=== PATIENT | female | born 1955 | race Caucasian/White ===

== ENCOUNTER → 2016-06-28 | Outpatient (CLI) | payer MEDICARE, MEDICAID ==
[~2016-06-28] MED LIST: /ATOR40TA; /CIPR75TA OR; /PANT40TA; /QUET10TA; ACET30TA PO; ACET65TA; ACIPHEX; ADV250INH INH; ALBU83IN IN; ALBUTEROL INH; ALTA10CA; AMBI10TA; AMBI10TA OR; AMBI10TA PO; AMBIEN10 PO; AMBIEN5 PO; AMBIENCR12 PO; AMERGE PO; AMIT25TA2 OR; AMIT50TA2 OR; AMO500 PO; ASP81; ASPI325T OR; ASPI81TA83 OR; ASTELIN INH; ATOR1TAB18 PO; ATROVENT0.02% INH; AUGXR10 PO; BABY81CH; BACL10TA2 PO; BISA10SU2 RE; CALA120T2 OR; CALA180T; CALC500T49 OR; CALCCHW12 OR; CELEXA20 PO; CENTTAB47 PO; CIPRO500 PO; CLAR5CHW; COMBINATION CREAM TOP; COMBVENT INH; CORE12.5; DARVON-N1 PO; DERMATRAN TOP; DOXY100T OR; DULO1CAP PO; FENT50DI21 TD; FENT75PA TD; FIOR1CAP PO; FLAGYL500 PO; FLECTOR1.3 TOP; FLEXERIL10 PO; FLUO40CA PO; GABA-283 PO; GLUC500T; IBUP800T; IBUP800T OR; IBUP80TA PO; IMIT100T; IMIT100T OR; IMITREX100 PO; INSULANT; KLON1TAB OR; KLONOPIN05 PO; LEVA750T; LEXAPRO10 PO; LEXAPRO20 PO; LIDO5DIS; LIDO5DIS EX; LYRI75CA; LYRICA50 PO; MAXALT10 PO; METF500T PO; METF500T4; MILKSUS OR; MIRALEX OR; MORP15TA4 PO; MOTRIN800 PO; MS C30TA2; MUCINEX; MUCU400T2 OR; MULTIVIT; MULTIVIT OR; MULTIVIT PO; NEUR100C; NEUR300C PO; OXYC10TA97 OR; OXYC40TA19 OR; OYST500T; PAME50CA; PERC10TA17 PO; PERC5TAB8; PERC5TAB8 OR; PERC7.5T12 PO; PERCOCET PO; PRED10TA2 OR; PRED20TA OR; PREG100CA OR; PREG25CA PO; PROZ20CA OR; PROZ40CA; PROZ40CA OR; PROZAC20 PO; PROZAC40 PO; RELPAX PO; ROBA500T PO; ROBA750T4 PO; SENN8.6T5 OR; SIMV40TA2 OR; SOMA350T; SOMA350T PO; SONATA PO; SUMA100T2 PO; TERAZOL3 VAGINALLY; THERGRAN; TIZA4CAP3 PO; TOPAMAX25 PO; TOPI100T; TOPI100T OR; TOPI50TA; TOPI50TA OR; TYLE650T25 PO; ULTRAM50 PO; VICO5TAB; VICODIN PO; VICT18IN SC; VIT D 2000 PO; VITAMIN D2 PO; VITAMIN D50000 UNT; VOLT1GEL; VOLT1GEL EX; VOLT1GEL TD; VYTO10TA5; VYTO10TA5 OR; VYTORIN; VYTORIN PO; VYTORIN40 PO; WELL100T; ZANA4CAP; ZANA4CAP OR; ZANAFLEX4 PO; ZETI10TA OR; ZITH250T; ZITH500T OR; ZOCO40TA; ZOCOR10 PO; [UNRECOGNIZED DRUG - CODE]; [UNRECOGNIZED DRUG - CODE] PO; [UNRECOGNIZED DRUG - CODE] SC; [UNRECOGNIZED DRUG - OTHER] PO; [UNRECOGNIZED DRUG - OTHER] PO; oxycontin PO; zipsor
--- NOTE | 2016-07-16 01:33 | ECWPNPC ---
PATIENT NAME: ISAIAH RDZ : 1955 GENDER: FEMALE VISIT DATE: 06/28/2016 DISCHARGE DATE: 06/28/16 1114 VISIT LOCKED DATE TIME: PHYSICIAN: JORGE GILLESPIE RESOURCE: JORGE GILLESPIE REASON FOR APPOINTMENT 1. POST SIJ HISTORY OF PRESENT ILLNESS HISTORY OF PRESENT ILLNESS: HERE FOR POST PROCEDURE F/U.HAD LEFT SIJ ON 05-31-16.REPORTS ONLY 2 DAYS OF MINIMAL IMPROVEMENT .DESCRIBES GENERALIZED BACK PAIN 5/10 VAS.PAIN IS DESCRIBED CONSTAT=NT ACHING AND SHARP PAIN.PAIN IS AGGREVATED BY PROLONGED SITTING OR WALKING.FINDS FENTANYL 25MCG MARGINALLY EFFECTIVE AT REDUCING PAIN.DENIES SIDE EFFECTS.PATIENT IS ASKING FOR STRONGER PAIN MEDICATION. FALL RISK SCREENING: SCREENING :NO FALLS IN THE PAST YEAR CURRENT MEDICATIONS TAKING PEN NEEDLES 31G X 6 MM MISCELLANEOUS 1 SUBCUTANEOUSLY ONCE A DAY DX:E11.9 TAKING ASPIRIN 81 MG TABLET CHEWABLE 1 TABLET ORALLY ONCE A DAY TAKING DUONEB 0.5-2.5 (3) MG/3ML SOLUTION 3 ML INHALATION EVERY 4 HOURS NEEDED TAKING BLOOD GLUCOSE TEST STRIP ONE TOUCH VERIO GOLD TEST STRIP 1 STRIP DX: 790.21 TWICE A DAY TAKING LANCETS ONE TOUCH ULTRA SOFT LACETS 1 LANCET DX: 790.21 ONCE A DAY TAKING TENS UNIT ELECTRO PADS 1 PAD SET 1 PAD INTRADERMALLY USE NEEDED TAKING MULTIVITAMIN TABLETS 1 TAB(S) ORALLY ONCE A DAY TAKING METFORMIN HCL 500 MG TABLET 1 TABLET ORALLY TWICE A DAY TAKING POTASSIUM CHLORIDE TABLET 2 TABS TWICE DAILY TAKING GABAPENTIN 400 MG CAPSULE 1 CAPSULE ORALLY THREE TIMES A DAY TAKING LIPITOR 80 MG TABLET 1 TABLET ORALLY ONCE A DAY TAKING PROVENTIL HFA 108 (90 BASE) MCG/ACT AEROSOL SOLUTION 2 PUFFS NEEDED INHALATION EVERY 4 HRS TAKING IBUPROFEN 800 MG TABLET 1 TABLET ORALLY THREE TIMES A DAY NEEDED TAKING VICTOZA 18 MG/3ML SOLUTION PEN-INJECTOR INJECT 0.6 MG ONCE DAILY TAKING LYRICA 75 MG CAPSULE 1 CAPSULE ORALLY TWICE A DAY MDD2 TAKING ZOLOFT 50 MG TABLET 1 TABLET ORALLY ONCE A DAY TAKING AMITRIPTYLINE HCL 25 MG TABLET 1 TABLET ORALLY ONCE A DAY AT BEDTIME TAKING FENTANYL 25 MCG/HR PATCH 72 HOUR 1 PATCH TO SKIN TRANSDERMAL 1 PATCH Q 72H = MDD TAKING AMBIEN 10 MG TABLET 1 TABLET AT BEDTIME NEEDED ORALLY ONCE A DAY NOT-TAKING OMEPRAZOLE 40 MG CAPSULE DELAYED RELEASE 1 CAPSULE ORALLY ONCE A DAY MEDICATION LIST REVIEWED AND RECONCILED WITH THE PATIENT PAST MEDICAL HISTORY CERVICAL DJD, 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 2010 CERVICAL MRI WITH MULTILEVEL DJD, C4-C5 BULGE WITH MILD RIGHT NEURAL FORAMINAL NARROWING-11/2010 PERMANENT TOTAL DISABILITY MIGRAINE HEADACHES, COMMON TYPE WITH HISTORY OF HEMIPLEGIA-09/2012 MRI BRAIN C MINIMAL ASTHMA, MILD INTERMITTENT-06/2011 FEV1 1.7L (69%)/RATIO 108% INSOMNIA IMPAIRED FASTING GLUCOSE HYPERTENSION-AUGUST 2008 NORMAL MONICA EXCEPT FOR MODERATE AORTIC VALVE SCLEROSIS, TRACE AR, NORMAL LVEF-ANTECOL/07/2011 [id number] HYPERLIPIDEMIA 2B DEPRESSION CONSTIPATION, CHRONIC OBESITY VITAMIN D DEFICIENCY LUMBAR DJD, 05/2012 MRI C L2-4 BULGES, MINIMAL L4/5 CENTRAL CANAL STENOSIS, NO CHANGE C/W 05/2010 L ADRENAL ADENOMA, 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 FATTY LIVER ALLERGIES FLAGYL: RASH: ALLERGY SOCIAL HISTORY GENERAL: TOBACCO USE ARE YOU A:NONSMOKER LEARNING BARRIERS / SPECIAL NEEDS ORIENTED TO PLAN OF CARE: PATIENT, PAIN MANAGEMENT PATIENT, ORIENTED TO PLAN OF CARE: PATIENT, PAIN MANAGEMENT PATIENT. NEW PATIENT PAIN DIARY TODAY'S VISITNOTES FROM 0-10, WHAT LEVEL IS YOUR PAIN TODAY?0 PAIN CLINIC PFS, CLERGY, PUBLIC HEALTH REFERRALS PFS REFERRAL NEEDED?NO CLERGY REFERRAL NEEDED?NO PUBLIC HEALTH REFERRAL NEEDED?NO WAS THE PROVIDER NOTIFIED OF ANY PERTINENT INFO?NO PFS REFERRAL NEEDED?NO CLERGY REFERRAL NEEDED?NO PUBLIC HEALTH REFERRAL NEEDED?NO WAS THE PROVIDER NOTIFIED OF ANY PERTINENT INFO?NO REVIEW OF SYSTEMS CONSTITUTIONAL: ANY CHANGE IN YOUR MEDICAL CONDITION? NO . CHILLS NO . FEVER NO . INFECTION: DO YOU HAVE NEW INFECTIONS? NO . DO YOU HAVE HISTORY OF MRSA? NO . MUSCULOSKELETAL: ANY NEW PATTERNS OF PAIN OR NUMBNESS? YES . GASTROENTEROLOGY: ANY NEW CHANGE IN BOWEL CONTROL? NO . GENITOURINARY: ANY NEW CHANGE IN BLADDER CONTROL? NO . IS THERE A CHANCE YOU COULD BE ? NO . HEMATOLOGY/LYMPH: DO YOU TAKE ANY BLOOD THINNERS? (FOR EXAMPLE- COUMADIN, PLAVIX, AGGRENOX, PLATEL, PRADAXA, OR XARELTO) NO . WHEN WAS YOUR LAST DOSE? DATE: TIME: . NEUROLOGY: HAVE YOU FALLEN IN THE PAST 6 MONTHS? NO . ANY NEW EXTREMITY NUMBNESS OR WEAKNESS? NO . CARDIOLOGY: DO YOU HAVE A PACEMAKER OR DEFIBRILLATOR? NO . RESPIRATORY: HAVE YOU BEEN SICK IN THE PAST WEEK? NO . FEVER NO . FLU LIKE SYMPTOMS? NO . COUGH NO . INTEGUMENTARY: DO YOU HAVE ANY RASHES OR OPEN SORES? NO . ALLERGIC/IMMUNO: ARE YOU ALLERGIC TO SHELLFISH OR IV DYE? NO . ANY NEW ALLERGIES? NO . PSYCHIATRIC: DO YOU HAVE THOUGHTS OF HURTING YOURSELF OR SOMEONE ELSE? NO . ARE YOU ABUSED, NEGLECTED, OR IN AN UNSAFE ENVIRONMENT? NO . ENDOCRINOLOGY: ARE YOU DIABETIC? NO . OTHER: DO YOU NEED ANY PRESCRIPTIONS? NO . IF YES, PLEASE LIST: ____ . ANY NEW PROBLEMS WITH YOUR MEDICATIONS? NO . WHEN DID YOU LAST EAT? ____ . WHEN DID YOU LAST DRINK? ____ . WHAT DID YOU LAST DRINK? ____ . NAME OF PERSON DRIVING YOU HOME? ____ . DO YOU HAVE ANY OTHER QUESTIONS OR CONCERNS NO . REVIEWED BY: PROVIDER: JORGE VALDES . VITAL SIGNS WT 213.4 LBS, HT 63 IN, BMI 37.80 INDEX, BP 147/82 MM HG, HR 100 /MIN, RR 18 /MIN, TEMP 98.1 F, OXYGEN SAT % 96%, NA INITIALS SC10:28. EXAMINATION GENERAL EXAMINATION: LUNGS:LUNG SOUNDS ARE CLEAR. HEART:HEART RATE REGULAR. MUSCULOSKELETAL:*, MUSCLE STRENGTH TESTING 4/5 RIGHT,3/5 LEFT LOWER EXTREMITIES. PALPATION: POSITIVE FOR PAIN OVER L/S SPINE. POSITIVE FOR PAIN OVER L/S PARSPINALS.SPECIFIC POINT TENDERNESS OVER LEFT LUMBAR FACETS ND LEFT SIJ.. MRI L/S [id number] REVIEWED. 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 WITHOUT [id number] PROCEDURE CODES FA211 ESTABILISHED PATIENT [facility] FACILITY CHARGE G8730 PAIN ASSESS POS TOOL F/U PLAN DOC G8427 DOC MEDS VERIFIED W/PT OR RE FOLLOW UP 4 WEEKS ELECTRONICALLY SIGNED BY LUCIO AVINA ON 07/15/2016 AT 03:15 PM EST DISCLAIMER : THIS IS A VISIT SUMMARY EXTRACTED FROM THE [employer] CHART. IT IS NOT A COPY OF THE [employer] PROGRESS NOTE. MTDD
== END ==
LOC: M PAIN 10:20
PROVIDERS: ATTEND Nurse Practitioner Family
DX: Z09 Encounter for follow-up examination after completed treatment for conditions other than malignant neoplasm (principal); M96.1 Postlaminectomy syndrome, not elsewhere classified; M79.7 Fibromyalgia; M53.3 Sacrococcygeal disorders, not elsewhere classified; M50.221 Other cervical disc displacement at C4-C5 level; G43.909 Migraine, unspecified, not intractable, without status migrainosus; J45.909 Unspecified asthma, uncomplicated; G47.00 Insomnia, unspecified; R73.01 Impaired fasting glucose; I10 Essential (primary) hypertension; E78.5 Hyperlipidemia, unspecified; I35.0 Nonrheumatic aortic (valve) stenosis; F32.9 Major depressive disorder, single episode, unspecified; K59.09 Other constipation; E66.9 Obesity, unspecified; Z68.37 Body mass index [BMI] 37.0-37.9, adult; E55.9 Vitamin D deficiency, unspecified; M51.26 Other intervertebral disc displacement, lumbar region; K76.0 Fatty (change of) liver, not elsewhere classified; Z88.1 Allergy status to other antibiotic agents; Z79.891 Long term (current) use of opiate analgesic; Z79.82 Long term (current) use of aspirin; Z79.84 Long term (current) use of oral hypoglycemic drugs; Z79.1 Long term (current) use of non-steroidal anti-inflammatories (NSAID); Z79.899 Other long term (current) drug therapy

== ENCOUNTER → 2016-07-03 | Outpatient (CLI) | payer MEDICARE, MEDICAID ==
--- NOTE | 2016-07-03 14:39 | REP ---
LEFT HIP: Two views. HISTORY: Post laminectomy syndrome. FINDINGS: AP and frog-leg views of the left hip demonstrate smooth rounded femoral head and intact hip joint space. Periarticular soft tissues are unremarkable. There is some greater trochanteric tendon insertion site spurring. No other abnormality. IMPRESSION: Greater trochanteric spurring. Otherwise negative left hip. Signed by Rene Stern MD 07/03/2016 08:13 P
== END | disposition home or self-care (01) ==
LOC: M RAD 11:31 → M LAB 11:31
PROVIDERS: ATTEND Nurse Practitioner Family
DX: M96.1 Postlaminectomy syndrome, not elsewhere classified (principal); M25.552 Pain in left hip

== ENCOUNTER → 2016-07-26 | Outpatient (CLI) | payer MEDICARE, MEDICAID ==
--- NOTE | 2016-07-27 00:22 | ECWPNPC ---
PATIENT NAME: ISAIAH RDZ : 1955 GENDER: FEMALE VISIT DATE: 07/26/2016 DISCHARGE DATE: 07/26/16 1002 VISIT LOCKED DATE TIME: PHYSICIAN: JORGE GILLESPIE RESOURCE: JORGE GILLESPIE REASON FOR APPOINTMENT 1. BACK HISTORY OF PRESENT ILLNESS HISTORY OF PRESENT ILLNESS: HERE FOR F/U.HAD LEFT SIJ ON 05-31-16.REPORTED ONLY 2 DAYS OF MINIMAL IMPROVEMENT .DESCRIBES GENERALIZED BACK PAIN 5/10 VAS.PAIN IS DESCRIBED CONSTAT=NT ACHING AND SHARP PAIN.PAIN IS AGGREVATED BY PROLONGED SITTING OR WALKING.INCREASED FENTANYL TO 50MCG LAST MOS. AND PATIENT COMPLAINED OF SEVERE NAUSEA . PAIN THE PATIENT DESCRIBES THE PAIN... THE PATIENT DESCRIBES THE PAIN... FALL RISK SCREENING: SCREENING :NO FALLS IN THE PAST YEAR CURRENT MEDICATIONS TAKING PEN NEEDLES 31G X 6 MM MISCELLANEOUS 1 SUBCUTANEOUSLY ONCE A DAY DX:E11.9 TAKING ASPIRIN 81 MG TABLET CHEWABLE 1 TABLET ORALLY ONCE A DAY TAKING DUONEB 0.5-2.5 (3) MG/3ML SOLUTION 3 ML INHALATION EVERY 4 HOURS NEEDED TAKING BLOOD GLUCOSE TEST STRIP ONE TOUCH VERIO GOLD TEST STRIP 1 STRIP DX: 790.21 TWICE A DAY TAKING LANCETS ONE TOUCH ULTRA SOFT LACETS 1 LANCET DX: 790.21 ONCE A DAY TAKING TENS UNIT ELECTRO PADS 1 PAD SET 1 PAD INTRADERMALLY USE NEEDED TAKING MULTIVITAMIN TABLETS 1 TAB(S) ORALLY ONCE A DAY TAKING METFORMIN HCL 500 MG TABLET 1 TABLET ORALLY TWICE A DAY TAKING POTASSIUM CHLORIDE TABLET 2 TABS TWICE DAILY TAKING GABAPENTIN 400 MG CAPSULE 1 CAPSULE ORALLY DAILY TAKING LIPITOR 80 MG TABLET 1 TABLET ORALLY ONCE A DAY TAKING IBUPROFEN 800 MG TABLET 1 TABLET ORALLY THREE TIMES A DAY NEEDED TAKING ZOLOFT 50 MG TABLET 1 TABLET ORALLY ONCE A DAY TAKING LYRICA 75 MG CAPSULE 1 CAPSULE ORALLY TWICE A DAY MDD2 TAKING AMITRIPTYLINE HCL 25 MG TABLET 1 TABLET ORALLY ONCE A DAY AT BEDTIME TAKING FENTANYL 50 MCG/HR PATCH 72 HOUR 1 PATCH TO SKIN TRANSDERMAL 1 PATCH Q 72H = MDD TAKING VICTOZA 18 MG/3ML SOLUTION PEN-INJECTOR INJECT 0.6 MG ONCE DAILY SUBCUTANEOUS ONCE A DAY TAKING PROVENTIL HFA 108 (90 BASE) MCG/ACT AEROSOL SOLUTION 2 PUFFS NEEDED INHALATION EVERY 4 HRS TAKING AMBIEN 10 MG TABLET 1 TABLET AT BEDTIME NEEDED ORALLY ONCE A DAY NOT-TAKING OMEPRAZOLE 40 MG CAPSULE DELAYED RELEASE 1 CAPSULE ORALLY ONCE A DAY MEDICATION LIST REVIEWED AND RECONCILED WITH THE PATIENT PAST MEDICAL HISTORY CERVICAL DJD, 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 2010 CERVICAL MRI WITH MULTILEVEL DJD, C4-C5 BULGE WITH MILD RIGHT NEURAL FORAMINAL NARROWING-11/2010 PERMANENT TOTAL DISABILITY MIGRAINE HEADACHES, COMMON TYPE WITH HISTORY OF HEMIPLEGIA-09/2012 MRI BRAIN C MINIMAL ASTHMA, MILD INTERMITTENT-06/2011 FEV1 1.7L (69%)/RATIO 108% INSOMNIA IMPAIRED FASTING GLUCOSE HYPERTENSION-AUGUST 2008 NORMAL MONICA EXCEPT FOR MODERATE AORTIC VALVE SCLEROSIS, TRACE AR, NORMAL LVEF-ANTECOL/07/2011 [id number] HYPERLIPIDEMIA 2B DEPRESSION CONSTIPATION, CHRONIC OBESITY VITAMIN D DEFICIENCY LUMBAR DJD, 05/2012 MRI C L2-4 BULGES, MINIMAL L4/5 CENTRAL CANAL STENOSIS, NO CHANGE C/W 05/2010 L ADRENAL ADENOMA, 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 FATTY LIVER ALLERGIES FLAGYL: RASH: ALLERGY SOCIAL HISTORY GENERAL: TOBACCO USE ARE YOU A:NONSMOKER LEARNING BARRIERS / SPECIAL NEEDS ORIENTED TO PLAN OF CARE: PATIENT, PAIN MANAGEMENT PATIENT, ORIENTED TO PLAN OF CARE: PATIENT, PAIN MANAGEMENT PATIENT. NEW PATIENT PAIN DIARY TODAY'S VISITNOTES FROM 0-10, WHAT LEVEL IS YOUR PAIN TODAY?0 PAIN CLINIC PFS, CLERGY, PUBLIC HEALTH REFERRALS PFS REFERRAL NEEDED?NO CLERGY REFERRAL NEEDED?NO PUBLIC HEALTH REFERRAL NEEDED?NO WAS THE PROVIDER NOTIFIED OF ANY PERTINENT INFO?NO PFS REFERRAL NEEDED?NO CLERGY REFERRAL NEEDED?NO PUBLIC HEALTH REFERRAL NEEDED?NO WAS THE PROVIDER NOTIFIED OF ANY PERTINENT INFO?NO REVIEW OF SYSTEMS CONSTITUTIONAL: ANY CHANGE IN YOUR MEDICAL CONDITION? NO . CHILLS NO . FEVER NO . INFECTION: DO YOU HAVE NEW INFECTIONS? NO . DO YOU HAVE HISTORY OF MRSA? NO . MUSCULOSKELETAL: ANY NEW PATTERNS OF PAIN OR NUMBNESS? YES PT REPORTS EPISODE OF SEVERE PAIN 2/6, LASTING ALL DAY, IN LEFT BUTTOCKS, LOW BACK AND DOWN LEFT LEG. PAIN WAS SO SEVERE, PT STATES SHE HAD NAUSEA AND VOMITING FROM IT. . GASTROENTEROLOGY: ANY NEW CHANGE IN BOWEL CONTROL? NO . GENITOURINARY: ANY NEW CHANGE IN BLADDER CONTROL? NO . IS THERE A CHANCE YOU COULD BE ? NO . HEMATOLOGY/LYMPH: DO YOU TAKE ANY BLOOD THINNERS? (FOR EXAMPLE- COUMADIN, PLAVIX, AGGRENOX, PLATEL, PRADAXA, OR XARELTO) NO . WHEN WAS YOUR LAST DOSE? DATE: TIME: . NEUROLOGY: HAVE YOU FALLEN IN THE PAST 6 MONTHS? NO . ANY NEW EXTREMITY NUMBNESS OR WEAKNESS? NO . CARDIOLOGY: DO YOU HAVE A PACEMAKER OR DEFIBRILLATOR? NO . RESPIRATORY: HAVE YOU BEEN SICK IN THE PAST WEEK? NO . FEVER NO . FLU LIKE SYMPTOMS? NO . COUGH NO . INTEGUMENTARY: DO YOU HAVE ANY RASHES OR OPEN SORES? NO . ALLERGIC/IMMUNO: ARE YOU ALLERGIC TO SHELLFISH OR IV DYE? NO . ANY NEW ALLERGIES? NO . PSYCHIATRIC: DO YOU HAVE THOUGHTS OF HURTING YOURSELF OR SOMEONE ELSE? NO . ARE YOU ABUSED, NEGLECTED, OR IN AN UNSAFE ENVIRONMENT? NO . ENDOCRINOLOGY: ARE YOU DIABETIC? YES . OTHER: DO YOU NEED ANY PRESCRIPTIONS? YES . IF YES, PLEASE LIST: ____AMITRIPTYLINE . ANY NEW PROBLEMS WITH YOUR MEDICATIONS? NO . WHEN DID YOU LAST EAT? ____ . WHEN DID YOU LAST DRINK? ____ . WHAT DID YOU LAST DRINK? ____ . NAME OF PERSON DRIVING YOU HOME? ____ . DO YOU HAVE ANY OTHER QUESTIONS OR CONCERNS NO . REVIEWED BY: PROVIDER: JORGE VALDES . VITAL SIGNS WT 210.6 LBS, HT 63 IN, BMI 37.30 INDEX, BP 149/84 MM HG, HR 103 /MIN, RR 18 /MIN, TEMP 97.5 F, OXYGEN SAT % 95%, SAFE IN ENV? (Y/N) YES, NA INITIALS [place] 09:12, REVIEWED BY: LEONORA. EXAMINATION GENERAL EXAMINATION: LUNGS:LUNG SOUNDS ARE CLEAR. HEART:HEART RATE REGULAR. MUSCULOSKELETAL:*, MUSCLE STRENGTH TESTING 4/5 RIGHT,3/5 LEFT LOWER EXTREMITIES. PALPATION: POSITIVE FOR PAIN OVER L/S SPINE. POSITIVE FOR PAIN OVER L/S PARSPINALS.SPECIFIC POINT TENDERNESS OVER LEFT LUMBAR FACETS ND LEFT SIJ.. MRI L/S [id number] REVIEWED. 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 - M53.3 CHRONIC PRESCRIPTION OPIATE USE - Z79.891 TREATMENT POST LAMINECTOMY SYNDROME REFILL LYRICA CAPSULE, 100 MG, 1 CAPSULE, ORALLY, TWICE A DAY MDD2, 30 DAY(S), 60, REFILLS 3 REFILL AMITRIPTYLINE HCL TABLET, 25 MG, 1 TABLET, ORALLY, ONCE A DAY AT BEDTIME, 30 DAY(S), 30, REFILLS 3 REFILL FENTANYL PATCH 72 HOUR, 25 MCG/HR, 1 PATCH TO SKIN, TRANSDERMAL, 1 PATCH Q 72H = MDD, 30 DAY(S), 10, REFILLS 0 [facility]:LEFT HIP PAIN PROCEDURE CODES FA211 ESTABILISHED PATIENT [facility] CHARGE G8730 PAIN ASSESS POS TOOL F/U PLAN DOC G8427 DOC MEDS VERIFIED W/PT OR RE FOLLOW UP 4 WEEKS ELECTRONICALLY SIGNED BY LUCIO AVINA ON 07/26/2016 AT 12:01 PM EST DISCLAIMER : THIS IS A VISIT SUMMARY EXTRACTED FROM THE [employer] CHART. IT IS NOT A COPY OF THE [employer] PROGRESS NOTE. MICHELLE
== END ==
LOC: M PAIN 09:00
PROVIDERS: ATTEND Nurse Practitioner Family
DX: Z09 Encounter for follow-up examination after completed treatment for conditions other than malignant neoplasm (principal); G89.29 Other chronic pain; M96.1 Postlaminectomy syndrome, not elsewhere classified; M79.7 Fibromyalgia; M53.3 Sacrococcygeal disorders, not elsewhere classified; M50.221 Other cervical disc displacement at C4-C5 level; G43.909 Migraine, unspecified, not intractable, without status migrainosus; J45.909 Unspecified asthma, uncomplicated; R73.01 Impaired fasting glucose; I10 Essential (primary) hypertension; E78.5 Hyperlipidemia, unspecified; F32.9 Major depressive disorder, single episode, unspecified; K59.09 Other constipation; E55.9 Vitamin D deficiency, unspecified; M51.26 Other intervertebral disc displacement, lumbar region; E66.9 Obesity, unspecified; Z68.37 Body mass index [BMI] 37.0-37.9, adult; Z88.1 Allergy status to other antibiotic agents; Z79.82 Long term (current) use of aspirin; Z79.84 Long term (current) use of oral hypoglycemic drugs; Z79.1 Long term (current) use of non-steroidal anti-inflammatories (NSAID); Z79.891 Long term (current) use of opiate analgesic; Z79.899 Other long term (current) drug therapy

== ENCOUNTER → 2016-08-02 | Outpatient (CLI) | payer MEDICARE, MEDICAID ==
--- NOTE | 2016-08-02 10:08 | REP ---
CHEST, TWO VIEWS: HISTORY: Acute bronchitis. COMPARISON: 02/07/2016. Linear density is present in the right lower lobe consistent with scar. Linear density is present in the left lower lobe consistent with atelectasis or scar. A 5 mm parenchymal density is present in the left mid lung. The heart is normal in size. The pulmonary vasculature is normal in appearance. Degenerative change is present in the thoracic spine. IMPRESSION: 1. Right lower lobe scar. 2. Left lower lobe atelectasis or scar. 3. There is a 5 mm parenchymal density in the left midlung. CT of the chest may be helpful for further evaluation. Signed by Antoine Sung MD 08/02/2016 10:09 A
== END ==
LOC: M ADAMS 09:10
PROVIDERS: ATTEND Physician Assistant Medical
DX: J20.9 Acute bronchitis, unspecified (principal); J98.4 Other disorders of lung
CPT/HCPCS: 71020; 87804; G0463

== ENCOUNTER → 2016-08-16 | Outpatient (REF) | payer MEDICARE, MEDICAID ==
[2016-08-16 13:21] LABS: BLOOD UREA NITROGEN 26 MG/DL (7-18); CREATININE FOR GFR 0.68 MG/DL (0.55-1.02); GLOMERULAR FILTRATION RATE > 60.0 (>45)
== END ==
LOC: M SFHCADAM 08:06
PROVIDERS: ATTEND Physician Assistant Medical
DX: N18.3 Chronic kidney disease, stage 3 (moderate) (principal); E11.9 Type 2 diabetes mellitus without complications

== ENCOUNTER → 2016-08-21 | Outpatient (CLI) | payer MEDICAID, MEDICARE ==
[~2016-08-21] MED LIST changes: +ISOVUE-370 76% 100ML VIAL (Q9967) As Ordered ONE
--- NOTE | 2016-08-21 17:13 | REP ---
CT study of the chest with IV contrast: History: COPD. Comparison chest CT study is from 08/25/2008. CT contrast dose: 75 mL of Isovue-[address] findings: There is a zone of linear fibrosis visible in the left lower lobe. This is improved when compared with the pleuroparenchymal changes seen in this region of the left base on the [address] study. There is similar linear fibrosis in the right middle lobe also improved from prior study. No pleural or pericardial effusion is seen. There is no evidence of hilar or mediastinal mass or adenopathy. There is moderate calcification in the left coronary artery distribution. No mediastinal mass is seen. No other vascular abnormality is observed. There is mild diffuse fatty infiltration of the liver. No adrenal lesion is seen. In the left adrenal, there is a small homogeneously fat density nodule measuring 2.1 cm in greatest diameter consistent with a left adrenal lipoma or myelolipoma. This benign lesion is visible in retrospect on the 2008 prior study and is unchanged. The visualized upper abdominal structures are otherwise unremarkable. Lung window settings show no other abnormality. No pulmonary nodule or mass lesion is seen. Impression: Bibasilar linear fibrotic changes. These are less pronounced than on the [address] study. Otherwise no acute disease. Mild fatty infiltration of the liver and left adrenal lipoma are noted incidentally. Signed by Rene Stern MD 08/21/2016 05:45 P
== END ==
LOC: M RAD 13:43
PROVIDERS: ATTEND Physician Assistant Medical
DX: J44.9 Chronic obstructive pulmonary disease, unspecified (principal); K76.0 Fatty (change of) liver, not elsewhere classified; D17.9 Benign lipomatous neoplasm, unspecified
CPT/HCPCS: 71260; Q9967

== ENCOUNTER → 2016-08-23 | Outpatient (CLI) | payer MEDICARE, MEDICAID ==
[~2016-08-23] MED LIST changes: -ISOVUE-370 76% 100ML VIAL (Q9967) As Ordered ONE
--- NOTE | 2016-08-24 00:45 | ECWPNPC ---
PATIENT NAME: ISAIAH RDZ : 1955 GENDER: FEMALE VISIT DATE: 08/23/2016 DISCHARGE DATE: 08/23/16 1007 VISIT LOCKED DATE TIME: PHYSICIAN: JORGE GILLESPIE RESOURCE: JORGE GILLESPIE REASON FOR APPOINTMENT 1. BACK HISTORY OF PRESENT ILLNESS HISTORY OF PRESENT ILLNESS: HERE FOR F/U.HAD LEFT SIJ ON 05-31-16.REPORTED ONLY 2 DAYS OF MINIMAL IMPROVEMENT .DESCRIBES GENERALIZED BACK PAIN 5/10 VAS.PAIN IS DESCRIBED CONSTAT=NT ACHING AND SHARP PAIN.PAIN IS AGGREVATED BY PROLONGED SITTING OR WALKING.INCREASED FENTANYL TO 50MCG LAST MOS. AND PATIENT COMPLAINED OF SEVERE NAUSEA .CHIEF AREA OF PAIN IS NECK AND LOW BACK.CURRENTLY BEING EVALUATED FOR CHEST PAIN BY DR. ROBERTS AND PRIMARY CARE.HAD STRESS TEST THIS PAST WEEK.SCHEDULED FOR CAT SCAN OF CHEST. PAIN THE PATIENT DESCRIBES THE PAIN... THE PATIENT DESCRIBES THE PAIN... THE PATIENT DESCRIBES THE PAIN... FALL RISK SCREENING: SCREENING :NO FALLS IN THE PAST YEAR CURRENT MEDICATIONS TAKING PEN NEEDLES 31G X 6 MM MISCELLANEOUS 1 SUBCUTANEOUSLY ONCE A DAY DX:E11.9 TAKING ASPIRIN 81 MG TABLET CHEWABLE 1 TABLET ORALLY ONCE A DAY TAKING DUONEB 0.5-2.5 (3) MG/3ML SOLUTION 3 ML INHALATION EVERY 4 HOURS NEEDED TAKING BLOOD GLUCOSE TEST STRIP ONE TOUCH VERIO GOLD TEST STRIP 1 STRIP DX: 790.21 TWICE A DAY TAKING LANCETS ONE TOUCH ULTRA SOFT LACETS 1 LANCET DX: 790.21 ONCE A DAY TAKING TENS UNIT ELECTRO PADS 1 PAD SET 1 PAD INTRADERMALLY USE NEEDED TAKING MULTIVITAMIN TABLETS 1 TAB(S) ORALLY ONCE A DAY TAKING POTASSIUM CHLORIDE TABLET 2 TABS TWICE DAILY TAKING GABAPENTIN 100 MG CAPSULE 1 CAPSULE ORALLY BID TAKING LIPITOR 80 MG TABLET 1 TABLET ORALLY ONCE A DAY TAKING IBUPROFEN 800 MG TABLET 1 TABLET ORALLY THREE TIMES A DAY NEEDED TAKING ZOLOFT 50 MG TABLET 1 TABLET ORALLY ONCE A DAY TAKING VICTOZA 18 MG/3ML SOLUTION PEN-INJECTOR INJECT 0.6 MG ONCE DAILY SUBCUTANEOUS ONCE A DAY TAKING LYRICA 100 MG CAPSULE 1 CAPSULE ORALLY TWICE A DAY MDD2 TAKING AMITRIPTYLINE HCL 25 MG TABLET 1 TABLET ORALLY ONCE A DAY AT BEDTIME TAKING FENTANYL 25 MCG/HR PATCH 72 HOUR 1 PATCH TO SKIN TRANSDERMAL 1 PATCH Q 72H = MDD TAKING E-Z SPACER - DEVICE DIRECTED _ DAILY TAKING PROVENTIL HFA 108 (90 BASE) MCG/ACT AEROSOL SOLUTION 2 PUFFS NEEDED INHALATION EVERY 4 HRS TAKING METFORMIN HCL 500 MG TABLET 1 TABLET ORALLY TWICE A DAY TAKING AMBIEN 10 MG TABLET 1 TABLET AT BEDTIME NEEDED ORALLY ONCE A DAY NOT-TAKING DOXYCYCLINE HYCLATE 100 MG CAPSULE 1 CAPSULE ORALLY EVERY 12 HRS NOT-TAKING OMEPRAZOLE 40 MG CAPSULE DELAYED RELEASE 1 CAPSULE ORALLY ONCE A DAY MEDICATION LIST REVIEWED AND RECONCILED WITH THE PATIENT PAST MEDICAL HISTORY CERVICAL DJD, 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 2010 CERVICAL MRI WITH MULTILEVEL DJD, C4-C5 BULGE WITH MILD RIGHT NEURAL FORAMINAL NARROWING-11/2010 PERMANENT TOTAL DISABILITY MIGRAINE HEADACHES, COMMON TYPE WITH HISTORY OF HEMIPLEGIA-09/2012 MRI BRAIN C MINIMAL ASTHMA, MILD INTERMITTENT-06/2011 FEV1 1.7L (69%)/RATIO 108% INSOMNIA IMPAIRED FASTING GLUCOSE HYPERTENSION-AUGUST 2008 NORMAL MONICA EXCEPT FOR MODERATE AORTIC VALVE SCLEROSIS, TRACE AR, NORMAL LVEF-ANTECOL/07/2011 [id number] HYPERLIPIDEMIA 2B DEPRESSION CONSTIPATION, CHRONIC OBESITY VITAMIN D DEFICIENCY LUMBAR DJD, 05/2012 MRI C L2-4 BULGES, MINIMAL L4/5 CENTRAL CANAL STENOSIS, NO CHANGE C/W 05/2010 L ADRENAL ADENOMA, 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 FATTY LIVER ALLERGIES FLAGYL: RASH: ALLERGY SOCIAL HISTORY GENERAL: TOBACCO USE ARE YOU A:NONSMOKER LEARNING BARRIERS / SPECIAL NEEDS ORIENTED TO PLAN OF CARE: PATIENT, PAIN MANAGEMENT PATIENT, ORIENTED TO PLAN OF CARE: PATIENT, PAIN MANAGEMENT PATIENT. NEW PATIENT PAIN DIARY TODAY'S VISITNOTES FROM 0-10, WHAT LEVEL IS YOUR PAIN TODAY?0 PAIN CLINIC PFS, CLERGY, PUBLIC HEALTH REFERRALS PFS REFERRAL NEEDED?NO CLERGY REFERRAL NEEDED?NO PUBLIC HEALTH REFERRAL NEEDED?NO WAS THE PROVIDER NOTIFIED OF ANY PERTINENT INFO?NO PFS REFERRAL NEEDED?NO CLERGY REFERRAL NEEDED?NO PUBLIC HEALTH REFERRAL NEEDED?NO WAS THE PROVIDER NOTIFIED OF ANY PERTINENT INFO?NO REVIEW OF SYSTEMS CONSTITUTIONAL: ANY CHANGE IN YOUR MEDICAL CONDITION? NO . CHILLS NO . FEVER NO . INFECTION: DO YOU HAVE NEW INFECTIONS? NO . DO YOU HAVE HISTORY OF MRSA? NO . MUSCULOSKELETAL: ANY NEW PATTERNS OF PAIN OR NUMBNESS? YES NECK IS SO SORE, HUNCHED OVER STATES IT IS RED AND SWOLLEN . GASTROENTEROLOGY: ANY NEW CHANGE IN BOWEL CONTROL? NO . GENITOURINARY: ANY NEW CHANGE IN BLADDER CONTROL? NO . IS THERE A CHANCE YOU COULD BE ? NO . HEMATOLOGY/LYMPH: DO YOU TAKE ANY BLOOD THINNERS? (FOR EXAMPLE- COUMADIN, PLAVIX, AGGRENOX, PLATEL, PRADAXA, OR XARELTO) NO . WHEN WAS YOUR LAST DOSE? DATE: TIME: . NEUROLOGY: HAVE YOU FALLEN IN THE PAST 6 MONTHS? NO . ANY NEW EXTREMITY NUMBNESS OR WEAKNESS? NO . CARDIOLOGY: DO YOU HAVE A PACEMAKER OR DEFIBRILLATOR? NO . RESPIRATORY: HAVE YOU BEEN SICK IN THE PAST WEEK? NO . FEVER NO . FLU LIKE SYMPTOMS? NO . COUGH NO . INTEGUMENTARY: DO YOU HAVE ANY RASHES OR OPEN SORES? NO . ALLERGIC/IMMUNO: ARE YOU ALLERGIC TO SHELLFISH OR IV DYE? NO . ANY NEW ALLERGIES? NO . PSYCHIATRIC: DO YOU HAVE THOUGHTS OF HURTING YOURSELF OR SOMEONE ELSE? NO . ARE YOU ABUSED, NEGLECTED, OR IN AN UNSAFE ENVIRONMENT? NO . ENDOCRINOLOGY: ARE YOU DIABETIC? YES . OTHER: DO YOU NEED ANY PRESCRIPTIONS? NO . IF YES, PLEASE LIST: ____ . ANY NEW PROBLEMS WITH YOUR MEDICATIONS? NO . WHEN DID YOU LAST EAT? ____ . WHEN DID YOU LAST DRINK? ____ . WHAT DID YOU LAST DRINK? ____ . NAME OF PERSON DRIVING YOU HOME? ____ . DO YOU HAVE ANY OTHER QUESTIONS OR CONCERNS YES PT IS INTERESTED IN DORSAL COLUMN STIMULATOR . REVIEWED BY: PROVIDER: JORGE VALDES . VITAL SIGNS WT 216 LBS, HT 63 IN, BMI 38.26 INDEX, BP 137/74 MM HG, HR 95 /MIN, RR 16 /MIN, TEMP 98.7 F, OXYGEN SAT % 93%, NA INITIALS SC 09:30, REVIEWED BY: KG. EXAMINATION GENERAL EXAMINATION: LUNGS:LUNG SOUNDS ARE CLEAR. HEART:HEART RATE REGULAR. MUSCULOSKELETAL:*, MUSCLE STRENGTH TESTING 4/5 RIGHT,3/5 LEFT LOWER EXTREMITIES. PALPATION: POSITIVE FOR PAIN OVER L/S SPINE. POSITIVE FOR PAIN OVER L/S PARSPINALS.SPECIFIC POINT TENDERNESS OVER LEFT LUMBAR FACETS ND LEFT SIJ.. MRI L/S [id number] REVIEWED. 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 - M53.3 CHRONIC PRESCRIPTION OPIATE USE - Z79.891 TREATMENT POST LAMINECTOMY SYNDROME CONTINUE GABAPENTIN CAPSULE, 100 MG, 1 CAPSULE, ORALLY, BID CONTINUE IBUPROFEN TABLET, 800 MG, 1 TABLET, ORALLY, THREE TIMES A DAY NEEDED REFILL FENTANYL PATCH 72 HOUR, 25 MCG/HR, 1 PATCH TO SKIN, TRANSDERMAL, 1 PATCH Q 72H = MDD, 30 DAY(S), 10, REFILLS 0 CONTINUE LYRICA CAPSULE, 100 MG, 1 CAPSULE, ORALLY, TWICE A DAY MDD2 CONTINUE AMITRIPTYLINE HCL TABLET, 25 MG, 1 TABLET, ORALLY, ONCE A DAY AT BEDTIME PROCEDURE CODES FA211 ESTABILISHED PATIENT [facility] CHARGE DISPOSITION & COMMUNICATION FOLLOW UP 4 WEEKS ELECTRONICALLY SIGNED BY LUCIO AVINA ON 08/23/2016 AT 10:08 AM EST DISCLAIMER : THIS IS A VISIT SUMMARY EXTRACTED FROM THE [facility] CHART. IT IS NOT A COPY OF THE [facility] PROGRESS NOTE. MTDD
== END | disposition home or self-care (01) ==
LOC: M PAIN 09:20
PROVIDERS: ATTEND Nurse Practitioner Family
DX: Z09 Encounter for follow-up examination after completed treatment for conditions other than malignant neoplasm (principal); G89.29 Other chronic pain; M96.1 Postlaminectomy syndrome, not elsewhere classified; M79.7 Fibromyalgia; M53.3 Sacrococcygeal disorders, not elsewhere classified; I10 Essential (primary) hypertension; E11.9 Type 2 diabetes mellitus without complications; J45.909 Unspecified asthma, uncomplicated; G47.30 Sleep apnea, unspecified; M50.320 Other cervical disc degeneration, mid-cervical region, unspecified level; M46.1 Sacroiliitis, not elsewhere classified; Z79.899 Other long term (current) drug therapy; Z79.82 Long term (current) use of aspirin; Z79.84 Long term (current) use of oral hypoglycemic drugs; Z88.1 Allergy status to other antibiotic agents

== ENCOUNTER → 2016-10-29 | Outpatient (CLI) | payer MEDICARE, MEDICAID ==
--- NOTE | 2016-11-19 01:55 | ECWPNPC ---
PATIENT NAME: ISAIAH RDZ : 1955 GENDER: FEMALE VISIT DATE: 10/29/2016 DISCHARGE DATE: 10/29/16 1119 VISIT LOCKED DATE TIME: PHYSICIAN: JORGE GILLESPIE RESOURCE: JORGE GILLESPIE REASON FOR APPOINTMENT 1. BACK HISTORY OF PRESENT ILLNESS HISTORY OF PRESENT ILLNESS: HERE FOR F/U.HAD LEFT SIJ ON 05-31-16.REPORTED ONLY 2 DAYS OF MINIMAL IMPROVEMENT .DESCRIBES GENERALIZED BACK PAIN 6/10 VAS.PAIN IS DESCRIBED CONSTAT=NT ACHING AND SHARP PAIN.PAIN IS AGGREVATED BY PROLONGED SITTING OR WALKING.INCREASED FENTANYL TO 50MCG A FEW MONTHS AGO AND PATIENT COMPLAINED OF SEVERE NAUSEA .CHIEF AREA OF PAIN IS NECK AND LOW BACK.RECENT CARDIAC WORK-UP WITH DR. ALEJANDRA VUONG. PAIN THE PATIENT DESCRIBES THE PAIN... THE PATIENT DESCRIBES THE PAIN... THE PATIENT DESCRIBES THE PAIN... THE PATIENT DESCRIBES THE PAIN... THE PATIENT DESCRIBES THE PAIN... FALL RISK SCREENING: SCREENING :NO FALLS IN THE PAST YEAR CURRENT MEDICATIONS TAKING ASPIRIN 81 MG TABLET CHEWABLE 1 TABLET ORALLY ONCE A DAY TAKING DUONEB 0.5-2.5 (3) MG/3ML SOLUTION 3 ML INHALATION EVERY 4 HOURS NEEDED TAKING BLOOD GLUCOSE TEST STRIP ONE TOUCH VERIO GOLD TEST STRIP 1 STRIP DX: 790.21 TWICE A DAY TAKING LANCETS ONE TOUCH ULTRA SOFT LACETS 1 LANCET DX: 790.21 ONCE A DAY TAKING TENS UNIT ELECTRO PADS 1 PAD SET 1 PAD INTRADERMALLY USE NEEDED TAKING MULTIVITAMIN TABLETS 1 TAB(S) ORALLY ONCE A DAY TAKING POTASSIUM CHLORIDE TABLET 2 TABS TWICE DAILY TAKING LIPITOR 80 MG TABLET 1 TABLET ORALLY ONCE A DAY TAKING ZOLOFT 50 MG TABLET 1 TABLET ORALLY ONCE A DAY TAKING VICTOZA 18 MG/3ML SOLUTION PEN-INJECTOR INJECT 0.6 MG ONCE DAILY SUBCUTANEOUS ONCE A DAY TAKING E-Z SPACER - DEVICE DIRECTED _ DAILY TAKING PROVENTIL HFA 108 (90 BASE) MCG/ACT AEROSOL SOLUTION 2 PUFFS NEEDED INHALATION EVERY 4 HRS TAKING METFORMIN HCL 500 MG TABLET 1 TABLET ORALLY TWICE A DAY TAKING IBUPROFEN 800 MG TABLET 1 TABLET ORALLY THREE TIMES A DAY NEEDED TAKING AMITRIPTYLINE HCL 25 MG TABLET 1 TABLET ORALLY ONCE A DAY AT BEDTIME TAKING PEN NEEDLES 31G X 6 MM MISCELLANEOUS 1 SUBCUTANEOUSLY ONCE A DAY DX:E11.9 TAKING LYRICA 100 MG CAPSULE 1 CAPSULE ORALLY TWICE A DAY MDD2 TAKING GABAPENTIN 100 MG CAPSULE 1 CAPSULE ORALLY BID TAKING AMBIEN 10 MG TABLET 1 TABLET AT BEDTIME NEEDED ORALLY ONCE A DAY TAKING FENTANYL 25 MCG/HR PATCH 72 HOUR 1 PATCH TO SKIN TRANSDERMAL 1 PATCH Q 72H = MDD NOT-TAKING DOXYCYCLINE HYCLATE 100 MG CAPSULE 1 CAPSULE ORALLY EVERY 12 HRS NOT-TAKING OMEPRAZOLE 40 MG CAPSULE DELAYED RELEASE 1 CAPSULE ORALLY ONCE A DAY MEDICATION LIST REVIEWED AND RECONCILED WITH THE PATIENT PAST MEDICAL HISTORY CERVICAL DJD, 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 2010 CERVICAL MRI WITH MULTILEVEL DJD, C4-C5 BULGE WITH MILD RIGHT NEURAL FORAMINAL NARROWING-11/2010 PERMANENT TOTAL DISABILITY MIGRAINE HEADACHES, COMMON TYPE WITH HISTORY OF HEMIPLEGIA-09/2012 MRI BRAIN C MINIMAL ASTHMA, MILD INTERMITTENT-06/2011 FEV1 1.7L (69%)/RATIO 108% INSOMNIA IMPAIRED FASTING GLUCOSE HYPERTENSION-AUGUST 2008 NORMAL MONICA EXCEPT FOR MODERATE AORTIC VALVE SCLEROSIS, TRACE AR, NORMAL LVEF-ANTECOL/07/2011 [id number] HYPERLIPIDEMIA 2B DEPRESSION CONSTIPATION, CHRONIC OBESITY VITAMIN D DEFICIENCY LUMBAR DJD, 05/2012 MRI C L2-4 BULGES, MINIMAL L4/5 CENTRAL CANAL STENOSIS, NO CHANGE C/W 05/2010 L ADRENAL ADENOMA, 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 FATTY LIVER ALLERGIES FLAGYL: RASH: ALLERGY REVIEW OF SYSTEMS CONSTITUTIONAL: ANY CHANGE IN YOUR MEDICAL CONDITION? NO . CHILLS NO . FEVER NO . INFECTION: DO YOU HAVE NEW INFECTIONS? NO . DO YOU HAVE HISTORY OF MRSA? NO . MUSCULOSKELETAL: ANY NEW PATTERNS OF PAIN OR NUMBNESS? YES, NECK IS HURTING MORE . GASTROENTEROLOGY: ANY NEW CHANGE IN BOWEL CONTROL? NO . GENITOURINARY: ANY NEW CHANGE IN BLADDER CONTROL? NO . IS THERE A CHANCE YOU COULD BE ? NO . HEMATOLOGY/LYMPH: DO YOU TAKE ANY BLOOD THINNERS? (FOR EXAMPLE- COUMADIN, PLAVIX, AGGRENOX, PLATEL, PRADAXA, OR XARELTO) NO . WHEN WAS YOUR LAST DOSE? DATE: TIME: . NEUROLOGY: HAVE YOU FALLEN IN THE PAST 6 MONTHS? NO . ANY NEW EXTREMITY NUMBNESS OR WEAKNESS? NO . CARDIOLOGY: DO YOU HAVE A PACEMAKER OR DEFIBRILLATOR? NO . RESPIRATORY: HAVE YOU BEEN SICK IN THE PAST WEEK? NO . FEVER NO . FLU LIKE SYMPTOMS? NO . COUGH NO . INTEGUMENTARY: DO YOU HAVE ANY RASHES OR OPEN SORES? NO . ALLERGIC/IMMUNO: ARE YOU ALLERGIC TO SHELLFISH OR IV DYE? NO . ANY NEW ALLERGIES? NO . PSYCHIATRIC: DO YOU HAVE THOUGHTS OF HURTING YOURSELF OR SOMEONE ELSE? NO . ARE YOU ABUSED, NEGLECTED, OR IN AN UNSAFE ENVIRONMENT? NO . ENDOCRINOLOGY: ARE YOU DIABETIC? NO . OTHER: DO YOU NEED ANY PRESCRIPTIONS? NO . IF YES, PLEASE LIST: ____ . ANY NEW PROBLEMS WITH YOUR MEDICATIONS? NO . WHEN DID YOU LAST EAT? ____ . WHEN DID YOU LAST DRINK? ____ . WHAT DID YOU LAST DRINK? ____ . NAME OF PERSON DRIVING YOU HOME? ____ . DO YOU HAVE ANY OTHER QUESTIONS OR CONCERNS NO . REVIEWED BY: PROVIDER: JORGE VALDES . VITAL SIGNS WT 215.8 LBS, HT 63 IN, BMI 38.22 INDEX, BP 141/69 MM HG, HR 85 /MIN, RR 16 /MIN, TEMP 97.3 F, OXYGEN SAT % 95%, NA INITIALS SC 09:58, REVIEWED BY: CS. EXAMINATION CERVICAL SPINE/NECK: C SPINE EXAM:MULTIPLE AREAS OF TENDER SPOTS INDICATIVE TO FIBROMYALGIA. RANGE OF MOTION OF NECK:NORMAL IN ALL DIRECTIONS/STIFF AND WITH DISCOMORT. SENSATIONS:NORMAL BILATERALLY. MOTOR STRENGTH:NORMAL. VERTEBRAL SPINE TENDERNESS:TENDERNESS IN PARASPINAL MUSCLES. TRAPEZIUS TENDERNESS:PRESENT BILATERALLY. 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 BRINGS IN MEDICATIONS WHICH IS APPROPRIATE FOR WHAT WAS DISPENSED. RECENT URINE TOXICOLOGY REVIEWED. NO UNAUTHORIZED MEDICATIONS. NO ILLICIT SUBSTANCES AND PRESCRIBED MEDICATIONS WERE PRESENT. , RISKS AND BENEFITS OF NARCOTIC/OPIOD MEDICATIONS WERE REVIEWED WITH PATIENT - THIS INCLUDES BUT IS NOT LIMITED TO RISK OF DEPENDANCE/DEVELOPMENT OF ADDICTION, MOOD DISTURBANCE AND DEPRESSION, OSTEOPOROSIS, HORMONAL AND LABIDAL CHANGES, RESPIRATORY DEPRESSION AND . PATIENT IS ADVISED NOT TO DRIVE WHILE ON THESE MEDICATIONS.URINE TOX TODAY. PREVENTIVE MEDICINE DISCUSSED PRE PROCEDURE CARE INSTRUCTIONS AND GAVE PT COPY OF INSTRUCTIONS. PROCEDURE CODES FA211 ESTABILISHED PATIENT [facility] FACILITY CHARGE G8730 PAIN ASSESS POS TOOL F/U PLAN DOC G8427 DOC MEDS VERIFIED W/PT OR RE DISPOSITION & COMMUNICATION FOLLOW UP 2WK POST (REASON: REQUEST BILATERAL OCCIPITAL NERVE BLOCKS) ELECTRONICALLY SIGNED BY LUCIO AVINA ON 11/18/2016 AT 01:50 PM EDT DISCLAIMER : THIS IS A VISIT SUMMARY EXTRACTED FROM THE [employer] CHART. IT IS NOT A COPY OF THE [employer] PROGRESS NOTE. MICHELLE
== END ==
LOC: M PAIN 09:20
PROVIDERS: ATTEND Nurse Practitioner Family
DX: G89.29 Other chronic pain (principal); M79.7 Fibromyalgia; M53.3 Sacrococcygeal disorders, not elsewhere classified; M54.81 Occipital neuralgia; G43.009 Migraine without aura, not intractable, without status migrainosus; M50.30 Other cervical disc degeneration, unspecified cervical region; J45.20 Mild intermittent asthma, uncomplicated; G47.00 Insomnia, unspecified; R73.01 Impaired fasting glucose; I10 Essential (primary) hypertension; F32.9 Major depressive disorder, single episode, unspecified; K59.00 Constipation, unspecified; E66.9 Obesity, unspecified; E55.9 Vitamin D deficiency, unspecified; M51.36 Other intervertebral disc degeneration, lumbar region; K76.0 Fatty (change of) liver, not elsewhere classified; D35.00 Benign neoplasm of unspecified adrenal gland; Z88.1 Allergy status to other antibiotic agents; Z79.82 Long term (current) use of aspirin; Z79.899 Other long term (current) drug therapy; Z79.84 Long term (current) use of oral hypoglycemic drugs; Z79.891 Long term (current) use of opiate analgesic; Z68.38 Body mass index [BMI] 38.0-38.9, adult

== ENCOUNTER → 2016-11-12 | Outpatient (CLI) | payer MEDICARE, MEDICAID ==
[~2016-11-12] MED LIST changes: +BUPIVACAINE HCL 0.25% 10 ML VIAL As Ordered ONE; +BUPIVACAINE HCL 0.25% 30 ML VIAL As Ordered ONE; +TRIAMCINOLONE ACETONIDE SUSP 40 MG/ML VIAL (J3301) As Ordered ONE; +diazePAM 5 MG TAB As Ordered ONE; +oxyCODONE 5MG TAB As Ordered ONE
--- NOTE | 2016-11-24 23:55 | ECWPNPC ---
PATIENT NAME: ISAIAH RDZ : 1955 GENDER: FEMALE VISIT DATE: 11/12/2016 DISCHARGE DATE: 11/12/16 1005 VISIT LOCKED DATE TIME: PHYSICIAN: TEETEE HAWKINS RESOURCE: TEETEE HAWKINS REASON FOR APPOINTMENT 1. BILATERAL OCCIPITAL NERVE BLOCK HISTORY OF PRESENT ILLNESS HISTORY OF PRESENT ILLNESS: PAIN THE PATIENT DESCRIBES THE PAIN... FALL RISK SCREENING: SCREENING :NO FALLS IN THE PAST YEAR CURRENT MEDICATIONS TAKING ASPIRIN 81 MG TABLET CHEWABLE 1 TABLET ORALLY ONCE A DAY, NOTES: 11-11-16899 TAKING DUONEB 0.5-2.5 (3) MG/3ML SOLUTION 3 ML INHALATION EVERY 4 HOURS NEEDED, NOTES: CHECKED THIS AM 118 TAKING BLOOD GLUCOSE TEST STRIP ONE TOUCH VERIO GOLD TEST STRIP 1 STRIP DX: 790.21 TWICE A DAY TAKING LANCETS ONE TOUCH ULTRA SOFT LACETS 1 LANCET DX: 790.21 ONCE A DAY TAKING TENS UNIT ELECTRO PADS 1 PAD SET 1 PAD INTRADERMALLY USE NEEDED TAKING MULTIVITAMIN TABLETS 1 TAB(S) ORALLY ONCE A DAY, NOTES: 11-12-16599 TAKING POTASSIUM CHLORIDE TABLET 2 TABS TWICE DAILY, NOTES: 11-12-16599 TAKING LIPITOR 80 MG TABLET 1 TABLET ORALLY ONCE A DAY, NOTES: 11-11-162099 TAKING ZOLOFT 50 MG TABLET 1 TABLET ORALLY ONCE A DAY, NOTES: 10-13-16599 TAKING VICTOZA 18 MG/3ML SOLUTION PEN-INJECTOR INJECT 0.6 MG ONCE DAILY SUBCUTANEOUS ONCE A DAY, NOTES: 11-11-16599 TAKING E-Z SPACER - DEVICE DIRECTED _ DAILY TAKING PROVENTIL HFA 108 (90 BASE) MCG/ACT AEROSOL SOLUTION 2 PUFFS NEEDED INHALATION EVERY 4 HRS, NOTES: 10-31-162099 TAKING METFORMIN HCL 500 MG TABLET 1 TABLET ORALLY TWICE A DAY, NOTES: 11-11-16799 TAKING IBUPROFEN 800 MG TABLET 1 TABLET ORALLY THREE TIMES A DAY NEEDED, NOTES: 899 TAKING PEN NEEDLES 31G X 6 MM MISCELLANEOUS 1 SUBCUTANEOUSLY ONCE A DAY DX:E11.9 TAKING GABAPENTIN 100 MG CAPSULE 1 CAPSULE ORALLY BID, NOTES: 11-12-16599 TAKING AMBIEN 10 MG TABLET 1 TABLET AT BEDTIME NEEDED ORALLY ONCE A DAY, NOTES: 11-11-162099 TAKING FENTANYL 25 MCG/HR PATCH 72 HOUR 1 PATCH TO SKIN TRANSDERMAL 1 PATCH Q 72H = MDD, NOTES: NOT ON NOW TOOK OFF LAST NIGHT TAKING AMITRIPTYLINE HCL 25 MG TABLET 1 TABLET ORALLY ONCE A DAY AT BEDTIME, NOTES: 11-11-162099 TAKING LYRICA 100 MG CAPSULE 1 CAPSULE ORALLY TWICE A DAY MDD2, NOTES: 11-12-16 0600 NOT-TAKING DOXYCYCLINE HYCLATE 100 MG CAPSULE 1 CAPSULE ORALLY EVERY 12 HRS NOT-TAKING OMEPRAZOLE 40 MG CAPSULE DELAYED RELEASE 1 CAPSULE ORALLY ONCE A DAY MEDICATION LIST REVIEWED AND RECONCILED WITH THE PATIENT PAST MEDICAL HISTORY CERVICAL DJD, 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 2010 CERVICAL MRI WITH MULTILEVEL DJD, C4-C5 BULGE WITH MILD RIGHT NEURAL FORAMINAL NARROWING-11/2010 PERMANENT TOTAL DISABILITY MIGRAINE HEADACHES, COMMON TYPE WITH HISTORY OF HEMIPLEGIA-09/2012 MRI BRAIN C MINIMAL ASTHMA, MILD INTERMITTENT-06/2011 FEV1 1.7L (69%)/RATIO 108% INSOMNIA IMPAIRED FASTING GLUCOSE HYPERTENSION-AUGUST 2008 NORMAL MONICA EXCEPT FOR MODERATE AORTIC VALVE SCLEROSIS, TRACE AR, NORMAL LVEF-ANTECOL/07/2011 [id number] HYPERLIPIDEMIA 2B DEPRESSION CONSTIPATION, CHRONIC OBESITY VITAMIN D DEFICIENCY LUMBAR DJD, 05/2012 MRI C L2-4 BULGES, MINIMAL L4/5 CENTRAL CANAL STENOSIS, NO CHANGE C/W 05/2010 L ADRENAL ADENOMA, 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 FATTY LIVER ALLERGIES FLAGYL: RASH: ALLERGY SURGICAL HISTORY [facility] BSO 09/2002 COLONOSCOPY, HYPERPLASTIC POLYP 06/30 30 TEETH EXTRACTION-DINES 09/2013 BACK SURGERY 11/29/2014 HOSPITALIZATION/MAJOR DIAGNOSTIC PROCEDURE SURGERY PNEUMONIA 2010 REVIEW OF SYSTEMS CONSTITUTIONAL: ANY CHANGE IN YOUR MEDICAL CONDITION? NO . CHILLS NO . FEVER NO . INFECTION: DO YOU HAVE NEW INFECTIONS? NO . DO YOU HAVE HISTORY OF MRSA? NO . MUSCULOSKELETAL: ANY NEW PATTERNS OF PAIN OR NUMBNESS? NO . GASTROENTEROLOGY: ANY NEW CHANGE IN BOWEL CONTROL? NO . GENITOURINARY: ANY NEW CHANGE IN BLADDER CONTROL? NO . IS THERE A CHANCE YOU COULD BE ? NO . HEMATOLOGY/LYMPH: DO YOU TAKE ANY BLOOD THINNERS? (FOR EXAMPLE- COUMADIN, PLAVIX, AGGRENOX, PLATEL, PRADAXA, OR XARELTO) NO . WHEN WAS YOUR LAST DOSE? DATE: TIME: . NEUROLOGY: HAVE YOU FALLEN IN THE PAST 6 MONTHS? NO . ANY NEW EXTREMITY NUMBNESS OR WEAKNESS? NO . CARDIOLOGY: DO YOU HAVE A PACEMAKER OR DEFIBRILLATOR? NO . RESPIRATORY: HAVE YOU BEEN SICK IN THE PAST WEEK? NO . FEVER NO . FLU LIKE SYMPTOMS? NO . COUGH NO . INTEGUMENTARY: DO YOU HAVE ANY RASHES OR OPEN SORES? NO . ALLERGIC/IMMUNO: ARE YOU ALLERGIC TO SHELLFISH OR IV DYE? NO . ANY NEW ALLERGIES? NO . PSYCHIATRIC: DO YOU HAVE THOUGHTS OF HURTING YOURSELF OR SOMEONE ELSE? NO . ARE YOU ABUSED, NEGLECTED, OR IN AN UNSAFE ENVIRONMENT? NO . ENDOCRINOLOGY: ARE YOU DIABETIC? YES FS THIS AM 118 . OTHER: DO YOU NEED ANY PRESCRIPTIONS? NO . IF YES, PLEASE LIST: ____ . ANY NEW PROBLEMS WITH YOUR MEDICATIONS? NO . WHEN DID YOU LAST EAT? YES DINNER LAST BIGHT AT 6P . WHEN DID YOU LAST DRINK? ____0600 WATER THIS AM . WHAT DID YOU LAST DRINK? WATER____ . NAME OF PERSON DRIVING YOU HOME? ____SISTER DAYANNA . DO YOU HAVE ANY OTHER QUESTIONS OR CONCERNS NO . REVIEWED BY: PROVIDER: . VITAL SIGNS WT 212 LBS, HT 63 IN, BMI 37.55 INDEX, BP 150/72 MM HG, HR 79 /MIN, RR 16 /MIN, TEMP 97.9 F, OXYGEN SAT % 97%, NA INITIALS SC09:11, REVIEWED BY: KG. ASSESSMENTS OCCIPITAL NEURALGIA - M54.81 (PRIMARY) PROCEDURES PN OCCIPITAL NERVE BLOCK GREATER PRE PROCEDURE DIAGNOSIS OCCIPITAL NEURALGIA POST PROCEDURE DIAGNOSIS OCCIPITAL NEURALGIA PROCEDURE BILATERAL GREATER OCCIPITAL NERVE BLOCK SURGEON DR. TEETEE HAWKINS SPUD DRILLER NONE ANESTHESIA LOCAL PRE PROCEDURE NOTE 60 YEAR-OLD PATIENT WITH HISTORY OF CHRONIC OCCIPITAL PAIN. THE PAIN IS LOCATED OVER THE OCCIPITAL AREA WITH RADIATION TOWARDS THE PARIETAL AREA OF THE CRANIUM. I EVALUATED THE PATIENT AND REVIEWED THE CHART. I WENT OVER THE RISKS, ALTERNATIVES, AND BENEFITS ASSOCIATED WITH THIS PROCEDURE. THE PATIENT WOULD LIKE TO PROCEED AND GAVE CONSENT TO PERFORM THE PROCEDURE. THE PATIENT DENIES UNEXPLAINABLE WEIGHT LOSS, FEVER, CHILLS, OR NEW CHANGES IN URINARY OR BOWEL CONTROL DESCRIPTION OF PROCEDURE THE PATIENT WAS BROUGHT TO THE PROCEDURE ROOM AND PLACED IN THE SITTING POSITION. THE BILATERAL OCCIPITAL AREA WAS CLEANED WITH ALCOHOL. THE PROCEDURE WAS DONE USING STERILE TECHNIQUES. I CHECKED LATERALITY AND THE LEVEL WHERE THE PROCEDURE WAS GOING TO BE PERFORMED WITH THE PATIENT AND THE SUPPORTING STAFF AT THE MOMENT OF THE TIME OUT IN THE PROCEDURE ROOM. USING A 25-GAUGE NEEDLE, THE BILATERAL OCCIPITAL NERVE WAS INJECTED AT THE NUCHAL LINE, 1-INCH LATERAL OF MIDLINE. I USED A TOTAL OF 15 ML OF BUPIVACAINE 0.25% WITH KENALOG 20 MG AT EACH NERVE. THERE WAS NO EVIDENCE OF BLOOD, PARESTHESIA OR CEREBROSPINAL FLUID DURING THE PROCEDURE. THE PATIENT WAS SENT TO THE RECOVERY ROOM. THE PATIENT WAS MOVING THE EXTREMITIES AND DOING WELL. THERE WAS NO COMPLICATION DURING THE PROCEDURE. POST PROCEDURE NOTE THE PATIENT WILL BE SEEN IN A FOLLOW UP IN THE NEXT FEW WEEKS. INSTRUCTIONS WERE GIVEN, QUESTIONS WERE ANSWERED, AND THE PATIENT EXPRESSED UNDERSTANDING AND AGREED WITH THE PLAN. I, ANASTACIO BETANCOURT, DOCUMENTED THE ABOVE INFORMATION ACTING A SCRIBE FOR DR. HAWKINS. I HAVE REVIEWED THE ABOVE DOCUMENT, WRITTEN BY ANASTACIO TURNER AND I VERIFY THAT IT IS ACCURATE PROCEDURE CODES 65039 N BLOCK INJ OCCIPITAL DISPOSITION & COMMUNICATION FOLLOW UP 3 WEEKS ELECTRONICALLY SIGNED BY TEETEE HAWKINS MD ON 11/24/2016 AT 06:46 PM EDT DISCLAIMER : THIS IS A VISIT SUMMARY EXTRACTED FROM THE [employer] CHART. IT IS NOT A COPY OF THE [employer] PROGRESS NOTE. MTDKyler
== END ==
LOC: M PAIN 08:40
PROVIDERS: ATTEND Anesthesiology
DX: G89.29 Other chronic pain (principal); M54.81 Occipital neuralgia; M50.30 Other cervical disc degeneration, unspecified cervical region; G43.009 Migraine without aura, not intractable, without status migrainosus; J45.20 Mild intermittent asthma, uncomplicated; G47.00 Insomnia, unspecified; R73.01 Impaired fasting glucose; I10 Essential (primary) hypertension; E78.5 Hyperlipidemia, unspecified; F32.9 Major depressive disorder, single episode, unspecified; K59.00 Constipation, unspecified; E66.9 Obesity, unspecified; E55.9 Vitamin D deficiency, unspecified; M51.36 Other intervertebral disc degeneration, lumbar region; D35.02 Benign neoplasm of left adrenal gland; K76.0 Fatty (change of) liver, not elsewhere classified; Z88.1 Allergy status to other antibiotic agents; Z79.82 Long term (current) use of aspirin; Z79.899 Other long term (current) drug therapy; Z79.84 Long term (current) use of oral hypoglycemic drugs; Z79.1 Long term (current) use of non-steroidal anti-inflammatories (NSAID)
CPT/HCPCS: 64405; J3301

== ENCOUNTER 2016-12-02 09:43 | Emergency (ER) | payer MEDICARE, MEDICAID ==
[~2016-12-02] VITALS: Ht 160 cm; Wt 94.0 kg
[~2016-12-02 09:43] MED LIST changes: -ALBU17IN INH; -ATOR1TAB18 PO; +ATOR80TA59 PO; -DUONSOL; -FENT25PA TOP; -GABA-279; -KLOR1CAP2; -LIDO5DIS36 TD; -LYRI100C10; +METF500T13 PO; -PERC10TA17 PO; +PERC10TA26 PO; -SERT-155; -ZOLP10TA2
[2016-12-02] MEDS ORDERED: DUONSOL (11:46)
[2016-12-02] MEDS ORDERED: PREG100CA (11:46)
[2016-12-02] MEDS ORDERED: ALBU17IN INH (11:46)
[2016-12-02] MEDS ORDERED: SERT-155 (11:46)
[2016-12-02] MEDS ORDERED: KLOR1CAP2 (11:46)
[2016-12-02] MEDS ORDERED: FENT25PA TOP (11:46)
[2016-12-02] MEDS ORDERED: ZOLP10TA2 (11:46)
[2016-12-02] MEDS ORDERED: GABA-279 (11:46)
[2016-12-02] MEDS ORDERED: NORCO, ANEXSIA 5/325MG TABLET (HYDROcodone/ACETAMINOPHEN) PO ONE (12:30)
[2016-12-02] MEDS ORDERED: LIDO5DIS41 TD (13:43)
--- NOTE | 2016-12-02 13:51 | REP ---
THORACIC SPINE, THREE VIEWS: AP and lateral views of the thoracic spine are performed. There is no compression fracture. There is normal thoracic kyphosis. There is mild diffuse spurring and mild diffuse disc space narrowing of subchondral sclerosis. The posterior elements are intact. IMPRESSION: Diffuse degenerative changes without fracture or dislocation. Signed by Edwar Sparks MD 12/02/2016 08:19 P
[2016-12-02 13:53] VITALS: BP 151/83
[2017-02-11] MEDS ORDERED: VICT18IN SC (13:28)
[2017-02-11] MEDS ORDERED: IBUP80TA PO (13:28)
[2017-02-11] MEDS ORDERED: POTA10CA PO (13:28)
[2017-02-11] MEDS ORDERED: VITA100067 PO (13:32)
[2017-02-11] MEDS ORDERED: PERC5TAB12 PO (13:32)
[2017-02-11] MEDS ORDERED: FLOM5CAP PO (13:39)
[2017-04-01] MEDS ORDERED: DUO-NEB INH (14:34)
== END 2016-12-02 13:57 | disposition home or self-care (01) ==
LOC: M ED 11:49
DX: M51.34 Other intervertebral disc degeneration, thoracic region (principal); E10.9 Type 1 diabetes mellitus without complications; R56.9 Unspecified convulsions; F41.9 Anxiety disorder, unspecified; F32.9 Major depressive disorder, single episode, unspecified; Z86.73 Personal history of transient ischemic attack (TIA), and cerebral infarction without residual deficits; M47.816 Spondylosis without myelopathy or radiculopathy, lumbar region; G89.29 Other chronic pain; I12.9 Hypertensive chronic kidney disease with stage 1 through stage 4 chronic kidney disease, or unspecified chronic kidney disease; N18.3 Chronic kidney disease, stage 3 (moderate); E78.2 Mixed hyperlipidemia; E55.9 Vitamin D deficiency, unspecified; G43.001 Migraine without aura, not intractable, with status migrainosus; J30.9 Allergic rhinitis, unspecified; G47.33 Obstructive sleep apnea (adult) (pediatric); J44.9 Chronic obstructive pulmonary disease, unspecified; Z88.3 Allergy status to other anti-infective agents; Z79.82 Long term (current) use of aspirin; Z79.84 Long term (current) use of oral hypoglycemic drugs; Z79.891 Long term (current) use of opiate analgesic; Z79.899 Other long term (current) drug therapy
CPT/HCPCS: 72072; 99282; G0463

== ENCOUNTER → 2016-12-02 | Outpatient (CLI) | payer MEDICARE, MEDICAID ==
[~2016-12-02] MED LIST changes: +ALBU17IN INH; -BUPIVACAINE HCL 0.25% 10 ML VIAL As Ordered ONE; -BUPIVACAINE HCL 0.25% 30 ML VIAL As Ordered ONE; +DUONSOL; +FENT25PA TOP; +GABA-279; +KLOR1CAP2; +LIDO5DIS36 TD; +LYRI100C10; +SERT-155; -TRIAMCINOLONE ACETONIDE SUSP 40 MG/ML VIAL (J3301) As Ordered ONE; +ZOLP10TA2; -diazePAM 5 MG TAB As Ordered ONE; -oxyCODONE 5MG TAB As Ordered ONE
--- NOTE | 2016-12-02 23:59 | ECWPNPC ---
PATIENT NAME: ISAIAH RDZ : 1955 GENDER: FEMALE VISIT DATE: 12/02/2016 DISCHARGE DATE: 12/02/16 0000 VISIT LOCKED DATE TIME: PHYSICIAN: JORGE GILLESPIE RESOURCE: JORGE GILLESPIE REASON FOR APPOINTMENT 1. POST PROCEDURE HISTORY OF PRESENT ILLNESS HISTORY OF PRESENT ILLNESS: HERE FOR POST PROCEDURE F/U.HAD BILATERAL OCCIPITAL NERVE BLOCK ON 11-12-16.REPORTING >75 % IMPROVEMENT IN PAIN SINCE PROCEDURE.REPORTS SEVERE INCREASE IN MID AND LOW BACK PAIN.RATING PAIN VAS 6/10.CURRENTLY USING FENTANYL PATCH 25MCG Q 72 HR AND LYRICA 100MG BID.ALSO TAKING AMITRIPTYLINE 25MG AT HS.C/O SEVERE PAIN AND INABILITY TO SLEEP DUE TO PAIN.STATES PAIN IS SO SEVERE IT IS CAUSING HER TO BREAK OUT IN SWEAT.SHE IS CRYING IN PAIN.ALSO TELLS ME SHE HAS HAD A 10 POUND WEIGHT LOSS OVER THE PAST MONTH.STATES SHE IS NOT EATING SHE DOESNT FEEL WELL. PAIN THE PATIENT DESCRIBES THE PAIN... FALL RISK SCREENING: SCREENING :NO FALLS IN THE PAST YEAR CURRENT MEDICATIONS TAKING ASPIRIN 81 MG TABLET CHEWABLE 1 TABLET ORALLY ONCE A DAY TAKING DUONEB 0.5-2.5 (3) MG/3ML SOLUTION 3 ML INHALATION EVERY 4 HOURS NEEDED TAKING BLOOD GLUCOSE TEST STRIP ONE TOUCH VERIO GOLD TEST STRIP 1 STRIP DX: 790.21 TWICE A DAY TAKING LANCETS ONE TOUCH ULTRA SOFT LACETS 1 LANCET DX: 790.21 ONCE A DAY TAKING TENS UNIT ELECTRO PADS 1 PAD SET 1 PAD INTRADERMALLY USE NEEDED TAKING MULTIVITAMIN TABLETS 1 TAB(S) ORALLY ONCE A DAY TAKING POTASSIUM CHLORIDE TABLET 2 TABS TWICE DAILY TAKING ZOLOFT 50 MG TABLET 1 TABLET ORALLY ONCE A DAY TAKING VICTOZA 18 MG/3ML SOLUTION PEN-INJECTOR INJECT 0.6 MG ONCE DAILY SUBCUTANEOUS ONCE A DAY TAKING E-Z SPACER - DEVICE DIRECTED _ DAILY TAKING PROVENTIL HFA 108 (90 BASE) MCG/ACT AEROSOL SOLUTION 2 PUFFS NEEDED INHALATION EVERY 4 HRS TAKING METFORMIN HCL 500 MG TABLET 1 TABLET ORALLY TWICE A DAY TAKING IBUPROFEN 800 MG TABLET 1 TABLET ORALLY THREE TIMES A DAY NEEDED TAKING PEN NEEDLES 31G X 6 MM MISCELLANEOUS 1 SUBCUTANEOUSLY ONCE A DAY DX:E11.9 TAKING GABAPENTIN 100 MG CAPSULE 1 CAPSULE ORALLY BID TAKING FENTANYL 25 MCG/HR PATCH 72 HOUR 1 PATCH TO SKIN TRANSDERMAL 1 PATCH Q 72H = MDD TAKING AMITRIPTYLINE HCL 25 MG TABLET 1 TABLET ORALLY ONCE A DAY AT BEDTIME TAKING LYRICA 100 MG CAPSULE 1 CAPSULE ORALLY TWICE A DAY MDD2 TAKING LIPITOR 80 MG TABLET 1 TABLET ORALLY ONCE A DAY TAKING AMBIEN 10 MG TABLET 1 TABLET AT BEDTIME NEEDED ORALLY ONCE A DAY NOT-TAKING DOXYCYCLINE HYCLATE 100 MG CAPSULE 1 CAPSULE ORALLY EVERY 12 HRS NOT-TAKING OMEPRAZOLE 40 MG CAPSULE DELAYED RELEASE 1 CAPSULE ORALLY ONCE A DAY MEDICATION LIST REVIEWED AND RECONCILED WITH THE PATIENT PAST MEDICAL HISTORY CERVICAL DJD, 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 2010 CERVICAL MRI WITH MULTILEVEL DJD, C4-C5 BULGE WITH MILD RIGHT NEURAL FORAMINAL NARROWING-11/2010 PERMANENT TOTAL DISABILITY MIGRAINE HEADACHES, COMMON TYPE WITH HISTORY OF HEMIPLEGIA-09/2012 MRI BRAIN C MINIMAL ASTHMA, MILD INTERMITTENT-06/2011 FEV1 1.7L (69%)/RATIO 108% INSOMNIA IMPAIRED FASTING GLUCOSE HYPERTENSION-AUGUST 2008 NORMAL MONICA EXCEPT FOR MODERATE AORTIC VALVE SCLEROSIS, TRACE AR, NORMAL LVEF-ANTECOL/07/2011 [id number] HYPERLIPIDEMIA 2B DEPRESSION CONSTIPATION, CHRONIC OBESITY VITAMIN D DEFICIENCY LUMBAR DJD, 05/2012 MRI C L2-4 BULGES, MINIMAL L4/5 CENTRAL CANAL STENOSIS, NO CHANGE C/W 05/2010 L ADRENAL ADENOMA, 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 FATTY LIVER ALLERGIES FLAGYL: RASH: ALLERGY SURGICAL HISTORY [facility] BSO 09/2002 COLONOSCOPY, HYPERPLASTIC POLYP 06/30 29 TEETH EXTRACTION-DINES 09/2013 BACK SURGERY 11/29/2014 HOSPITALIZATION/MAJOR DIAGNOSTIC PROCEDURE SURGERY PNEUMONIA 2010 REVIEW OF SYSTEMS CONSTITUTIONAL: ANY CHANGE IN YOUR MEDICAL CONDITION? NO . CHILLS NO . FEVER NO . INFECTION: DO YOU HAVE NEW INFECTIONS? NO . DO YOU HAVE HISTORY OF MRSA? NO . MUSCULOSKELETAL: ANY NEW PATTERNS OF PAIN OR NUMBNESS? YES. PT STATES BILAT OCCIPITAL NERVE BLOCK DONE 11/12/16. PT RATES PAIN PRE-PROCEDURE 7/10, POST PROCEDURE 2-3/10. PT STATES TODAY PAIN IN HEAD IS 2/10. PT STATES SHE IS SUFFERING LBP AND BETWEEN SHOULDERS PT RATES PAIN 6-7/10 TO THIS REGION. PT ASKING FOR PROCEDURE FOR LOWER AND MID BACK PAIN. . GASTROENTEROLOGY: ANY NEW CHANGE IN BOWEL CONTROL? NO . GENITOURINARY: ANY NEW CHANGE IN BLADDER CONTROL? NO . IS THERE A CHANCE YOU COULD BE ? NO . HEMATOLOGY/LYMPH: DO YOU TAKE ANY BLOOD THINNERS? (FOR EXAMPLE- COUMADIN, PLAVIX, AGGRENOX, PLATEL, PRADAXA, OR XARELTO) NO . WHEN WAS YOUR LAST DOSE? DATE: TIME: . NEUROLOGY: HAVE YOU FALLEN IN THE PAST 6 MONTHS? NO . ANY NEW EXTREMITY NUMBNESS OR WEAKNESS? NO . CARDIOLOGY: DO YOU HAVE A PACEMAKER OR DEFIBRILLATOR? NO . RESPIRATORY: HAVE YOU BEEN SICK IN THE PAST WEEK? NO . FEVER NO . FLU LIKE SYMPTOMS? NO . COUGH NO . INTEGUMENTARY: DO YOU HAVE ANY RASHES OR OPEN SORES? NO . ALLERGIC/IMMUNO: ARE YOU ALLERGIC TO SHELLFISH OR IV DYE? NO . ANY NEW ALLERGIES? NO . PSYCHIATRIC: DO YOU HAVE THOUGHTS OF HURTING YOURSELF OR SOMEONE ELSE? NO . ARE YOU ABUSED, NEGLECTED, OR IN AN UNSAFE ENVIRONMENT? NO . ENDOCRINOLOGY: ARE YOU DIABETIC? YES . OTHER: DO YOU NEED ANY PRESCRIPTIONS? NO . IF YES, PLEASE LIST: ____ . ANY NEW PROBLEMS WITH YOUR MEDICATIONS? NO . WHEN DID YOU LAST EAT? ____ . WHEN DID YOU LAST DRINK? ____ . WHAT DID YOU LAST DRINK? ____ . NAME OF PERSON DRIVING YOU HOME? ____ . DO YOU HAVE ANY OTHER QUESTIONS OR CONCERNS NO . REVIEWED BY: PROVIDER: JORGE VALDES . VITAL SIGNS WT 207.4 LBS, HT 63 IN, BMI 36.74 INDEX, BP 130/86 MANUAL, REPEAT BP 171/85 MACHINE, HR 69 /MIN, RR 18 /MIN, TEMP 97.9 F, OXYGEN SAT % 98%, SAFE IN ENV? (Y/N) Y, NA INITIALS TL 0858, REVIEWED BY: EM. EXAMINATION GENERAL EXAMINATION: GENERAL APPEARANCE:ALERT,UNCOMFORTABLE. PSYCHCRYING. NECK:NO LYMPHADENOPATHY. LUNGS:LUNG BARAJAS ARE CLEAR TO AUSCULTATION BILATERALLY. GOOD MOVEMENT OF AIR. HEART:S1, S2 IN A REGULAR RATE AND RHYTHM. NO SIGNIFICANT MURMURS, RUBS OR GALLOPS NOTED. BACK:EXTREME PAIN EVERYWHERE WITH LIGHT TOUCH.UNABLE TO TOLERATE MUSCLE STRENGTH TESTING LOWER EXTREMITIES. ASSESSMENTS ACUTE BILATERAL THORACIC BACK PAIN - M54.6 (PRIMARY) LUMBAR SPONDYLOSIS - M47.816 TREATMENT ACUTE BILATERAL THORACIC BACK PAIN NOTES: PT IS SENT TO ER/F/U SCHEDULED ONE WEEK. PROCEDURE CODES FA211 ESTABILISHED PATIENT [facility] FACILITY CHARGE G8730 PAIN ASSESS POS TOOL F/U PLAN DOC G8427 DOC MEDS VERIFIED W/PT OR RE DISPOSITION & COMMUNICATION FOLLOW UP 10 DAYS ELECTRONICALLY SIGNED BY LUCIO AVINA ON 12/02/2016 AT 01:14 PM EDT DISCLAIMER : THIS IS A VISIT SUMMARY EXTRACTED FROM THE [employer] CHART. IT IS NOT A COPY OF THE [employer] PROGRESS NOTE. MICHELLE
== END ==
LOC: M PAIN 09:00
PROVIDERS: ATTEND Nurse Practitioner Family
DX: G89.29 Other chronic pain (principal); M54.6 Pain in thoracic spine; M47.816 Spondylosis without myelopathy or radiculopathy, lumbar region; I12.9 Hypertensive chronic kidney disease with stage 1 through stage 4 chronic kidney disease, or unspecified chronic kidney disease; N18.3 Chronic kidney disease, stage 3 (moderate); E78.2 Mixed hyperlipidemia; F32.9 Major depressive disorder, single episode, unspecified; E55.9 Vitamin D deficiency, unspecified; G43.001 Migraine without aura, not intractable, with status migrainosus; J30.9 Allergic rhinitis, unspecified; G47.33 Obstructive sleep apnea (adult) (pediatric); E11.9 Type 2 diabetes mellitus without complications; J44.9 Chronic obstructive pulmonary disease, unspecified; Z88.8 Allergy status to other drugs, medicaments and biological substances; Z79.82 Long term (current) use of aspirin; Z79.84 Long term (current) use of oral hypoglycemic drugs; Z79.891 Long term (current) use of opiate analgesic; Z79.899 Other long term (current) drug therapy

== ENCOUNTER → 2016-12-10 | Outpatient (CLI) | payer MEDICARE, MEDICAID ==
[~2016-12-10] MED LIST changes: +ALBU17IN INH; +ATOR1TAB18 PO; -ATOR80TA59 PO; +DUONSOL; +FENT25PA TOP; +GABA-279; +KLOR1CAP2; +LIDO5DIS36 TD; +LYRI100C10; -METF500T13 PO; +PERC10TA17 PO; -PERC10TA26 PO; +SERT-155; +ZOLP10TA2
--- NOTE | 2016-12-10 23:49 | ECWPNPC ---
PATIENT NAME: ISAIAH RDZ : 1955 GENDER: FEMALE VISIT DATE: 12/10/2016 DISCHARGE DATE: 12/10/1652 VISIT LOCKED DATE TIME: PHYSICIAN: JORGE GILLESPIE RESOURCE: JORGE GILLESPIE REASON FOR APPOINTMENT 1. POST ER VISIT HISTORY OF PRESENT ILLNESS HISTORY OF PRESENT ILLNESS: HERE FOR F/U..REPORTS SEVERE INCREASE IN MID AND LOW BACK PAIN.RATING PAIN VAS 7/10.CHIEF AREA OF PAIN IS MID THORACIC.CURRENTLY USING FENTANYL PATCH 25MCG Q 72 HR AND LYRICA 100MG BID.ALSO TAKING AMITRIPTYLINE 25MG AT HS.C/O SEVERE PAIN AND INABILITY TO SLEEP DUE TO PAIN.STATES PAIN IS SO SEVERE IT IS CAUSING HER TO AWAKEN AT NIGHT IN SEVERE PAIN.WAS SEEN AT ER AT LAST VISIT ONE WEEK AGO PER OUR REFERRAL DUE TO COMPLAINTS OF SEVERE PAIN AND GENERALIZED MALAISE.XRAY OF THORACIC SPINE DONE AT ER WAS NEGATIVE.REVIEWED MRI OF THORACIC SPINE.HIGH GRADE FORAMINAL STENOSIS BILATERALLY AT T8/9. PAIN THE PATIENT DESCRIBES THE PAIN... THE PATIENT DESCRIBES THE PAIN... FALL RISK SCREENING: SCREENING :NO FALLS IN THE PAST YEAR CURRENT MEDICATIONS TAKING ASPIRIN 81 MG TABLET CHEWABLE 1 TABLET ORALLY ONCE A DAY TAKING DUONEB 0.5-2.5 (3) MG/3ML SOLUTION 3 ML INHALATION EVERY 4 HOURS NEEDED TAKING BLOOD GLUCOSE TEST STRIP ONE TOUCH VERIO GOLD TEST STRIP 1 STRIP DX: 790.21 TWICE A DAY TAKING LANCETS ONE TOUCH ULTRA SOFT LACETS 1 LANCET DX: 790.21 ONCE A DAY TAKING TENS UNIT ELECTRO PADS 1 PAD SET 1 PAD INTRADERMALLY USE NEEDED TAKING MULTIVITAMIN TABLETS 1 TAB(S) ORALLY ONCE A DAY TAKING POTASSIUM CHLORIDE TABLET 2 TABS TWICE DAILY TAKING ZOLOFT 50 MG TABLET 1 TABLET ORALLY ONCE A DAY TAKING VICTOZA 18 MG/3ML SOLUTION PEN-INJECTOR INJECT 0.6 MG ONCE DAILY SUBCUTANEOUS ONCE A DAY TAKING E-Z SPACER - DEVICE DIRECTED _ DAILY TAKING PROVENTIL HFA 108 (90 BASE) MCG/ACT AEROSOL SOLUTION 2 PUFFS NEEDED INHALATION EVERY 4 HRS TAKING METFORMIN HCL 500 MG TABLET 1 TABLET ORALLY TWICE A DAY TAKING IBUPROFEN 800 MG TABLET 1 TABLET ORALLY THREE TIMES A DAY NEEDED TAKING PEN NEEDLES 31G X 6 MM MISCELLANEOUS 1 SUBCUTANEOUSLY ONCE A DAY DX:E11.9 TAKING GABAPENTIN 100 MG CAPSULE 1 CAPSULE ORALLY BID TAKING FENTANYL 25 MCG/HR PATCH 72 HOUR 1 PATCH TO SKIN TRANSDERMAL 1 PATCH Q 72H = MDD TAKING AMITRIPTYLINE HCL 25 MG TABLET 1 TABLET ORALLY ONCE A DAY AT BEDTIME TAKING LYRICA 100 MG CAPSULE 1 CAPSULE ORALLY TWICE A DAY MDD2 TAKING LIPITOR 80 MG TABLET 1 TABLET ORALLY ONCE A DAY TAKING AMBIEN 10 MG TABLET 1 TABLET AT BEDTIME NEEDED ORALLY ONCE A DAY TAKING LIDOCAINE 4 % CREAM 1 APPLICATION TO AFFECTED AREA NEEDED EXTERNALLY TID PRN TAKING LIDOCAINE-PRILOCAINE 2.5-2.5 % CREAM DIRECTED EXTERNALLY TID PRN TAKING LIDOCAINE-PRILOCAINE 2.5-2.5 % CREAM DIRECTED EXTERNALLY TID PRN NOT-TAKING DOXYCYCLINE HYCLATE 100 MG CAPSULE 1 CAPSULE ORALLY EVERY 12 HRS NOT-TAKING OMEPRAZOLE 40 MG CAPSULE DELAYED RELEASE 1 CAPSULE ORALLY ONCE A DAY PAST MEDICAL HISTORY CERVICAL DJD, 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 2010 CERVICAL MRI WITH MULTILEVEL DJD, C4-C5 BULGE WITH MILD RIGHT NEURAL FORAMINAL NARROWING-11/2010 PERMANENT TOTAL DISABILITY MIGRAINE HEADACHES, COMMON TYPE WITH HISTORY OF HEMIPLEGIA-09/2012 MRI BRAIN C MINIMAL ASTHMA, MILD INTERMITTENT-06/2011 FEV1 1.7L (69%)/RATIO 108% INSOMNIA IMPAIRED FASTING GLUCOSE HYPERTENSION-AUGUST 2008 NORMAL MONICA EXCEPT FOR MODERATE AORTIC VALVE SCLEROSIS, TRACE AR, NORMAL LVEF-ANTECOL/07/2011 [id number] HYPERLIPIDEMIA 2B DEPRESSION CONSTIPATION, CHRONIC OBESITY VITAMIN D DEFICIENCY LUMBAR DJD, 05/2012 MRI C L2-4 BULGES, MINIMAL L4/5 CENTRAL CANAL STENOSIS, NO CHANGE C/W 05/2010 L ADRENAL ADENOMA, 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 FATTY LIVER ALLERGIES FLAGYL: RASH: ALLERGY REVIEW OF SYSTEMS REVIEWED BY: PROVIDER: JORGE VALDES . CONSTITUTIONAL: ANY CHANGE IN YOUR MEDICAL CONDITION? PAIN HAS INCREASED . CHILLS NO . FEVER NO . INFECTION: DO YOU HAVE NEW INFECTIONS? NO . DO YOU HAVE HISTORY OF MRSA? NO . MUSCULOSKELETAL: ANY NEW PATTERNS OF PAIN OR NUMBNESS? NO . GASTROENTEROLOGY: ANY NEW CHANGE IN BOWEL CONTROL? NO . GENITOURINARY: ANY NEW CHANGE IN BLADDER CONTROL? YES . IS THERE A CHANCE YOU COULD BE ? NO . HEMATOLOGY/LYMPH: DO YOU TAKE ANY BLOOD THINNERS? (FOR EXAMPLE- COUMADIN, PLAVIX, AGGRENOX, PLATEL, PRADAXA, OR XARELTO) NO . WHEN WAS YOUR LAST DOSE? DATE: TIME: . NEUROLOGY: HAVE YOU FALLEN IN THE PAST 6 MONTHS? NO . ANY NEW EXTREMITY NUMBNESS OR WEAKNESS? NO . CARDIOLOGY: DO YOU HAVE A PACEMAKER OR DEFIBRILLATOR? NO . RESPIRATORY: HAVE YOU BEEN SICK IN THE PAST WEEK? NO . FEVER NO . FLU LIKE SYMPTOMS? NO . COUGH NO . INTEGUMENTARY: DO YOU HAVE ANY RASHES OR OPEN SORES? NO . ALLERGIC/IMMUNO: ARE YOU ALLERGIC TO SHELLFISH OR IV DYE? NO . ANY NEW ALLERGIES? NO . PSYCHIATRIC: DO YOU HAVE THOUGHTS OF HURTING YOURSELF OR SOMEONE ELSE? NO . ARE YOU ABUSED, NEGLECTED, OR IN AN UNSAFE ENVIRONMENT? NO . ENDOCRINOLOGY: ARE YOU DIABETIC? YES . OTHER: DO YOU NEED ANY PRESCRIPTIONS? YES LYRICA FENTANYLAMITRIPTYLINE . IF YES, PLEASE LIST: ____ . ANY NEW PROBLEMS WITH YOUR MEDICATIONS? NO . WHEN DID YOU LAST EAT? ____ . WHEN DID YOU LAST DRINK? ____ . WHAT DID YOU LAST DRINK? ____ . NAME OF PERSON DRIVING YOU HOME? ____ . DO YOU HAVE ANY OTHER QUESTIONS OR CONCERNS NO . VITAL SIGNS WT 209.4 LBS, HT 63 IN, BMI 37.09 INDEX, BP 151/69 MM HG, HR 71 /MIN, RR 18 /MIN, TEMP 97.3 F, OXYGEN SAT % 96%, NA INITIALS SC 08:56. EXAMINATION GENERAL EXAMINATION: GENERAL APPEARANCE:ALERT,UNCOMFORTABLE. PSYCHAFFECT FLAT. NECK:NO LYMPHADENOPATHY. LUNGS:LUNG BARAJAS ARE CLEAR TO AUSCULTATION BILATERALLY. GOOD MOVEMENT OF AIR. HEART:S1, S2 IN A REGULAR RATE AND RHYTHM. NO SIGNIFICANT MURMURS, RUBS OR GALLOPS NOTED. BACK:EXTREME PAIN EVERYWHERE WITH LIGHT TOUCH.UNABLE TO TOLERATE MUSCLE STRENGTH TESTING LOWER EXTREMITIES. THORACIC SPINE/UPPER BACK: VERTEBRAL SPINE TENDERNESS:PRESENT ENTIRE THORACIC AND LUMBAR SPINE. PARASPINAL MUSCLE SPASM:NOTED AT PARASPINALT5 BILATERALLYTO T8/9. RANGE OF MOTION OF SPINES:RESTRICTED. ASSESSMENTS ACUTE BILATERAL THORACIC BACK PAIN - M54.6 (PRIMARY) LUMBAR SPONDYLOSIS - M47.816 CHRONIC PRESCRIPTION OPIATE USE - Z79.891 TREATMENT ACUTE BILATERAL THORACIC BACK PAIN CONTINUE FENTANYL PATCH 72 HOUR, 25 MCG/HR, 1 PATCH TO SKIN, TRANSDERMAL, 1 PATCH Q 72H = MDD, 30 DAY(S), 10, REFILLS 0 INCREASE AMITRIPTYLINE HCL TABLET, 25 MG, 2, ORALLY, ONCE A DAY AT BEDTIME, 30 DAY(S), 60, REFILLS 1 CONTINUE LYRICA CAPSULE, 100 MG, 1 CAPSULE, ORALLY, TWICE A DAY MDD2, 30 DAY(S), 60, REFILLS 2 START PERCOCET TABLET, 5-325 MG, 1 TABLET NEEDED, ORALLY, EVERY 6 HRS PRN MDD4, 30 DAY(S), 45, REFILLS 0 NOTES: THORACIC T5-10 THERAPEUTIC FACET BLOCK-BILAT. PROCEDURE CODES FA211 ESTABILISHED PATIENT [facility] CHARGE G8730 PAIN ASSESS POS TOOL F/U PLAN DOC G8427 DOC MEDS VERIFIED W/PT OR RE DISPOSITION & COMMUNICATION FOLLOW UP 2WK POST (REASON: THORACIC T5-10 THERAPEUTIC FACET BLOCK-BILAT) ELECTRONICALLY SIGNED BY LUCIO AVINA ON 12/10/2016 AT 11:53 AM EDT DISCLAIMER : THIS IS A VISIT SUMMARY EXTRACTED FROM THE [employer] CHART. IT IS NOT A COPY OF THE [employer] PROGRESS NOTE. MTDD
== END ==
LOC: M PAIN 09:20
PROVIDERS: ATTEND Nurse Practitioner Family
DX: G89.29 Other chronic pain (principal); M54.6 Pain in thoracic spine; M47.816 Spondylosis without myelopathy or radiculopathy, lumbar region; M50.321 Other cervical disc degeneration at C4-C5 level; G43.009 Migraine without aura, not intractable, without status migrainosus; J45.20 Mild intermittent asthma, uncomplicated; G47.00 Insomnia, unspecified; R73.01 Impaired fasting glucose; I10 Essential (primary) hypertension; E78.5 Hyperlipidemia, unspecified; F32.9 Major depressive disorder, single episode, unspecified; K59.00 Constipation, unspecified; E66.9 Obesity, unspecified; E55.9 Vitamin D deficiency, unspecified; K76.0 Fatty (change of) liver, not elsewhere classified; Z79.891 Long term (current) use of opiate analgesic; Z88.1 Allergy status to other antibiotic agents; Z79.82 Long term (current) use of aspirin; Z79.84 Long term (current) use of oral hypoglycemic drugs; Z79.1 Long term (current) use of non-steroidal anti-inflammatories (NSAID)

== ENCOUNTER → 2016-12-13 | Outpatient (CLI) | payer MEDICARE, MEDICAID ==
[~2016-12-13] MED LIST changes: +AMIT25TA PO; -ATOR1TAB18 PO; +ATOR80TA59 PO; +BISAC5TA PO; +BUPIVACAINE HCL 0.25% 30 ML VIAL As Ordered ONE; +DUO-NEB INH; +FENT1DIS14 TD; +FLOM5CAP PO; +GABA-279 PO; +IBUP1TAB7 PO; +IPRASOL4 INH; +ISOVUE-M 300 61% 15ML VIAL (Q9967) As Ordered ONE; -LIDO5DIS36 TD; +LIDO5DIS41 TD; +LIDOCAINE 1% SDV INJ 30 ML VIAL As Ordered ONE; +LIPI80TA PO; -LYRI100C10; +METF500T13 PO; +NITR4TASL SL; +OXYC1TAB23 PO; +PANT40TA2 PO; -PERC10TA17 PO; +PERC10TA26 PO; +PERC5TAB12 PO; +POTA10CA PO; +PREG100CA; +PREG100CA PO; +SENN1TAB2 PO; +TRIAMCINOLONE ACETONIDE SUSP 40 MG/ML VIAL (J3301) As Ordered ONE; +VENTAER INH; +VITA100067 PO; +VITA1CAP40 PO; +VITMTA PO; +ZOLO50TA PO; +diazePAM 5 MG TAB As Ordered ONE; +oxyCODONE 5MG TAB As Ordered ONE
--- NOTE | 2016-12-13 15:00 | REP ---
PARTIAL THORACIC SPINE SERIES: SINGLE VIEW HISTORY: Thoracic facet block for pain. 11 seconds of fluoroscopy time is reported. FINDINGS: A single fluoroscopically-obtained spot radiograph of the thoracic spine documents various needle positions and contrast injections. Signed by Rene Stern MD 12/13/2016 05:13 P
--- NOTE | 2016-12-22 23:41 | ECWPNPC ---
PATIENT NAME: ISAIAH RDZ : 1955 GENDER: FEMALE VISIT DATE: 12/13/2016 DISCHARGE DATE: 12/13/16 1059 VISIT LOCKED DATE TIME: PHYSICIAN: TEETEE HAWKINS RESOURCE: TEETEE HAWKINS REASON FOR APPOINTMENT 1. THERAPEUTIC FACET HISTORY OF PRESENT ILLNESS HISTORY OF PRESENT ILLNESS: PAIN THE PATIENT DESCRIBES THE PAIN... FALL RISK SCREENING: SCREENING :NO FALLS IN THE PAST YEAR CURRENT MEDICATIONS TAKING ASPIRIN 81 MG TABLET CHEWABLE 1 TABLET ORALLY ONCE A DAY, NOTES: 12-12-16 08 TAKING DUONEB 0.5-2.5 (3) MG/3ML SOLUTION 3 ML INHALATION EVERY 4 HOURS NEEDED, NOTES: 12-12-16799 TAKING BLOOD GLUCOSE TEST STRIP ONE TOUCH VERIO GOLD TEST STRIP 1 STRIP DX: 790.21 TWICE A DAY TAKING LANCETS ONE TOUCH ULTRA SOFT LACETS 1 LANCET DX: 790.21 ONCE A DAY TAKING TENS UNIT ELECTRO PADS 1 PAD SET 1 PAD INTRADERMALLY USE NEEDED, NOTES: 12-12-162099 TAKING MULTIVITAMIN TABLETS 1 TAB(S) ORALLY ONCE A DAY, NOTES: 12-12-162099 TAKING POTASSIUM CHLORIDE TABLET 2 TABS TWICE DAILY, NOTES: 799 TAKING ZOLOFT 50 MG TABLET 1 TABLET ORALLY ONCE A DAY, NOTES: 12-13-16699 TAKING VICTOZA 18 MG/3ML SOLUTION PEN-INJECTOR INJECT 0.6 MG ONCE DAILY SUBCUTANEOUS ONCE A DAY TAKING E-Z SPACER - DEVICE DIRECTED _ DAILY TAKING PROVENTIL HFA 108 (90 BASE) MCG/ACT AEROSOL SOLUTION 2 PUFFS NEEDED INHALATION EVERY 4 HRS, NOTES: 12-13-16599 TAKING METFORMIN HCL 500 MG TABLET 1 TABLET ORALLY TWICE A DAY, NOTES: 12-12-161699 TAKING IBUPROFEN 800 MG TABLET 1 TABLET ORALLY THREE TIMES A DAY NEEDED, NOTES: 12-12-161699 TAKING PEN NEEDLES 31G X 6 MM MISCELLANEOUS 1 SUBCUTANEOUSLY ONCE A DAY DX:E11.9 TAKING GABAPENTIN 100 MG CAPSULE 1 CAPSULE ORALLY BID TAKING LIPITOR 80 MG TABLET 1 TABLET ORALLY ONCE A DAY, NOTES: 12-12-162099 TAKING AMBIEN 10 MG TABLET 1 TABLET AT BEDTIME NEEDED ORALLY ONCE A DAY, NOTES: 12-12-162099 TAKING LIDOCAINE 4 % CREAM 1 APPLICATION TO AFFECTED AREA NEEDED EXTERNALLY TID PRN, NOTES: NONE TAKING LIDOCAINE-PRILOCAINE 2.5-2.5 % CREAM DIRECTED EXTERNALLY TID PRN, NOTES: NONE TAKING LIDOCAINE-PRILOCAINE 2.5-2.5 % CREAM DIRECTED EXTERNALLY TID PRN, NOTES: NONE TAKING FENTANYL 25 MCG/HR PATCH 72 HOUR 1 PATCH TO SKIN TRANSDERMAL 1 PATCH Q 72H = MDD, NOTES: LEFT ARM TAKING AMITRIPTYLINE HCL 25 MG TABLET 2 ORALLY ONCE A DAY AT BEDTIME, NOTES: 12-12-162099 TAKING LYRICA 100 MG CAPSULE 1 CAPSULE ORALLY TWICE A DAY MDD2, NOTES: 12-12-162099 TAKING PERCOCET 5-325 MG TABLET 1 TABLET NEEDED ORALLY EVERY 6 HRS PRN MDD4, NOTES: 2099 NOT-TAKING DOXYCYCLINE HYCLATE 100 MG CAPSULE 1 CAPSULE ORALLY EVERY 12 HRS NOT-TAKING OMEPRAZOLE 40 MG CAPSULE DELAYED RELEASE 1 CAPSULE ORALLY ONCE A DAY MEDICATION LIST REVIEWED AND RECONCILED WITH THE PATIENT PAST MEDICAL HISTORY CERVICAL DJD, 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 2010 CERVICAL MRI WITH MULTILEVEL DJD, C4-C5 BULGE WITH MILD RIGHT NEURAL FORAMINAL NARROWING-11/2010 PERMANENT TOTAL DISABILITY MIGRAINE HEADACHES, COMMON TYPE WITH HISTORY OF HEMIPLEGIA-09/2012 MRI BRAIN C MINIMAL ASTHMA, MILD INTERMITTENT-06/2011 FEV1 1.7L (69%)/RATIO 108% INSOMNIA IMPAIRED FASTING GLUCOSE HYPERTENSION-AUGUST 2008 NORMAL MONICA EXCEPT FOR MODERATE AORTIC VALVE SCLEROSIS, TRACE AR, NORMAL LVEF-ANTEC/07/2011 [id number] HYPERLIPIDEMIA 2B DEPRESSION CONSTIPATION, CHRONIC OBESITY VITAMIN D DEFICIENCY LUMBAR DJD, 05/2012 MRI C L2-4 BULGES, MINIMAL L4/5 CENTRAL CANAL STENOSIS, NO CHANGE C/W 05/2010 L ADRENAL ADENOMA, 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 FATTY LIVER ALLERGIES FLAGYL: RASH: ALLERGY REVIEW OF SYSTEMS REVIEWED BY: PROVIDER: . CONSTITUTIONAL: ANY CHANGE IN YOUR MEDICAL CONDITION? NO . CHILLS NO . FEVER NO . INFECTION: DO YOU HAVE NEW INFECTIONS? NO . DO YOU HAVE HISTORY OF MRSA? NO . MUSCULOSKELETAL: ANY NEW PATTERNS OF PAIN OR NUMBNESS? NO . GASTROENTEROLOGY: ANY NEW CHANGE IN BOWEL CONTROL? NO . GENITOURINARY: ANY NEW CHANGE IN BLADDER CONTROL? NO . IS THERE A CHANCE YOU COULD BE ? NO . HEMATOLOGY/LYMPH: DO YOU TAKE ANY BLOOD THINNERS? (FOR EXAMPLE- COUMADIN, PLAVIX, AGGRENOX, PLATEL, PRADAXA, OR XARELTO) NO . WHEN WAS YOUR LAST DOSE? DATE: TIME: . NEUROLOGY: HAVE YOU FALLEN IN THE PAST 6 MONTHS? NO . ANY NEW EXTREMITY NUMBNESS OR WEAKNESS? NO . CARDIOLOGY: DO YOU HAVE A PACEMAKER OR DEFIBRILLATOR? NO . RESPIRATORY: HAVE YOU BEEN SICK IN THE PAST WEEK? NO . FEVER NO . FLU LIKE SYMPTOMS? NO . COUGH NO . INTEGUMENTARY: DO YOU HAVE ANY RASHES OR OPEN SORES? NO . ALLERGIC/IMMUNO: ARE YOU ALLERGIC TO SHELLFISH OR IV DYE? NO . ANY NEW ALLERGIES? NO . PSYCHIATRIC: DO YOU HAVE THOUGHTS OF HURTING YOURSELF OR SOMEONE ELSE? NO . ARE YOU ABUSED, NEGLECTED, OR IN AN UNSAFE ENVIRONMENT? NO . ENDOCRINOLOGY: ARE YOU DIABETIC? YES . OTHER: DO YOU NEED ANY PRESCRIPTIONS? YES . IF YES, PLEASE LIST: ____ . ANY NEW PROBLEMS WITH YOUR MEDICATIONS? NO . WHEN DID YOU LAST EAT? ____LAST NIGHT 1800 . WHEN DID YOU LAST DRINK? ____THIS MORNING 0600 . WHAT DID YOU LAST DRINK? ____WATER . NAME OF PERSON DRIVING YOU HOME? ____RON MY BROTHER . DO YOU HAVE ANY OTHER QUESTIONS OR CONCERNS NO . VITAL SIGNS WT 209.0 LBS, HT 63 IN, BMI 37.02 INDEX, BP 140/60 MM HG, HR 72 /MIN, RR 16 /MIN, TEMP 97.8 F, OXYGEN SAT % 98%, NA INITIALS TL 0844, REVIEWED BY: KG. ASSESSMENTS SPONDYLOSIS WITHOUT MYELOPATHY OR RADICULOPATHY, THORACIC REGION - M47.814 (PRIMARY) PROCEDURES PN THORACIC FACET BLOCK THERAPEUTIC PRE PROCEDURE DIAGNOSIS THORACIC SPONDYLOSIS POST PROCEDURE DIAGNOSIS THORACIC SPONDYLOSIS PROCEDURE THORACIC SPONDYLOSIS SURGEON DR. TEETEE HAWKINS HEATING REPAIR TECHNICIAN NONE ANESTHESIA LOCAL PRE PROCEDURE NOTE THE PATIENT WITH HISTORY OF CHRONIC THORACIC PAIN. I EVALUATED THE PATIENT AND REVIEWED THE CHART. I WENT OVER THE RISKS, ALTERNATIVES, AND BENEFITS ASSOCIATED WITH THIS PROCEDURE. THE PATIENT WOULD LIKE TO PROCEED AND GAVE CONSENT TO PERFORM THE PROCEDURE. THE PATIENT DENIES UNEXPLAINABLE WEIGHT LOSS, FEVER, CHILLS, OR NEW CHANGES IN URINARY OR BOWEL CONTROL DESCRIPTION OF PROCEDURE THE PATIENT WAS BROUGHT TO THE PROCEDURE ROOM AND PLACED IN THE PRONE POSITION. THE THORACIC AREA WAS CLEANED WITH CHLORAPREP SOLUTION AND DRAPED ASEPTICALLY. THE PROCEDURE WAS DONE UNDER STERILE CONDITIONS. I CHECKED LATERALITY AND THE LEVEL WHERE THE PROCEDURE WAS GOING TO BE PERFORMED WITH THE PATIENT AND THE SUPPORTING STAFF AT THE MOMENT OF THE TIME OUT IN THE PROCEDURE ROOM. UNDER FLUOROSCOPIC GUIDANCE, THE TARGET POINT WAS SELECTED AT THE RIGHT AND LEFT T3-T4 AND RIGHT AND LEFT T4-T5 THORACIC FACET. TARGET POINT WAS SELECTED AFTER LATERAL ROTATION AND TILT OF THE MAGNIFIER OF THE C-ARM. LIDOCAINE 0.5% WAS USED TO NUMB THE SKIN AND THE SUBCUTANEOUS TISSUE BELOW IT. SPINAL NEEDLES, 22-GAUGE, WERE ADVANCED UNDER FLUOROSCOPIC GUIDANCE AND FOLLOWING PATIENT FEEDBACK UNTIL THE TARGETS WERE TOUCHED. THE POSITION OF THE NEEDLES WAS VERIFIED WITH MULTIPLE X-RAY VIEWS. AFTER PROPER POSITION OF THE NEEDLES WAS ACHIEVED, ISOVUE-M DYE 30% 0.1 ML WAS INJECTED SHOWING ADEQUATE SPREAD OF THE DYE. THEN A SOLUTION OF 0.9 ML OF BUPIVACAINE 0.125% OF KENALOG 10 MG WAS INJECTED AT EACH SITE. THERE WAS NO EVIDENCE OF BLOOD, PARESTHESIA OR CEREBROSPINAL FLUID DURING THE PROCEDURE. THE PATIENT WAS SENT TO THE RECOVERY ROOM. THE PATIENT WAS MOVING THE EXTREMITIES AND DOING WELL. THERE WAS NO COMPLICATION DURING THE PROCEDURE. FLUOROSCOPY TIME WAS 11 SECONDS POST PROCEDURE NOTE THE PATIENT WILL BE SEEN IN A FOLLOW UP IN THE NEXT FEW WEEKS. INSTRUCTIONS WERE GIVEN, QUESTIONS WERE ANSWERED, AND THE PATIENT EXPRESSED UNDERSTANDING AND AGREED WITH THE PLAN. I, ANASTACIO BETANCOURT, DOCUMENTED THE ABOVE INFORMATION ACTING A SCRIBE FOR DR. HAWKINS. I, DR. HAWKINS, HAVE REVIEWED THE ABOVE DOCUMENT, SCRIBED BY ANASTACIO BETANCOURT, AND I VERIFY THAT IT IS ACCURATE DIAGNOSTIC IMAGING [facility] FACET BLOCK (PAIN)[id number] PROCEDURE CODES 99559 INJ PARAVERT F JNT C/T 1 LEV 75285 INJ PARAVERT F JNT C/T 2 LEV 6045F RADXPS IN END [id number] PXD DISPOSITION & COMMUNICATION FOLLOW UP 3 WEEKS ELECTRONICALLY SIGNED BY TEETEE HAWKINS MD ON 12/22/2016 AT 07:30 PM EDT DISCLAIMER : THIS IS A VISIT SUMMARY EXTRACTED FROM THE [employer] CHART. IT IS NOT A COPY OF THE [employer] PROGRESS NOTE. MTDD
== END ==
LOC: M PAIN 08:40
PROVIDERS: ATTEND Anesthesiology
DX: G89.29 Other chronic pain (principal); M47.814 Spondylosis without myelopathy or radiculopathy, thoracic region; G43.009 Migraine without aura, not intractable, without status migrainosus; J45.20 Mild intermittent asthma, uncomplicated; G47.00 Insomnia, unspecified; R73.01 Impaired fasting glucose; I10 Essential (primary) hypertension; E78.5 Hyperlipidemia, unspecified; F32.9 Major depressive disorder, single episode, unspecified; K59.00 Constipation, unspecified; E66.9 Obesity, unspecified; E55.9 Vitamin D deficiency, unspecified; K76.0 Fatty (change of) liver, not elsewhere classified; Z79.84 Long term (current) use of oral hypoglycemic drugs; Z79.82 Long term (current) use of aspirin; Z79.891 Long term (current) use of opiate analgesic; Z79.1 Long term (current) use of non-steroidal anti-inflammatories (NSAID); Z79.899 Other long term (current) drug therapy
CPT/HCPCS: 64490; 64491; J3301; Q9967

== ENCOUNTER → 2016-12-27 | Outpatient (CLI) | payer MEDICARE, MEDICAID ==
[~2016-12-27] MED LIST changes: -BUPIVACAINE HCL 0.25% 30 ML VIAL As Ordered ONE; -ISOVUE-M 300 61% 15ML VIAL (Q9967) As Ordered ONE; -LIDOCAINE 1% SDV INJ 30 ML VIAL As Ordered ONE; -TRIAMCINOLONE ACETONIDE SUSP 40 MG/ML VIAL (J3301) As Ordered ONE; -diazePAM 5 MG TAB As Ordered ONE; -oxyCODONE 5MG TAB As Ordered ONE
--- NOTE | 2016-12-28 00:23 | ECWPNPC ---
PATIENT NAME: ISAIAH RDZ : 1955 GENDER: FEMALE VISIT DATE: 12/27/2016 DISCHARGE DATE: 12/27/16 0949 VISIT LOCKED DATE TIME: PHYSICIAN: JORGE GILLESPIE RESOURCE: JORGE GILLESPIE REASON FOR APPOINTMENT 1. POST PROCEDURE HISTORY OF PRESENT ILLNESS HISTORY OF PRESENT ILLNESS: HERE FOR POST PROCEDURE F/U.HAD T3/4-4/5 BILATERAL FACET BLOCK.REPORTS >75% IMPROVEMENT THAT CONTINUES TODAY.RATING PAIN VAS 3/10.CURRENTLY USING FENTANYL 25MCG Q 72H,LYRICA 100MG BID,OXYCODONE 5/325 Q6H PRN AND AMITRIPTYLINE 25MG AT HS.FINDS MEDICATION HELPFUL AT REDUCING PAIN AND KEEPING HER COMFORTABLE.DENIES SIDE EFFECTS. PAIN THE PATIENT DESCRIBES THE PAIN... FALL RISK SCREENING: SCREENING :NO FALLS IN THE PAST YEAR CURRENT MEDICATIONS TAKING ASPIRIN 81 MG TABLET CHEWABLE 1 TABLET ORALLY ONCE A DAY TAKING DUONEB 0.5-2.5 (3) MG/3ML SOLUTION 3 ML INHALATION EVERY 4 HOURS NEEDED TAKING BLOOD GLUCOSE TEST STRIP ONE TOUCH VERIO GOLD TEST STRIP 1 STRIP DX: 790.21 TWICE A DAY TAKING LANCETS ONE TOUCH ULTRA SOFT LACETS 1 LANCET DX: 790.21 ONCE A DAY TAKING TENS UNIT ELECTRO PADS 1 PAD SET 1 PAD INTRADERMALLY USE NEEDED TAKING MULTIVITAMIN TABLETS 1 TAB(S) ORALLY ONCE A DAY TAKING POTASSIUM CHLORIDE TABLET 2 TABS TWICE DAILY TAKING ZOLOFT 50 MG TABLET 1 TABLET ORALLY ONCE A DAY TAKING VICTOZA 18 MG/3ML SOLUTION PEN-INJECTOR INJECT 0.6 MG ONCE DAILY SUBCUTANEOUS ONCE A DAY TAKING E-Z SPACER - DEVICE DIRECTED _ DAILY TAKING PROVENTIL HFA 108 (90 BASE) MCG/ACT AEROSOL SOLUTION 2 PUFFS NEEDED INHALATION EVERY 4 HRS TAKING METFORMIN HCL 500 MG TABLET 1 TABLET ORALLY TWICE A DAY TAKING IBUPROFEN 800 MG TABLET 1 TABLET ORALLY THREE TIMES A DAY NEEDED TAKING PEN NEEDLES 31G X 6 MM MISCELLANEOUS 1 SUBCUTANEOUSLY ONCE A DAY DX:E11.9 TAKING GABAPENTIN 100 MG CAPSULE 1 CAPSULE ORALLY BID TAKING LIPITOR 80 MG TABLET 1 TABLET ORALLY ONCE A DAY TAKING LIDOCAINE 4 % CREAM 1 APPLICATION TO AFFECTED AREA NEEDED EXTERNALLY TID PRN, NOTES: NONE TAKING LIDOCAINE-PRILOCAINE 2.5-2.5 % CREAM DIRECTED EXTERNALLY TID PRN, NOTES: NONE TAKING LIDOCAINE-PRILOCAINE 2.5-2.5 % CREAM DIRECTED EXTERNALLY TID PRN, NOTES: NONE TAKING AMITRIPTYLINE HCL 25 MG TABLET 2 ORALLY ONCE A DAY AT BEDTIME TAKING PERCOCET 5-325 MG TABLET 1 TABLET NEEDED ORALLY EVERY 6 HRS PRN MDD4 TAKING LYRICA 100 MG CAPSULE 1 CAPSULE ORALLY TWICE A DAY MDD2 TAKING FENTANYL 25 MCG/HR PATCH 72 HOUR 1 PATCH TO SKIN TRANSDERMAL 1 PATCH Q 72H = MDD TAKING AMBIEN 10 MG TABLET 1 TABLET AT BEDTIME NEEDED ORALLY ONCE A DAY NOT-TAKING DOXYCYCLINE HYCLATE 100 MG CAPSULE 1 CAPSULE ORALLY EVERY 12 HRS NOT-TAKING OMEPRAZOLE 40 MG CAPSULE DELAYED RELEASE 1 CAPSULE ORALLY ONCE A DAY MEDICATION LIST REVIEWED AND RECONCILED WITH THE PATIENT PAST MEDICAL HISTORY CERVICAL DJD, 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 2010 CERVICAL MRI WITH MULTILEVEL DJD, C4-C5 BULGE WITH MILD RIGHT NEURAL FORAMINAL NARROWING-11/2010 PERMANENT TOTAL DISABILITY MIGRAINE HEADACHES, COMMON TYPE WITH HISTORY OF HEMIPLEGIA-09/2012 MRI BRAIN C MINIMAL ASTHMA, MILD INTERMITTENT-06/2011 FEV1 1.7L (69%)/RATIO 108% INSOMNIA IMPAIRED FASTING GLUCOSE HYPERTENSION-AUGUST 2008 NORMAL MONICA EXCEPT FOR MODERATE AORTIC VALVE SCLEROSIS, TRACE AR, NORMAL LVEF-ANTECOL/07/2011 [id number] HYPERLIPIDEMIA 2B DEPRESSION CONSTIPATION, CHRONIC OBESITY VITAMIN D DEFICIENCY LUMBAR DJD, 05/2012 MRI C L2-4 BULGES, MINIMAL L4/5 CENTRAL CANAL STENOSIS, NO CHANGE C/W 05/2010 L ADRENAL ADENOMA, 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 FATTY LIVER ALLERGIES FLAGYL: RASH: ALLERGY SURGICAL HISTORY [facility] BSO 09/2002 COLONOSCOPY, HYPERPLASTIC POLYP 06/30 30 TEETH EXTRACTION-DINES 09/2013 BACK SURGERY 11/29/2014 HOSPITALIZATION/MAJOR DIAGNOSTIC PROCEDURE SURGERY PNEUMONIA 2010 REVIEW OF SYSTEMS REVIEWED BY: PROVIDER: JORGE VALDES . CONSTITUTIONAL: ANY CHANGE IN YOUR MEDICAL CONDITION? NO . CHILLS NO . FEVER NO . INFECTION: DO YOU HAVE NEW INFECTIONS? NO . DO YOU HAVE HISTORY OF MRSA? NO . MUSCULOSKELETAL: ANY NEW PATTERNS OF PAIN OR NUMBNESS? NO . GASTROENTEROLOGY: ANY NEW CHANGE IN BOWEL CONTROL? NO . GENITOURINARY: ANY NEW CHANGE IN BLADDER CONTROL? NO . IS THERE A CHANCE YOU COULD BE ? NO . HEMATOLOGY/LYMPH: DO YOU TAKE ANY BLOOD THINNERS? (FOR EXAMPLE- COUMADIN, PLAVIX, AGGRENOX, PLATEL, PRADAXA, OR XARELTO) NO . WHEN WAS YOUR LAST DOSE? DATE: TIME: . NEUROLOGY: HAVE YOU FALLEN IN THE PAST 6 MONTHS? NO . ANY NEW EXTREMITY NUMBNESS OR WEAKNESS? NO . CARDIOLOGY: DO YOU HAVE A PACEMAKER OR DEFIBRILLATOR? NO . RESPIRATORY: HAVE YOU BEEN SICK IN THE PAST WEEK? NO . FEVER NO . FLU LIKE SYMPTOMS? NO . COUGH NO . INTEGUMENTARY: DO YOU HAVE ANY RASHES OR OPEN SORES? NO . ALLERGIC/IMMUNO: ARE YOU ALLERGIC TO SHELLFISH OR IV DYE? NO . ANY NEW ALLERGIES? NO . PSYCHIATRIC: DO YOU HAVE THOUGHTS OF HURTING YOURSELF OR SOMEONE ELSE? NO . ARE YOU ABUSED, NEGLECTED, OR IN AN UNSAFE ENVIRONMENT? NO . ENDOCRINOLOGY: ARE YOU DIABETIC? YES . OTHER: DO YOU NEED ANY PRESCRIPTIONS? YES, BY END OF MONTH, ALL NEED RENEWAL . IF YES, PLEASE LIST: ____ . ANY NEW PROBLEMS WITH YOUR MEDICATIONS? NO . WHEN DID YOU LAST EAT? ____ . WHEN DID YOU LAST DRINK? ____ . WHAT DID YOU LAST DRINK? ____ . NAME OF PERSON DRIVING YOU HOME? ____ . DO YOU HAVE ANY OTHER QUESTIONS OR CONCERNS NO . VITAL SIGNS WT 205 LBS, HT 63 IN, BMI 36.31 INDEX, BP 137/66 MM HG, HR 83 /MIN, RR 16 /MIN, TEMP 97.7 F, OXYGEN SAT % 96, SAFE IN ENV? (Y/N) Y, REVIEWED BY: EM. EXAMINATION GENERAL EXAMINATION: GENERAL APPEARANCE:AWAKE,ALERT,COMFORTABLE. PSYCHAFFECT NORMAL. LUNGS:LUNG SOUNDS ARE CLEAR. HEART:HEART RATE REGULAR. BACK:NO TENDERNESS. 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 CHRONIC PRESCRIPTION OPIATE USE - Z79.891 TREATMENT LUMBAR SPONDYLOSIS REFILL PERCOCET TABLET, 5-325 MG, 1 TABLET NEEDED, ORALLY, EVERY 6 HRS PRN MDD4, 30 DAY(S), 45, REFILLS 0 REFILL LYRICA CAPSULE, 100 MG, 1 CAPSULE, ORALLY, TWICE A DAY MDD2, 30 DAY(S), 60, REFILLS 2 REFILL FENTANYL PATCH 72 HOUR, 25 MCG/HR, 1 PATCH TO SKIN, TRANSDERMAL, 1 PATCH Q 72H = MDD, 30 DAY(S), 10, REFILLS 0 INCREASE AMITRIPTYLINE HCL TABLET, 25 MG, 2, ORALLY, ONCE A DAY AT BEDTIME, 30 DAY(S), 60, REFILLS 2 PROCEDURE CODES FA211 ESTABILISHED PATIENT [facility] CHARGE [id number] PAIN ASSESS POS TOOL F/U PLAN DOC G8427 DOC MEDS VERIFIED W/PT OR RE DISPOSITION & COMMUNICATION FOLLOW UP 2 MONTHS ELECTRONICALLY SIGNED BY LUCIO AVINA ON 12/27/2016 AT 02:23 PM EDT DISCLAIMER : THIS IS A VISIT SUMMARY EXTRACTED FROM THE [employer] CHART. IT IS NOT A COPY OF THE [employer] PROGRESS NOTE. MICHELLE
== END ==
LOC: M PAIN 09:00
PROVIDERS: ATTEND Nurse Practitioner Family
DX: G89.29 Other chronic pain (principal); M47.816 Spondylosis without myelopathy or radiculopathy, lumbar region; M47.814 Spondylosis without myelopathy or radiculopathy, thoracic region; G43.009 Migraine without aura, not intractable, without status migrainosus; J45.20 Mild intermittent asthma, uncomplicated; G47.00 Insomnia, unspecified; R73.01 Impaired fasting glucose; I10 Essential (primary) hypertension; E78.5 Hyperlipidemia, unspecified; F32.9 Major depressive disorder, single episode, unspecified; K59.00 Constipation, unspecified; E66.9 Obesity, unspecified; E55.9 Vitamin D deficiency, unspecified; K76.0 Fatty (change of) liver, not elsewhere classified; Z79.891 Long term (current) use of opiate analgesic; Z79.84 Long term (current) use of oral hypoglycemic drugs; Z79.899 Other long term (current) drug therapy; Z88.1 Allergy status to other antibiotic agents; Z68.36 Body mass index [BMI] 36.0-36.9, adult

== ENCOUNTER → 2017-01-03 | Outpatient (REF) | payer MEDICARE, MEDICAID ==
[2017-01-03 12:58] LABS: WHITE BLOOD COUNT 10.2 K/mm3 (4.0-10.0)
[2017-01-03 12:59] LABS: BASO % 0.3 % (0.0-1.0); EOS # 0.2 K/mm3 (0.0-0.50); EOS % 1.7 % (0.0-3.0); LARGE UNSTAINED CELL # 0.1 K/mm3 (0.0-0.4); LARGE UNSTAINED CELL % 0.8 % (0.0-4.0); LYMPH # 2.5 K/mm3 (1.5-4.5); LYMPH % 23.5 % (24.0-44.0); MEAN CORPUSCULAR HEMOGLOBIN 26.5 pg (27.0-33.0); MEAN CORPUSCULAR HGB CONC 31.3 g/dl (32.0-36.5); MEAN CORPUSCULAR VOLUME 84.8 fl (80.0-96.0); MONO # 0.4 K/mm3 (0.0-0.8); MONO % 3.4 % (0.0-5.0); NEUTROPHILS # 7.2 K/mm3 (1.8-7.7); NEUTROPHILS % 70.3 % (36.0-66.0); PLATELET COUNT, AUTOMATED 332 k/mm3 (150-450); RED CELL DISTRIBUTION WIDTH 15.1 % (11.5-14.5)
[2017-01-03 13:39] LABS: ALBUMIN 3.1 GM/DL (3.2-5.2); ALBUMIN/GLOBULIN RATIO 0.91 (1.00-1.93); ALKALINE PHOSPHATASE 132 U/L (45-117); ALT/SGPT 20 U/L (12-78); ANION GAP 7 MEQ/L (8-16); AST/SGOT 13 U/L (15-37); BILIRUBIN,TOTAL 0.3 MG/DL (0.2-1.0); BLOOD UREA NITROGEN 20 MG/DL (7-18); CALCIUM LEVEL 9.2 MG/DL (8.8-10.2); CARBON DIOXIDE LEVEL 30 MEQ/L (21-32); CHLORIDE LEVEL 107 MEQ/L (98-107); CHOLESTEROL LEVEL 147 MG/DL (<200); CREATININE FOR GFR 0.73 MG/DL (0.55-1.02); GLOMERULAR FILTRATION RATE > 60.0 (>45); GLUCOSE, FASTING 85 MG/DL (80-110); POTASSIUM SERUM 4.1 MEQ/L (3.5-5.1); SODIUM LEVEL 144 MEQ/L (136-145); TOTAL PROTEIN 6.5 GM/DL (6.4-8.2); TRIGLYCERIDES LEVEL 74 MG/DL (<150)
== END ==
LOC: M SFHCADAM 08:05
PROVIDERS: ATTEND Physician Assistant Medical
DX: E78.2 Mixed hyperlipidemia (principal); I10 Essential (primary) hypertension; E55.9 Vitamin D deficiency, unspecified; E11.9 Type 2 diabetes mellitus without complications

== ENCOUNTER → 2017-01-20 | Outpatient (REF) | payer MEDICARE, MEDICAID ==
[2017-01-20 13:30] LABS: CREATININE FOR GFR 1.01 MG/DL (0.55-1.02); GLOMERULAR FILTRATION RATE 58.9 (>45)
== END ==
LOC: M SFHCADAM 07:58
PROVIDERS: ATTEND Physician Assistant Medical
DX: R10.31 Right lower quadrant pain (principal)

== ENCOUNTER → 2017-01-23 | Outpatient (CLI) | payer MEDICARE, MEDICAID ==
[~2017-01-23] MED LIST changes: +GASTROGRAFIN SOLUTION 30ML (Q9963) As Ordered ONE; +ISOVUE-370 76% 100ML VIAL (Q9967) As Ordered ONE
--- NOTE | 2017-01-23 19:45 | REP ---
CT ABDOMEN PELVIS WITH IV CONTRAST: 01/23/2017. Clinical history: Right lower quadrant pain. Comparison: 12/21/2015. Technique: Oral Gastrografin mixture per our protocol with 10 mL in 290 mL of flavored water for two doses for bowel contrast. Bolus of 100 mL of Isovue 370 given. After scanning through the abdomen and pelvis, coronal and sagittal reconstructions provided. Findings: CT abdomen: Lung bases are clear. Heart mildly prominent with left atrial and ventricular enlargement. No pericardial thickening or effusion. No hiatal hernia. I see no hepatosplenomegaly, focal hepatic or splenic mass nor intrahepatic biliary dilatation. Gallbladder is without calcified stone or mass. Pancreas is unremarkable. Adrenal glands are normal. Stomach filled with oral contrast. Abdominal portion of the colon shows no colitis or diverticulitis. Appendix is absent. Small bowel loops are not abnormally dilated and show fluid and oral contrast. No inflammatory changes in the mesentery. No aortic aneurysm and no periaortic or mesenteric adenopathy. Lung window review for all CT slice levels shows no perforation or abscess. Left kidney shows normal enhancement and no hydronephrosis, stone, mass or cyst. No hydroureter or ureteral stone. The right kidney shows enhancement but mild hydronephrosis. Extrarenal pelvis and hydroureter. This extends to the level of inferior aspect of L4 vertebral body where there is a 7 mm ureteral stone. Below this the ureter is of normal caliber and no other stones seen in the distal right ureter. Bone windows show some minor degenerative change without destructive lesion. There is no compression deformity in the spine. The bony hips, pelvis, sacrum, SI joints and the lumbosacral junction were grossly intact. Bladder nearly empty and distal ureter is not dilated and show no stone. Uterus absent. Vaginal cuff intact. No pelvic free fluid or adenopathy. Distal left colon, sigmoid and rectum were unremarkable. Small bowel loops intact. No ventral or inguinal hernia. Impression: 1. A 7 mm stone in the mid right ureter at about the inferior aspect of the L4 vertebral body with hydroureter and hydronephrosis above and normal ureter diameter and no stone below. 2. No other right renal stone nor any left renal or ureteral stone. No other finding. Signed by Kana Mccullough MD 01/24/2017 11:03 A
== END ==
LOC: M RAD 14:38
PROVIDERS: ATTEND Physician Assistant Medical
DX: N13.2 Hydronephrosis with renal and ureteral calculous obstruction (principal)
CPT/HCPCS: 74177; Q9963; Q9967

== ENCOUNTER → 2017-02-05 | Outpatient (CLI) | payer MEDICARE, MEDICAID ==
[~2017-02-05] MED LIST changes: -GASTROGRAFIN SOLUTION 30ML (Q9963) As Ordered ONE; -ISOVUE-370 76% 100ML VIAL (Q9967) As Ordered ONE
[2017-02-05 18:14] LABS: INR 0.89; MEAN CORPUSCULAR HEMOGLOBIN 26.2 pg (27.0-33.0); MEAN CORPUSCULAR VOLUME 84.6 fl (80.0-96.0); RED CELL DISTRIBUTION WIDTH 15.2 % (11.5-14.5); WHITE BLOOD COUNT 12.4 K/mm3 (4.0-10.0)
[2017-02-05 18:25] LABS: ANION GAP 6 MEQ/L (8-16); BLOOD UREA NITROGEN 15 MG/DL (7-18); CALCIUM LEVEL 9.5 MG/DL (8.8-10.2); CARBON DIOXIDE LEVEL 31 MEQ/L (21-32); CHLORIDE LEVEL 108 MEQ/L (98-107); CREATININE FOR GFR 0.93 MG/DL (0.55-1.02); GLOMERULAR FILTRATION RATE > 60.0 (>45); GLUCOSE, FASTING 86 MG/DL (80-110); POTASSIUM SERUM 3.4 MEQ/L (3.5-5.1); SODIUM LEVEL 145 MEQ/L (136-145)
== END ==
LOC: M SMT 14:49
PROVIDERS: ATTEND Nurse Practitioner Women's Health
DX: Z01.818 Encounter for other preprocedural examination (principal); N13.2 Hydronephrosis with renal and ureteral calculous obstruction; E11.9 Type 2 diabetes mellitus without complications; Z79.4 Long term (current) use of insulin; Z79.899 Other long term (current) drug therapy
CPT/HCPCS: 36415; 80048; 81001; 85027; 85610; 85730; 87086; G0463

== ENCOUNTER → 2017-02-06 | Outpatient (CLI) | payer MEDICARE, MEDICAID ==
--- NOTE | 2017-02-06 10:09 | ECGEPIP ---
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
--- NOTE | 2017-02-06 11:07 | REP ---
Chest x-ray: Two views. History: COPD. Comparison chest x-ray February 07, 2016 and August 02, 2016. Findings: There is a zone of linear fibrosis in the left base unchanged. Mild linear fibrosis is seen in the right base as well involving the right middle lobe. Pleural angles are sharp. Lung cornejo are otherwise clear. There are degenerative changes in the thoracic spine. The heart is not enlarged. Pulmonary vasculature is not increased. Impression: Bibasilar linear fibrosis. Otherwise no acute disease. Signed by Rene Stern MD 02/06/2017 01:59 P
== END ==
LOC: M EKG 09:30
PROVIDERS: ATTEND Nurse Practitioner Women's Health
DX: Z01.818 Encounter for other preprocedural examination (principal); N13.2 Hydronephrosis with renal and ureteral calculous obstruction; R94.31 Abnormal electrocardiogram [ECG] [EKG]; J84.10 Pulmonary fibrosis, unspecified

== ENCOUNTER → 2017-02-21 | Day surgery (SDC) | payer MEDICARE, MEDICAID ==
[~2017-02-21] VITALS: Ht 160 cm; Wt 91.2 kg
[~2017-02-21] MED LIST changes: +CONRAY-60 60% 50ML VIAL (Q9961) As Ordered ONE; +HYDROmorphone HCL 1 MG/ML SYRINGE (J1170) IV PRN; +KETOROLAC 30 MG/ML VIAL (J1885) As Ordered ONE; +KETOROLAC 30 MG/ML VIAL (J1885) IV PRN; +LIDOCAINE 2% INJ 100 MG/5 ML SDV (FOR ANES.) As Ordered ONE; +LR 1,000 ML IV ONE; +LR 1,000 ML IV SCH; +MIDAZOLAM INJ 2 MG/2 ML VIAL (J2250) As Ordered ONE; +ONDANSETRON 4MG/2ML VIAL (J2405) As Ordered ONE; +ONDANSETRON 4MG/2ML VIAL (J2405) IV PRN; +PERCOCET 5MG/325MG TAB As Ordered ONE; +PERCOCET 5MG/325MG TAB PO PRN; +PROPOFOL 200 MG/20 ML VIAL As Ordered ONE; +ceFAZolin 2 GM/D5W 50 ML IV BAG (J0690) As Ordered ONE; +fentaNYL 100 MCG/2 ML INJECTION (J3010) As Ordered ONE; +oxyBUTYnin 5 MG TAB PO PRN
[2017-02-21] MEDS: fentaNYL 100 MCG/2 ML INJECTION (J3010) IV PRN ×3 (16:10→16:30)
[2017-02-21] MEDS: PERCOCET 5MG/325MG TAB PO PRN ×2 (16:15→16:51)
--- NOTE | 2017-02-21 17:00 | REP ---
Retrograde pyelogram: Three views. History: Right ureteral stone. 17 seconds of fluoroscopy time is reported. Findings: A sequence of three last image hold fluoroscopic spot radiographs of the right abdomen document right ureteral cannulation, contrast injection, and double pigtail ureteral stent placement. Signed by Rene Stern MD 02/24/2017 07:54 A
[2017-02-21 17:45] VITALS: BP 142/69
--- NOTE | 2017-02-21 18:49 | RO ---
DATE OF PROCEDURE: 02/21/2017 PREPROCEDURE DIAGNOSIS: Obstructing right ureteral stone. POSTPROCEDURE DIAGNOSIS: Obstructing right ureteral stone. PROCEDURE: Cystoscopy, right ureteroscopy with laser lithotripsy and basket extraction of stones, right retrograde pyelogram with intraoperative interpretation of images, right ureteral stent placement. SURGEON: Kale Washington MD COMMUNITY HEALTH ADVISOR: None. ANESTHESIA: General. OPERATIVE INDICATIONS: This is a 61-year-old female who was found to have a 7 mm obstructing mid right ureteral stone. She was brought to the operating room today for treatment. DESCRIPTION OF PROCEDURE: The patient was brought to the operating room and general anesthesia was induced. Prophylactic antibiotics were infused. She was then placed in the dorsal lithotomy position and prepped and draped in the usual sterile fashion. A rigid cystoscope was inserted through the urethral meatus and advanced into the bladder. Once within the bladder, a wire was advanced up the right collecting system. I then advanced a ureteral access sheath over the wire up into the right collecting system. The stylette was then removed and the wire was secured to the drape to serve as a safety wire. I then went up the access sheath with a flexible ureteroscope and within the midureter there was a 7 mm stone impacted within the ureter. At this point, I utilized at 200 micron laser fiber to fragment the stone into several smaller pieces. All of the fragments were then removed with a basket. I then examined the remainder of the ureter and kidney and no additional stones were seen. Of note, the area where the stone was impacted did look very scarred. I then shot a retrograde pyelogram that was notable for moderate to severe right hydroureteronephrosis. There was no extravasation. At this point, I then removed the ureteroscope along with the ureteral access sheath and no addition stones were seen in the ureter. The previously placed wire was then utilized to advance a #6 Portuguese x 22-32 cm JJ ureteral stent up into the right collecting system. The wire was then removed and there were adequate curls of the stent in the right renal pelvis and in the bladder. The bladder was then emptied of all fluid and this marked the conclusion of the procedure. The patient was taken out of dorsal lithotomy position, awakened from anesthesia and transported to the recovery room in stable condition. ESTIMATED BLOOD LOSS: 0 mL. COMPLICATIONS: None. SPECIMENS: Kidney stone fragments. PLAN: I will leave the patient's stent in approximately 3-4 weeks given the amount of scarring in the ureter. I will then bring her back to the office for stent removal. MICHELLE
== END | disposition home or self-care (01) ==
LOC: M SDC 12:52
PROVIDERS: ATTEND Urology
DX: N20.1 Calculus of ureter (principal); N13.30 Unspecified hydronephrosis; M50.30 Other cervical disc degeneration, unspecified cervical region; E78.5 Hyperlipidemia, unspecified; G47.00 Insomnia, unspecified; F32.9 Major depressive disorder, single episode, unspecified; K59.09 Other constipation; E55.9 Vitamin D deficiency, unspecified; E66.9 Obesity, unspecified; J45.20 Mild intermittent asthma, uncomplicated; E11.9 Type 2 diabetes mellitus without complications; M51.26 Other intervertebral disc displacement, lumbar region; K21.9 Gastro-esophageal reflux disease without esophagitis; M79.7 Fibromyalgia; M19.90 Unspecified osteoarthritis, unspecified site; Z86.73 Personal history of transient ischemic attack (TIA), and cerebral infarction without residual deficits; J44.9 Chronic obstructive pulmonary disease, unspecified; R07.9 Chest pain, unspecified; M48.06 Spinal stenosis, lumbar region; I25.10 Atherosclerotic heart disease of native coronary artery without angina pectoris; I10 Essential (primary) hypertension; G43.909 Migraine, unspecified, not intractable, without status migrainosus; Z79.899 Other long term (current) drug therapy; Z79.82 Long term (current) use of aspirin; Z79.84 Long term (current) use of oral hypoglycemic drugs; Z88.3 Allergy status to other anti-infective agents
CPT/HCPCS: 52356; 76000; 82360; 88300; C1769; C1894; C2617; J0690; J1885; J2250; J2405; J3010; Q9961

== ENCOUNTER → 2017-03-13 | Outpatient (CLI) | payer MEDICARE, MEDICAID ==
[~2017-03-13] MED LIST changes: -CONRAY-60 60% 50ML VIAL (Q9961) As Ordered ONE; -HYDROmorphone HCL 1 MG/ML SYRINGE (J1170) IV PRN; -KETOROLAC 30 MG/ML VIAL (J1885) As Ordered ONE; -KETOROLAC 30 MG/ML VIAL (J1885) IV PRN; -LIDOCAINE 2% INJ 100 MG/5 ML SDV (FOR ANES.) As Ordered ONE; -LR 1,000 ML IV ONE; -LR 1,000 ML IV SCH; -MIDAZOLAM INJ 2 MG/2 ML VIAL (J2250) As Ordered ONE; -ONDANSETRON 4MG/2ML VIAL (J2405) As Ordered ONE; -ONDANSETRON 4MG/2ML VIAL (J2405) IV PRN; -PERCOCET 5MG/325MG TAB As Ordered ONE; -PERCOCET 5MG/325MG TAB PO PRN; -PROPOFOL 200 MG/20 ML VIAL As Ordered ONE; -ceFAZolin 2 GM/D5W 50 ML IV BAG (J0690) As Ordered ONE; -fentaNYL 100 MCG/2 ML INJECTION (J3010) As Ordered ONE; -oxyBUTYnin 5 MG TAB PO PRN
--- NOTE | 2017-03-14 00:10 | ECWPNPC ---
PATIENT NAME: ISAIAH RDZ : 1955 GENDER: FEMALE VISIT DATE: 03/13/2017 DISCHARGE DATE: 03/13/17 1009 VISIT LOCKED DATE TIME: PHYSICIAN: JORGE GILLESPIE PHYSICIAN PAGER NO: [phone] RESOURCE: JORGE GILLESPIE REASON FOR APPOINTMENT 1. BACK HISTORY OF PRESENT ILLNESS HISTORY OF PRESENT ILLNESS: HERE FOR F/U OF CHRONIC GENERALIZED BACK PAIN.DESCRIBES PAIN INTERMITTENT ACHING AND BURNING.RATING PAIN VAS 4/10.CURRENTLY USING FENTANYL 25MCG Q72 ,AMITRIPTYLINE 25MG,TWO TABS AT HS ,LYRICA 100MG BID AND PERCOCET 5/325 Q8H PRN .FINDS MEDICATION EFFECTIVE AT REDUCING PAIN AND KEEPING HER COMFORTABLE.DENIES SIDE EFFECTS. PAIN THE PATIENT DESCRIBES THE PAIN... FALL RISK SCREENING: SCREENING :NO FALLS IN THE PAST YEAR CURRENT MEDICATIONS TAKING ASPIRIN 81 MG TABLET CHEWABLE 1 TABLET ORALLY ONCE A DAY TAKING DUONEB 0.5-2.5 (3) MG/3ML SOLUTION 3 ML INHALATION EVERY 4 HOURS NEEDED TAKING BLOOD GLUCOSE TEST STRIP ONE TOUCH VERIO GOLD TEST STRIP 1 STRIP DX: 790.21 TWICE A DAY TAKING LANCETS ONE TOUCH ULTRA SOFT LACETS 1 LANCET DX: 790.21 ONCE A DAY TAKING TENS UNIT ELECTRO PADS 1 PAD SET 1 PAD INTRADERMALLY USE NEEDED TAKING MULTIVITAMIN TABLETS 1 TAB(S) ORALLY ONCE A DAY TAKING POTASSIUM CHLORIDE TABLET 2 TABS TWICE DAILY TAKING E-Z SPACER - DEVICE DIRECTED _ DAILY TAKING PROVENTIL HFA 108 (90 BASE) MCG/ACT AEROSOL SOLUTION 2 PUFFS NEEDED INHALATION EVERY 4 HRS TAKING PEN NEEDLES 31G X 6 MM MISCELLANEOUS 1 SUBCUTANEOUSLY ONCE A DAY DX:E11.9 TAKING GABAPENTIN 100 MG CAPSULE 1 CAPSULE ORALLY BID TAKING LIPITOR 80 MG TABLET 1 TABLET ORALLY ONCE A DAY TAKING LIDOCAINE-PRILOCAINE 2.5-2.5 % CREAM DIRECTED EXTERNALLY TID PRN, NOTES: NONE TAKING LYRICA 100 MG CAPSULE 1 CAPSULE ORALLY TWICE A DAY MDD2 TAKING ZOLOFT 50 MG TABLET 1 TABLET ORALLY ONCE A DAY TAKING VITAMIN D 73505 UNIT CAPSULE 1 TABLET ORALLY WEEKLY TAKING VICTOZA 18 MG/3ML SOLUTION PEN-INJECTOR INJECT 0.6 MG ONCE DAILY SUBCUTANEOUS ONCE A DAY TAKING FLOMAX 0.4 MG CAPSULE 1 CAPSULE ORALLY ONCE A DAY TAKING FENTANYL 25 MCG/HR PATCH 72 HOUR 1 PATCH TO SKIN TRANSDERMAL 1 PATCH Q 72H = MDD TAKING AMITRIPTYLINE HCL 25 MG TABLET 2 ORALLY ONCE A DAY AT BEDTIME TAKING METFORMIN HCL 500 MG TABLET 1 TABLET ORALLY TWICE A DAY TAKING AMBIEN 10 MG TABLET 1 TABLET AT BEDTIME NEEDED ORALLY ONCE A DAY, NOTES: 12-12-162099 TAKING OXYBUTYNIN CHLORIDE 5 MG TABLET 1 TABLET ORALLY EVERY 8 HOURS NEEDED FOR BLADDER SPASMS OR URINARY FREQUENCY TAKING IBUPROFEN 800 MG TABLET 1 TABLET ORALLY THREE TIMES A DAY NEEDED TAKING PERCOCET 5-325 MG TABLET 1 TABLET ORALLY EVERY 6 HRS NEEDED FOR PAIN (MDD4) NOT-TAKING LIDOCAINE 4 % CREAM 1 APPLICATION TO AFFECTED AREA NEEDED EXTERNALLY TID PRN, NOTES: NONE NOT-TAKING LIDOCAINE-PRILOCAINE 2.5-2.5 % CREAM DIRECTED EXTERNALLY TID PRN, NOTES: NONE MEDICATION LIST REVIEWED AND RECONCILED WITH THE PATIENT PAST MEDICAL HISTORY CERVICAL DJD, 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 2010 CERVICAL MRI WITH MULTILEVEL DJD, C4-C5 BULGE WITH MILD RIGHT NEURAL FORAMINAL NARROWING-11/2010 PERMANENT TOTAL DISABILITY MIGRAINE HEADACHES, COMMON TYPE WITH HISTORY OF HEMIPLEGIA-09/2012 MRI BRAIN C MINIMAL ASTHMA, MILD INTERMITTENT-06/2011 FEV1 1.7L (69%)/RATIO 108% INSOMNIA IMPAIRED FASTING GLUCOSE HYPERTENSION-AUGUST 2008 NORMAL MONICA EXCEPT FOR MODERATE AORTIC VALVE SCLEROSIS, TRACE AR, NORMAL LVEF-ANTECOL/07/2011 VILS-ORWSJS-ONELPUY HYPERLIPIDEMIA 2B DEPRESSION CONSTIPATION, CHRONIC OBESITY VITAMIN D DEFICIENCY LUMBAR DJD, 05/2012 MRI C L2-4 BULGES, MINIMAL L4/5 CENTRAL CANAL STENOSIS, NO CHANGE C/W 05/2010 L ADRENAL ADENOMA, 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 FATTY LIVER KIDNEY STONES ALLERGIES FLAGYL: RASH: ALLERGY SOCIAL HISTORY GENERAL: TOBACCO USE ARE YOU A:NONSMOKER NEVER SMOKER ALCOHOL SCREENING DID YOU HAVE A DRINK CONTAINING ALCOHOL IN THE PAST YEAR?NO POINTS0 INTERPRETATIONNEGATIVE RECREATIONAL DRUG USE DRUG USE?NO CAFFEINE CAFFEINE USE?YES SEXUAL HX HAD SEX IN THE LAST 12 MONTHS (VAGINAL, ORAL, OR ANAL)?NO OCCUPATION: RETIRED. MARITAL STATUS: . LEARNING BARRIERS / SPECIAL NEEDS CHANGE FROM LAST VISIT?YES BARRIERS TO LEARNING?NO HEARING IMPAIRED?NO VISION IMPAIRED?YES :CORRECTIVE LENSES COGNITIVELY IMPAIRED?NO READINESS TO LEARN?YES LEARNING PREFERENCES?NO LEARNING CAPABILITIES PRESENT?YES EMOTIONAL BARRIERS?NO SPECIAL DEVICES?NO NEW PATIENT PAIN DIARY TODAY'S VISIT NOTES, FROM 0-10, WHAT LEVEL IS YOUR PAIN TODAY? 0. PAIN CLINIC PFS, CLERGY, PUBLIC HEALTH REFERRALS HAS THE PATIENT BEEN EDUCATED REGARDING HIS/HER PLAN OF CARE?YES HAS THE PATIENT BEEN EDUCATED REGARDING PAIN, THE RISK FOR PAIN, THE IMPORTANCE OF EFFECTIVE PAIN MANAGEMENT, AND THE PAIN ASSESSMENT PROCESS?YES REVIEW OF SYSTEMS REVIEWED BY: PROVIDER: JORGE VALDES . CONSTITUTIONAL: ANY CHANGE IN YOUR MEDICAL CONDITION? YES . CHILLS NO . FEVER NO . INFECTION: DO YOU HAVE NEW INFECTIONS? NO . DO YOU HAVE HISTORY OF MRSA? NO . MUSCULOSKELETAL: ANY NEW PATTERNS OF PAIN OR NUMBNESS? NO . GASTROENTEROLOGY: ANY NEW CHANGE IN BOWEL CONTROL? YES . GENITOURINARY: ANY NEW CHANGE IN BLADDER CONTROL? NO . IS THERE A CHANCE YOU COULD BE ? NO . HEMATOLOGY/LYMPH: DO YOU TAKE ANY BLOOD THINNERS? (FOR EXAMPLE- COUMADIN, PLAVIX, AGGRENOX, PLATEL, PRADAXA, OR XARELTO) NO . WHEN WAS YOUR LAST DOSE? DATE: TIME: . NEUROLOGY: HAVE YOU FALLEN IN THE PAST 6 MONTHS? NO . ANY NEW EXTREMITY NUMBNESS OR WEAKNESS? NO . CARDIOLOGY: DO YOU HAVE A PACEMAKER OR DEFIBRILLATOR? NO . RESPIRATORY: HAVE YOU BEEN SICK IN THE PAST WEEK? NO . FEVER NO . FLU LIKE SYMPTOMS? NO . COUGH NO . INTEGUMENTARY: DO YOU HAVE ANY RASHES OR OPEN SORES? NO . ALLERGIC/IMMUNO: ARE YOU ALLERGIC TO SHELLFISH OR IV DYE? NO . ANY NEW ALLERGIES? NO . PSYCHIATRIC: DO YOU HAVE THOUGHTS OF HURTING YOURSELF OR SOMEONE ELSE? NO . ARE YOU ABUSED, NEGLECTED, OR IN AN UNSAFE ENVIRONMENT? NO . ENDOCRINOLOGY: ARE YOU DIABETIC? NO . OTHER: DO YOU NEED ANY PRESCRIPTIONS? YES . IF YES, PLEASE LIST: ____ . ANY NEW PROBLEMS WITH YOUR MEDICATIONS? NO . WHEN DID YOU LAST EAT? ____ . WHEN DID YOU LAST DRINK? ____ . WHAT DID YOU LAST DRINK? ____ . NAME OF PERSON DRIVING YOU HOME? ____ . DO YOU HAVE ANY OTHER QUESTIONS OR CONCERNS NO . VITAL SIGNS WT 202.4 LBS, HT 63 IN, BMI 35.85 INDEX, BP 142/72 MM HG, HR 76 /MIN, RR 18 /MIN, TEMP 96.8 F, OXYGEN SAT % 95, SAFE IN ENV? (Y/N) YES, NA INITIALS MP [id number], REVIEWED BY: NEELA. EXAMINATION GENERAL EXAMINATION: GENERAL APPEARANCE:COMFORTABLE. PSYCHAFFECT NORMAL, GOOD EYE CONTACT. LUNGS:LUNG BARAJAS ARE CLEAR TO AUSCULTATION BILATERALLY. GOOD MOVEMENT OF AIR. HEART:S1, S2 IN A REGULAR RATE AND RHYTHM. NO SIGNIFICANT MURMURS, RUBS OR GALLOPS NOTED. BACK:PERILUMBAR TENDERNESS. ASSESSMENTS LUMBAR SPONDYLOSIS - M47.816 (PRIMARY) CHRONIC PRESCRIPTION OPIATE USE - Z79.891 TREATMENT LUMBAR SPONDYLOSIS REFILL LYRICA CAPSULE, 100 MG, 1 CAPSULE, ORALLY, TWICE A DAY MDD2, 30 DAY(S), 60, REFILLS 2 REFILL FENTANYL PATCH 72 HOUR, 25 MCG/HR, 1 PATCH TO SKIN, TRANSDERMAL, 1 PATCH Q 72H = MDD, 30 DAY(S), 10, REFILLS 0 REFILL AMITRIPTYLINE HCL TABLET, 25 MG, 2, ORALLY, ONCE A DAY AT BEDTIME, 30 DAY(S), 60, REFILLS 2 REFILL PERCOCET TABLET, 5-325 MG, 1 TABLET, ORALLY, EVERY 6 HRS NEEDED FOR PAIN (MDD4), 30, REFILLS 0 NOTES: ISTOP REGISTRY REVIEWED [id number] AND DEMNOSTRATES COMPLLIANCE. BRINGS IN MEDICATIONS WHICH IS APPROPRIATE FOR WHAT WAS DISPENSED. RECENT URINE TOXICOLOGY REVIEWED. NO UNAUTHORIZED MEDICATIONS. NO ILLICIT SUBSTANCES AND PRESCRIBED MEDICATIONS WERE PRESENT. PROCEDURE CODES FA211 ESTABILISHED PATIENT [facility] FACILITY CHARGE G8730 PAIN ASSESS POS TOOL F/U PLAN DOC G8427 DOC MEDS VERIFIED W/PT OR RE DISPOSITION & COMMUNICATION FOLLOW UP 3 MONTHS ELECTRONICALLY SIGNED BY LUCIO AVINA ON 03/13/2017 AT 10:09 AM EDT DISCLAIMER : THIS IS A VISIT SUMMARY EXTRACTED FROM THE [employer] CHART. IT IS NOT A COPY OF THE [employer] PROGRESS NOTE. MICHELLE
== END ==
LOC: M PAIN 10:00
PROVIDERS: ATTEND Nurse Practitioner Family
DX: G89.29 Other chronic pain (principal); M47.816 Spondylosis without myelopathy or radiculopathy, lumbar region; I12.9 Hypertensive chronic kidney disease with stage 1 through stage 4 chronic kidney disease, or unspecified chronic kidney disease; N18.3 Chronic kidney disease, stage 3 (moderate); E78.2 Mixed hyperlipidemia; F32.9 Major depressive disorder, single episode, unspecified; E55.9 Vitamin D deficiency, unspecified; G43.001 Migraine without aura, not intractable, with status migrainosus; J30.9 Allergic rhinitis, unspecified; E11.9 Type 2 diabetes mellitus without complications; R26.81 Unsteadiness on feet; E66.01 Morbid (severe) obesity due to excess calories; Z68.35 Body mass index [BMI] 35.0-35.9, adult; Z88.1 Allergy status to other antibiotic agents; Z79.82 Long term (current) use of aspirin; Z79.4 Long term (current) use of insulin; Z79.891 Long term (current) use of opiate analgesic; Z79.899 Other long term (current) drug therapy

== ENCOUNTER 2017-04-10 18:28 | Observation (INO) | payer MEDICARE, MEDICAID ==
[~2017-04-10] VITALS: Ht 160 cm; Wt 95.4 kg
[~2017-04-10 18:28] MED LIST changes: -AMIT25TA PO; -BISAC5TA PO; -FENT1DIS14 TD; -GABA-279 PO; -IBUP1TAB7 PO; -IPRASOL4 INH; -LIPI80TA PO; -NITR4TASL SL; -OXYC1TAB23 PO; -PANT40TA2 PO; -PREG100CA PO; -SENN1TAB2 PO; -VENTAER INH; -VITA1CAP40 PO; -VITMTA PO; -ZOLO50TA PO
[2017-04-10 19:11] LABS: BASO % 0.3 % (0.0-1.0); EOS # 0.2 10^3/uL (0.0-0.50); EOS % 1.5 % (0.0-3.0); IMMATURE GRANULOCYTE % 0.3 % (0-0); LYMPH # 3.3 10^3/uL (1.5-4.5); LYMPH % 30.4 % (24.0-44.0); MEAN CORPUSCULAR HEMOGLOBIN 26.6 pg (27.0-33.0); MEAN CORPUSCULAR HGB CONC 31.2 g/dl (32.0-36.5); MEAN CORPUSCULAR VOLUME 85.2 fl (80.0-96.0); MONO # 0.5 10^3/uL (0.0-0.8); MONO % 4.8 % (0.0-5.0); NEUTROPHILS # 6.8 10^3/uL (1.8-7.7); NEUTROPHILS % 62.7 % (36.0-66.0); PLATELET COUNT, AUTOMATED 397 10^3/uL (150-450); RED CELL DISTRIBUTION WIDTH 14.7 % (11.5-14.5); WHITE BLOOD COUNT 10.8 10^3/uL (4.0-10.0)
[2017-04-10] MEDS ORDERED: ONDANSETRON 4MG/2ML VIAL (J2405) IV ONE (19:30)
--- NOTE | 2017-04-10 19:40 | REPUSA ---
CT of the abdomen and pelvis without contrast Clinical statement: Pain. Technique: Multiple axial CT images were obtained from the base of the lungs to the floor of the pelv is utilizing 5 mm axial slices without administration of contrast. Coronal and sagittal reconstructio ns were also obtained. Comparison: 01/23/2017. Findings: Chest: The visualized lung bases are clear. Abdomen: The kidneys are normal in size bilaterally. A right ureteral stent is in place. There is no evidence of hydronephrosis or nephrolithiasis. The liver, spleen, pancreas, gallbladder and adrenal g lands are unremarkable. The aorta demonstrates normal caliber and contour. There is no abdominal lymp hadenopathy or ascites. Pelvis: The bowel is unremarkable, with no obstructive or inflammatory changes. The urinary bladder i s within normal limits. There is no pelvic lymphadenopathy or ascites. The other pelvic structures ap pear unremarkable. Bones: There are no suspicious osseous abnormalities seen. Impression: 1. No acute abnormality to explain the patient's pain. 2. A right ureteral stent is in place. No evidence of hydronephrosis or nephrolithiasis.
[2017-04-10 19:42] LABS: ALBUMIN/GLOBULIN RATIO 1.14 (1.00-1.93); ALKALINE PHOSPHATASE 138 U/L (45-117); ALT/SGPT 21 U/L (12-78); ANION GAP 5 MEQ/L (8-16); AST/SGOT 19 U/L (15-37); BILIRUBIN,TOTAL 0.3 MG/DL (0.2-1.0); BLOOD UREA NITROGEN 17 MG/DL (7-18); CALCIUM LEVEL 9.5 MG/DL (8.8-10.2); CARBON DIOXIDE LEVEL 32 MEQ/L (21-32); CHLORIDE LEVEL 104 MEQ/L (98-107); CREATININE FOR GFR 0.87 MG/DL (0.55-1.02); GLOMERULAR FILTRATION RATE > 60.0 (>45); GLUCOSE, FASTING 82 MG/DL (80-110); POTASSIUM SERUM 3.5 MEQ/L (3.5-5.1); SODIUM LEVEL 141 MEQ/L (136-145); TOTAL PROTEIN 7.5 GM/DL (6.4-8.2)
[2017-04-10] MEDS: MORPHINE 4 MG/ML 1ML SYRINGE IV PRN ×2 (19:49→21:12)
[2017-04-10] MEDS: HumaLOG INSULIN (NovoLOG) PER UNIT SC SCH (21:00)
[2017-04-10] MEDS ORDERED: ZOLO50TA PO (21:45)
[2017-04-10] MEDS ORDERED: IPRASOL4 INH (21:45)
[2017-04-10] MEDS ORDERED: VITA1CAP40 PO (21:45)
[2017-04-10] MEDS ORDERED: AMBI10TA PO (21:45)
[2017-04-10] MEDS ORDERED: METF500T13 PO (21:45)
[2017-04-10] MEDS ORDERED: OXYC1TAB23 PO (21:45)
[2017-04-10] MEDS ORDERED: NITR4TASL SL (21:45)
[2017-04-10] MEDS ORDERED: GABA-279 PO (21:45)
[2017-04-10] MEDS ORDERED: LIPI80TA PO (21:45)
[2017-04-10] MEDS ORDERED: POTA10CA PO (21:45)
[2017-04-10] MEDS ORDERED: VICT18IN SC (21:45)
[2017-04-10] MEDS ORDERED: PANT40TA2 PO (21:45)
[2017-04-10] MEDS ORDERED: IBUP1TAB7 PO (21:45)
[2017-04-10] MEDS ORDERED: VITMTA PO (21:45)
[2017-04-10] MEDS ORDERED: AMIT25TA PO (21:45)
[2017-04-10] MEDS ORDERED: FENT1DIS14 TD (21:45)
[2017-04-10] MEDS ORDERED: PREG100CA PO (21:45)
[2017-04-10] MEDS ORDERED: VENTAER INH (21:45)
--- NOTE | 2017-04-10 21:49 | CR.PDOC ---
[facility] Consultation Consultation DATE OF CONSULTATION: Apr 10, 2017 at 18:28 PRIMARY CARE PHYSICIAN: Dr. Nigel Smalls MD. ATTENDING PHYSICIAN: Dr. Cadena REASON FOR CONSULTATION/CHIEF COMPLAINT: Persistent lower abdominal pain. HISTORY OF PRESENT ILLNESS: 61 year old woman DM, HLD, neuropathic pain ( on lyrica and gabapentin), right renal stone s/p ureteric stent, was initially seen in GI clinic for lower abdominal pain and rectal bleeding and subjective weight loss ( 30 pounds as per patient), and underwent EGD and Colonoscopy on - noted with superficial gastric ulcer and small tubular adenoma in colon- removed. ( detailed reports below), today called GI clinic for persistent lower abdominal pain - worsening with subjective fever and blood in stool. Patient reported severe pain and says she could not even walk with the pain - so patient was recommended to come to ER for detailed evaluation. Patient in ER complaining of persistent lower abdominal pain on both sides but more on right side, severe intensity ( worse than before) and associated with subjective fever. Patient also reports one loose stools since the procedure and noted some bright red blood in it. Patient also reports no appetite and she could not eat anything today. Pertinent negative GI symptoms: Patient denies nausea, vomiting, hematemesis, melena. ALLERGIES: Flagyl HOME MEDICATIONS: reviewed. PAST MEDICAL HISTORY: As above. PAST SURGICAL HISTORY: Appendectomy and ureteric stent placement in february 2017.FAMILY HISTORY: Father: Stomach and colon cancer in mother. Lung and prostate cancer in father SOCIAL HISTORY: Denies smoking or alcohol use. Prior Endoscopies: EGD - 04/08/2017 -- Superficial linear gastric ulcer in antrum- biopsied. - no dysplasia. Colonoscopy: fair prep. 3 mm ascending colon tubular adenoma. lipoma in transverse colon. Few small sigmoid diverticuli and random biopsies were done to r/o microscopic colitis. Pathology - showed no microscopic colitis. PHYSICAL EXAMINATION: VITAL SIGNS: Please see below. GENERAL: AAO x 3, moderate distress from abdominal pain. HEENT: NO pallor, no icterus. RESPIRATORY: Bilateral clear breath sounds. CARDIOVASCULAR: S1, S2 heard . no murmurs. ABDOMEN: obese, non- distended, normal bowel sounds on auscultation. tenderness on deep palpation in right and left lower quadrants, but no rigidity or guarding , no rebound. Carnett sign negative. EXTREMITIES: NO pitting edema. NEUROLOGICAL: NO focal neurological deficits. LABORATORY DATA: Please see below. CT abdomen done -- reviewed the results over phone with manager web application Radiologist. images reviewed personally. IMPRESSION: -- Persistent and worsening abdominal pain in both lower quadrants with subjective fever-- with recent h/o Endoscopic procedures and also prior h/o ureteric stent -- CT abdomen and pelvis --normal. Likely neuropathic pain other differentials including Colitis vs renal colic vs UTI. Less likely acute abdomen. RECOMMENDATIONS: -- IN view of persistent severe pain - might need IV Fluids and pain medications and follow up of the septic work up. -- NPO for tonight. -- IV fluids. -- Repeat CBC and Chem 7 tomorrow 6 AM. -- resume home pain medications as well. -- f/u Urine cultures and blood cultures and if persistent diarrhea - stool culture/panel. -- Based on clinic status will consider further work up. -- Plan of care discussed with patient and admitting hospitalist and ER Physician. -- GI will follow up again tomorrow for symptom resolution. Patient verbalized understanding and agreed with above plan. Laboratory Data CBC/BMP Laboratory Tests 04/10/17 19:01 Red Blood Count 4.66, Mean Corpuscular Volume 85.2, Mean Corpuscular Hemoglobin 26.6 L, Mean Corpuscular Hemoglobin Concent 31.2 L, Red Cell Distribution Width 14.7 H, Neutrophils (%) (Auto) 62.7, Lymphocytes (%) (Auto) 30.4, Monocytes (%) (Auto) 4.8, Eosinophils (%) (Auto) 1.5, Basophils (%) (Auto) 0.3, Neutrophils # (Auto) 6.8, Lymphocytes # (Auto) 3.3, Monocytes # (Auto) 0.5, Eosinophils # ( Auto) 0.2, Basophils # (Auto) 0.0, Calcium Level 9.5, Aspartate Amino Transf ( AST/SGOT) 19, Alanine Aminotransferase (ALT/SGPT) 21, Alkaline Phosphatase 138 H , Total Bilirubin 0.3, Total Protein 7.5, Albumin 4.0 Microbiology Microbiology 04/10/17 Blood Culture, Received Pending 04/10/17 Blood Culture, Received Pending 04/10/17 Urine Culture, Received Pending Allergies Coded Allergies: Metronidazole (Verified Allergy, Intermediate, RASH, 02/21/17) Home Medications Scheduled (Sertraline HCl) 50 Mg Tab, 50 MG DAILY, #30 (Reported) Atorvastatin Calcium (Atorvastatin Calcium) 80 Mg Tab, 80 MG PO DAILY, (Reported ) Fentanyl (Fentanyl) 25 Mcg Tdsy, 25 MCG TOP Q3RD, #10 (Reported) Gabapentin (Gabapentin) 100 Mg Cap, 100 MG BID, #60 (Reported) Liraglutide (Victoza) 18 Mg/3 Ml Inj, 0.6 MG SC DAILY, (Reported) Metformin Hydrochloride (Metformin HCl) 500 Mg Tab, 500 MG PO BID, (Reported) Multivitamins (Centrum) 1 Tab Tab, 1 TAB PO DAILY, (Reported) Potassium Chloride (Klor-Con M10) 10 Meq Tabcr, 20 MEQ PO BID, (Reported) Pregabalin (Lyrica) 100 Mg Cap, 100 MG BID, #60 (Reported) Vitamin D (Vitamin D) 1,000 Unit Cap, 1,000 UNIT PO Q2D, (Reported) [Vitamin D2] , 50,000 UNITS PO 1XWK, (Reported) FRIDAY Scheduled PRN Albuterol Sulfate (Ventolin Hfa) 200 Puff/8 Gm Aers, 90 MCG INH Q4HP PRN for RESPIRATORY DISTRESS, #18 (Reported) Ibuprofen (Ibuprofen) 800 Mg Tab, PO Q8HP PRN for PAIN, #90 (Reported) Oxycodone/Acetaminophen (Percocet 5-325 mg) 1 Tab Tab, 1 TAB PO Q6H PRN for PAIN , #20 (Reported) Zolpidem Tartrate (Ambien) 10 Mg Tab, 10 MG PO QHSP PRN for SLEEP, (Reported) [Duo-Neb] , INH Q4HP PRN for SOB/WHEEZING, (Reported) PRATEEK TANNER MD Apr 10, 2017 21:49
[2017-04-10] MEDS ORDERED: IPRATROPIUM 0.5MG/ALBUTEROL 2.5MG INH SOL UD 3ML (DUONEB)(J7620) INH PRN (22:45)
[2017-04-10] MEDS ORDERED: GLUCOSE 4 GM CHEW TABLET PO PRN (22:45)
[2017-04-10] MEDS ORDERED: NITROGLYCERIN 0.4 MG SUBL TABLET SL PRN (22:45)
[2017-04-10] MEDS ORDERED: DEXTROSE 50% 50 ML SYRINGE IV PRN (22:45)
[2017-04-10] MEDS ORDERED: GLUCAGON FOR INJ 1 MG VIAL (J1610) SC PRN (22:45)
[2017-04-10] MEDS ORDERED: BISACODYL 5 MG TAB PO PRN (22:45)
[2017-04-10] MEDS ORDERED: ONDANSETRON 4MG/2ML VIAL (J2405) IV PRN (22:45)
[2017-04-10] MEDS ORDERED: ACETAMINOPHEN TAB 650MG DOSE (2X325MG) PO PRN (22:45)
[2017-04-10] MEDS ORDERED: CYCLOBENZAPRINE 5MG TABLET PO PRN (23:00)
[2017-04-10 23:30] VITALS: BP 118/54
[2017-04-10] MEDS: zolPIDEM TARTRATE 5 MG TAB PO SCH (23:52)
[2017-04-10] MEDS: AMITRIPTYLINE 50 MG TAB PO SCH (23:53)
[2017-04-10] MEDS: NS 1,000 ML IV SCH (23:53)
--- NOTE | 2017-04-11 03:14 | HPE ---
DATE OF ADMISSION: 04/10/2017 TIME: Patient was seen this evening around 10 p.m. PRIMARY CARE PROVIDER: Dr. Cotto. CHIEF COMPLAINT: Abdominal pain after colonoscopy. HISTORY OF PRESENT ILLNESS: 61-year-old female with a past medical history of chronic pain from possibly degenerative disc disease and central canal stenosis, migraine headache, mild asthma, hypertension, valvular sclerosis, hyperlipidemia , depression, constipation, morbid obesity, vitamin D deficiency, left adrenal adenoma with negative workup, fatty liver, presented with increased abdominal pain at the right lower quadrant. Per patient, she had a colonoscopy back on 04/08/2017, around 2 days ago; however, yesterday she started developing abdominal pain 1 day after the procedure. Per patient, the pain comes and goes and was severe and very uncomfortable. She says she also has tarry stool and has clots in the stool. Patient also admits to nausea. No vomiting. Patient was able to eat and drink okay at home. Stated the pain is worse with movement. Does not get worse with bowel movement, however. Patient also admits to chills. Stated that she feels like she has a fever. Patient took one Percocet at night to help with the symptoms, which she stated helps. Otherwise, she also goes to pain management for her chronic pain. She received epidural, last one 3 months ago. She also received 4 mg of morphine and 4 mg of Zofran in the emergency room. Otherwise, patient denies any chest pain, trouble breathing, any diarrhea , constipation, any problem with urination, blood in the urine. Denies any swelling in the lower extremities. ALLERGIES: Patient is allergic to METRONIDAZOLE, which gives her rash. HOME MEDICATIONS: Including: - Ventolin 216 mcg inhalation every 4 hours as needed - DuoNeb treatment one inhalation every 4 hours as needed - amitriptyline 500 mg by mouth nightly - Lipitor 80 mg one tablet by mouth daily - vitamin D 50,000 units taken on Friday mornings - fentanyl 25 mcg topically as directed - gabapentin 100 mg one tablet by mouth twice a day - ibuprofen 800 mg by mouth every 8 hours as needed - Victoza 0.6 mcg injection subcutaneously daily - metformin 500 mg one tablet by mouth twice a day - multivitamin one tablet by mouth daily - nitroglycerin 0.4 mg sublingually as needed for chest pain - oxycodone/acetaminophen 5/325 mg one tablet by mouth every 6 hours as needed - pantoprazole 40 mg one tablet by mouth daily - potassium chloride 20 mg one tablet by mouth twice a day - Lyrica 100 mg by mouth twice a day - Zoloft 50 mg one tablet by mouth daily - Ambien 10 mg one tablet by mouth nightly PAST MEDICAL HISTORY: Includin. History of kidney stones. 2. History of seizure. 3. History of migraine. 4. Mild asthma. 5. Hypertension. 6. Valvular sclerosis. 7. Hyperlipidemia. 8. History of depression. 9. History of constipation. 10. Morbid obesity. 11. Vitamin D deficiency. 12. Degenerative disc disease with central canal stenosis. 13. Left adrenal adenoma with negative workup. 14. Fatty liver. PAST SURGICAL HISTORY: Includin. Total abdominal hysterectomy. 2. Colonoscopy and esophagogastroduodenoscopy (EGD), last one just 2 days ago, which showed one small polyp and also a small lipoma, diverticulosis and possible gastritis. Pathology read tubular adenoma and gastric inflammation. 3. Patient had teeth extracted. 4. Also back surgery. 5. Appendectomy. SOCIAL HISTORY: Patient lives by herself. Denies any smoking, drinking or recreational drug use. Patient usually walks around with a cane. FAMILY HISTORY: Patient's father from prostate cancer when he was 40s. Kidney stones also run in the family, as well as mother had lung cancer around 70. Sister also had colon cancer, had a resection. REVIEW OF SYSTEMS: GENERAL: Patient denies any recent traveling. Admits to recent colonoscopy just 2 days ago. Denies any other sick contact. Denies any objective fever. Admits to chills and subjective fever. HEENT: Denies any changes with vision, smell, hearing or taste. CARDIOVASCULAR: Denies any chest pain, any trouble breathing, any palpitations. PULMONARY: Denies any shortness of breath. Admits to last asthma attack was 4 months ago. Denies any wheezing. GASTROINTESTINAL (GI): Admits to abdominal pain in the right lower quadrant, happened 1 day after the procedure. Admits to some nausea and chills. Also admits to blood clots coming from the stool. MUSCULOSKELETAL: Admits to chronic pain in the back radiating to the neck. HEMATOLOGY/ONCOLOGY: Denies any ease of bleeding anywhere. Admits to weight loss; however, it was intentional per patient. SKIN: Denies any abnormal rash, ulcerations, lumps or bumps anywhere. NEUROLOGICAL: Denies any numbness or tingling, any weakness anywhere. PSYCHIATRIC: Denies any anxiety, depression currently. PHYSICAL EXAMINATION: VITAL SIGNS: Temperature 97.5, heart rate 82, respirations 18, blood pressure 143/73, oxygen was saturating at 95% on room air. GENERAL: Patient is a morbidly obese elderly female who looks older than her stated age, was alert, awake, and oriented times three with head elevated at roughly 30 degrees. HEENT: Normocephalic, atraumatic. Extraocular motor intact. Mucosa moist. NECK: Supple. No neck lymphadenopathy. CARDIOVASCULAR: Irregular rate, rhythm, normal S1, S2. No murmurs. LUNGS: Clear to auscultate bilaterally. No whezes, rales, rhonchi. ABDOMEN: Positive bowel sounds, soft, mildly tender to palpation in the right lower quadrant. Otherwise, no peritoneal signs. No ecchymosis. EXTREMITIES: No edema, clubbing or cyanosis. SKIN: Warm and dry. NEUROLOGIC: Cranial nerves II-XII intact. No focal neurological deficit. LABORATORIES: WBC 10.8, hemoglobin 12.4, hematocrit 39.7 with platelet count of 397, and MCV of 85.2. Sodium 141, potassium 3.5, chloride 104, bicarbonate 32, anion gap was 5, BUN 17 , creatinine 0.87, GFR greater than 60, fasting glucose 82, lactic acid 0.8, calcium 9.5, total bilirubin 0.3, AST 19, ALT 21, alkaline phosphatase 138, total protein 7.5, albumin 4. Urinalysis was done, shows 1+ protein, 2+ blood, 3+ leukocyte esterase, 12 WBCs, 17 RBCs, negative for bacteria. Urine culture is currently pending from emergency room. Blood cultures times two are pending. Patient had a CT of the abdomen and pelvis, shows no acute abnormalities to explain patient's pain. There is, however, right ureteral stent in place. ASSESSMENT AND PLAN: 61-year-old female who has a past medical history of morbid obesity, however, she has recently lost weight, history of seizure, migraine, kidney stones, mild asthma, hypertension, valvular sclerosis, hyperlipidemia, depression, constipation, vitamin D deficiency, central canal stenosis with degenerative disc disease, left adrenal adenoma with negative workup, fatty liver, presented with: 1. Increased abdominal pain and discomfort to the right lower quadrant after colonoscopy with Dr. Aguero on 04/08/2017. Dr. Aguero was contacted in the emergency room and has recommended patient to be nothing by mouth, intravenous (IV) fluids and supportive management at this point. Will continue patient's home Percocet and give patient morphine 2 mg every 4 hours as needed for breakthrough pains. Otherwise, will hold patient's fentanyl patch, which patient has at home and continue to monitor patient. Gastrointestinal (GI) has been consulted from emergency room. We have also contacted GI, who has agreed to come to see patient tomorrow. At this point, will hold any anticoagulation due to patient still produces clots from the stool. 2. Elevated white blood cells (WBCs), 10.8. At this point, there is no measured fever. Blood culture and urine culture has been done and the results are pending. Will followup. CT of abdomen and pelvis did not show any colitis. There is no indication for antibiotic use at this point. Will continue to follow. 3. History of seizure. Continue to monitor. 4. History of migraine. Continue home medications. 5. Mild asthma. Continue as needed DuoNebs. 6. History of hypertension. Patient does not appear to take any medication from home. Will continue to monitor. 7. Valvular sclerosis. Continue to monitor. 8. Hyperlipidemia. Continue to monitor. Continue home Lipitor. 9. Morbid obesity which complicates care. Patient also has lost roughly 50 pounds in 2 years. It was intentional by dieting and exercise. Continue to monitor. 10. Vitamin D deficiency. Continue supplementation. 11. Degenerative disc disease with central canal stenosis and chronic pain. Continue Lyrica and Percocet. 12. Left adrenal adenoma with a negative workup. Stable at this point. No signs or symptoms. Continue to monitor. 13. History of fatty liver. No complaints at this point. Continue to monitor. 14. Fluid, electrolytes and nutrition. Will continue patient on normal saline at a rate of 125 mL/h due to patient is nothing by mouth. The patient's electrolytes are at goal currently. DISPOSITION: Patient does have abdominal pain after colonoscopy, which could represent musculoskeletal pain from manipulation of colonoscopy; however, patient states that she also has chills, therefore deserves closer monitoring. Dr. Aguero from gastroenterology has also agreed to see her and recommended keep her nothing by mouth overnight. At this point, will continue to hold any anticoagulation and continue sequential compression devices (SCDs) only for now. Patient has been discussed with attending doctor, Dr. Cadena. My preceptor for this patient encounter was Dr. Dillon Cadena. The preceptor was physically present in the building during the encounter and was fully available as needed. All aspects of the patient interview, examination, medical decision making process, and medical care plan development were reviewed and approved by the preceptor. The preceptor is aware and concurs with the plan as stated in the body of this note and will attest to such by his/her co-signature. Attending Note: I have independently examined this patient and all aspects of the exam and treatment decisions have been discussed with the resident. A member of the hospitalist staff will continue to follow this patient through discharge. MICHELLE
[2017-04-11] MEDS: MORPHINE 2 MG/ML 1ML SYRINGE IV PRN ×3 (04:57→15:05)
[2017-04-11 06:00] VITALS: BP 98/64
[2017-04-11] MEDS: NS 1,000 ML IV SCH ×2 (06:15→18:21)
[2017-04-11 07:03] LABS: BASO % 0.3 % (0.0-1.0); EOS # 0.2 10^3/uL (0.0-0.50); EOS % 2.8 % (0.0-3.0); IMMATURE GRANULOCYTE % 0.3 % (0-0); LYMPH % 46.7 % (24.0-44.0); MEAN CORPUSCULAR HEMOGLOBIN 26.7 pg (27.0-33.0); MEAN CORPUSCULAR HGB CONC 30.9 g/dl (32.0-36.5); MEAN CORPUSCULAR VOLUME 86.5 fl (80.0-96.0); MONO # 0.4 10^3/uL (0.0-0.8); NEUTROPHILS # 2.8 10^3/uL (1.8-7.7); NEUTROPHILS % 43.9 % (36.0-66.0); RED CELL DISTRIBUTION WIDTH 14.8 % (11.5-14.5); WHITE BLOOD COUNT 6.3 10^3/uL (4.0-10.0)
[2017-04-11 07:13] LABS: PLATELET COUNT, AUTOMATED 282 10^3/uL (150-450)
[2017-04-11 07:20] LABS: ANION GAP 7 MEQ/L (8-16); BLOOD UREA NITROGEN 14 MG/DL (7-18); CALCIUM LEVEL 8.8 MG/DL (8.8-10.2); CARBON DIOXIDE LEVEL 30 MEQ/L (21-32); CHLORIDE LEVEL 107 MEQ/L (98-107); GLOMERULAR FILTRATION RATE > 60.0 (>45); GLUCOSE, FASTING 97 MG/DL (80-110); POTASSIUM SERUM 3.4 MEQ/L (3.5-5.1); SODIUM LEVEL 144 MEQ/L (136-145)
[2017-04-11] MEDS: HumaLOG INSULIN (NovoLOG) PER UNIT SC SCH ×4 (07:21→21:00)
[2017-04-11] MEDS: PANTOPRAZOLE 40MG TAB (PROTONIX) PO SCH (08:51)
[2017-04-11] MEDS: ATORVASTATIN 20 MG TAB PO SCH (08:51)
[2017-04-11] MEDS: SENOKOT S TAB PO SCH ×2 (08:51→20:53)
[2017-04-11] MEDS: MULTIVITAMINS/MINERALS THERAP 1 TAB PO SCH (08:51)
[2017-04-11] MEDS: SERTRALINE HCL 50 MG TAB PO SCH (08:51)
[2017-04-11] MEDS: GABAPENTIN 100 MG CAP PO SCH ×2 (08:51→20:52)
[2017-04-11] MEDS: PREGABALIN 100 MG CAP (LYRICA) PO SCH ×2 (08:52→20:53)
--- NOTE | 2017-04-11 08:52 | IPNPDOC ---
Subjective Date Seen The patient was seen on 04/11/17. Subjective Chief Complaint/HPI The patient is a 61-year-old female admitted with a reason for visit of Intractable Abdominal Pain. Events since last encounter Pt this morning c/o not sleeping well last night, mostly related to not being home and less bc of pain. She does still have abd pain, slightly better than yesterday, nausea which is also slightly better than yesterday. General: Denies: Fatigue Constitutional: Denies: Chills, Fever ENT: Denies: Head Aches Pulmonary: Denies: Dyspnea, Cough Gastrointestinal: Reports: Nausea, Abdominal Pain, Denies: Vomiting Endocrine: Denies: Polydipsia Neurological: Denies: Weakness Psych: Reports: Mood Normal Objective Physical Examination General Exam: Positive: Alert, No Acute Distress ENT Exam: Positive: Mucous membr. moist/pink Neck Exam: Positive: Supple Chest Exam: Positive: Clear to auscultation, Normal air movement Heart Exam: Positive: Rate Normal, Normal S1, Normal S2 Abdomen Exam: Positive: Normal bowel sounds, Soft, Tenderness Extremity Exam: Negative: Edema Assessment /Plan Problems (1) Intractable abdominal pain Status: Acute Response to Treatment: Stable, Improving Discussed With: Nurse, Patient Problem Specific Plan: Monitor Clinically, Repeat Labs Problem Text: Pt admitted for non organic abdominal pain post colonoscopy, with nl labs and CT. She was placed NPO and on IVF per the direction of GI. She likely can eat today and be d/c home tomorrow. I spoke with nursing about this today, they will address with GI. Will back down on her IVF, can be stopped when she stars taking PO and replace her K+. Plan/VTE VTE Prophylaxis Ordered?: Yes Plan Family Medicine Attending Note: patient was seen and examined this morning; I discussed her care with ANTOINE Malik and I agree with her note as documented. Will await GI recommendations to determine whether patient can eat ; once she is tolerating PO, she can be discharged home - likely tomorrow. (KEChaitanya) VS, I&O, 24H, Fishbone Vital Signs/I&O Vital Signs Date Time Temp Pulse Resp B/P (MAP) Pulse Ox O2 Delivery O2 Flow Rate FiO2 04/11/17 06:00 96.8 70 18 98/64 (75) 96 Room Air Laboratory Data 24H LABS Laboratory Tests 2 04/10/17 19:01: Immature Granulocyte % (Auto) 0.3H, White Blood Count 10.8H, Red Blood Count 4.66, Hemoglobin 12.4, Hematocrit 39.7, Mean Corpuscular Volume 85.2, Mean Corpuscular Hemoglobin 26.6L, Mean Corpuscular Hemoglobin Concent 31.2L, Red Cell Distribution Width 14.7H, Platelet Count 397, Neutrophils (%) (Auto) 62.7, Lymphocytes (%) (Auto) 30.4, Monocytes (%) (Auto) 4.8, Eosinophils (%) (Auto) 1.5, Basophils (%) (Auto) 0.3, Neutrophils # (Auto) 6.8, Lymphocytes # (Auto) 3.3, Monocytes # (Auto) 0.5, Eosinophils # (Auto) 0.2, Basophils # (Auto) 0.0, Immature Granulocyte # (Auto) 0.0, Nucleated Red Blood Cells % (auto) 0.0, Anion Gap 5L, Glomerular Filtration Rate > 60.0, Blood Urea Nitrogen 17, Creatinine 0.87, Sodium Level 141, Potassium Level 3.5, Chloride Level 104, Carbon Dioxide Level 32, Calcium Level 9.5, Aspartate Amino Transf (AST/SGOT) 19 , Alanine Aminotransferase (ALT/SGPT) 21, Alkaline Phosphatase 138H, Total Bilirubin 0.3, Total Protein 7.5, Albumin 4.0, Albumin/Globulin Ratio 1.14 04/10/17 19:35: Lactic Acid Level 0.8 04/10/17 19:40: Urine Appearance HAZY, Urine Color YELLOW, Urine pH 5.0, Urine Specific [place] 1.012, Urine Protein 1+H, Urine Glucose (UA) NEGATIVE, Urine Ketones NEGATIVE, Urine Urobilinogen 0.2, Urine Bilirubin NEGATIVE, Urine Leukocyte Esterase 2+H, Urine Blood 2+H, Urine Nitrite NEGATIVE, Urine WBC (Auto) 12H, Urine RBC (Auto) 17H, Urine Hyaline Casts (Auto) 1, Urine Bacteria (Auto) NEGATIVE, Urine Squamous Epithelial Cells 0, Urine Mucus (Auto) MODERATE, Urine Sperm (Auto) 04/11/17 06:46: Immature Granulocyte % (Auto) 0.3H, White Blood Count 6.3, Red Blood Count 3.93L , Hemoglobin 10.5L, Hematocrit 34.0L, Mean Corpuscular Volume 86.5, Mean Corpuscular Hemoglobin 26.7L, Mean Corpuscular Hemoglobin Concent 30.9L, Red Cell Distribution Width 14.8H, Platelet Count 282#, Neutrophils (%) (Auto) 43.9 , Lymphocytes (%) (Auto) 46.7H, Monocytes (%) (Auto) 6.0H, Eosinophils (%) (Auto ) 2.8, Basophils (%) (Auto) 0.3, Neutrophils # (Auto) 2.8, Lymphocytes # (Auto) 3.0, Monocytes # (Auto) 0.4, Eosinophils # (Auto) 0.2, Basophils # (Auto) 0.0, Immature Granulocyte # (Auto) 0.0, Nucleated Red Blood Cells % (auto) 0.0, Anion Gap 7L, Glomerular Filtration Rate > 60.0, Blood Urea Nitrogen 14, Creatinine 0.80, Sodium Level 144, Potassium Level 3.4L, Chloride Level 107, Carbon Dioxide Level 30, Calcium Level 8.8 CBC/BMP Laboratory Tests 04/10/17 19:01 Red Blood Count 4.66, Mean Corpuscular Volume 85.2, Mean Corpuscular Hemoglobin 26.6 L, Mean Corpuscular Hemoglobin Concent 31.2 L, Red Cell Distribution Width 14.7 H, Neutrophils (%) (Auto) 62.7, Lymphocytes (%) (Auto) 30.4, Monocytes (%) (Auto) 4.8, Eosinophils (%) (Auto) 1.5, Basophils (%) (Auto) 0.3, Neutrophils # (Auto) 6.8, Lymphocytes # (Auto) 3.3, Monocytes # (Auto) 0.5, Eosinophils # ( Auto) 0.2, Basophils # (Auto) 0.0, Calcium Level 9.5, Aspartate Amino Transf ( AST/SGOT) 19, Alanine Aminotransferase (ALT/SGPT) 21, Alkaline Phosphatase 138 H , Total Bilirubin 0.3, Total Protein 7.5, Albumin 4.0 04/11/17 06:46 Red Blood Count 3.93 L, Mean Corpuscular Volume 86.5, Mean Corpuscular Hemoglobin 26.7 L, Mean Corpuscular Hemoglobin Concent 30.9 L, Red Cell Distribution Width 14.8 H, Neutrophils (%) (Auto) 43.9, Lymphocytes (%) (Auto) 46.7 H, Monocytes (%) (Auto) 6.0 H, Eosinophils (%) (Auto) 2.8, Basophils (%) ( Auto) 0.3, Neutrophils # (Auto) 2.8, Lymphocytes # (Auto) 3.0, Monocytes # (Auto ) 0.4, Eosinophils # (Auto) 0.2, Basophils # (Auto) 0.0, Calcium Level 8.8 Microbiology Microbiology 04/10/17 Blood Culture, Received Pending 04/10/17 Blood Culture, Received Pending 04/10/17 Urine Culture, Received Pending SHAHZAD TINEO PA-C Apr 11, 2017 08:52 MAGALIE CHUN MD Apr 11, 2017 12:27
[2017-04-11] MEDS ORDERED: POTASSIUM CHLORIDE 10 MEQ SR TABLET PO ONE (09:00)
[2017-04-11] MEDS: PERCOCET 5MG/325MG TAB PO PRN ×2 (11:54→18:21)
[2017-04-11 14:00] VITALS: BP 119/71
[2017-04-11] MEDS: AMITRIPTYLINE 50 MG TAB PO SCH (20:52)
[2017-04-11] MEDS: zolPIDEM TARTRATE 5 MG TAB PO SCH (20:53)
[2017-04-11 22:00] VITALS: BP_SYST 117; BP_SYST 121; BP_DIAS 68; BP_DIAS 98
[2017-04-12 06:00] VITALS: BP 113/61
[2017-04-12 06:54] LABS: BASO % 0.5 % (0.0-1.0); EOS # 0.3 10^3/uL (0.0-0.50); IMMATURE GRANULOCYTE % 0.3 % (0-0); LYMPH # 2.9 10^3/uL (1.5-4.5); LYMPH % 38.9 % (24.0-44.0); MEAN CORPUSCULAR HEMOGLOBIN 26.3 pg (27.0-33.0); MEAN CORPUSCULAR HGB CONC 30.1 g/dl (32.0-36.5); MEAN CORPUSCULAR VOLUME 87.5 fl (80.0-96.0); MONO # 0.5 10^3/uL (0.0-0.8); MONO % 6.8 % (0.0-5.0); NEUTROPHILS # 3.7 10^3/uL (1.8-7.7); NEUTROPHILS % 49.5 % (36.0-66.0); PLATELET COUNT, AUTOMATED 286 10^3/uL (150-450); RED CELL DISTRIBUTION WIDTH 14.7 % (11.5-14.5); WHITE BLOOD COUNT 7.5 10^3/uL (4.0-10.0)
[2017-04-12 07:14] LABS: ANION GAP 4 MEQ/L (8-16); BLOOD UREA NITROGEN 14 MG/DL (7-18); CALCIUM LEVEL 8.9 MG/DL (8.8-10.2); CARBON DIOXIDE LEVEL 33 MEQ/L (21-32); CHLORIDE LEVEL 107 MEQ/L (98-107); CREATININE FOR GFR 0.78 MG/DL (0.55-1.02); GLOMERULAR FILTRATION RATE > 60.0 (>45); GLUCOSE, FASTING 100 MG/DL (80-110); POTASSIUM SERUM 3.8 MEQ/L (3.5-5.1); SODIUM LEVEL 144 MEQ/L (136-145)
[2017-04-12] MEDS: HumaLOG INSULIN (NovoLOG) PER UNIT SC SCH ×2 (07:30→12:00)
[2017-04-12] MEDS: SERTRALINE HCL 50 MG TAB PO SCH (08:28)
[2017-04-12] MEDS: MULTIVITAMINS/MINERALS THERAP 1 TAB PO SCH (08:28)
[2017-04-12] MEDS: SENOKOT S TAB PO SCH (08:28)
[2017-04-12] MEDS: GABAPENTIN 100 MG CAP PO SCH (08:28)
[2017-04-12] MEDS: PREGABALIN 100 MG CAP (LYRICA) PO SCH (08:28)
[2017-04-12] MEDS: PANTOPRAZOLE 40MG TAB (PROTONIX) PO SCH (08:28)
[2017-04-12] MEDS: ATORVASTATIN 20 MG TAB PO SCH (08:28)
[2017-04-12] MEDS: PERCOCET 5MG/325MG TAB PO PRN (08:29)
[2017-04-12] MEDS ORDERED: BISAC5TA PO (11:59)
[2017-04-12] MEDS ORDERED: SENN1TAB2 PO (11:59)
[2017-04-12] MEDS ORDERED: PNEUMOCOCCAL VACCINE 0.5ML SYRINGE(90732) PNEUMOVAX 23 IM ONE (13:00)
--- NOTE | 2017-04-12 14:32 | IPNPDOC ---
Date Seen The patient was seen on 04/11/17 at 5:45 PM Progress Note Interval history: Patient says her pain has improved slightly. NO nausea, vomiting. Passing gas normally. NO bowel movements and no bleeding per rectum. Patient also just started on diabetic regular consistency diet and tolerated well. Exam: Vitals: Afebrile, normal pulse rate. Normal Blood pressure. abdomen: soft, non distended, normal bowel sounds. No tenderness on deep palpation. Labs: reviewed. Mild stable anemia Normal BUN/ Cr. Impression: -- Lower abdominal pain - likely related to the neuropathic pain. Septic work up - negative till now. -- Superficial gastric ulcers on recent EGD -- Tubular adenoma in recent colonoscopy. Recommendations: -- Resume patient on her home medications. -- Diet as tolerated. -- Pantoprazole 40 mg daily ( to be taken instrument [employer] system on empty stomach) for 8 weeks. -- Also please give colace twice daily ( to avoid constipation) at the time of discharge. -- Follow up in GI clinic as previously scheduled for further management of the ulcers. Routine surveillance colonsocopy as per protocol. -- Follow up with PMD clinic for routine medical care and other age appropriate health maintenance. -- Patient can be discharged from GI stand point. plan of care discussed with Patient and floor team. Patient verbalized understanding and agreed. VS, I&O, 24H, Fishbone Vital Signs/I&O Vital Signs Date Time Temp Pulse Resp B/P (MAP) Pulse Ox O2 Delivery O2 Flow Rate FiO2 04/12/17 08:59 16 04/12/17 06:00 99.9 74 113/61 (78) 96 Room Air I&O- Last 24 Hours up to 6 AM 04/13/17 06:00 Intake Total 360 ml Balance 360 ml PRATEEK TANNER MD Apr 12, 2017 14:32
--- NOTE | 2017-04-12 20:52 | IPNPDOC ---
Subjective Date Seen The patient was seen on 04/12/17. Subjective Chief Complaint/HPI The patient is a 61-year-old female admitted with a reason for visit of Intractable Abdominal Pain. Events since last encounter Pt seen at bedside this morning. Was awaiting to go home. Has not had a BM today but states that she will have one at home. Abd pain improved. Constitutional: Denies: Chills, Fever, Night Sweats Pulmonary: Denies: Dyspnea, Cough Cardiovascular: Denies: Chest Pain, Palpitations, Orthopnea, Paroxysmal Noc. Dyspnea, Lt Headedness Gastrointestinal: Reports: Abdominal Pain (mild) Genitourinary: Denies: Dysuria, Frequency, Incontinence, Retention Objective Physical Examination General Exam: Positive: Alert, No Acute Distress ENT Exam: Positive: Mucous membr. moist/pink Neck Exam: Positive: Supple Chest Exam: Positive: Clear to auscultation, Normal air movement Heart Exam: Positive: Rate Normal, Normal S1, Normal S2 Abdomen Exam: Positive: Normal bowel sounds, Soft, Tenderness Extremity Exam: Negative: Edema Assessment /Plan Problems (1) Intractable abdominal pain Status: Acute Response to Treatment: Stable, Improving Discussed With: Nurse, Patient Problem Specific Plan: Monitor Clinically, Repeat Labs Problem Text: 04/12/17 Patient feels more comfortable today. We will send her home on a bowel regimen. 04/11/17 Pt admitted for non organic abdominal pain post colonoscopy, with nl labs and CT. She was placed NPO and on IVF per the direction of GI. She likely can eat today and be d/c home tomorrow. I spoke with nursing about this today, they will address with GI. Will back down on her IVF, can be stopped when she stars taking PO and replace her K+. Plan/VTE VTE Prophylaxis Ordered?: Yes VS, I&O, 24H, Mattbony[place]o Vital Signs/I&O Vital Signs Date Time Temp Pulse Resp B/P (MAP) Pulse Ox O2 Delivery O2 Flow Rate FiO2 04/12/17 08:59 16 04/12/17 06:00 99.9 74 113/61 (78) 96 Room Air I&O- Last 24 Hours up to 6 AM 04/13/17 06:00 Intake Total 360 ml Balance 360 ml Laboratory Data 24H LABS Laboratory Tests 2 04/12/17 06:15: Immature Granulocyte % (Auto) 0.3H, White Blood Count 7.5, Red Blood Count 3.99L , Hemoglobin 10.5L, Hematocrit 34.9L, Mean Corpuscular Volume 87.5, Mean Corpuscular Hemoglobin 26.3L, Mean Corpuscular Hemoglobin Concent 30.1L, Red Cell Distribution Width 14.7H, Platelet Count 286, Neutrophils (%) (Auto) 49.5, Lymphocytes (%) (Auto) 38.9, Monocytes (%) (Auto) 6.8H, Eosinophils (%) (Auto) 4.0H, Basophils (%) (Auto) 0.5, Neutrophils # (Auto) 3.7, Lymphocytes # (Auto) 2.9, Monocytes # (Auto) 0.5, Eosinophils # (Auto) 0.3, Basophils # (Auto) 0.0, Immature Granulocyte # (Auto) 0.0, Nucleated Red Blood Cells % (auto) 0.0, Anion Gap 4L, Glomerular Filtration Rate > 60.0, Blood Urea Nitrogen 14, Creatinine 0.78, Sodium Level 144, Potassium Level 3.8, Chloride Level 107, Carbon Dioxide Level 33H, Calcium Level 8.9 04/12/17 11:30: Bedside Glucose (Misc Panel) 129H CBC/BMP Laboratory Tests 04/12/17 06:15 Red Blood Count 3.99 L, Mean Corpuscular Volume 87.5, Mean Corpuscular Hemoglobin 26.3 L, Mean Corpuscular Hemoglobin Concent 30.1 L, Red Cell Distribution Width 14.7 H, Neutrophils (%) (Auto) 49.5, Lymphocytes (%) (Auto) 38.9, Monocytes (%) (Auto) 6.8 H, Eosinophils (%) (Auto) 4.0 H, Basophils (%) ( Auto) 0.5, Neutrophils # (Auto) 3.7, Lymphocytes # (Auto) 2.9, Monocytes # (Auto ) 0.5, Eosinophils # (Auto) 0.3, Basophils # (Auto) 0.0, Calcium Level 8.9 Microbiology Microbiology 04/10/17 Blood Culture - Preliminary, Resulted No Growth after 48 hours. All Specime... 04/10/17 Blood Culture - Preliminary, Resulted No Growth after 48 hours. All Specime... 04/10/17 Urine Culture - Final, Complete GME ATTESTATION GME ATTESTATION My preceptor for this patient encounter was physically present in the building during the encounter and was fully available. As needed, all aspects of the patient interview, examination, medical decision making process, and medical care plan development were reviewed and approved by the preceptor. Preceptor is aware and concurs with the plan as stated in the body of this note and will attest to such by his/her cosignature. BETH TAPIA DO Apr 12, 2017 20:52
[2017-04-13] MEDS ORDERED: VITAMIN D 50,000 UNITS CAPSULE (ERGOCALCIFEROL 1.25MG) PO SCH (09:00)
== END 2017-04-12 13:50 | disposition home or self-care (01) ==
LOC: M ED 18:28 → M ED INP 21:09 → M MS4PR 23:29 → M MS5PR 04-11 16:00
PROVIDERS: ADMIT Hospitalist; ATTEND Family Medicine
DX: R10.31 Right lower quadrant pain (principal); D72.829 Elevated white blood cell count, unspecified; K25.7 Chronic gastric ulcer without hemorrhage or perforation; D12.6 Benign neoplasm of colon, unspecified; I10 Essential (primary) hypertension; R56.9 Unspecified convulsions; G43.909 Migraine, unspecified, not intractable, without status migrainosus; J45.909 Unspecified asthma, uncomplicated; E78.5 Hyperlipidemia, unspecified; E55.9 Vitamin D deficiency, unspecified; K59.00 Constipation, unspecified; G89.29 Other chronic pain; E66.01 Morbid (severe) obesity due to excess calories; K76.0 Fatty (change of) liver, not elsewhere classified; F32.9 Major depressive disorder, single episode, unspecified; Z87.442 Personal history of urinary calculi; Z79.84 Long term (current) use of oral hypoglycemic drugs; Z79.899 Other long term (current) drug therapy; Z88.8 Allergy status to other drugs, medicaments and biological substances; Z23 Encounter for immunization
CPT/HCPCS: 36415; 74176; 80048; 80053; 81001; 83605; 85025; 86850; 86900; 86901; 87040; 87086; 90471; 90732; 96374; 96375; 96376; 99284; G0378; J2405

== ENCOUNTER → 2017-05-16 | Outpatient (REF) | payer MEDICARE, MEDICAID ==
[~2017-05-16] MED LIST changes: +AMIT25TA PO; +BISAC5TA PO; +FENT1DIS14 TD; +FERR325T3 PO; +GABA-279 PO; +IBUP1TAB7 PO; +IPRASOL4 INH; +LIPI80TA PO; +NITR4TASL SL; +OXYC1TAB23 PO; +PANT40TA2 PO; +PREG100CA PO; +SENN1TAB2 PO; +VENTAER INH; +VITA1CAP40 PO; +VITMTA PO; +ZOLO50TA PO
[2017-05-16 16:17] LABS: BASO % 0.3 % (0.0-1.0); EOS # 0.2 10^3/uL (0.0-0.50); EOS % 1.4 % (0.0-3.0); IMMATURE GRANULOCYTE % 0.5 % (0-0); LYMPH % 26.6 % (24.0-44.0); MEAN CORPUSCULAR HEMOGLOBIN 26.5 pg (27.0-33.0); MEAN CORPUSCULAR HGB CONC 30.3 g/dl (32.0-36.5); MEAN CORPUSCULAR VOLUME 87.2 fl (80.0-96.0); MONO # 0.5 10^3/uL (0.0-0.8); MONO % 4.8 % (0.0-5.0); NEUTROPHILS # 7.5 10^3/uL (1.8-7.7); NEUTROPHILS % 66.4 % (36.0-66.0); PLATELET COUNT, AUTOMATED 386 10^3/uL (150-450); RED CELL DISTRIBUTION WIDTH 14.2 % (11.5-14.5); WHITE BLOOD COUNT 11.3 10^3/uL (4.0-10.0)
[2017-05-16 16:43] LABS: ALBUMIN 3.8 GM/DL (3.2-5.2); ALBUMIN/GLOBULIN RATIO 1.06 (1.00-1.93); BILIRUBIN,TOTAL 0.2 MG/DL (0.2-1.0); CALCIUM LEVEL 9.2 MG/DL (8.8-10.2); CREATININE FOR GFR 1.33 MG/DL (0.55-1.02); GLOMERULAR FILTRATION RATE 42.9 (>45); MAGNESIUM LEVEL 2.2 MG/DL (1.8-2.4); PERCENT SATURATION 9.9 % (13.2-45.0); POTASSIUM SERUM 4.3 MEQ/L (3.5-5.1); TOTAL PROTEIN 7.4 GM/DL (6.4-8.2)
== END ==
LOC: M SFHCPLAZ 12:24
PROVIDERS: ATTEND Family Medicine
DX: E11.9 Type 2 diabetes mellitus without complications (principal); E55.9 Vitamin D deficiency, unspecified
CPT/HCPCS: 36415; 80053; 82306; 82607; 82728; 83036; 83550; 83735; 83970; 85025; G0463

== ENCOUNTER → 2017-05-19 | Outpatient (CLI) | payer MEDICARE, MEDICAID ==
--- NOTE | 2017-05-19 10:34 | REP ---
CT ABDOMEN AND PELVIS WITHOUT CONTRAST: 05/19/2017 COMPARISON: 04/10/2017 CLINICAL HISTORY: Nephrolithiasis, chronic kidney disease stage II. Prior lithotripsy. TECHNIQUE. Our renal stone protocol was utilized with coronal and sagittal reconstructions provided and bone windows are reviewed for each slice level. CT ABDOMEN: The lung bases are without acute finding. Heart is not enlarged. There is no pericardial thickening or effusion. There is no hepatosplenomegaly, focal hepatic or splenic lesion, intrahepatic biliary dilatation nor ascites. Gallbladder shows no calcified stone or mass. Pancreas without mass, ductal dilatation or inflammatory change. Adrenal glands are normal. The left kidney shows no stone, hydronephrosis, cyst or mass. No perinephric fluid, hydronephrosis or hydroureter. Ureters seen with a normal course to the bladder. The right kidney shows that the previous internal ureteral stent in March is removed. There is hydronephrosis and hydroureter. The ureter is dilated to the deep pelvis where there is a caliber change just above the UVJ. I do see a small calcific density within the ureter on image 112 and another possible tiny punctate 1 mm stone seen a couple of images below. The remainder of the course of the ureter to the bladder is unremarkable. The bladder is nearly completely empty. No stones in the left ureter. No stones in the bladder. Bones are unchanged with some minor degenerative changes more in the thoracic and lumbar spine with the posterior elements intact and the visualized ribs also intact. CT PELVIS: The sacrum, iliac bones, acetabuli, pubic rami and hips with only minimal degenerative change. A few pelvic phleboliths are noted. Bladder nearly empty without definite stone or mass. Uterus is absent. Vaginal cuff intact. Colon and small bowel loops are grossly unremarkable. Small bowel loops are intact. There is no evidence of ascites, adenopathy or free air. The visualized ventral abdominal wall without hernia. No inguinal hernia. There is one small inguinal nodes on the right about 13 mm in short axis, unchanged. IMPRESSION: 1. Interval removal of the ureteral stent on the right side now with a couple of punctate 1 mm calculi in the distal right ureter above the UVJ. No stones in the kidney. Mild to moderate hydronephrosis and hydroureter to this level. 2. I do not see other significant finding. Signed by Kana Mccullough MD 05/20/2017 05:52 P
[2017-05-19 13:39] LABS: ALBUMIN 3.4 GM/DL (3.2-5.2); CALCIUM LEVEL 9.7 MG/DL (8.8-10.2); CREATININE FOR GFR 1.19 MG/DL (0.55-1.02); GLOMERULAR FILTRATION RATE 48.8 (>45); PHOSPHORUS LEVEL 3.5 MG/DL (2.5-4.9); POTASSIUM SERUM 4.7 MEQ/L (3.5-5.1)
== END ==
LOC: M RAD 09:22
PROVIDERS: ATTEND Family Medicine
DX: N18.9 Chronic kidney disease, unspecified (principal); R39.89 Other symptoms and signs involving the genitourinary system

== ENCOUNTER 2017-05-22 12:46 | Day surgery (SDC) | payer MEDICARE, MEDICAID ==
[~2017-05-22] VITALS: Ht 152.4 cm; Wt 89.9 kg
[~2017-05-22 12:46] MED LIST changes: -FERR325T3 PO
[2017-05-22] MEDS ORDERED: FERR325T3 PO (13:55)
[2017-05-22] MEDS ORDERED: LR 1,000 ML IV ONE (14:30)
[2017-05-22] MEDS ORDERED: CONRAY-60 60% 50ML VIAL (Q9961) As Ordered ONE (14:34)
[2017-05-22] MEDS ORDERED: ceFAZolin 2 GM/D5W 50 ML IV BAG (J0690 PER 500MG) As Ordered ONE (14:44)
[2017-05-22] MEDS ORDERED: ONDANSETRON 4MG/2ML VIAL (J2405) As Ordered ONE (14:49)
[2017-05-22] MEDS ORDERED: MIDAZOLAM INJ 2 MG/2 ML VIAL (J2250) As Ordered ONE (14:49)
[2017-05-22] MEDS ORDERED: PROPOFOL 200 MG/20 ML VIAL As Ordered ONE (14:49)
[2017-05-22] MEDS ORDERED: LIDOCAINE 2% INJ 100 MG/5 ML SDV (FOR ANES.) As Ordered ONE (14:49)
[2017-05-22] MEDS ORDERED: fentaNYL 100 MCG/2 ML INJECTION (J3010) As Ordered ONE ×2 (14:50→16:11)
[2017-05-22] MEDS: PERCOCET 5MG/325MG TAB PO PRN ×4 (16:10→16:40)
[2017-05-22] MEDS ORDERED: MEPERIDINE INJ 25 MG/ML VIAL (J2175) As Ordered ONE (16:11)
[2017-05-22] MEDS ORDERED: PERCOCET 5MG/325MG TAB As Ordered ONE (16:11)
[2017-05-22] MEDS: fentaNYL 100 MCG/2 ML INJECTION (J3010) IV PRN ×4 (16:15→16:30)
--- NOTE | 2017-05-22 16:23 | REP ---
RETROGRADE PYELOGRAM, FOUR VIEWS: Four portable radiographs were obtained with a C-arm. A small amount of contrast material is present in the right renal collecting system and ureter. The patient is status post right ureteral stent placement. Fluoro time 35 seconds. IMPRESSION: The patient is status post right ureteral stent placement. Signed by Antoine Sung MD 05/22/2017 04:24 P
[2017-05-22] MEDS ORDERED: PERCOCET 5MG/325MG TAB PO PRN (16:30)
[2017-05-22] MEDS ORDERED: LR 1,000 ML IV SCH (16:30)
[2017-05-22] MEDS ORDERED: MEPERIDINE INJ 25 MG/ML VIAL (J2175) IV PRN (16:30)
[2017-05-22] MEDS ORDERED: ONDANSETRON 4MG/2ML VIAL (J2405) IV PRN (16:30)
[2017-05-22] MEDS ORDERED: METOCLOPRAMIDE INJ 10MG/2ML VIAL (J2765) IV PRN (16:30)
[2017-05-22 18:20] VITALS: BP 137/71
--- NOTE | 2017-05-23 11:52 | RO ---
DATE OF PROCEDURE: 05/22/2017 PREPROCEDURE DIAGNOSIS: Right hydronephrosis. POSTPROCEDURE DIAGNOSIS: Right ureteral stricture. PROCEDURE: Cystoscopy, right ureteroscopy with balloon dilation of ureteral stricture, right retrograde pyelogram with intraoperative interpretation of images, right ureteral stent placement. SURGEON: Dr. Kale Washington BURLESQUE DANCER: None. ANESTHESIA: General. OPERATIVE INDICATIONS: This is a 61-year-old female who was recently found to have moderate to severe right hydroureteronephrosis down to the distal ureter, with no obvious sign of obstruction. This patient also had a ureteroscopy a few months ago for a distal stone that was impacted in the ureter. She was brought to the operating room today for the suspicion that she has a ureteral stricture causing her symptoms and to treat this. DESCRIPTION OF PROCEDURE: The patient was brought to the operating room, where general anesthesia was induced. Prophylactic antibiotics were infused. She was then placed in the dorsal lithotomy position and prepped and draped in the usual sterile fashion. A rigid cystoscope was then inserted into the urethral meatus and advanced into the bladder. I then tried to advance a wire up the right collecting system and it would not advance into the ureteral orifice. I then removed the cystoscope and went in with a short semi rigid ureteroscope and went into the right ureteral orifice. Of note, the ureteral orifice appeared to be completely closed off. I was able to see a very small lumen and advanced the wire up the lumen up into the right collecting system. I then was able to advance the ureteroscope over the wire through the stricture a little bit. A retrograde pyelogram was performed and it was notable for moderate to severe hydroureteronephrosis, down to the level of the stricture. Of note, the stricture appeared to be about 3 to 4 cm in length. I then withdrew the ureteroscope and advanced a balloon dilator over the wire and the balloon was inflated several times in the area of the stricture and left inflated for about 1 minute each time. The balloon dilator was then removed and I then went back in with a short semi rigid ureteroscope and at this point the stricture did appear to be open and I was able to pass the scope through without much difficulty. Once again, the length of the stricture was about 3 to 4 cm. At this point, the ureteroscope was withdrawn and the wire was utilized to advance a #7-Icelandic x 22-32 cm JJ ureteral stent up the right collecting system. The wire was then removed, and there were adequate curls of the stent in the right renal pelvis and in the bladder. The bladder was then emptied of all fluid, and this marked the conclusion of the procedure. The patient was then taken out of the dorsal lithotomy position, awakened from anesthesia, and transported to the recovery room in stable condition. ESTIMATED BLOOD LOSS: Minimal. COMPLICATIONS: None. SPECIMENS: None. PLAN: The patient's stent will be left in place for about 3 to 4 weeks. We will remove it and then get an ultrasound done a few weeks after that to assess for hydronephrosis. Of note, I am concerned that the stricture will recur and given the length of the stricture, this may ultimately need to be treated with ureteral reimplantation. MICHELLE
== END 2017-05-22 18:30 | disposition home or self-care (01) ==
LOC: M SDC 12:46
PROVIDERS: ATTEND Urology
DX: N13.30 Unspecified hydronephrosis (principal); N20.1 Calculus of ureter
CPT/HCPCS: 52332; 52341; 74420; C2617; J0690; J2175; J2250; J2405; J3010; Q9961

== ENCOUNTER → 2017-07-03 | Outpatient (CLI) | payer MEDICARE, MEDICAID | LOC: M PAIN 09:45 | DX: G89.29 Other chronic pain (principal); M47.816 Spondylosis without myelopathy or radiculopathy, lumbar region; G43.909 Migraine, unspecified, not intractable, without status migrainosus; J45.20 Mild intermittent asthma, uncomplicated; G47.30 Sleep apnea, unspecified; I10 Essential (primary) hypertension; F32.9 Major depressive disorder, single episode, unspecified; K59.09 Other constipation; E66.9 Obesity, unspecified; Z68.35 Body mass index [BMI] 35.0-35.9, adult; E55.9 Vitamin D deficiency, unspecified; Z88.8 Allergy status to other drugs, medicaments and biological substances; Z79.84 Long term (current) use of oral hypoglycemic drugs; Z79.82 Long term (current) use of aspirin; Z79.891 Long term (current) use of opiate analgesic; Z79.899 Other long term (current) drug therapy | CPT/HCPCS: G0463 ==

== ENCOUNTER → 2017-07-24 | Outpatient (CLI) | payer MEDICARE, MEDICAID | LOC: M RAD 09:49 | DX: N13.1 Hydronephrosis with ureteral stricture, not elsewhere classified (principal) | CPT/HCPCS: 76775 ==

== ENCOUNTER → 2017-08-01 | Outpatient (CLI) | payer MEDICARE, MEDICAID | LOC: M RAD 08:26 | DX: N13.1 Hydronephrosis with ureteral stricture, not elsewhere classified (principal) | CPT/HCPCS: 74176 ==

== ENCOUNTER → 2017-08-06 | Outpatient (CLI) | payer MEDICARE, MEDICAID | LOC: M LAB 15:16 | DX: Z01.812 Encounter for preprocedural laboratory examination (principal); N13.5 Crossing vessel and stricture of ureter without hydronephrosis; N39.0 Urinary tract infection, site not specified | CPT/HCPCS: 36415 ==

== ENCOUNTER 2017-08-08 12:12 | Day surgery (SDC) | payer MEDICARE, MEDICAID ==
[2017-08-08 14:11] LABS: BEDSIDE GLUCOSE 91 MG/DL (80-115)
[2017-08-08] MEDS: LR 1,000 ML IV ×2 (14:18→18:00)
[2017-08-08] MEDS: MORPHINE 4 MG/ML 1ML VIAL (J2270) IV (15:44)
[2017-08-08] MEDS ORDERED: PROPOFOL 200 MG/20 ML VIAL As Ordered (17:06)
[2017-08-08] MEDS ORDERED: MIDAZOLAM INJ 2 MG/2 ML VIAL (J2250) As Ordered (17:06)
[2017-08-08] MEDS ORDERED: fentaNYL 100 MCG/2 ML INJECTION (J3010) As Ordered (17:06)
[2017-08-08] MEDS ORDERED: LIDOCAINE 2% INJ 100 MG/5 ML SDV (FOR ANES.) As Ordered (17:06)
[2017-08-08] MEDS ORDERED: ONDANSETRON 4MG/2ML VIAL (J2405) As Ordered (17:10)
[2017-08-08] MEDS ORDERED: dexameTHASONE 4 MG/ML 1ML VIAL (J1100) As Ordered (17:10)
[2017-08-08] MEDS: CONRAY-60 60% 50ML VIAL (Q9961) As Ordered (17:26)
[2017-08-08] MEDS: PERCOCET 5MG/325MG TAB PO ×2 (17:54→20:14)
[2017-08-08] MEDS: fentaNYL 100 MCG/2 ML INJECTION (J3010) IV ×4 (18:00→18:22)
[2017-08-08] MEDS ORDERED: NORCO, ANEXSIA 5/325MG TABLET (HYDROcodone/ACETAMINOPHEN) PO (18:00)
[2017-08-08] MEDS ORDERED: ONDANSETRON 4MG/2ML VIAL (J2405) IV (18:00)
[2017-08-08] MEDS ORDERED: PERCOCET 5MG/325MG TAB PO (18:00)
== END 2017-08-08 20:15 | disposition home or self-care (01) ==
LOC: M SDC 20:15
DX: N13.5 Crossing vessel and stricture of ureter without hydronephrosis (principal); N39.0 Urinary tract infection, site not specified; I25.10 Atherosclerotic heart disease of native coronary artery without angina pectoris; I10 Essential (primary) hypertension; E78.5 Hyperlipidemia, unspecified; D64.9 Anemia, unspecified; M79.7 Fibromyalgia; Z86.73 Personal history of transient ischemic attack (TIA), and cerebral infarction without residual deficits; E55.9 Vitamin D deficiency, unspecified; J44.9 Chronic obstructive pulmonary disease, unspecified; Z79.52 Long term (current) use of systemic steroids; R73.01 Impaired fasting glucose; F32.9 Major depressive disorder, single episode, unspecified; F41.9 Anxiety disorder, unspecified; Z79.82 Long term (current) use of aspirin; Z79.899 Other long term (current) drug therapy; Z88.8 Allergy status to other drugs, medicaments and biological substances; E66.9 Obesity, unspecified
CPT/HCPCS: 52332

== ENCOUNTER → 2017-08-21 | Outpatient (REF) | payer MEDICARE, MEDICAID ==
[2017-08-21 15:50] LABS: BASO % 0.3 % (0.0-1.0); EOS # 0.2 10^3/uL (0.0-0.50); EOS % 1.8 % (0.0-3.0); HEMATOCRIT 38.1 % (36.0-47.0); HEMOGLOBIN 11.5 g/dl (12.0-16.0); IMMATURE GRANULOCYTE % 0.6 % (0-3.0); LYMPH # 2.8 10^3/uL (1.5-4.5); MEAN CORPUSCULAR HEMOGLOBIN 25.7 pg (27.0-33.0); MEAN CORPUSCULAR HGB CONC 30.2 g/dl (32.0-36.5); MEAN CORPUSCULAR VOLUME 85.2 fl (80.0-96.0); MONO # 0.5 10^3/uL (0.0-0.8); NEUTROPHILS # 7.1 10^3/uL (1.8-7.7); NEUTROPHILS % 66.3 % (36.0-66.0); PLATELET COUNT, AUTOMATED 346 10^3/uL (150-450); RED BLOOD COUNT 4.47 10^6/uL (4.00-5.40); RED CELL DISTRIBUTION WIDTH 14.9 % (11.5-14.5); RETIC HEMOGLOBIN EQUIVALENT 30.4 pg (24-36); RETICULOCYTE # 61.7 10^9/L (17-77); RETICULOCYTE % 1.4 % (0.5-1.5); WHITE BLOOD COUNT 10.7 10^3/uL (4.0-10.0)
[2017-08-21 15:58] LABS: ALBUMIN 3.7 GM/DL (3.2-5.2); ALBUMIN/GLOBULIN RATIO 1.19 (1.00-1.93); ALKALINE PHOSPHATASE 137 U/L (45-117); ALT/SGPT 20 U/L (12-78); ANION GAP 7 MEQ/L (8-16); AST/SGOT 19 U/L (7-37); BILIRUBIN,TOTAL 0.3 MG/DL (0.2-1.0); BLOOD UREA NITROGEN 23 MG/DL (7-18); CALCIUM LEVEL 9.4 MG/DL (8.8-10.2); CARBON DIOXIDE LEVEL 31 MEQ/L (21-32); CHLORIDE LEVEL 105 MEQ/L (98-107); CREATININE FOR GFR 1.01 MG/DL (0.55-1.30); GLOMERULAR FILTRATION RATE 58.9 (>45); GLUCOSE, FASTING 77 MG/DL (70-100); POTASSIUM SERUM 4.2 MEQ/L (3.5-5.1); SODIUM LEVEL 143 MEQ/L (136-145); TOTAL PROTEIN 6.8 GM/DL (6.4-8.2)
[2017-08-21 16:00] LABS: INR 0.92; PROTHROMBIN TIME 12.4 SECONDS (12.4-14.5)
[2017-08-21 16:01] LABS: PARTIAL THROMBOPLASTIN TIME 32.7 SECONDS (26.8-37.9)
[2017-08-21 16:03] LABS: PTH INTACT 84.7 PG/ML (18.5-88.0); TOTAL 25(OH) VITAMIN D 38.6 NG/ML (30.0-100.0)
== END ==
LOC: M SFHCPLAZ 12:59
DX: Z01.818 Encounter for other preprocedural examination (principal); D50.9 Iron deficiency anemia, unspecified; N18.2 Chronic kidney disease, stage 2 (mild); E55.9 Vitamin D deficiency, unspecified; K27.9 Peptic ulcer, site unspecified, unspecified as acute or chronic, without hemorrhage or perforation
CPT/HCPCS: 80053

== ENCOUNTER → 2017-08-27 | Outpatient (CLI) | payer MEDICARE, MEDICAID | LOC: M RAD 11:01 | DX: Z01.818 Encounter for other preprocedural examination (principal); N13.5 Crossing vessel and stricture of ureter without hydronephrosis ==

== ENCOUNTER 2017-08-29 06:21 | Inpatient (IN) | payer MEDICARE, MEDICAID ==
[2017-08-29] MEDS ORDERED: PROPOFOL 200 MG/20 ML VIAL As Ordered (07:19)
[2017-08-29] MEDS ORDERED: LIDOCAINE 2% INJ 100 MG/5 ML SDV (FOR ANES.) As Ordered (07:19)
[2017-08-29] MEDS ORDERED: ROCURONIUM BROMIDE 50 MG/5 ML VIAL As Ordered ×2 (07:19→14:28)
[2017-08-29] MEDS ORDERED: fentaNYL 250 MCG/5 ML INJECTION (J3010) As Ordered (07:20)
[2017-08-29] MEDS ORDERED: MIDAZOLAM INJ 2 MG/2 ML VIAL (J2250) As Ordered (07:22)
[2017-08-29 07:45] LABS: BEDSIDE GLUCOSE 110 MG/DL (80-115)
[2017-08-29] MEDS ORDERED: PERCOCET 5MG/325MG TAB PO (08:00)
[2017-08-29] MEDS ORDERED: GLUCAGON FOR INJ 1 MG VIAL (J1610) SC (08:00)
[2017-08-29] MEDS ORDERED: ONDANSETRON 4MG/2ML VIAL (J2405) IV ×2 (08:00→15:45)
[2017-08-29] MEDS ORDERED: COMBIVENT RESPIMAT 100-20MCG INHALER 4GM INH (08:00)
[2017-08-29] MEDS ORDERED: ALBUTEROL 90 MCG/ACT 8GM HFA INHALER INH (08:00)
[2017-08-29] MEDS ORDERED: DEXTROSE 50% 50 ML SYRINGE IV (08:00)
[2017-08-29] MEDS ORDERED: ACETAMINOPHEN TAB 650MG DOSE (2X325MG) PO (08:00)
[2017-08-29] MEDS ORDERED: GLUCOSE 4 GM CHEW TABLET PO (08:00)
[2017-08-29] MEDS ORDERED: HYDROmorphone HCL 2 MG/ML 1ML VIAL (J1170) As Ordered (09:25)
[2017-08-29] MEDS ORDERED: KETOROLAC 60 MG/2 ML VIAL (J1885) As Ordered (09:29)
[2017-08-29] MEDS ORDERED: METOCLOPRAMIDE INJ 10MG/2ML VIAL (J2765) As Ordered (09:29)
[2017-08-29] MEDS ORDERED: ONDANSETRON 4MG/2ML VIAL (J2405) As Ordered (09:29)
[2017-08-29] MEDS ORDERED: GLYCOPYRROLATE INJ 0.2 MG/ML 2 ML VIAL As Ordered (09:29)
[2017-08-29] MEDS ORDERED: diphenhydrAMINE INJ 50MG/ML VIAL (J1200) As Ordered (09:29)
[2017-08-29] MEDS ORDERED: NEOSTIGMINE 10 MG/10 ML VIAL (J2710) As Ordered (09:29)
[2017-08-29] MEDS: METHYLENE BLUE 0.5% (5MG/ML) 10 ML AMP (PROVAYBLUE)(Q9968 PER 1MG) As Ordered (11:46)
[2017-08-29] MEDS: HumaLOG INSULIN (NovoLOG) PER UNIT SC ×3 (12:00→21:00)
[2017-08-29] MEDS ORDERED: FUROSEMIDE 100 MG/10 ML VIAL (J1940) As Ordered (14:27)
[2017-08-29] MEDS: LIDOCAINE 1% MDV 20ML VIAL As Ordered (14:56)
[2017-08-29] MEDS: BUPIVACAINE HCL 0.25% 10 ML VIAL As Ordered (14:57)
[2017-08-29 15:32] LABS: BEDSIDE GLUCOSE 110 MG/DL (80-115)
[2017-08-29] MEDS ORDERED: METOCLOPRAMIDE INJ 10MG/2ML VIAL (J2765) IV (15:45)
[2017-08-29] MEDS: fentaNYL 100 MCG/2 ML INJECTION (J3010) IV ×8 (15:50→16:25)
[2017-08-29] MEDS: PERCOCET 5MG/325MG TAB PO ×3 (15:55→19:59)
[2017-08-29] MEDS ORDERED: CEFAZOLIN SOD 1 GM in APPROPRIATE DILUENT 1 EA IV (16:00)
[2017-08-29 16:01] LABS: HEMATOCRIT 36.8 % (36.0-47.0); HEMOGLOBIN 11.3 g/dl (12.0-16.0); MEAN CORPUSCULAR HEMOGLOBIN 25.9 pg (27.0-33.0); MEAN CORPUSCULAR HGB CONC 30.7 g/dl (32.0-36.5); MEAN CORPUSCULAR VOLUME 84.2 fl (80.0-96.0); PLATELET COUNT, AUTOMATED 345 10^3/uL (150-450); RED BLOOD COUNT 4.37 10^6/uL (4.00-5.40); WHITE BLOOD COUNT 15.9 10^3/uL (4.0-10.0)
[2017-08-29 16:05] LABS: ANION GAP 5 MEQ/L (8-16); BLOOD UREA NITROGEN 19 MG/DL (7-18); CALCIUM LEVEL 8.2 MG/DL (8.8-10.2); CARBON DIOXIDE LEVEL 31 MEQ/L (21-32); CHLORIDE LEVEL 106 MEQ/L (98-107); CREATININE FOR GFR 0.94 MG/DL (0.55-1.30); GLOMERULAR FILTRATION RATE > 60.0 (>45); GLUCOSE, FASTING 112 MG/DL (70-100); POTASSIUM SERUM 4.1 MEQ/L (3.5-5.1); SODIUM LEVEL 142 MEQ/L (136-145)
[2017-08-29] MEDS: MEPERIDINE INJ 25 MG/ML VIAL (J2175) IV ×2 (16:25→16:30)
[2017-08-29] MEDS ORDERED: HYDROmorphone HCL 1 MG/ML SYRINGE (J1170) As Ordered (17:05)
[2017-08-29] MEDS: HYDROmorphone HCL 1 MG/ML SYRINGE (J1170) IV ×2 (17:05→17:10)
[2017-08-29] MEDS ORDERED: fentaNYL 100 MCG/2 ML INJECTION (J3010) IV (17:30)
[2017-08-29] MEDS: NS 1,000 ML IV ×2 (17:44→17:46)
[2017-08-29] MEDS: LR 1,000 ML IV (17:46)
[2017-08-29] MEDS: CEFAZOLIN SOD 1 GM in APPROPRIATE DILUENT 1 EA IV (19:56)
[2017-08-29] MEDS: DOCUSATE SODIUM 100 MG CAP PO (19:57)
[2017-08-29] MEDS: PREGABALIN 100 MG CAP (LYRICA) PO (19:57)
[2017-08-29] MEDS: GABAPENTIN 100 MG CAP PO (19:58)
[2017-08-29] MEDS: AMITRIPTYLINE 50 MG TAB PO (19:58)
[2017-08-29] MEDS: SERTRALINE HCL 50 MG TAB PO (19:58)
[2017-08-29] MEDS: POTASSIUM CHLORIDE 10 MEQ SR TABLET PO (19:58)
[2017-08-30] MEDS: NS 1,000 ML IV (00:58)
[2017-08-30] MEDS: CEFAZOLIN SOD 1 GM in APPROPRIATE DILUENT 1 EA IV (03:57)
[2017-08-30] MEDS: PERCOCET 5MG/325MG TAB PO ×3 (04:11→17:02)
[2017-08-30 06:43] LABS: HEMATOCRIT 35.3 % (36.0-47.0); HEMOGLOBIN 10.9 g/dl (12.0-16.0); MEAN CORPUSCULAR HEMOGLOBIN 26.3 pg (27.0-33.0); MEAN CORPUSCULAR HGB CONC 30.9 g/dl (32.0-36.5); MEAN CORPUSCULAR VOLUME 85.1 fl (80.0-96.0); PLATELET COUNT, AUTOMATED 314 10^3/uL (150-450); RED BLOOD COUNT 4.15 10^6/uL (4.00-5.40); RED CELL DISTRIBUTION WIDTH 15.2 % (11.5-14.5); WHITE BLOOD COUNT 8.3 10^3/uL (4.0-10.0)
[2017-08-30 07:01] LABS: ANION GAP 11 MEQ/L (8-16); BLOOD UREA NITROGEN 16 MG/DL (7-18); CALCIUM LEVEL 8.9 MG/DL (8.8-10.2); CARBON DIOXIDE LEVEL 23 MEQ/L (21-32); CHLORIDE LEVEL 109 MEQ/L (98-107); CREATININE FOR GFR 1.09 MG/DL (0.55-1.30); GLUCOSE, FASTING 104 MG/DL (70-100); POTASSIUM SERUM 3.5 MEQ/L (3.5-5.1); SODIUM LEVEL 143 MEQ/L (136-145)
[2017-08-30] MEDS: POTASSIUM CHLORIDE 10 MEQ SR TABLET PO ×2 (09:17→20:02)
[2017-08-30] MEDS: ASPIRIN 81 MG ENTERIC TAB PO (09:17)
[2017-08-30] MEDS: GABAPENTIN 100 MG CAP PO ×2 (09:17→20:02)
[2017-08-30] MEDS: PREGABALIN 100 MG CAP (LYRICA) PO ×2 (09:17→20:02)
[2017-08-30] MEDS: DOCUSATE SODIUM 100 MG CAP PO ×2 (09:17→20:02)
[2017-08-30] MEDS: PANTOPRAZOLE 40MG TAB (PROTONIX) PO (09:17)
[2017-08-30] MEDS: HumaLOG INSULIN (NovoLOG) PER UNIT SC ×4 (09:18→20:03)
[2017-08-30] MEDS: AMITRIPTYLINE 50 MG TAB PO (20:02)
[2017-08-30] MEDS: SERTRALINE HCL 50 MG TAB PO (20:02)
[2017-08-31] MEDS: PERCOCET 5MG/325MG TAB PO (05:34)
[2017-08-31 06:26] LABS: HEMOGLOBIN 9.7 g/dl (12.0-16.0); MEAN CORPUSCULAR HEMOGLOBIN 25.6 pg (27.0-33.0); MEAN CORPUSCULAR HGB CONC 29.4 g/dl (32.0-36.5); MEAN CORPUSCULAR VOLUME 87.1 fl (80.0-96.0); PLATELET COUNT, AUTOMATED 295 10^3/uL (150-450); RED BLOOD COUNT 3.79 10^6/uL (4.00-5.40); RED CELL DISTRIBUTION WIDTH 15.5 % (11.5-14.5); WHITE BLOOD COUNT 7.6 10^3/uL (4.0-10.0)
[2017-08-31 06:46] LABS: ANION GAP 5 MEQ/L (8-16); BLOOD UREA NITROGEN 13 MG/DL (7-18); CALCIUM LEVEL 8.4 MG/DL (8.8-10.2); CARBON DIOXIDE LEVEL 32 MEQ/L (21-32); CHLORIDE LEVEL 110 MEQ/L (98-107); CREATININE FOR GFR 0.97 MG/DL (0.55-1.30); GLOMERULAR FILTRATION RATE > 60.0 (>45); GLUCOSE, FASTING 117 MG/DL (70-100); POTASSIUM SERUM 3.9 MEQ/L (3.5-5.1); SODIUM LEVEL 147 MEQ/L (136-145)
[2017-08-31] MEDS: PANTOPRAZOLE 40MG TAB (PROTONIX) PO (08:29)
[2017-08-31] MEDS: GABAPENTIN 100 MG CAP PO (08:29)
[2017-08-31] MEDS: ASPIRIN 81 MG ENTERIC TAB PO (08:29)
[2017-08-31] MEDS: PREGABALIN 100 MG CAP (LYRICA) PO (08:30)
[2017-08-31] MEDS: HumaLOG INSULIN (NovoLOG) PER UNIT SC (08:30)
[2017-08-31] MEDS: DOCUSATE SODIUM 100 MG CAP PO (08:30)
[2017-08-31] MEDS: POTASSIUM CHLORIDE 10 MEQ SR TABLET PO (08:30)
[2017-08-31] MEDS ORDERED: FENTANYL REMOVAL DOCUMENTATION MISC XX (21:00)
[2017-08-31] MEDS ORDERED: fentaNYL 25 MCG/HR PATCH TOP (21:00)
[2017-09-01 03:52] LABS: BEDSIDE GLUCOSE 109 MG/DL (80-115)
[2017-09-01 12:05] LABS: BEDSIDE GLUCOSE 93 MG/DL (80-115)
[2017-09-01 12:05] LABS: BEDSIDE GLUCOSE 113 MG/DL (80-115)
[2017-09-01 12:05] LABS: BEDSIDE GLUCOSE 101 MG/DL (80-115)
[2017-09-01 12:05] LABS: BEDSIDE GLUCOSE 101 MG/DL (80-115)
[2017-09-01 12:05] LABS: BEDSIDE GLUCOSE 99 MG/DL (80-115)
== END 2017-08-31 12:05 | disposition home or self-care (01) | DRG 675 ==
LOC: M OR 06:21 → M MS5PR 17:28
PROVIDERS: Urology
PROC: 0DNU4ZZ Release Omentum, Percutaneous Endoscopic Approach (ICD-10-PCS; principal; 2017-08-29 07:30)
PROC: 0T768DZ Dilation of Right Ureter with Intraluminal Device, Via Natural or Artificial Opening Endoscopic (ICD-10-PCS; 2017-08-29 07:30)
PROC: 8E0W4CZ Robotic Assisted Procedure of Trunk Region, Percutaneous Endoscopic Approach (ICD-10-PCS; 2017-08-29 07:30)
DX: N13.5 Crossing vessel and stricture of ureter without hydronephrosis (principal); M50.30 Other cervical disc degeneration, unspecified cervical region; J45.20 Mild intermittent asthma, uncomplicated; G43.009 Migraine without aura, not intractable, without status migrainosus; G47.00 Insomnia, unspecified; E11.22 Type 2 diabetes mellitus with diabetic chronic kidney disease; I12.9 Hypertensive chronic kidney disease with stage 1 through stage 4 chronic kidney disease, or unspecified chronic kidney disease; E78.2 Mixed hyperlipidemia; F32.9 Major depressive disorder, single episode, unspecified; K59.00 Constipation, unspecified; E66.9 Obesity, unspecified; E55.9 Vitamin D deficiency, unspecified; M85.89 Other specified disorders of bone density and structure, multiple sites; K27.9 Peptic ulcer, site unspecified, unspecified as acute or chronic, without hemorrhage or perforation; M47.816 Spondylosis without myelopathy or radiculopathy, lumbar region; D50.9 Iron deficiency anemia, unspecified; N18.2 Chronic kidney disease, stage 2 (mild); M51.36 Other intervertebral disc degeneration, lumbar region; Z87.442 Personal history of urinary calculi; Z79.84 Long term (current) use of oral hypoglycemic drugs; Z79.82 Long term (current) use of aspirin; Z79.891 Long term (current) use of opiate analgesic; Z68.36 Body mass index [BMI] 36.0-36.9, adult; Z88.1 Allergy status to other antibiotic agents; Z86.010 Personal history of colon polyps

== ENCOUNTER → 2017-09-03 | Outpatient (CLI) | payer MEDICARE, MEDICAID ==
[2017-09-03 17:51] LABS: ANION GAP 6 MEQ/L (8-16); BLOOD UREA NITROGEN 12 MG/DL (7-18); CALCIUM LEVEL 9.3 MG/DL (8.8-10.2); CARBON DIOXIDE LEVEL 30 MEQ/L (21-32); CHLORIDE LEVEL 106 MEQ/L (98-107); CREATININE FOR GFR 0.95 MG/DL (0.55-1.30); GLOMERULAR FILTRATION RATE > 60.0 (>45); GLUCOSE, FASTING 75 MG/DL (70-100); POTASSIUM SERUM 4.7 MEQ/L (3.5-5.1); SODIUM LEVEL 142 MEQ/L (136-145)
[2017-09-03 18:29] LABS: HEMATOCRIT 36.1 % (36.0-47.0); HEMOGLOBIN 10.9 g/dl (12.0-16.0); MEAN CORPUSCULAR HEMOGLOBIN 25.6 pg (27.0-33.0); MEAN CORPUSCULAR HGB CONC 30.2 g/dl (32.0-36.5); MEAN CORPUSCULAR VOLUME 84.9 fl (80.0-96.0); PLATELET COUNT, AUTOMATED 420 10^3/uL (150-450); RED BLOOD COUNT 4.25 10^6/uL (4.00-5.40); RED CELL DISTRIBUTION WIDTH 14.9 % (11.5-14.5); WHITE BLOOD COUNT 9.2 10^3/uL (4.0-10.0)
== END ==
LOC: M SMT 13:53
DX: N13.5 Crossing vessel and stricture of ureter without hydronephrosis (principal)
CPT/HCPCS: 80048

== ENCOUNTER 2017-09-10 05:54 | Inpatient (IN) | payer MEDICARE, MEDICAID ==
[2017-09-10] MEDS ORDERED: PROPOFOL 200 MG/20 ML VIAL As Ordered (06:48)
[2017-09-10] MEDS ORDERED: LIDOCAINE 2% INJ 100 MG/5 ML SDV (FOR ANES.) As Ordered (06:48)
[2017-09-10] MEDS ORDERED: GLYCOPYRROLATE INJ 0.2 MG/ML 2 ML VIAL As Ordered (06:48)
[2017-09-10] MEDS ORDERED: ONDANSETRON 4MG/2ML VIAL (J2405) As Ordered (06:49)
[2017-09-10] MEDS ORDERED: KETOROLAC 60 MG/2 ML VIAL (J1885) As Ordered (06:49)
[2017-09-10] MEDS ORDERED: HYDROmorphone HCL 2 MG/ML 1ML VIAL (J1170) As Ordered (06:49)
[2017-09-10] MEDS ORDERED: LIDOCAINE 2% JELLY 30 ML As Ordered (06:49)
[2017-09-10] MEDS ORDERED: dexameTHASONE 4 MG/ML 1ML VIAL (J1100) As Ordered (06:49)
[2017-09-10] MEDS ORDERED: fentaNYL 100 MCG/2 ML INJECTION (J3010) As Ordered (06:49)
[2017-09-10] MEDS ORDERED: NEOSTIGMINE 10 MG/10 ML VIAL (J2710) As Ordered (06:49)
[2017-09-10] MEDS ORDERED: MIDAZOLAM INJ 2 MG/2 ML VIAL (J2250) As Ordered (06:49)
[2017-09-10] MEDS ORDERED: ROCURONIUM BROMIDE 50 MG/5 ML VIAL As Ordered ×2 (06:51→14:17)
[2017-09-10] MEDS: LR 1,000 ML IV ×2 (06:55→18:00)
[2017-09-10 07:22] LABS: BEDSIDE GLUCOSE 107 MG/DL (80-115)
[2017-09-10] MEDS: NS 1,000 ML IV ×3 (07:47→23:47)
[2017-09-10] MEDS ORDERED: GLUCOSE 4 GM CHEW TABLET PO (08:00)
[2017-09-10] MEDS ORDERED: GLUCAGON FOR INJ 1 MG VIAL (J1610) SC (08:00)
[2017-09-10] MEDS ORDERED: DEXTROSE 50% 50 ML SYRINGE IV (08:00)
[2017-09-10] MEDS ORDERED: COMBIVENT RESPIMAT 100-20MCG INHALER 4GM INH (08:00)
[2017-09-10] MEDS ORDERED: ACETAMINOPHEN TAB 650MG DOSE (2X325MG) PO (08:00)
[2017-09-10] MEDS ORDERED: LABETALOL HCL 100 MG/20 ML VIAL As Ordered (08:20)
[2017-09-10] MEDS ORDERED: hydrALAZINE INJ 20 MG/ML VIAL As Ordered (08:41)
[2017-09-10] MEDS: ATORVASTATIN 20 MG TAB PO (09:00)
[2017-09-10] MEDS: HumaLOG INSULIN (NovoLOG) PER UNIT SC ×2 (12:00→17:30)
[2017-09-10] MEDS: METHYLENE BLUE 0.5% (5MG/ML) 10 ML AMP (PROVAYBLUE)(Q9968 PER 1MG) As Ordered (16:09)
[2017-09-10] MEDS: LIDOCAINE 1% SDV INJ 30 ML VIAL As Ordered (17:28)
[2017-09-10] MEDS: BUPIVACAINE HCL 0.25% 30 ML VIAL As Ordered (17:28)
[2017-09-10] MEDS ORDERED: ONDANSETRON 4MG/2ML VIAL (J2405) IV (18:00)
[2017-09-10] MEDS ORDERED: fentaNYL 100 MCG/2 ML INJECTION (J3010) IV (18:00)
[2017-09-10 18:20] LABS: HEMATOCRIT 36.6 % (36.0-47.0); HEMOGLOBIN 11.2 g/dl (12.0-16.0); MEAN CORPUSCULAR HEMOGLOBIN 25.9 pg (27.0-33.0); MEAN CORPUSCULAR HGB CONC 30.6 g/dl (32.0-36.5); MEAN CORPUSCULAR VOLUME 84.5 fl (80.0-96.0); PLATELET COUNT, AUTOMATED 451 10^3/uL (150-450); RED BLOOD COUNT 4.33 10^6/uL (4.00-5.40); RED CELL DISTRIBUTION WIDTH 15.1 % (11.5-14.5); WHITE BLOOD COUNT 16.2 10^3/uL (4.0-10.0)
[2017-09-10 18:45] LABS: ANION GAP 9 MEQ/L (8-16); BLOOD UREA NITROGEN 31 MG/DL (7-18); CALCIUM LEVEL 8.9 MG/DL (8.8-10.2); CARBON DIOXIDE LEVEL 25 MEQ/L (21-32); CHLORIDE LEVEL 107 MEQ/L (98-107); CREATININE FOR GFR 1.43 MG/DL (0.55-1.30); GLOMERULAR FILTRATION RATE 39.5 (>45); GLUCOSE, FASTING 211 MG/DL (70-100); SODIUM LEVEL 141 MEQ/L (136-145)
[2017-09-10 18:47] LABS: POTASSIUM SERUM 5.5 MEQ/L (3.5-5.1)
[2017-09-10] MEDS: PREGABALIN 100 MG CAP (LYRICA) PO (20:37)
[2017-09-10] MEDS: AMITRIPTYLINE 50 MG TAB PO (20:37)
[2017-09-10] MEDS: DOCUSATE SODIUM 100 MG CAP PO (20:37)
[2017-09-10] MEDS: GABAPENTIN 100 MG CAP PO (20:37)
[2017-09-10] MEDS: CEFAZOLIN SOD 1 GM in APPROPRIATE DILUENT 1 EA IV (21:00)
[2017-09-11] MEDS: ONDANSETRON 4MG/2ML VIAL (J2405) IV ×2 (02:19→18:28)
[2017-09-11] MEDS: PERCOCET 5MG/325MG TAB PO ×4 (02:19→20:10)
[2017-09-11] MEDS: CEFAZOLIN SOD 1 GM in APPROPRIATE DILUENT 1 EA IV (05:00)
[2017-09-11 08:06] LABS: HEMATOCRIT 30.8 % (36.0-47.0); HEMOGLOBIN 9.5 g/dl (12.0-16.0); MEAN CORPUSCULAR HEMOGLOBIN 25.7 pg (27.0-33.0); MEAN CORPUSCULAR HGB CONC 30.8 g/dl (32.0-36.5); MEAN CORPUSCULAR VOLUME 83.2 fl (80.0-96.0); PLATELET COUNT, AUTOMATED 378 10^3/uL (150-450); RED CELL DISTRIBUTION WIDTH 15.4 % (11.5-14.5); WHITE BLOOD COUNT 13.8 10^3/uL (4.0-10.0)
[2017-09-11 08:24] LABS: ANION GAP 7 MEQ/L (8-16); BLOOD UREA NITROGEN 27 MG/DL (7-18); CALCIUM LEVEL 8.4 MG/DL (8.8-10.2); CARBON DIOXIDE LEVEL 27 MEQ/L (21-32); CHLORIDE LEVEL 109 MEQ/L (98-107); CREATININE FOR GFR 1.05 MG/DL (0.55-1.30); GLOMERULAR FILTRATION RATE 56.3 (>45); GLUCOSE, FASTING 119 MG/DL (70-100); POTASSIUM SERUM 4.1 MEQ/L (3.5-5.1); SODIUM LEVEL 143 MEQ/L (136-145)
[2017-09-11] MEDS: PREGABALIN 100 MG CAP (LYRICA) PO ×2 (08:26→20:10)
[2017-09-11] MEDS: SERTRALINE HCL 50 MG TAB PO (08:26)
[2017-09-11] MEDS: PANTOPRAZOLE 40MG TAB (PROTONIX) PO (08:26)
[2017-09-11] MEDS: ASPIRIN 81 MG ENTERIC TAB PO (08:26)
[2017-09-11] MEDS: DOCUSATE SODIUM 100 MG CAP PO ×2 (08:26→20:09)
[2017-09-11] MEDS: ATORVASTATIN 20 MG TAB PO (08:27)
[2017-09-11] MEDS: GABAPENTIN 100 MG CAP PO ×2 (08:27→20:09)
[2017-09-11] MEDS: NS 1,000 ML IV (08:27)
[2017-09-11] MEDS: HumaLOG INSULIN (NovoLOG) PER UNIT SC ×3 (08:36→17:52)
[2017-09-11 09:20] LABS: BEDSIDE GLUCOSE 213 MG/DL (80-115)
[2017-09-11] MEDS: fentaNYL 25 MCG/HR PATCH TOP (12:43)
[2017-09-11 15:14] LABS: HEMATOCRIT 30.9 % (36.0-47.0); HEMOGLOBIN 9.4 g/dl (12.0-15.5); MEAN CORPUSCULAR HEMOGLOBIN 25.7 pg (27.0-33.0); MEAN CORPUSCULAR HGB CONC 30.4 g/dl (32.0-36.5); MEAN CORPUSCULAR VOLUME 84.4 fl (80.0-96.0); PLATELET COUNT, AUTOMATED 383 10^3/uL (150-450); RED BLOOD COUNT 3.66 10^6/uL (4.00-5.40); RED CELL DISTRIBUTION WIDTH 15.3 % (11.5-14.5); WHITE BLOOD COUNT 14.3 10^3/uL (4.0-10.0)
[2017-09-11] MEDS: AMITRIPTYLINE 50 MG TAB PO (20:10)
[2017-09-12] MEDS: PERCOCET 5MG/325MG TAB PO ×2 (05:31→17:25)
[2017-09-12 07:00] LABS: HEMATOCRIT 27.4 % (36.0-47.0); HEMOGLOBIN 8.2 g/dl (12.0-15.5); MEAN CORPUSCULAR HEMOGLOBIN 25.4 pg (27.0-33.0); MEAN CORPUSCULAR HGB CONC 29.9 g/dl (32.0-36.5); MEAN CORPUSCULAR VOLUME 84.8 fl (80.0-96.0); PLATELET COUNT, AUTOMATED 313 10^3/uL (150-450); RED BLOOD COUNT 3.23 10^6/uL (4.00-5.40); RED CELL DISTRIBUTION WIDTH 15.4 % (11.5-14.5); WHITE BLOOD COUNT 12.5 10^3/uL (4.0-10.0)
[2017-09-12 07:20] LABS: ANION GAP 6 MEQ/L (8-16); BLOOD UREA NITROGEN 16 MG/DL (7-18); CALCIUM LEVEL 8.2 MG/DL (8.8-10.2); CARBON DIOXIDE LEVEL 28 MEQ/L (21-32); CHLORIDE LEVEL 111 MEQ/L (98-107); CREATININE FOR GFR 0.84 MG/DL (0.55-1.30); GLOMERULAR FILTRATION RATE > 60.0 (>45); GLUCOSE, FASTING 113 MG/DL (70-100); POTASSIUM SERUM 3.7 MEQ/L (3.5-5.1); SODIUM LEVEL 145 MEQ/L (136-145)
[2017-09-12] MEDS: HumaLOG INSULIN (NovoLOG) PER UNIT SC ×3 (07:30→17:11)
[2017-09-12] MEDS: PANTOPRAZOLE 40MG TAB (PROTONIX) PO (08:50)
[2017-09-12] MEDS: GABAPENTIN 100 MG CAP PO ×2 (08:50→20:50)
[2017-09-12] MEDS: DOCUSATE SODIUM 100 MG CAP PO ×2 (08:50→20:50)
[2017-09-12] MEDS: ASPIRIN 81 MG ENTERIC TAB PO (08:50)
[2017-09-12] MEDS: SERTRALINE HCL 50 MG TAB PO (08:50)
[2017-09-12] MEDS: ATORVASTATIN 20 MG TAB PO (08:50)
[2017-09-12] MEDS: PREGABALIN 100 MG CAP (LYRICA) PO ×2 (08:50→20:50)
[2017-09-12] MEDS: AMITRIPTYLINE 50 MG TAB PO (20:50)
[2017-09-12 22:00] LABS: BEDSIDE GLUCOSE 128 MG/DL (80-115)
[2017-09-12 22:01] LABS: BEDSIDE GLUCOSE 147 MG/DL (80-115)
[2017-09-12 22:01] LABS: BEDSIDE GLUCOSE 132 MG/DL (80-115)
[2017-09-12 22:01] LABS: BEDSIDE GLUCOSE 122 MG/DL (80-115)
[2017-09-12 22:01] LABS: BEDSIDE GLUCOSE 116 MG/DL (80-115)
[2017-09-12 22:01] LABS: BEDSIDE GLUCOSE 117 MG/DL (80-115)
[2017-09-12 22:01] LABS: BEDSIDE GLUCOSE 99 MG/DL (80-115)
[2017-09-13 07:07] LABS: HEMATOCRIT 27.5 % (36.0-47.0); HEMOGLOBIN 8.4 g/dl (12.0-15.5); MEAN CORPUSCULAR HEMOGLOBIN 25.9 pg (27.0-33.0); MEAN CORPUSCULAR HGB CONC 30.5 g/dl (32.0-36.5); MEAN CORPUSCULAR VOLUME 84.9 fl (80.0-96.0); PLATELET COUNT, AUTOMATED 316 10^3/uL (150-450); RED BLOOD COUNT 3.24 10^6/uL (4.00-5.40); RED CELL DISTRIBUTION WIDTH 15.4 % (11.5-14.5)
[2017-09-13 07:21] LABS: ANION GAP 6 MEQ/L (8-16); BLOOD UREA NITROGEN 17 MG/DL (7-18); CALCIUM LEVEL 8.9 MG/DL (8.8-10.2); CARBON DIOXIDE LEVEL 29 MEQ/L (21-32); CHLORIDE LEVEL 110 MEQ/L (98-107); CREATININE FOR GFR 0.82 MG/DL (0.55-1.30); GLOMERULAR FILTRATION RATE > 60.0 (>45); GLUCOSE, FASTING 96 MG/DL (70-100); POTASSIUM SERUM 3.6 MEQ/L (3.5-5.1); SODIUM LEVEL 145 MEQ/L (136-145)
[2017-09-13] MEDS: HumaLOG INSULIN (NovoLOG) PER UNIT SC ×4 (07:30→17:30)
[2017-09-13] MEDS: ATORVASTATIN 20 MG TAB PO (08:08)
[2017-09-13] MEDS: GABAPENTIN 100 MG CAP PO ×2 (08:08→21:00)
[2017-09-13] MEDS: ASPIRIN 81 MG ENTERIC TAB PO (08:09)
[2017-09-13] MEDS: PREGABALIN 100 MG CAP (LYRICA) PO ×2 (08:09→21:00)
[2017-09-13] MEDS: DOCUSATE SODIUM 100 MG CAP PO ×2 (08:09→21:00)
[2017-09-13] MEDS: PANTOPRAZOLE 40MG TAB (PROTONIX) PO (08:09)
[2017-09-13] MEDS: SERTRALINE HCL 50 MG TAB PO (08:09)
[2017-09-13] MEDS: CIPROFLOXACIN 500 MG TAB PO (09:43)
[2017-09-13] MEDS: ONDANSETRON 4MG/2ML VIAL (J2405) IV (21:00)
[2017-09-13] MEDS: AMITRIPTYLINE 50 MG TAB PO (21:00)
[2017-09-13] MEDS: PERCOCET 5MG/325MG TAB PO (23:02)
[2017-09-14] MEDS: PERCOCET 5MG/325MG TAB PO (03:10)
[2017-09-14] MEDS: ONDANSETRON 4MG/2ML VIAL (J2405) IV (03:10)
[2017-09-14 03:22] LABS: BEDSIDE GLUCOSE 93 MG/DL (80-115)
[2017-09-14 03:22] LABS: BEDSIDE GLUCOSE 134 MG/DL (80-115)
[2017-09-14] MEDS: CIPROFLOXACIN 500 MG TAB PO (05:38)
[2017-09-14 06:36] LABS: HEMATOCRIT 26.6 % (36.0-47.0); HEMOGLOBIN 8.1 g/dl (12.0-15.5); MEAN CORPUSCULAR HGB CONC 30.5 g/dl (32.0-36.5); MEAN CORPUSCULAR VOLUME 85.3 fl (80.0-96.0); PLATELET COUNT, AUTOMATED 375 10^3/uL (150-450); RED BLOOD COUNT 3.12 10^6/uL (4.00-5.40); RED CELL DISTRIBUTION WIDTH 14.9 % (11.5-14.5); WHITE BLOOD COUNT 13.7 10^3/uL (4.0-10.0)
[2017-09-14 06:51] LABS: ANION GAP 6 MEQ/L (8-16); BLOOD UREA NITROGEN 17 MG/DL (7-18); CALCIUM LEVEL 8.7 MG/DL (8.8-10.2); CARBON DIOXIDE LEVEL 30 MEQ/L (21-32); CHLORIDE LEVEL 107 MEQ/L (98-107); CREATININE FOR GFR 0.78 MG/DL (0.55-1.30); GLOMERULAR FILTRATION RATE > 60.0 (>45); GLUCOSE, FASTING 108 MG/DL (70-100); POTASSIUM SERUM 3.8 MEQ/L (3.5-5.1); SODIUM LEVEL 143 MEQ/L (136-145)
[2017-09-14] MEDS: PANTOPRAZOLE 40MG TAB (PROTONIX) PO (08:36)
[2017-09-14] MEDS: SERTRALINE HCL 50 MG TAB PO (08:36)
[2017-09-14] MEDS: PREGABALIN 100 MG CAP (LYRICA) PO (08:36)
[2017-09-14] MEDS: DOCUSATE SODIUM 100 MG CAP PO (08:36)
[2017-09-14] MEDS: ATORVASTATIN 20 MG TAB PO (08:36)
[2017-09-14] MEDS: HumaLOG INSULIN (NovoLOG) PER UNIT SC ×2 (08:36→13:28)
[2017-09-14] MEDS: GABAPENTIN 100 MG CAP PO (08:37)
[2017-09-14] MEDS: ASPIRIN 81 MG ENTERIC TAB PO (08:37)
[2017-09-14] MEDS: fentaNYL 25 MCG/HR PATCH TOP (08:38)
[2017-09-14] MEDS: FENTANYL REMOVAL DOCUMENTATION MISC XX (08:57)
[2017-09-15 11:45] LABS: BEDSIDE GLUCOSE 129 MG/DL (80-115)
== END 2017-09-14 16:45 | disposition home or self-care (01) | DRG 661 ==
LOC: M OR 05:54 → M MS5PR 19:20
PROVIDERS: Urology
PROC: 0T1 Urinary System, Bypass (ICD-10-PCS; principal; 2017-09-10 07:30)
PROC: 0TP Urinary System, Removal (ICD-10-PCS; 2017-09-10 07:30)
PROC: 8E0W4CZ Robotic Assisted Procedure of Trunk Region, Percutaneous Endoscopic Approach (ICD-10-PCS; 2017-09-10 07:30)
DX: N13.5 Crossing vessel and stricture of ureter without hydronephrosis (principal); I11.9 Hypertensive heart disease without heart failure; G43.909 Migraine, unspecified, not intractable, without status migrainosus; J45.20 Mild intermittent asthma, uncomplicated; R73.03 Prediabetes; R00.0 Tachycardia, unspecified; G89.4 Chronic pain syndrome; E78.5 Hyperlipidemia, unspecified; F32.9 Major depressive disorder, single episode, unspecified; Z79.84 Long term (current) use of oral hypoglycemic drugs; Z79.899 Other long term (current) drug therapy; Z88.1 Allergy status to other antibiotic agents; Z79.891 Long term (current) use of opiate analgesic

== ENCOUNTER → 2017-09-29 | Outpatient (CLI) | payer MEDICARE, MEDICAID ==
[~2017-09-29] MED LIST changes: -/ATOR40TA; -/CIPR75TA OR; -/PANT40TA; -/QUET10TA; -ACET30TA PO; -ACET65TA; -ACIPHEX; -ADV250INH INH; -ALBU17IN INH; -ALBU83IN IN; -ALBUTEROL INH; -ALTA10CA; -AMBI10TA; -AMBI10TA OR; -AMBI10TA PO; -AMBIEN10 PO; -AMBIEN5 PO; -AMBIENCR12 PO; -AMERGE PO; -AMIT25TA PO; -AMIT25TA2 OR; -AMIT50TA2 OR; -AMO500 PO; -ASP81; -ASPI325T OR; -ASPI81TA83 OR; -ASTELIN INH; -ATOR80TA59 PO; -ATROVENT0.02% INH; -AUGXR10 PO; -BABY81CH; -BACL10TA2 PO; -BISA10SU2 RE; -BISAC5TA PO; -CALA120T2 OR; -CALA180T; -CALC500T49 OR; -CALCCHW12 OR; -CELEXA20 PO; -CENTTAB47 PO; -CIPRO500 PO; -CLAR5CHW; -COMBINATION CREAM TOP; -COMBVENT INH; -CORE12.5; +CYSTO-CONRAY II 17.2% 250ML VIAL (Q9958) As Ordered; -DARVON-N1 PO; -DERMATRAN TOP; -DOXY100T OR; -DULO1CAP PO; -DUO-NEB INH; -DUONSOL; -FENT1DIS14 TD; -FENT25PA TOP; -FENT50DI21 TD; -FENT75PA TD; -FIOR1CAP PO; -FLAGYL500 PO; -FLECTOR1.3 TOP; -FLEXERIL10 PO; -FLOM5CAP PO; -FLUO40CA PO; -GABA-279; -GABA-279 PO; -GABA-283 PO; -GLUC500T; -IBUP1TAB7 PO; -IBUP800T; -IBUP800T OR; -IBUP80TA PO; -IMIT100T; -IMIT100T OR; -IMITREX100 PO; -INSULANT; -IPRASOL4 INH; -KLON1TAB OR; -KLONOPIN05 PO; -KLOR1CAP2; -LEVA750T; -LEXAPRO10 PO; -LEXAPRO20 PO; -LIDO5DIS; -LIDO5DIS EX; -LIDO5DIS41 TD; -LIPI80TA PO; -LYRI75CA; -LYRICA50 PO; -MAXALT10 PO; -METF500T PO; -METF500T13 PO; -METF500T4; -MILKSUS OR; -MIRALEX OR; -MORP15TA4 PO; -MOTRIN800 PO; -MS C30TA2; -MUCINEX; -MUCU400T2 OR; -MULTIVIT; -MULTIVIT OR; -MULTIVIT PO; -NEUR100C; -NEUR300C PO; -NITR4TASL SL; -OXYC10TA97 OR; -OXYC1TAB23 PO; -OXYC40TA19 OR; -OYST500T; -PAME50CA; -PANT40TA2 PO; -PERC10TA26 PO; -PERC5TAB12 PO; -PERC5TAB8; -PERC5TAB8 OR; -PERC7.5T12 PO; -PERCOCET PO; -POTA10CA PO; -PRED10TA2 OR; -PRED20TA OR; -PREG100CA; -PREG100CA OR; -PREG100CA PO; -PREG25CA PO; -PROZ20CA OR; -PROZ40CA; -PROZ40CA OR; -PROZAC20 PO; -PROZAC40 PO; -RELPAX PO; -ROBA500T PO; -ROBA750T4 PO; -SENN1TAB2 PO; -SENN8.6T5 OR; -SERT-155; -SIMV40TA2 OR; -SOMA350T; -SOMA350T PO; -SONATA PO; -SUMA100T2 PO; -TERAZOL3 VAGINALLY; -THERGRAN; -TIZA4CAP3 PO; -TOPAMAX25 PO; -TOPI100T; -TOPI100T OR; -TOPI50TA; -TOPI50TA OR; -TYLE650T25 PO; -ULTRAM50 PO; -VENTAER INH; -VICO5TAB; -VICODIN PO; -VICT18IN SC; -VIT D 2000 PO; -VITA100067 PO; -VITA1CAP40 PO; -VITAMIN D2 PO; -VITAMIN D50000 UNT; -VITMTA PO; -VOLT1GEL; -VOLT1GEL EX; -VOLT1GEL TD; -VYTO10TA5; -VYTO10TA5 OR; -VYTORIN; -VYTORIN PO; -VYTORIN40 PO; -WELL100T; -ZANA4CAP; -ZANA4CAP OR; -ZANAFLEX4 PO; -ZETI10TA OR; -ZITH250T; -ZITH500T OR; -ZOCO40TA; -ZOCOR10 PO; -ZOLO50TA PO; -ZOLP10TA2; -[UNRECOGNIZED DRUG - CODE]; -[UNRECOGNIZED DRUG - CODE] PO; -[UNRECOGNIZED DRUG - CODE] SC; -[UNRECOGNIZED DRUG - OTHER] PO; -[UNRECOGNIZED DRUG - OTHER] PO; -oxycontin PO; -zipsor
== END ==
LOC: M RAD 10:11
DX: R32 Unspecified urinary incontinence (principal)
CPT/HCPCS: Q9958

== ENCOUNTER → 2017-10-15 | Outpatient (CLI) | payer MEDICARE, MEDICAID | LOC: M PAIN 10:00 | DX: M47.816 Spondylosis without myelopathy or radiculopathy, lumbar region (principal); G89.29 Other chronic pain; G43.909 Migraine, unspecified, not intractable, without status migrainosus; J45.20 Mild intermittent asthma, uncomplicated; G47.00 Insomnia, unspecified; R73.01 Impaired fasting glucose; I10 Essential (primary) hypertension; E78.5 Hyperlipidemia, unspecified; F32.9 Major depressive disorder, single episode, unspecified; Z79.84 Long term (current) use of oral hypoglycemic drugs; Z79.82 Long term (current) use of aspirin; Z79.891 Long term (current) use of opiate analgesic; Z79.899 Other long term (current) drug therapy; Z88.8 Allergy status to other drugs, medicaments and biological substances | CPT/HCPCS: G0463 ==

== ENCOUNTER → 2017-11-18 | Outpatient (CLI) | payer MEDICARE, MEDICAID | LOC: M RAD 08:33 | DX: N13.5 Crossing vessel and stricture of ureter without hydronephrosis (principal); N13.30 Unspecified hydronephrosis | CPT/HCPCS: 76775 ==

== ENCOUNTER → 2017-11-24 | Outpatient (REF) | payer MEDICARE, MEDICAID ==
[2017-11-24 18:25] LABS: APPEARANCE, URINE CLEAR (CLEAR); BACTERIA, URINE AUTO NEGATIVE (NEGATIVE); BILIRUBIN, URINE AUTO NEGATIVE (NEGATIVE); BLOOD, URINE BLOOD NEGATIVE (NEGATIVE); COLOR, URINE YELLOW (YELLOW); GLUCOSE, URINE (UA) AUTO NEGATIVE (NEGATIVE); KETONE, URINE AUTO NEGATIVE (NEGATIVE); LEUKOCYTE ESTERASE, URINE AUTO NEGATIVE (NEGATIVE); NITRITE, URINE AUTO NEGATIVE (NEGATIVE); PROTEIN, URINE AUTO NEGATIVE (NEGATIVE); RBC, URINE AUTO 0 /HPF (0-3); SPECIFIC GRAVITY URINE AUTO 1.016 (1.002-1.035); SQUAMOUS EPITHELIAL CELL UR AU 0 /HPF (0-6); UROBILINOGEN, URINE AUTO 0.2 mg/dL (0.0-2.0); WBC, URINE AUTO 0 /HPF (0-3)
== END ==
LOC: M SMT 17:10
DX: R35.0 Frequency of micturition (principal)
CPT/HCPCS: 81001

== ENCOUNTER → 2017-11-28 | Outpatient (CLI) | payer MEDICARE, MEDICAID | LOC: M RAD 07:34 | DX: N13.30 Unspecified hydronephrosis (principal); N13.4 Hydroureter | CPT/HCPCS: 74176 ==

== ENCOUNTER → 2017-12-05 | Outpatient (CLI) | payer MEDICARE, MEDICAID | LOC: M PAIN 10:30 | DX: M47.816 Spondylosis without myelopathy or radiculopathy, lumbar region (principal); J45.909 Unspecified asthma, uncomplicated; E11.9 Type 2 diabetes mellitus without complications; E78.5 Hyperlipidemia, unspecified; E55.9 Vitamin D deficiency, unspecified; G43.909 Migraine, unspecified, not intractable, without status migrainosus; Z79.82 Long term (current) use of aspirin; Z79.84 Long term (current) use of oral hypoglycemic drugs; Z79.899 Other long term (current) drug therapy; Z88.8 Allergy status to other drugs, medicaments and biological substances; Z87.442 Personal history of urinary calculi; Z90.711 Acquired absence of uterus with remaining cervical stump | CPT/HCPCS: G0463 ==

== ENCOUNTER → 2018-01-06 | Outpatient (CLI) | payer MEDICARE, MEDICAID ==
[~2018-01-06] MED LIST changes: +BUPIVACAINE HCL 0.25% 30 ML VIAL As Ordered; -CYSTO-CONRAY II 17.2% 250ML VIAL (Q9958) As Ordered; +ISOVUE-M 300 61% 15ML VIAL (Q9967) As Ordered; +LIDOCAINE 1% SDV INJ 30 ML VIAL As Ordered; +TRIAMCINOLONE ACETONIDE SUSP 40 MG/ML VIAL (J3301) As Ordered; +diazePAM 5 MG TAB As Ordered; +oxyCODONE 5MG TAB As Ordered
== END ==
LOC: M PAIN 09:30
DX: G89.29 Other chronic pain (principal); M47.816 Spondylosis without myelopathy or radiculopathy, lumbar region; G43.909 Migraine, unspecified, not intractable, without status migrainosus; J45.909 Unspecified asthma, uncomplicated; I10 Essential (primary) hypertension; E11.9 Type 2 diabetes mellitus without complications; E78.5 Hyperlipidemia, unspecified; F32.9 Major depressive disorder, single episode, unspecified; E66.01 Morbid (severe) obesity due to excess calories; Z68.35 Body mass index [BMI] 35.0-35.9, adult; Z79.82 Long term (current) use of aspirin; Z79.899 Other long term (current) drug therapy; Z88.8 Allergy status to other drugs, medicaments and biological substances
CPT/HCPCS: J3301

== ENCOUNTER → 2018-01-28 | Outpatient (CLI) | payer MEDICARE, MEDICAID | LOC: M RAD 09:22 | DX: N35.9 Urethral stricture, unspecified (principal) | CPT/HCPCS: 76775 ==

== ENCOUNTER → 2018-02-19 | Outpatient (REF) | payer MEDICARE, MEDICAID ==
[2018-02-19 16:11] LABS: BASO % 0.3 % (0.0-1.0); EOS # 0.1 10^3/uL (0.0-0.50); EOS % 0.7 % (0.0-3.0); HEMATOCRIT 42.9 % (36.0-47.0); HEMOGLOBIN 12.8 g/dl (12.0-15.5); IMMATURE GRANULOCYTE % 0.9 % (0-3.0); LYMPH # 2.4 10^3/uL (1.5-4.5); LYMPH % 18.5 % (24.0-44.0); MEAN CORPUSCULAR HEMOGLOBIN 24.6 pg (27.0-33.0); MEAN CORPUSCULAR HGB CONC 29.8 g/dl (32.0-36.5); MEAN CORPUSCULAR VOLUME 82.3 fl (80.0-96.0); MONO # 0.5 10^3/uL (0.0-0.8); NEUTROPHILS # 9.9 10^3/uL (1.8-7.7); NEUTROPHILS % 75.6 % (36.0-66.0); PLATELET COUNT, AUTOMATED 436 10^3/uL (150-450); RED BLOOD COUNT 5.21 10^6/uL (4.00-5.40); RED CELL DISTRIBUTION WIDTH 17.6 % (11.5-14.5); RETIC HEMOGLOBIN EQUIVALENT 27.6 pg (24-36); RETICULOCYTE # 70.3 10^9/L (17-77); RETICULOCYTE % 1.4 % (0.5-1.5); WHITE BLOOD COUNT 13.1 10^3/uL (4.0-10.0)
[2018-02-19 16:29] LABS: ALBUMIN/GLOBULIN RATIO 1.08 (1.00-1.93); ALKALINE PHOSPHATASE 156 U/L (45-117); ALT/SGPT 24 U/L (12-78); ANION GAP 11 MEQ/L (8-16); AST/SGOT 25 U/L (7-37); BILIRUBIN,TOTAL 0.3 MG/DL (0.2-1.0); BLOOD UREA NITROGEN 18 MG/DL (7-18); CALCIUM LEVEL 9.5 MG/DL (8.8-10.2); CARBON DIOXIDE LEVEL 25 MEQ/L (21-32); CHLORIDE LEVEL 107 MEQ/L (98-107); CHOLESTEROL LEVEL 166 MG/DL (<200); CHOLESTEROL RISK RATIO 2.273 (<5); CPK CREATINE PHOSPHOKINASE 92 U/L (26-192); CREATININE FOR GFR 1.07 MG/DL (0.55-1.30); FREE T4 0.93 NG/DL (0.76-1.46); GLUCOSE, FASTING 64 MG/DL (70-100); HDL CHOLESTEROL 73 MG/DL (>40); LDL CHOLESTEROL 69.8 MG/DL (<100); NON-HDL-C 93 MG/DL; POTASSIUM SERUM 4.4 MEQ/L (3.5-5.1); SODIUM LEVEL 143 MEQ/L (136-145); TOTAL PROTEIN 7.7 GM/DL (6.4-8.2); TRIGLYCERIDES LEVEL 116 MG/DL (<150)
[2018-02-19 16:47] LABS: PTH INTACT 117.1 PG/ML (18.5-88.0); VITAMIN B12 LEVEL 396 PG/ML (247-911)
== END ==
LOC: M SFHCPLAZ 12:43
DX: E55.9 Vitamin D deficiency, unspecified (principal); D50.9 Iron deficiency anemia, unspecified; E11.9 Type 2 diabetes mellitus without complications; Z68.35 Body mass index [BMI] 35.0-35.9, adult
CPT/HCPCS: 82550

== ENCOUNTER → 2018-03-04 | Outpatient (CLI) | payer MEDICARE, MEDICAID ==
[2018-03-04 11:09] LABS: REASON FOR REVIEW WBC/LEUKEMIA/BLAST; SLIDE REVIEW Report; SOURCE PERIPHERAL SMEAR
== END ==
LOC: M LAB 09:58
DX: D72.829 Elevated white blood cell count, unspecified (principal); N20.0 Calculus of kidney; R35.0 Frequency of micturition
CPT/HCPCS: 36415

== ENCOUNTER → 2018-03-05 | Outpatient (REF) | payer MEDICARE, MEDICAID ==
[2018-03-06 11:37] LABS: CALCIUM, URINE 5.7 MG/DL
[2018-03-06 12:25] LABS: CALCIUM, 24 HOUR URINE 101.2 MG/24HR (42-353); TOTAL VOLUME, URINE 1775 ML
== END ==
LOC: M SFHCPLAZ 03-06 10:02
DX: D72.829 Elevated white blood cell count, unspecified (principal); N20.0 Calculus of kidney; R35.0 Frequency of micturition
CPT/HCPCS: 82340

== ENCOUNTER → 2018-03-11 | Outpatient (REF) | payer MEDICARE, MEDICAID ==
[2018-03-11 19:12] LABS: APPEARANCE, URINE CLEAR (CLEAR); BACTERIA, URINE AUTO NEGATIVE (NEGATIVE); BILIRUBIN, URINE AUTO NEGATIVE (NEGATIVE); BLOOD, URINE BLOOD NEGATIVE (NEGATIVE); COLOR, URINE YELLOW (YELLOW); GLUCOSE, URINE (UA) AUTO NEGATIVE (NEGATIVE); KETONE, URINE AUTO NEGATIVE (NEGATIVE); LEUKOCYTE ESTERASE, URINE AUTO 1+ (NEGATIVE); MUCUS, URINE SMALL (NEGATIVE); NITRITE, URINE AUTO NEGATIVE (NEGATIVE); PROTEIN, URINE AUTO NEGATIVE (NEGATIVE); RBC, URINE AUTO 0 /HPF (0-3); SPECIFIC GRAVITY URINE AUTO 1.012 (1.002-1.035); SQUAMOUS EPITHELIAL CELL UR AU 0 /HPF (0-6); UROBILINOGEN, URINE AUTO 0.2 mg/dL (0.0-2.0); WBC, URINE AUTO 7 /HPF (0-3)
== END ==
LOC: M LAB REF 17:13
DX: N13.5 Crossing vessel and stricture of ureter without hydronephrosis (principal); N39.0 Urinary tract infection, site not specified
CPT/HCPCS: 81001

== ENCOUNTER 2018-03-12 12:25 | Day surgery (SDC) | payer MEDICARE, MEDICAID ==
[~2018-03-12 12:25] MED LIST changes: -BUPIVACAINE HCL 0.25% 30 ML VIAL As Ordered; -ISOVUE-M 300 61% 15ML VIAL (Q9967) As Ordered; +LIDOCAINE 1% MDV 20ML VIAL SQ; -LIDOCAINE 1% SDV INJ 30 ML VIAL As Ordered; -TRIAMCINOLONE ACETONIDE SUSP 40 MG/ML VIAL (J3301) As Ordered; -diazePAM 5 MG TAB As Ordered; -oxyCODONE 5MG TAB As Ordered
[2018-03-12 12:56] LABS: BEDSIDE GLUCOSE 84 MG/DL (80-115)
[2018-03-12] MEDS: LR 1,000 ML IV ×2 (12:59)
[2018-03-12] MEDS ORDERED: fentaNYL 100 MCG/2 ML INJECTION (J3010) As Ordered ×2 (14:37)
[2018-03-12] MEDS ORDERED: MIDAZOLAM INJ 2 MG/2 ML VIAL (J2250) As Ordered ×2 (14:37)
[2018-03-12] MEDS ORDERED: LIDOCAINE 2% 5ML JELLY UROJET As Ordered ×2 (15:57)
[2018-03-12] MEDS ORDERED: CONRAY-60 60% 50ML VIAL (Q9961) As Ordered ×2 (15:57)
[2018-03-12] MEDS ORDERED: LIDOCAINE 2% INJ 100 MG/5 ML SDV (FOR ANES.) As Ordered ×2 (16:39)
[2018-03-12] MEDS ORDERED: ONDANSETRON 4MG/2ML VIAL (J2405) As Ordered ×2 (16:39)
[2018-03-12] MEDS ORDERED: KETOROLAC 60 MG/2 ML VIAL (J1885) As Ordered ×2 (16:39)
[2018-03-12] MEDS ORDERED: dexameTHASONE 4 MG/ML 1ML VIAL (J1100) As Ordered ×2 (16:39)
[2018-03-12] MEDS ORDERED: PROPOFOL 200 MG/20 ML VIAL As Ordered ×2 (16:39)
[2018-03-12] MEDS ORDERED: PERCOCET 5MG/325MG TAB As Ordered ×2 (17:01)
[2018-03-12] MEDS: PERCOCET 5MG/325MG TAB PO ×2 (17:35)
[2018-03-12] MEDS ORDERED: fentaNYL 100 MCG/2 ML INJECTION (J3010) IV ×2 (17:45)
[2018-03-12] MEDS ORDERED: ONDANSETRON 4MG/2ML VIAL (J2405) IV ×2 (17:45)
[2018-03-12] MEDS ORDERED: LR 1,000 ML IV ×2 (17:45)
== END 2018-03-12 18:57 | disposition home or self-care (01) ==
LOC: M SDC 12:25
DX: N13.5 Crossing vessel and stricture of ureter without hydronephrosis (principal); E11.9 Type 2 diabetes mellitus without complications; E78.5 Hyperlipidemia, unspecified; D64.9 Anemia, unspecified; Z86.73 Personal history of transient ischemic attack (TIA), and cerebral infarction without residual deficits; M79.7 Fibromyalgia; F41.9 Anxiety disorder, unspecified; J45.909 Unspecified asthma, uncomplicated; F32.9 Major depressive disorder, single episode, unspecified; Z79.899 Other long term (current) drug therapy
CPT/HCPCS: 52332

== ENCOUNTER → 2018-03-26 | Outpatient (CLI) | payer MEDICARE, MEDICAID | LOC: M RAD 09:09 | DX: E21.3 Hyperparathyroidism, unspecified (principal) | CPT/HCPCS: 78070 ==

== ENCOUNTER → 2018-04-02 | Outpatient (REF) | payer MEDICARE, MEDICAID | LOC: M LAB REF 17:02 | DX: N32.89 Other specified disorders of bladder (principal); Z79.899 Other long term (current) drug therapy | CPT/HCPCS: 87086 ==

== ENCOUNTER → 2018-04-14 | Outpatient (CLI) | payer MEDICARE, MEDICAID | LOC: M PAIN 09:45 | DX: M47.816 Spondylosis without myelopathy or radiculopathy, lumbar region (principal); G89.29 Other chronic pain; G43.909 Migraine, unspecified, not intractable, without status migrainosus; J45.909 Unspecified asthma, uncomplicated; G47.00 Insomnia, unspecified; I10 Essential (primary) hypertension; E78.5 Hyperlipidemia, unspecified; F32.9 Major depressive disorder, single episode, unspecified; E66.01 Morbid (severe) obesity due to excess calories; Z68.35 Body mass index [BMI] 35.0-35.9, adult; Z79.82 Long term (current) use of aspirin; Z79.891 Long term (current) use of opiate analgesic; Z79.899 Other long term (current) drug therapy; Z88.8 Allergy status to other drugs, medicaments and biological substances; Z86.79 Personal history of other diseases of the circulatory system | CPT/HCPCS: G0463 ==

== ENCOUNTER → 2018-04-20 | Outpatient (REF) | payer MEDICARE, MEDICAID ==
[2018-04-20 18:39] LABS: APPEARANCE, URINE CLOUDY (CLEAR); BACTERIA, URINE AUTO NEGATIVE (NEGATIVE); BILIRUBIN, URINE AUTO NEGATIVE (NEGATIVE); BLOOD, URINE BLOOD 3+ (NEGATIVE); CALCIUM OXALATE CRYSTALS LARGE; COLOR, URINE YELLOW (YELLOW); GLUCOSE, URINE (UA) AUTO NEGATIVE (NEGATIVE); KETONE, URINE AUTO NEGATIVE (NEGATIVE); LEUKOCYTE ESTERASE, URINE AUTO 2+ (NEGATIVE); MUCUS, URINE SMALL (NEGATIVE); NITRITE, URINE AUTO NEGATIVE (NEGATIVE); PROTEIN, URINE AUTO 2+ mg/dL (NEGATIVE); RBC, URINE AUTO TNTC /HPF (0-3); SPECIFIC GRAVITY URINE AUTO 1.017 (1.002-1.035); SQUAMOUS EPITHELIAL CELL UR AU 1 /HPF (0-6); UROBILINOGEN, URINE AUTO 0.2 mg/dL (0.0-2.0); WBC, URINE AUTO 7 /HPF (0-3)
== END ==
LOC: M SMT 16:56
DX: R10.2 Pelvic and perineal pain (principal)
CPT/HCPCS: 81001

== ENCOUNTER 2018-05-25 13:23 | Emergency (ER) | payer MEDICARE, MEDICAID ==
[2018-05-25] MEDS: NS 500 ML IV (15:17)
[2018-05-25] MEDS: MORPHINE 4 MG/ML 1ML VIAL/SYRINGE (J2270) IV (15:18)
[2018-05-25 15:19] LABS: KETONE, URINE AUTO RFX NEGATIVE (NEGATIVE); NITRITE, URINE AUTO RFX NEGATIVE (NEGATIVE); RBC, URINE AUTO RFX 4 /HPF (0-3); SPECIFIC GRAVITY UR AUTO RFX 1.003 (1.002-1.035); SQUAM EPITHELIAL CELL UR AURFX 0 /HPF (0-6); WBC, URINE AUTO RFX 4 /HPF (0-3)
[2018-05-25 15:21] LABS: LEUKOCYTE ESTERASE UR AUTO RFX TRACE (NEGATIVE)
[2018-05-25 15:23] LABS: BASO % 0.2 % (0.0-1.0); EOS # 0.1 10^3/uL (0.0-0.50); EOS % 1.3 % (0.0-3.0); HEMATOCRIT 38.3 % (36.0-47.0); HEMOGLOBIN 11.7 g/dl (12.0-15.5); IMMATURE GRANULOCYTE % 0.3 % (0-3.0); LYMPH # 2.4 10^3/uL (1.5-4.5); LYMPH % 26.5 % (24.0-44.0); MEAN CORPUSCULAR HEMOGLOBIN 25.3 pg (27.0-33.0); MEAN CORPUSCULAR HGB CONC 30.5 g/dl (32.0-36.5); MEAN CORPUSCULAR VOLUME 82.7 fl (80.0-96.0); MONO # 0.4 10^3/uL (0.0-0.8); MONO % 4.3 % (0.0-5.0); NEUTROPHILS # 6.1 10^3/uL (1.8-7.7); NEUTROPHILS % 67.4 % (36.0-66.0); PLATELET COUNT, AUTOMATED 338 10^3/uL (150-450); RED BLOOD COUNT 4.63 10^6/uL (4.00-5.40); RED CELL DISTRIBUTION WIDTH 14.9 % (11.5-14.5); WHITE BLOOD COUNT 9.1 10^3/uL (4.0-10.0)
[2018-05-25 15:42] LABS: ANION GAP 7 MEQ/L (8-16); BLOOD UREA NITROGEN 19 MG/DL (7-18); CARBON DIOXIDE LEVEL 28 MEQ/L (21-32); CHLORIDE LEVEL 108 MEQ/L (98-107); CREATININE FOR GFR 1.06 MG/DL (0.55-1.30); GLOMERULAR FILTRATION RATE 55.6 (>45); GLUCOSE, FASTING 77 MG/DL (70-100); POTASSIUM SERUM 4.3 MEQ/L (3.5-5.1); SODIUM LEVEL 143 MEQ/L (136-145)
== END 2018-05-25 17:06 | disposition home or self-care (01) ==
LOC: M ED 13:23
DX: R39.15 Urgency of urination (principal)
CPT/HCPCS: J2270

== ENCOUNTER → 2018-06-25 | Outpatient (REF) | payer MEDICARE, MEDICAID ==
[~2018-06-25] MED LIST changes: +/ATOR40TA; +/CIPR75TA OR; +/PANT40TA; +/QUET10TA; +ACET30TA PO; +ACET65TA; +ACIPHEX; +ADV250INH INH; +ALBU17IN INH; +ALBU83IN IN; +ALBUTEROL INH; +ALTA10CA; +AMBI10TA; +AMBI10TA OR; +AMBI10TA PO; +AMBIEN10 PO; +AMBIEN5 PO; +AMBIENCR12 PO; +AMERGE PO; +AMIT25TA PO; +AMIT25TA2 OR; +AMIT50TA2 OR; +AMO500 PO; +ASP81; +ASPI325T OR; +ASPI81CH32 PO; +ASPI81TA83 OR; +ASTELIN INH; +ATOR80TA59 PO; +ATROVENT0.02% INH; +AUGXR10 PO; +BABY81CH; +BACL10TA2 PO; +BACT2CRE TOP; +BISA10SU2 RE; +BISAC5TA PO; +CALA120T2 OR; +CALA180T; +CALC500T49 OR; +CALCCHW12 OR; +CELEXA20 PO; +CENTTAB47 PO; +CIPR500T3 PO; +CIPRO500 PO; +CLAR5CHW; +COMBAER6 INH; +COMBINATION CREAM TOP; +COMBVENT INH; +CORE12.5; +DARVON-N1 PO; +DERMATRAN TOP; +DOXY100T OR; +DULO1CAP PO; +DUO-NEB INH; +DUONSOL; +ELAV25TA PO; +FENT12PA TOP; +FENT1DIS14 TD; +FENT25PA TOP; +FENT50DI21 TD; +FENT75PA TD; +FERR325T3 PO; +FIOR1CAP PO; +FLAGYL500 PO; +FLECTOR1.3 TOP; +FLEXERIL10 PO; +FLOM0.4C39 PO; +FLUO40CA PO; +GABA-1171; +GABA-1171 PO; +GABA-845 PO; +GLUC500T; +IBUP1TAB7 PO; +IBUP800T; +IBUP800T OR; +IBUP80TA PO; +IMIT100T; +IMIT100T OR; +IMITREX100 PO; +INSULANT; +IPRA0.00 INH; +KLON1TAB OR; +KLONOPIN05 PO; +KLOR10TA76 PO; +KLOR1CAP2; +LEVA750T; +LEXAPRO10 PO; +LEXAPRO20 PO; +LIDO5DIS; +LIDO5DIS EX; +LIDO5DIS41 TD; -LIDOCAINE 1% MDV 20ML VIAL SQ; +LIPI80TA PO; +LYRI75CA; +LYRICA50 PO; +MAXALT10 PO; +METF500T PO; +METF500T13 PO; +METF500T4; +MILKSUS OR; +MIRALEX OR; +MORP15TA4 PO; +MOTRIN800 PO; +MS C30TA2; +MUCINEX; +MUCU400T2 OR; +MULTIVIT; +MULTIVIT OR; +MULTIVIT PO; +NEUR100C; +NEUR300C PO; +NITR4TASL SL; +OXYB15TA PO; +OXYC10TA97 OR; +OXYC1TAB23 PO; +OXYC40TA19 OR; +OYST500T; +OZEM2INJ2 SC; +PAME50CA; +PANT40TA3 PO; +PERC10TA26 PO; +PERC5TAB12 PO; +PERC5TAB8; +PERC5TAB8 OR; +PERC7.5T12 PO; +PERCOCET PO; +PRED10TA2 OR; +PRED20TA OR; +PREG100CA; +PREG100CA OR; +PREG100CA PO; +PREG25CA PO; +PROZ20CA OR; +PROZ40CA; +PROZ40CA OR; +PROZAC20 PO; +PROZAC40 PO; +RELPAX PO; +ROBA500T PO; +ROBA750T4 PO; +SENN1TAB2 PO; +SENN8.6T5 OR; +SENN8.6T54 PO; +SERT-155; +SIMV40TA2 OR; +SOMA350T; +SOMA350T PO; +SONATA PO; +SUMA100T2 PO; +TERAZOL3 VAGINALLY; +THERGRAN; +TIZA4CAP PO; +TOPAMAX25 PO; +TOPI100T; +TOPI100T OR; +TOPI50TA; +TOPI50TA OR; +TYLE325T5 PO; +TYLE650T25 PO; +ULTRAM50 PO; +VENTAER INH; +VICO5TAB; +VICODIN PO; +VICT18IN SC; +VIT D 2000 PO; +VITA100067 PO; +VITA50005 PO; +VITAMIN D2 PO; +VITAMIN D50000 UNT; +VITMTA PO; +VOLT1GEL; +VOLT1GEL EX; +VOLT1GEL TD; +VYTO10TA5; +VYTO10TA5 OR; +VYTORIN; +VYTORIN PO; +VYTORIN40 PO; +WELL100T; +ZANA4CAP; +ZANA4CAP OR; +ZANAFLEX4 PO; +ZETI10TA OR; +ZITH250T; +ZITH500T OR; +ZOCO40TA; +ZOCOR10 PO; +ZOLO50TA PO; +ZOLP10TA2; +[UNRECOGNIZED DRUG - CODE]; +[UNRECOGNIZED DRUG - CODE] PO; +[UNRECOGNIZED DRUG - CODE] SC; +[UNRECOGNIZED DRUG - OTHER] PO; +[UNRECOGNIZED DRUG - OTHER] PO; +oxycontin PO; +zipsor
== END ==
LOC: M SMT 12:57
PROVIDERS: ATTEND Urology
DX: R10.2 Pelvic and perineal pain (principal)
CPT/HCPCS: 51701; 87086; G0463

== ENCOUNTER → 2018-06-26 | Outpatient (CLI) | payer MEDICARE, MEDICAID ==
--- NOTE | 2018-06-26 11:56 | REP ---
CT ABDOMEN PELVIS WITHOUT IV OR ORAL CONTRAST: HISTORY: Suprapubic pain. Comparison CT study November 28, 2017. CT FINDINGS: Digital preliminary job putter up and ticket preparer radiograph demonstrates a right sided double pigtail ureteral stent in place and clips in the right inguinal soft tissues. The bowel gas pattern is unremarkable. Axial CT images demonstrate that the lung bases are essentially clear. There is some linear fibrosis on the left. No pleural effusion is seen. No focal hepatic or splenic lesion is observed. The gallbladder is unremarkable by CT scanning. Pancreas is unremarkable. There is some vascular calcification in the splenic artery. No adrenal lesion is seen on either side. There is no evidence of hydronephrosis. The right ureteral stent appears in good position. No intrarenal calculus is observed. The urinary bladder is empty at the time of scanning. The uterus is surgically absent. The appendix has been removed by history. There are sutures at the cecal tip. No bowel obstruction is seen. No abdominal wall defect is observed. No bony destructive lesion seen. IMPRESSION: Status post right ureteral stent in place. No acute abdominal or pelvic abnormality. Electronically Signed by Rene Stern MD 06/26/2018 12:12 P
== END ==
LOC: M RAD 10:42
PROVIDERS: ATTEND Urology
DX: R10.2 Pelvic and perineal pain (principal)

== ENCOUNTER → 2018-07-01 | Outpatient (CLI) | payer MEDICARE, MEDICAID ==
[2018-07-01 09:42] LABS: HEMOGLOBIN 12.3 g/dl (12.0-15.5); MEAN CORPUSCULAR HEMOGLOBIN 24.6 pg (27.0-33.0); MEAN CORPUSCULAR VOLUME 82.2 fl (80.0-96.0); PLATELET COUNT, AUTOMATED 355 10^3/uL (150-450); RED BLOOD COUNT 4.99 10^6/uL (4.00-5.40)
[2018-07-01 10:06] LABS: CALCIUM LEVEL 9.4 MG/DL (8.8-10.2); CREATININE FOR GFR 1.23 MG/DL (0.55-1.30); GLOMERULAR FILTRATION RATE 46.8 (>45); POTASSIUM SERUM 4.1 MEQ/L (3.5-5.1)
--- NOTE | 2018-07-01 10:22 | REP ---
Chest two views HISTORY: Preop Comparison: 08/27/2017 Linear density is present in the left lower lobe consistent with scar. The right lung is clear. The heart is normal in size. The pulmonary vasculature is normal in appearance. The bony structure is intact. IMPRESSION: No acute disease. Electronically Signed by Antoine Sung MD 07/01/2018 10:13 A
--- NOTE | 2018-07-02 11:49 | ECGEPIP ---
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
== END ==
LOC: M LAB 08:57
PROVIDERS: ATTEND Urology
DX: Z01.818 Encounter for other preprocedural examination (principal); N13.5 Crossing vessel and stricture of ureter without hydronephrosis

== ENCOUNTER → 2018-07-02 | Day surgery (SDC) | payer MEDICARE, MEDICAID ==
[~2018-07-02] VITALS: Ht 160 cm; Wt 89.8 kg
[~2018-07-02] MED LIST changes: +CONRAY-60 60% 50ML VIAL (Q9961) As Ordered ONE; +D5W 100 ML IV SCH; +LIDOCAINE 2% 5ML JELLY UROJET As Ordered ONE; +LIDOCAINE 2% INJ 100 MG/5 ML SDV (FOR ANES.) As Ordered ONE; +LR 1,000 ML IV ONE; +LR 1,000 ML IV SCH; +MEPERIDINE INJ 25 MG/ML VIAL (J2175) IV PRN; +METOCLOPRAMIDE INJ 10MG/2ML VIAL (J2765) IV PRN; +MIDAZOLAM INJ 2 MG/2 ML VIAL (J2250) As Ordered ONE; +ONDANSETRON 4MG/2ML VIAL (J2405) As Ordered ONE; +ONDANSETRON 4MG/2ML VIAL (J2405) IV PRN; +PERCOCET 5MG/325MG TAB PO PRN; +PROPOFOL 200 MG/20 ML VIAL As Ordered ONE; +dexameTHASONE 4 MG/ML 1ML VIAL (J1100) As Ordered ONE; +fentaNYL 100 MCG/2 ML INJECTION (J3010) As Ordered ONE; +fentaNYL 100 MCG/2 ML INJECTION (J3010) IV PRN
--- NOTE | 2018-07-02 13:57 | REP ---
Retrograde pyelogram: Three views. History: Right ureteral stricture. 12 seconds of fluoroscopy time is reported. Findings: A sequence of three last image hold fluoroscopically obtained spot radiographs document right ureteral cannulation, contrast injection, and stent placement. Electronically Signed by Rene Stern MD 07/02/2018 06:10 P
[2018-07-02 15:15] VITALS: BP 121/67
--- NOTE | 2018-07-02 16:23 | RO ---
DATE OF PROCEDURE: 07/02/2018 PREPROCEDURE DIAGNOSIS: Right ureteral stricture. POSTPROCEDURE DIAGNOSIS: Right ureteral stricture. PROCEDURE: Cystoscopy, right retrograde pyelogram with intraoperative interpretation of images, right ureteral stent exchange. SURGEON: Kale Washington MD CANDY PULLER: None. ANESTHESIA: Monitored anesthesia care (MAC). OPERATIVE INDICATIONS: This is a 62-year-old female with a history of right ureteral stricture who has previously undergone a right ureteral reimplantation. She subsequently had a recurrence of a stricture and she therefore has been managed with chronic ureteral stenting. She has had moderate-severe constant right-sided abdominal pain and there is concern the pain might be due to her metallic stent. She was brought to the operating room today to exchange that out for a regular stent. DESCRIPTION OF PROCEDURE: The patient was brought to the operating room where MAC anesthesia was administered. Prophylactic antibiotics were infused. She was then placed in the dorsal lithotomy position and prepped and draped in the usual sterile fashion. A rigid cystoscope was inserted into the urethral meatus and advanced to the bladder. Once inside the bladder, the previously placed metallic stent was seen protruding from the dome on the right side of the bladder. I then advanced a wire up the right collecting system along side the stent. The stent was then removed leaving the wire in place. I then advanced an open-end ureteral catheter over the wire up into the right collecting system and then the wire was removed. A retrograde pyelogram was performed. It was notable for mild right hydronephrosis. No extravasation. I then advanced the wire back up the open-end ureteral catheter and into the right collecting system. The open-end ureteral catheter was then removed and the wire was utilized to advance a 7-Thai x 22-32 cm JJ ureteral stent up into the right collecting system. The wire was then removed and there were adequate curls of the stent in the right renal pelvis and in the bladder. The bladder was then emptied of all fluid and this marked the conclusion of the procedure. The patient was then taken out of the dorsal lithotomy position, awakened from anesthesia and transported to the recovery room in stable condition. Estimated blood loss was minimal. Specimens: None. Complications: None. Plan: The patient will followup in the clinic for a postoperative visit in a few weeks.
== END | disposition home or self-care (01) ==
LOC: M SDC 09:07
PROVIDERS: ATTEND Urology
DX: N13.5 Crossing vessel and stricture of ureter without hydronephrosis (principal); E11.9 Type 2 diabetes mellitus without complications; I10 Essential (primary) hypertension; Z86.73 Personal history of transient ischemic attack (TIA), and cerebral infarction without residual deficits; Z79.84 Long term (current) use of oral hypoglycemic drugs; Z79.899 Other long term (current) drug therapy; J45.909 Unspecified asthma, uncomplicated; E78.5 Hyperlipidemia, unspecified; D64.9 Anemia, unspecified; F41.9 Anxiety disorder, unspecified; F32.9 Major depressive disorder, single episode, unspecified; Z79.82 Long term (current) use of aspirin
CPT/HCPCS: 52332; 74420; C1769; C2617; J0690; J1100; J2250; J2405; J3010; Q9961

== ENCOUNTER → 2018-07-27 | Outpatient (CLI) | payer MEDICARE, OTHER, MEDICAID ==
[~2018-07-27] MED LIST changes: -CONRAY-60 60% 50ML VIAL (Q9961) As Ordered ONE; -D5W 100 ML IV SCH; +KETO10TAB PO; -LIDOCAINE 2% 5ML JELLY UROJET As Ordered ONE; -LIDOCAINE 2% INJ 100 MG/5 ML SDV (FOR ANES.) As Ordered ONE; -LR 1,000 ML IV ONE; -LR 1,000 ML IV SCH; -MEPERIDINE INJ 25 MG/ML VIAL (J2175) IV PRN; -METOCLOPRAMIDE INJ 10MG/2ML VIAL (J2765) IV PRN; -MIDAZOLAM INJ 2 MG/2 ML VIAL (J2250) As Ordered ONE; -ONDANSETRON 4MG/2ML VIAL (J2405) As Ordered ONE; -ONDANSETRON 4MG/2ML VIAL (J2405) IV PRN; -PERCOCET 5MG/325MG TAB PO PRN; -PROPOFOL 200 MG/20 ML VIAL As Ordered ONE; -dexameTHASONE 4 MG/ML 1ML VIAL (J1100) As Ordered ONE; -fentaNYL 100 MCG/2 ML INJECTION (J3010) As Ordered ONE; -fentaNYL 100 MCG/2 ML INJECTION (J3010) IV PRN
--- NOTE | 2018-08-13 01:13 | ECWPNPC ---
PATIENT NAME: ISAIAH RDZ : 1955 GENDER: FEMALE VISIT DATE: 07/27/2018 DISCHARGE DATE: 07/27/18 1159 VISIT LOCKED DATE TIME: PHYSICIAN: JORGE GILLESPIE PHYSICIAN PAGER NO: [phone] RESOURCE: JORGE GILLESPIE REASON FOR APPOINTMENT 1. BACK HISTORY OF PRESENT ILLNESS HISTORY OF PRESENT ILLNESS: HERE FOR F/U OF CHRONIC LOW BACK PAIN.DESCRIBES GENERALIZED BACK PAIN AT LEVEL 7/10 VAS.FINDING BELBUCA 150MCG BID ,LYRICA 100MG BID AND PERCOCET 5/325 IS HELPING WITHOUT SIDE EFFECTS.DISCUSSED TREATMENT PLAN. PAIN THE PATIENT DESCRIBES THE PAIN... THE PATIENT DESCRIBES THE PAIN... FALL RISK SCREENING: SCREENING :NO FALLS IN THE PAST YEAR CURRENT MEDICATIONS TAKING ZOLOFT 50 MG TABLET 1 TABLET ORALLY ONCE A DAY TAKING ASPIRIN 81 MG TABLET CHEWABLE 1 TABLET ORALLY ONCE A DAY TAKING PROVENTIL HFA 108 (90 BASE) MCG/ACT AEROSOL SOLUTION 2 PUFFS NEEDED INHALATION EVERY 4 HRS TAKING E-Z SPACER - DEVICE DIRECTED _ DAILY TAKING DUONEB 0.5-2.5 (3) MG/3ML SOLUTION 3 ML INHALATION EVERY 4 HOURS NEEDED TAKING PROTONIX 40 MG TABLET DELAYED RELEASE 1 TABLET ORALLY EVERY MORNING TAKING OZEMPIC 0.25 OR 0.5 MG/DOSE SOLUTION PEN-INJECTOR 0.5 MG SUBCUTANEOUS EVERY 7 DAYS TAKING SENNA 8.6 MG TABLET 2 ORALLY ONCE A DAY TAKING ERGOCALCIFEROL 88130 UNIT CAPSULE 1 CAPSULE ORALLY EVERY 7 DAYS TAKING FERROUS SULFATE 325 (65 FE) MG TABLET 1 TABLET ORALLY ONCE A DAY TAKING BLOOD GLUCOSE TEST STRIP ONE TOUCH VERIO GOLD TEST STRIP 1 STRIP DX: 790.21 TWICE A DAY TAKING LANCETS ONE TOUCH ULTRA SOFT LACETS 1 LANCET DX: 790.21 ONCE A DAY TAKING TENS UNIT ELECTRO PADS 1 PAD SET 1 PAD INTRADERMALLY USE NEEDED TAKING MULTIVITAMIN TABLETS 1 TAB(S) ORALLY ONCE A DAY TAKING POTASSIUM CHLORIDE TABLET 2 TABS TWICE DAILY TAKING PEN NEEDLES 31G X 6 MM MISCELLANEOUS 1 SUBCUTANEOUSLY ONCE A DAY DX:E11.9 TAKING GABAPENTIN 100 MG CAPSULE 1 CAPSULE ORALLY THREE TIMES A DAY TAKING BELBUCA 150 MCG FILM 1 FILM TO THE GUM BUCALLY EVERY 12 HRS MDD2, NOTES: 01/05/18 TAKING OXYBUTYNIN CHLORIDE ER 15 MG TABLET EXTENDED RELEASE 24 HOUR 1 TABLET ORALLY ONCE A DAY TAKING FLOMAX 0.4 MG CAPSULE 1 CAPSULE ORALLY ONCE A DAY TAKING ZOLPIDEM TARTRATE 10 MG TABLET 1 TABLET AT BEDTIME NEEDED ORALLY AT BEDTIME PRN INSOMNIA TAKING AMITRIPTYLINE HCL 50 MG TABLET 1 TABLET ORALLY AT BEDTIME, NOTES: NEEDED TAKING SERTRALINE HCL 50 MG TABLET 1 TABLET ORALLY ONCE A DAY TAKING LIPITOR 80 MG TABLET 1 TABLET ORALLY ONCE A DAY TAKING PERCOCET 5-325 MG TABLET 1 TABLET ORALLY EVERY 6 HRS NEEDED FOR POSTSURGICAL PAIN (MDD 4) TAKING LYRICA 100 MG CAPSULE 1 CAPSULE ORALLY BID MDD2 TAKING METFORMIN HCL 500 MG TABLET 1 TABLET ORALLY TWICE A DAY NOT-TAKING BACTROBAN 2 % OINTMENT 1 APPLICATION TO AFFECTED AREA EXTERNALLY BID NOT-TAKING KETOROLAC TROMETHAMINE 10 MG TABLET 1 TABLET WITH FOOD OR MILK ORALLY EVERY 6 HRS NEEDED FOR PAIN NOT-TAKING CIPROFLOXACIN HCL 500 MG TABLET 1 TABLET ORALLY EVERY 12 HRS NOT-TAKING PROTONIX 40 MG TABLET DELAYED RELEASE 1 TABLET ORALLY EVERY MORNING, NOTES: 01/05/18 NOT-TAKING METFORMIN HCL 500 MG TABLET 1 TABLET ORALLY TWICE A DAY NOT-TAKING ZOLOFT 50 MG TABLET 1 TABLET ORALLY ONCE A DAY DISCONTINUED PREGABALIN 100 MG CAPSULE 1 CAPSULE ORALLY BID, NOTES: DUPLICATE MEDICATION LIST REVIEWED AND RECONCILED WITH THE PATIENT PAST MEDICAL HISTORY CERVICAL DJD, 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 2010 CERVICAL MRI WITH MULTILEVEL DJD, C4-C5 BULGE WITH MILD RIGHT NEURAL FORAMINAL NARROWING-11/2010 PERMANENT TOTAL DISABILITY MIGRAINE HEADACHES, COMMON TYPE WITH HISTORY OF R HEMIPLEGIA-09/2012, 01/2018 ASTHMA, MILD INTERMITTENT-06/2011 FEV1 1.7L (69%)/RATIO 108% INSOMNIA IMPAIRED FASTING GLUCOSE HYPERTENSION-AUGUST 2008 NORMAL MONICA EXCEPT FOR MODERATE AORTIC VALVE SCLEROSIS, TRACE AR, NORMAL LVEF-ANTECOL/07/2011 [id number] HYPERLIPIDEMIA 2B DEPRESSION CONSTIPATION, CHRONIC OBESITY VITAMIN D DEFICIENCY LUMBAR DJD, 05/2012 MRI C L2-4 BULGES, MINIMAL L4/5 CENTRAL CANAL STENOSIS, NO CHANGE C/W 05/2010 L ADRENAL ADENOMA, 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 NEPHROLITHIASIS 3 MM TUBULAR ADENOMA, TRANSVERSE COLON LIPOMA, MILD ANTRITIS (-H PYLORI), HECTOR III NON-BLEEDING GASTRIC ULCER AND - SB BIOPSY BY 03/2017 EGD/COLON-CHANDRALA ALLERGIES FLAGYL: RASH: ALLERGY SURGICAL HISTORY [facility] BSO 09/2002 30 TEETH EXTRACTION-DINES 09/2013 BACK SURGERY 11/29/2014 KIDNEY STONE REMOVAL-[facility] 01/30 CYSTOSCOPY 06/24/17 R PARTIAL URETERAL REIMPLANTATION-MILI 08/29/2017 CYSTOSCOPY W/ RIGHT STENT REMOVAL 10/07/2017 STENT PLACED RIGHT URETER 03/12/18 FAMILY HISTORY FATHER: , DIAGNOSED WITH DIABETES, HYPERTENSION, CANCER MOTHER: , DIAGNOSED WITH DIABETES, CANCER SIBLINGS: DIAGNOSED WITH CANCER PATERNAL GRAND MOTHER: DIAGNOSED WITH DIABETES MATERNAL GRAND MOTHER: DIAGNOSED WITH DIABETES PATERNAL AUNT: DIAGNOSED WITH DIABETES, HYPERTENSION 1DAUGHTER(S) . NEPHEW HAS HAD KIDNEY STONESBROTHER FROM COLON CANCER AT AGE 3FATHER FROM PROSTATE CANCERMOTHER FROM CANCER. SOCIAL HISTORY GENERAL: TOBACCO USE ARE YOU A:NONSMOKER NEVER SMOKER ALCOHOL SCREENING DID YOU HAVE A DRINK CONTAINING ALCOHOL IN THE PAST YEAR?NO POINTS0 INTERPRETATIONNEGATIVE RECREATIONAL DRUG USE DRUG USE?NO CAFFEINE CAFFEINE USE?NO SEXUAL HX HAD SEX IN THE LAST 12 MONTHS (VAGINAL, ORAL, OR ANAL)?NO ANGLICAN [id number] LATTER DAY LANGUAGE LANGUAGES SPOKEN:LAO EDUCATION LEVEL OF EDUCATION:FINISHED HIGH SCHOOL LEARNING BARRIERS / SPECIAL NEEDS CHANGE FROM LAST VISIT?NO BARRIERS TO LEARNING?NO HEARING IMPAIRED?NO VISION IMPAIRED?YES :CORRECTIVE LENSES COGNITIVELY IMPAIRED?NO READINESS TO LEARN?YES LEARNING PREFERENCES?NO LEARNING CAPABILITIES PRESENT?YES EMOTIONAL BARRIERS?NO SPECIAL DEVICES?NO DOMESTIC VIOLENCE DO YOU FEEL SAFE IN YOUR ENVIRONMENT?YES OCCUPATION: RETIRED. DIET: REGULAR. EXERCISE: NO REGULAR EXERCISE. MARITAL STATUS: . NEW PATIENT PAIN DIARY FROM 0-10, WHAT LEVEL IS YOUR PAIN TODAY?6 PAIN CLINIC PFS, CLERGY, PUBLIC HEALTH REFERRALS HAS THE PATIENT BEEN EDUCATED REGARDING HIS/HER PLAN OF CARE?YES HAS THE PATIENT BEEN EDUCATED REGARDING PAIN, THE RISK FOR PAIN, THE IMPORTANCE OF EFFECTIVE PAIN MANAGEMENT, AND THE PAIN ASSESSMENT PROCESS?YES ADVANCE DIRECTIVE ADVANCE DIRECTIVE DISCUSSED WITH PATIENT:YES CORBIN MILLAN (SISTER) IS HER HCP MOVED BACK FROM [facility] 03/2015 REVIEWED WITH PT 12/05/17 1114 BVREVIEWED WITH PT 04/14/18 0958 LASREVIEWED WITH PT 07/27/18 1111 BV. HOSPITALIZATION/MAJOR DIAGNOSTIC PROCEDURE PNEUMONIA 2010 R UE/LE WEAKNESS, FACIAL DROOP C MARMOLEJO-NORMAL MRI BRAIN, CTA NECK/BRAIN-NEUROLOGY FELT "NO ACUTE NEUROLOGICAL PROCESS" 02/04/18-02/06/18 OVERNIGHT STAY FOR STENT PLACEMENT 03/03 REVIEW OF SYSTEMS REVIEWED BY: PROVIDER: JORGE VALDES . CONSTITUTIONAL: ANY CHANGE IN YOUR MEDICAL CONDITION? NO . CHILLS NO . FEVER NO . INFECTION: DO YOU HAVE NEW INFECTIONS? YES, RECENTLY TREATED FOR UTI BY DR. GARCES . DO YOU HAVE HISTORY OF MRSA? NO . MUSCULOSKELETAL: ANY NEW PATTERNS OF PAIN OR NUMBNESS? YES, PT STATES PAIN HAS BEEN INCREASED IN INTENSITY OVER THE PAST COUPLE MONTHS . GASTROENTEROLOGY: ANY NEW CHANGE IN BOWEL CONTROL? NO . GENITOURINARY: ANY NEW CHANGE IN BLADDER CONTROL? YES, URGENCY AND FREQUENCY RELATED TO UTI . IS THERE A CHANCE YOU COULD BE ? NO . HEMATOLOGY/LYMPH: DO YOU TAKE ANY BLOOD THINNERS? (FOR EXAMPLE- COUMADIN, PLAVIX, AGGRENOX, PLATEL, PRADAXA, OR XARELTO) NO . WHEN WAS YOUR LAST DOSE? DATE: TIME: . NEUROLOGY: HAVE YOU FALLEN IN THE PAST 12 MONTHS? NO . ANY NEW EXTREMITY NUMBNESS OR WEAKNESS? NO . CARDIOLOGY: DO YOU HAVE A PACEMAKER OR DEFIBRILLATOR? NO . RESPIRATORY: HAVE YOU BEEN SICK IN THE PAST WEEK? NO . FEVER NO . FLU LIKE SYMPTOMS? NO . COUGH NO . INTEGUMENTARY: DO YOU HAVE ANY RASHES OR OPEN SORES? NO . ALLERGIC/IMMUNO: ARE YOU ALLERGIC TO IV DYE? NO . ANY NEW ALLERGIES? NO . PSYCHIATRIC: DO YOU HAVE THOUGHTS OF HURTING YOURSELF OR SOMEONE ELSE? NO . ARE YOU ABUSED, NEGLECTED, OR IN AN UNSAFE ENVIRONMENT? NO . ENDOCRINOLOGY: ARE YOU DIABETIC? NO . OTHER: DO YOU NEED ANY PRESCRIPTIONS? NO . IF YES, PLEASE LIST: ____ . ANY NEW PROBLEMS WITH YOUR MEDICATIONS? NO . WHEN DID YOU LAST EAT? ____ . WHEN DID YOU LAST DRINK? ____ . WHAT DID YOU LAST DRINK? ____ . NAME OF PERSON DRIVING YOU HOME? ____ . DO YOU HAVE ANY OTHER QUESTIONS OR CONCERNS NO . VITAL SIGNS WT 201.4 LBS, HT 63 IN, BMI 35.67 INDEX, BP 144/78 MM HG, HR 93 /MIN, RR 18 /MIN, TEMP 97.4 F, OXYGEN SAT % 91%, NA INITIALS SC 11:02, REVIEWED BY: BV. EXAMINATION GENERAL EXAMINATION: GENERAL APPEARANCE:AWAKE,ALERT ,PLEAASANT . PSYCHAFFECT NORMAL . LUNGS:LUNG BARAJAS ARE CLEAR TO AUSCULTATION BILATERALLY. GOOD MOVEMENT OF AIR . HEART:S1, S2 IN A REGULAR RATE AND RHYTHM. NO SIGNIFICANT MURMURS, RUBS OR GALLOPS NOTED . LUMBAR SACRAL SPINEPALPATION:TENDER OVER BILAT. L4/5-L5/S1 LUMBAR FACETS WITH FACET LOADING.. ASSESSMENTS SPONDYLOSIS WITHOUT MYELOPATHY OR RADICULOPATHY, CERVICOTHORACIC REGION - M47.813 (PRIMARY) TREATMENT SPONDYLOSIS WITHOUT MYELOPATHY OR RADICULOPATHY, CERVICOTHORACIC REGION CONTINUE BELBUCA FILM, 150 MCG, 1 FILM TO THE GUM, BUCALLY, EVERY 12 HRS MDD2, NOTES: 01/05/18 CONTINUE GABAPENTIN CAPSULE, 100 MG, 1 CAPSULE, ORALLY, THREE TIMES A DAY CONTINUE PERCOCET TABLET, 5-325 MG, 1 TABLET, ORALLY, EVERY 6 HRS NEEDED FOR POSTSURGICAL PAIN (MDD 4) CONTINUE LYRICA CAPSULE, 100 MG, 1 CAPSULE, ORALLY, BID MDD2 NOTES: L4/5-L5/S1 THERAPEUTIC FACET BLOCK, ISTOP REGISTRY REVIEWED AND DEMONSTRATES COMPLLIANCE. BRINGS IN MEDICATIONS WHICH IS APPROPRIATE FOR WHAT WAS DISPENSED. RECENT URINE TOXICOLOGY REVIEWED. NO UNAUTHORIZED MEDICATIONS. NO ILLICIT SUBSTANCES AND PRESCRIBED MEDICATIONS WERE PRESENT. , RISKS AND BENEFITS OF NARCOTIC/OPIOD MEDICATIONS WERE REVIEWED WITH PATIENT - THIS INCLUDES BUT IS NOT LIMITED TO RISK OF DEPENDANCE/DEVELOPMENT OF ADDICTION, MOOD DISTURBANCE AND DEPRESSION, OSTEOPOROSIS, HORMONAL AND LABIDAL CHANGES, RESPIRATORY DEPRESSION AND . PATIENT IS ADVISED NOT TO DRIVE OR DRINK ALCOHOL WHILE ON THESE MEDICATIONS. PREVENTIVE MEDICINE PAIN CLINIC TEACHING: PROCEDURE TEACHING PT GIVEN WRITTEN AND VERBAL PRE-PROCEDURE INSTRUCTIONS. PT VERBALIZES UNDERSTANDING OF ALL INSTRUCTIONS. ELLIOT CYR 07/27/2018 11:58:24 AM > . PROCEDURE CODES FA211 ESTABILISHED PATIENT [facility] CHARGE DISPOSITION & COMMUNICATION FOLLOW UP POST (REASON: L4/5-L5/S1 THERAPEUTIC FACET BLOCK) ELECTRONICALLY SIGNED BY LUCIO NAJERA ON 08/10/2018 AT 10:21 AM EST DISCLAIMER : THIS IS A VISIT SUMMARY EXTRACTED FROM THE [employer] CHART. IT IS NOT A COPY OF THE [employer] PROGRESS NOTE. [facility]
== END ==
LOC: M PAIN 11:00
PROVIDERS: ATTEND Nurse Practitioner Family
DX: M47.813 Spondylosis without myelopathy or radiculopathy, cervicothoracic region (principal); G89.29 Other chronic pain; G43.001 Migraine without aura, not intractable, with status migrainosus; J45.20 Mild intermittent asthma, uncomplicated; F51.01 Primary insomnia; I10 Essential (primary) hypertension; E78.2 Mixed hyperlipidemia; F32.9 Major depressive disorder, single episode, unspecified; E55.9 Vitamin D deficiency, unspecified; R73.01 Impaired fasting glucose; Z88.1 Allergy status to other antibiotic agents; Z79.82 Long term (current) use of aspirin; Z79.84 Long term (current) use of oral hypoglycemic drugs; Z79.891 Long term (current) use of opiate analgesic; Z79.899 Other long term (current) drug therapy

== ENCOUNTER → 2018-07-29 | Outpatient (REF) | payer OTHER, MEDICAID ==
[~2018-07-29] MED LIST changes: -KETO10TAB PO
[2018-07-29 12:22] LABS: APPEARANCE, URINE HAZY (CLEAR); BACTERIA, URINE AUTO NEGATIVE (NEGATIVE); BILIRUBIN, URINE AUTO NEGATIVE (NEGATIVE); BLOOD, URINE BLOOD 3+ (NEGATIVE); COLOR, URINE YELLOW (YELLOW); GLUCOSE, URINE (UA) AUTO NEGATIVE (NEGATIVE); KETONE, URINE AUTO NEGATIVE (NEGATIVE); LEUKOCYTE ESTERASE, URINE AUTO 3+ (NEGATIVE); MUCUS, URINE SMALL (NEGATIVE); NITRITE, URINE AUTO NEGATIVE (NEGATIVE); PROTEIN, URINE AUTO 2+ mg/dL (NEGATIVE); RBC, URINE AUTO TNTC /HPF (0-3); SPECIFIC GRAVITY URINE AUTO 1.016 (1.002-1.035); SQUAMOUS EPITHELIAL CELL UR AU 1 /HPF (0-6); UROBILINOGEN, URINE AUTO 0.2 mg/dL (0.0-2.0); WBC, URINE AUTO 11 /HPF (0-3)
== END ==
LOC: M LAB REF 11:53
PROVIDERS: ATTEND Physician Assistant
DX: N39.0 Urinary tract infection, site not specified (principal)

== ENCOUNTER → 2018-08-18 | Outpatient (CLI) | payer MEDICARE, OTHER, MEDICAID ==
[~2018-08-18] MED LIST changes: -/ATOR40TA; -/PANT40TA; -/QUET10TA; -ASPI81CH32 PO; +ASPI81CH33 PO; +BUPIVACAINE HCL 0.25% 30 ML VIAL As Ordered ONE; +FENT12DI12 TOP; -FENT12PA TOP; +FENT25DI33 TOP; -FENT25PA TOP; +FENT75DI18 TD; -FENT75PA TD; +ISOVUE-M 300 61% 15ML VIAL (Q9967) As Ordered ONE; +KETO10TAB PO; +LIDOCAINE 1% SDV INJ 30 ML VIAL As Ordered ONE; +LIPI1TAB2; +PROT1TAB2; +SENN-50 PO; -SENN1TAB2 PO; +SENN1TAB40 PO; -SENN8.6T54 PO; +SERO1TAB; +TRIAMCINOLONE ACETONIDE SUSP 40 MG/ML VIAL (J3301) As Ordered ONE; +diazePAM 5 MG TAB As Ordered ONE; +oxyCODONE 5MG TAB As Ordered ONE
--- NOTE | 2018-08-18 12:11 | REP ---
Partial lumbar spine series: Two views . History: Injection procedure for pain. 22 seconds of fluoroscopy time is reported. Findings: A sequence of two fluoroscopically obtained last image hold procedural spot radiographs of the lumbar spine document needle position and contrast injection associated with injection procedure. Electronically Signed by Rene Stern MD 08/18/2018 12:02 P
--- NOTE | 2018-08-30 00:43 | ECWPNPC ---
PATIENT NAME: ISAIAH RDZ : 1955 GENDER: FEMALE VISIT DATE: 08/18/2018 DISCHARGE DATE: 08/18/18 1204 VISIT LOCKED DATE TIME: PHYSICIAN: TEETEE HAWKINS MD PHYSICIAN PAGER NO: [phone] RESOURCE: TEETEE HAWKINS MD REASON FOR APPOINTMENT 1. LUMBAR THERAPEUTIC FACET BLOCK HISTORY OF PRESENT ILLNESS HISTORY OF PRESENT ILLNESS: PAIN THE PATIENT DESCRIBES THE PAIN... FALL RISK SCREENING: SCREENING : NO FALLS IN THE PAST YEAR. CURRENT MEDICATIONS TAKING ZOLOFT 50 MG TABLET 1 TABLET ORALLY ONCE A DAY, NOTES: 08/17/18 TAKING ASPIRIN 81 MG TABLET CHEWABLE 1 TABLET ORALLY ONCE A DAY, NOTES: 08/16/18 TAKING PROVENTIL HFA 108 (90 BASE) MCG/ACT AEROSOL SOLUTION 2 PUFFS NEEDED INHALATION EVERY 4 HRS, NOTES: NONE LATELY TAKING E-Z SPACER - DEVICE DIRECTED _ DAILY, NOTES: NONE LATELY TAKING DUONEB 0.5-2.5 (3) MG/3ML SOLUTION 3 ML INHALATION EVERY 4 HOURS NEEDED, NOTES: NONE LATELY TAKING PROTONIX 40 MG TABLET DELAYED RELEASE 1 TABLET ORALLY EVERY MORNING, NOTES: 08/17/18 TAKING OZEMPIC 0.25 OR 0.5 MG/DOSE SOLUTION PEN-INJECTOR 0.5 MG SUBCUTANEOUS EVERY 7 DAYS, NOTES: 08/16/18 TAKING SENNA 8.6 MG TABLET 2 ORALLY ONCE A DAY, NOTES: NONE LATELY TAKING ERGOCALCIFEROL 41754 UNIT CAPSULE 1 CAPSULE ORALLY EVERY 7 DAYS, NOTES: FRIDAY TAKING FERROUS SULFATE 325 (65 FE) MG TABLET 1 TABLET ORALLY ONCE A DAY, NOTES: 08/17/18 TAKING BLOOD GLUCOSE TEST STRIP ONE TOUCH VERIO GOLD TEST STRIP 1 STRIP DX: 790.21 TWICE A DAY TAKING LANCETS ONE TOUCH ULTRA SOFT LACETS 1 LANCET DX: 790.21 ONCE A DAY TAKING TENS UNIT ELECTRO PADS 1 PAD SET 1 PAD INTRADERMALLY USE NEEDED TAKING MULTIVITAMIN TABLETS 1 TAB(S) ORALLY ONCE A DAY, NOTES: 08/18/18 TAKING POTASSIUM CHLORIDE TABLET 2 TABS TWICE DAILY, NOTES: 08/18/18 TAKING PEN NEEDLES 31G X 6 MM MISCELLANEOUS 1 SUBCUTANEOUSLY ONCE A DAY DX:E11.9 TAKING OXYBUTYNIN CHLORIDE ER 15 MG TABLET EXTENDED RELEASE 24 HOUR 1 TABLET ORALLY ONCE A DAY, NOTES: 08/17/18 TAKING ZOLPIDEM TARTRATE 10 MG TABLET 1 TABLET AT BEDTIME NEEDED ORALLY AT BEDTIME PRN INSOMNIA, NOTES: NONE LATELY TAKING AMITRIPTYLINE HCL 50 MG TABLET 1 TABLET ORALLY AT BEDTIME, NOTES: 08/17/18 TAKING SERTRALINE HCL 50 MG TABLET 1 TABLET ORALLY ONCE A DAY, NOTES: 08/18/18 TAKING LIPITOR 80 MG TABLET 1 TABLET ORALLY ONCE A DAY, NOTES: 08/18/18 TAKING METFORMIN HCL 500 MG TABLET 1 TABLET ORALLY TWICE A DAY, NOTES: 08/17/18 TAKING BELBUCA 150 MCG FILM 1 FILM TO THE GUM BUCALLY EVERY 12 HRS MDD2, NOTES: NONE LATELY TAKING GABAPENTIN 100 MG CAPSULE 1 CAPSULE ORALLY THREE TIMES A DAY, NOTES: 08/18/18 TAKING PERCOCET 5-325 MG TABLET 1 TABLET ORALLY EVERY 6 HRS NEEDED FOR POSTSURGICAL PAIN (MDD 4), NOTES: 08/17/18 TAKING LYRICA 100 MG CAPSULE 1 CAPSULE ORALLY BID MDD2, NOTES: 08/18/18 TAKING FLOMAX 0.4 MG CAPSULE 1 CAPSULE ORALLY ONCE A DAY, NOTES: 08/17/18 NOT-TAKING BACTROBAN 2 % OINTMENT 1 APPLICATION TO AFFECTED AREA EXTERNALLY BID NOT-TAKING KETOROLAC TROMETHAMINE 10 MG TABLET 1 TABLET WITH FOOD OR MILK ORALLY EVERY 6 HRS NEEDED FOR PAIN NOT-TAKING CIPROFLOXACIN HCL 500 MG TABLET 1 TABLET ORALLY EVERY 12 HRS NOT-TAKING PROTONIX 40 MG TABLET DELAYED RELEASE 1 TABLET ORALLY EVERY MORNING, NOTES: 01/05/18 NOT-TAKING METFORMIN HCL 500 MG TABLET 1 TABLET ORALLY TWICE A DAY NOT-TAKING ZOLOFT 50 MG TABLET 1 TABLET ORALLY ONCE A DAY MEDICATION LIST REVIEWED AND RECONCILED WITH THE PATIENT PAST MEDICAL HISTORY CERVICAL DJD, 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 2010 CERVICAL MRI WITH MULTILEVEL DJD, C4-C5 BULGE WITH MILD RIGHT NEURAL FORAMINAL NARROWING-11/2010 PERMANENT TOTAL DISABILITY MIGRAINE HEADACHES, COMMON TYPE WITH HISTORY OF R HEMIPLEGIA-09/2012, 01/2018 ASTHMA, MILD INTERMITTENT-06/2011 FEV1 1.7L (69%)/RATIO 108% INSOMNIA IMPAIRED FASTING GLUCOSE HYPERTENSION-AUGUST 2008 NORMAL MONICA EXCEPT FOR MODERATE AORTIC VALVE SCLEROSIS, TRACE AR, NORMAL LVEF-ANTECOL/07/2011 [id number]-[id number] HYPERLIPIDEMIA 2B DEPRESSION CONSTIPATION, CHRONIC OBESITY VITAMIN D DEFICIENCY LUMBAR DJD, 05/2012 MRI C L2-4 BULGES, MINIMAL L4/5 CENTRAL CANAL STENOSIS, NO CHANGE C/W 05/2010 L ADRENAL ADENOMA, 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 NEPHROLITHIASIS 3 MM TUBULAR ADENOMA, TRANSVERSE COLON LIPOMA, MILD ANTRITIS (-H PYLORI), HECTOR III NON-BLEEDING GASTRIC ULCER AND - SB BIOPSY BY 03/2017 EGD/COLON-CIRO ALLERGIES FLAGYL: RASH: ALLERGY SURGICAL HISTORY [facility] BSO 09/2002 30 TEETH EXTRACTION-DINES 09/2013 BACK SURGERY 11/29/2014 KIDNEY STONE REMOVAL-DR. GARCES-[facility] 01/30 CYSTOSCOPY 06/24/17 R PARTIAL URETERAL REIMPLANTATION-MILI 08/29/2017 CYSTOSCOPY W/ RIGHT STENT REMOVAL 10/07/2017 STENT PLACED RIGHT URETER 03/12/18 FAMILY HISTORY FATHER: , DIAGNOSED WITH DIABETES, HYPERTENSION, CANCER MOTHER: , DIAGNOSED WITH DIABETES, CANCER SIBLINGS: DIAGNOSED WITH CANCER PATERNAL GRAND MOTHER: DIAGNOSED WITH DIABETES MATERNAL GRAND MOTHER: DIAGNOSED WITH DIABETES PATERNAL AUNT: DIAGNOSED WITH DIABETES, HYPERTENSION 1DAUGHTER(S) . NEPHEW HAS HAD KIDNEY STONESBROTHER FROM COLON CANCER AT AGE 3FATHER FROM PROSTATE CANCERMOTHER FROM CANCER. SOCIAL HISTORY GENERAL: TOBACCO USE ARE YOU A:NONSMOKER NEVER SMOKER ALCOHOL SCREENING DID YOU HAVE A DRINK CONTAINING ALCOHOL IN THE PAST YEAR?NO POINTS0 INTERPRETATIONNEGATIVE RECREATIONAL DRUG USE DRUG USE?NO CAFFEINE CAFFEINE USE?NO SEXUAL HX HAD SEX IN THE LAST 12 MONTHS (VAGINAL, ORAL, OR ANAL)?NO CONGREGATIONAL QEWIDSGR16 [employer] LANGUAGE LANGUAGES SPOKEN:MALAYSIAN EDUCATION LEVEL OF EDUCATION:FINISHED HIGH SCHOOL LEARNING BARRIERS / SPECIAL NEEDS CHANGE FROM LAST VISIT?NO BARRIERS TO LEARNING?NO HEARING IMPAIRED?NO VISION IMPAIRED?YES :CORRECTIVE LENSES COGNITIVELY IMPAIRED?NO READINESS TO LEARN?YES LEARNING PREFERENCES?NO LEARNING CAPABILITIES PRESENT?YES EMOTIONAL BARRIERS?NO SPECIAL DEVICES?NO DOMESTIC VIOLENCE DO YOU FEEL SAFE IN YOUR ENVIRONMENT?YES OCCUPATION: RETIRED. DIET: REGULAR. EXERCISE: NO REGULAR EXERCISE. MARITAL STATUS: . NEW PATIENT PAIN DIARY FROM 0-10, WHAT LEVEL IS YOUR PAIN TODAY?6 PAIN CLINIC PFS, CLERGY, PUBLIC HEALTH REFERRALS HAS THE PATIENT BEEN EDUCATED REGARDING HIS/HER PLAN OF CARE?YES HAS THE PATIENT BEEN EDUCATED REGARDING PAIN, THE RISK FOR PAIN, THE IMPORTANCE OF EFFECTIVE PAIN MANAGEMENT, AND THE PAIN ASSESSMENT PROCESS?YES ADVANCE DIRECTIVE ADVANCE DIRECTIVE DISCUSSED WITH PATIENT:YES CORBIN MILLAN (SISTER) IS HER HCP MOVED BACK FROM [facility] 03/2015 REVIEWED WITH PT 12/05/17 1114 BVREVIEWED WITH PT 04/14/18 0958 LASREVIEWED WITH PT 07/27/18 1111 BV. HOSPITALIZATION/MAJOR DIAGNOSTIC PROCEDURE PNEUMONIA 2010 R UE/LE WEAKNESS, FACIAL DROOP C MARMOLEJO-NORMAL MRI BRAIN, CTA NECK/BRAIN-NEUROLOGY FELT "NO ACUTE NEUROLOGICAL PROCESS" 02/04/18-02/06/18 OVERNIGHT STAY FOR STENT PLACEMENT 03/03 REVIEW OF SYSTEMS REVIEWED BY: PROVIDER: . CONSTITUTIONAL: ANY CHANGE IN YOUR MEDICAL CONDITION? NO . CHILLS NO . FEVER NO . INFECTION: DO YOU HAVE NEW INFECTIONS? NO . DO YOU HAVE HISTORY OF MRSA? NO . MUSCULOSKELETAL: ANY NEW PATTERNS OF PAIN OR NUMBNESS? YES . GASTROENTEROLOGY: ANY NEW CHANGE IN BOWEL CONTROL? NO . GENITOURINARY: ANY NEW CHANGE IN BLADDER CONTROL? NO . IS THERE A CHANCE YOU COULD BE ? NO . HEMATOLOGY/LYMPH: DO YOU TAKE ANY BLOOD THINNERS? (FOR EXAMPLE- COUMADIN, PLAVIX, AGGRENOX, PLATEL, PRADAXA, OR XARELTO) NO . WHEN WAS YOUR LAST DOSE? DATE: TIME: . NEUROLOGY: HAVE YOU FALLEN IN THE PAST 12 MONTHS? NO . ANY NEW EXTREMITY NUMBNESS OR WEAKNESS? NO . CARDIOLOGY: DO YOU HAVE A PACEMAKER OR DEFIBRILLATOR? NO . RESPIRATORY: HAVE YOU BEEN SICK IN THE PAST WEEK? NO . FEVER NO . FLU LIKE SYMPTOMS? NO . COUGH NO . INTEGUMENTARY: DO YOU HAVE ANY RASHES OR OPEN SORES? NO . ALLERGIC/IMMUNO: ARE YOU ALLERGIC TO IV DYE? NO . ANY NEW ALLERGIES? NO . PSYCHIATRIC: DO YOU HAVE THOUGHTS OF HURTING YOURSELF OR SOMEONE ELSE? NO . ARE YOU ABUSED, NEGLECTED, OR IN AN UNSAFE ENVIRONMENT? NO . ENDOCRINOLOGY: ARE YOU DIABETIC? YES, FS 08/18/18 @ 0730 113 . OTHER: DO YOU NEED ANY PRESCRIPTIONS? NO . IF YES, PLEASE LIST: ____ . ANY NEW PROBLEMS WITH YOUR MEDICATIONS? NO . WHEN DID YOU LAST EAT? 08/17/18 1700 . WHEN DID YOU LAST DRINK? 08/17/18 2300 . WHAT DID YOU LAST DRINK? WATER . NAME OF PERSON DRIVING YOU HOME? JYOTI . DO YOU HAVE ANY OTHER QUESTIONS OR CONCERNS NO . VITAL SIGNS WT 196.8 LBS, HT 63 IN, BMI 34.86 INDEX, BP 156/79 MM HG, HR 76 /MIN, RR 18 /MIN, TEMP 97.6 F, OXYGEN SAT % 95%, NA INITIALS AW 0917, REVIEWED BY: CASSIE. ASSESSMENTS SPONDYLOSIS OF LUMBAR REGION WITHOUT MYELOPATHY OR RADICULOPATHY - M47.816 (PRIMARY) PROCEDURES PN LUMBAR FACET BLOCK THERAPEUTIC PRE PROCEDURE DIAGNOSIS LUMBAR SPONDYLOSIS POST PROCEDURE DIAGNOSIS LUMBAR SPONDYLOSIS PROCEDURE BILATERAL L2-L3, BILATERAL L3-L4, AND BILATERAL L4-L5 LUMBAR FACET THERAPEUTIC BLOCK SURGEON DR. TEETEE HAWKINS HEALTH LEAD NONE ANESTHESIA LOCAL PRE PROCEDURE NOTE THE PATIENT HAS A HISTORY OF CHRONIC LOW BACK PAIN. I EVALUATE THE PATIENT AND REVIEWED THE CHART. I WENT OVER THE RISKS, ALTERNATIVES, AND BENEFITS ASSOCIATED WITH THIS PROCEDURE. THE PATIENT WOULD LIKE TO PROCEED AND GIVE CONSENT TO PERFORMED THE PROCEDURE. THE PATIENT DENIES UNEXPLAINABLE WEIGHT LOSS, FEVER, CHILLS, OR NEW CHANGES IN URINARY OR BOWEL CONTROL DESCRIPTION OF PROCEDURE THE PATIENT WAS BROUGHT TO THE PROCEDURE ROOM AND PLACED IN THE PRONE POSITION. THE LUMBOSACRAL AREA WAS CLEANED WITH CHLORAPREP SOLUTION AND DRAPED ASEPTICALLY. THE PROCEDURE WAS DONE UNDER STERILE CONDITIONS. I CHECKED LATERALITY AND THE LEVEL WHERE THE PROCEDURE WAS GOING TO BE PERFORMED WITH THE PATIENT AND THE SUPPORTING STAFF AT THE MOMENT OF THE TIME OUT IN THE PROCEDURE ROOM. UNDER FLUOROSCOPIC GUIDANCE, THE TARGET POINT WAS SELECTED AT THE RIGHT AND LEFT L2-L3, RIGHT AND LEFT L3-L4, AND RIGHT AND LEFT L4-L5 FACET JOINT. TARGET POINT WAS SELECTED AFTER LATERAL ROTATION AND TILT OF THE MAGNIFIER OF THE C-ARM. LIDOCAINE 0.5% WAS USED TO NUMB THE SKIN AND THE SUBCUTANEOUS TISSUE BELOW IT. SPINAL NEEDLES, 22-GAUGE, WERE ADVANCED UNDER FLUOROSCOPIC GUIDANCE AND FOLLOWING PATIENT FEEDBACK UNTIL THE TARGETS WERE TOUCHED. THE POSITION OF THE NEEDLES WAS VERIFIED WITH AP AND LATERAL VIEWS. AFTER PROPER POSITION OF THE NEEDLES WAS ACHIEVED, ISOVUE-M DYE 30% 0.1 ML WAS INJECTED SHOWING ADEQUATE SPREAD OF THE DYE. THEN A SOLUTION OF 1.9 ML OF BUPIVACAINE 0.125% OF KENALOG 10 MG WAS INJECTED AT EACH SITE. THERE WAS NO EVIDENCE OF BLOOD, PARESTHESIA OR CEREBROSPINAL FLUID DURING THE PROCEDURE. THE PATIENT WAS SENT TO THE RECOVERY ROOM. THE PATIENT WAS MOVING THE EXTREMITIES AND DOING WELL. THERE WAS NO COMPLICATION DURING THE PROCEDURE. FLUOROSCOPY TIME WAS 22 SECONDS POST PROCEDURE NOTE THE PATIENT WILL BE SEEN IN A FOLLOW UP IN THE NEXT FEW WEEKS. INSTRUCTIONS WERE GIVEN, QUESTIONS WERE ANSWERED, AND THE PATIENT EXPRESSED UNDERSTANDING AND AGREES WITH THE PLAN. I, MADHAV THAPA, DOCUMENTED THE ABOVE INFORMATION ACTING A SCRIBE FOR DR. HAWKINS. I HAVE REVIEWED THE ABOVE DOCUMENT, WRITTEN BY MADHAV THAPA SCRIBE AND I VERIFY THAT IT IS ACCURATE. DIAGNOSTIC IMAGING [facility] FACET BLOCK (PAIN)[id number] PROCEDURE CODES 6045F RADXPS IN END [id number] PXD 42757 INJ PARAVERT F JNT L/S 1 LEV, MODIFIERS: 50 50120 INJ PARAVERT F JNT L/S 2 LEV, MODIFIERS: 50 89917 INJ PARAVERT F JNT L/S 3 LEV, MODIFIERS: 50 DISPOSITION & COMMUNICATION FOLLOW UP 3 WEEKS ELECTRONICALLY SIGNED BY TEETEE HAWKINS MD, ON 08/29/2018 AT 07:32 PM EDT DISCLAIMER : THIS IS A VISIT SUMMARY EXTRACTED FROM THE [employer] CHART. IT IS NOT A COPY OF THE [employer] PROGRESS NOTE. MTDD
== END ==
LOC: M PAIN 10:00
PROVIDERS: ATTEND Anesthesiology
DX: G89.29 Other chronic pain (principal); M47.816 Spondylosis without myelopathy or radiculopathy, lumbar region; G43.909 Migraine, unspecified, not intractable, without status migrainosus; J45.909 Unspecified asthma, uncomplicated; E11.9 Type 2 diabetes mellitus without complications; I10 Essential (primary) hypertension; E78.5 Hyperlipidemia, unspecified; F32.9 Major depressive disorder, single episode, unspecified; E55.9 Vitamin D deficiency, unspecified; Z79.82 Long term (current) use of aspirin; Z79.84 Long term (current) use of oral hypoglycemic drugs; Z79.899 Other long term (current) drug therapy; Z88.8 Allergy status to other drugs, medicaments and biological substances
CPT/HCPCS: 64493; 64494; 64495; J3301; Q9967

== ENCOUNTER 2018-08-25 09:53 | Emergency (ER) | payer MEDICARE, MEDICAID ==
[~2018-08-25] VITALS: Ht 160 cm; Wt 85.5 kg
[~2018-08-25 09:53] MED LIST changes: +/ATOR40TA; +/PANT40TA; +/QUET10TA; +ASPI81CH32 PO; -ASPI81CH33 PO; -BUPIVACAINE HCL 0.25% 30 ML VIAL As Ordered ONE; -FENT12DI12 TOP; +FENT12PA TOP; -FENT25DI33 TOP; +FENT25PA TOP; -FENT75DI18 TD; +FENT75PA TD; -ISOVUE-M 300 61% 15ML VIAL (Q9967) As Ordered ONE; -KETO10TAB PO; -LIDOCAINE 1% SDV INJ 30 ML VIAL As Ordered ONE; -LIPI1TAB2; -PROT1TAB2; -SENN-50 PO; +SENN1TAB2 PO; -SENN1TAB40 PO; +SENN8.6T54 PO; -SERO1TAB; -TRIAMCINOLONE ACETONIDE SUSP 40 MG/ML VIAL (J3301) As Ordered ONE; -diazePAM 5 MG TAB As Ordered ONE; -oxyCODONE 5MG TAB As Ordered ONE
[2018-08-25] MEDS ORDERED: KETOROLAC 30 MG/ML VIAL (J1885) IV ONE (10:30)
[2018-08-25] MEDS ORDERED: NS 1,000 ML IV ONE (10:30)
[2018-08-25] MEDS ORDERED: ONDANSETRON 4MG/2ML VIAL (J2405) IV ONE (10:30)
[2018-08-25 10:54] LABS: GLUCOSE, URINE (UA) MANUAL NEGATIVE (NEGATIVE); KETONE, URINE MANUAL NEGATIVE (NEGATIVE)
[2018-08-25 10:55] LABS: BILIRUBIN, URINE MANUAL NEGATIVE (NEGATIVE); UROBILINOGEN, URINE MANUAL NORMAL (NORMAL)
--- NOTE | 2018-08-25 11:04 | REP ---
CT of the abdomen pelvis without IV or bowel contrast: Comparison is 06/26/2018. The patient has right flank pain. There is a right ureteral stent with the proximal detail in the right renal pelvis and the distal pigtail in the dome of the urinary bladder. This is unchanged. As no right hydronephrosis. The bladder is nondistended. There are phleboliths in the pelvis posterior to the bladder, unchanged. No renal calculi are identified. There are no left renal or ureteral calculi. There is no hydronephrosis on the left. The visualized lower lung cornejo are unremarkable. The unenhanced hepatic parenchyma, gallbladder, pancreas and spleen are unremarkable except for a calcification in the body of the pancreas. This is unchanged and might be residual from previous pancreatitis. The spleen is normal size and unremarkable. The adrenals are unremarkable. Abdominal aorta is unremarkable. There is no bowel distension or obstruction. There is a surgical staple line in the cecum. The the patient reportedly has an appendectomy. Pelvis: There is a hysterectomy. The vaginal cuff and adnexa are unremarkable. There is no ascites or adenopathy. The pelvic bowel loops demonstrate occasional diverticula in the sigmoid colon without CT evidence of acute diverticulitis. Impression: Right ureteral stent. No right hydronephrosis. Appendectomy and hysterectomy. Diverticulosis without diverticulitis. Electronically Signed by Edwar Escalante MD 08/25/2018 10:56 A
[2018-08-25 11:07] LABS: AMORPHOUS SEDIMENT, URINE SMALL AMOUNT (NEGATIVE); BACTERIA, URINE NONE SEEN; HYALINE CAST, URINE NONE SEEN /lpf (0-1); MUCUS, URINE SMALL AMOUNT (NEGATIVE); RBC, URINE 40-50 /hpf (0-3); SQUAMOUS EPITHELIAL CELL URINE NONE SEEN /hpf (SMALL AMT)
[2018-08-25 11:08] LABS: BASO % 0.2 % (0.0-1.0); EOS % 0.3 % (0.0-3.0); HEMATOCRIT 44.9 % (36.0-47.0); HEMOGLOBIN 13.8 g/dl (12.0-15.5); LYMPH # 2.5 10^3/uL (1.5-4.5); MEAN CORPUSCULAR HGB CONC 30.7 g/dl (32.0-36.5); MEAN CORPUSCULAR VOLUME 81.5 fl (80.0-96.0); MONO # 0.8 10^3/uL (0.0-0.8); MONO % 4.9 % (0.0-5.0); NEUTROPHILS # 12.2 10^3/uL (1.8-7.7); NEUTROPHILS % 78.1 % (36.0-66.0); PLATELET COUNT, AUTOMATED 428 10^3/uL (150-450); RED BLOOD COUNT 5.51 10^6/uL (4.00-5.40); WHITE BLOOD COUNT 15.7 10^3/uL (4.0-10.0)
[2018-08-25 11:27] LABS: ALBUMIN 4.1 GM/DL (3.2-5.2); ALT/SGPT 13 U/L (12-78); AMYLASE 44 U/L (25-115); BILIRUBIN,DIRECT < 0.1 MG/DL (0.0-0.2); BILIRUBIN,TOTAL 0.4 MG/DL (0.2-1.0); BLOOD UREA NITROGEN 38 MG/DL (7-18); CALCIUM LEVEL 9.4 MG/DL (8.8-10.2); CARBON DIOXIDE LEVEL 23 MEQ/L (21-32); CHLORIDE LEVEL 109 MEQ/L (98-107); CREATININE FOR GFR 1.19 MG/DL (0.55-1.30); GLOMERULAR FILTRATION RATE 48.6 (>45); GLUCOSE, FASTING 89 MG/DL (70-100); LIPASE 114 U/L (73-393); POTASSIUM SERUM 4.1 MEQ/L (3.5-5.1); SODIUM LEVEL 140 MEQ/L (136-145); TOTAL PROTEIN 7.4 GM/DL (6.4-8.2)
[2018-08-25] MEDS ORDERED: KETO10TAB PO (12:15)
[2018-08-25 12:30] VITALS: BP 128/86
== END 2018-08-25 12:41 | disposition home or self-care (01) ==
LOC: M ED 09:53
DX: R10.9 Unspecified abdominal pain (principal); E11.9 Type 2 diabetes mellitus without complications; I10 Essential (primary) hypertension; J45.909 Unspecified asthma, uncomplicated; K21.9 Gastro-esophageal reflux disease without esophagitis; F33.9 Major depressive disorder, recurrent, unspecified; F41.9 Anxiety disorder, unspecified; Z87.442 Personal history of urinary calculi; Z86.73 Personal history of transient ischemic attack (TIA), and cerebral infarction without residual deficits; Z96.0 Presence of urogenital implants; Z79.899 Other long term (current) drug therapy; Z79.84 Long term (current) use of oral hypoglycemic drugs; Z79.82 Long term (current) use of aspirin; Z88.8 Allergy status to other drugs, medicaments and biological substances
CPT/HCPCS: 74176; 80048; 80076; 81000; 82150; 83690; 85025; 87040; 87086; 96361; 96374; 96375; 99284; J1885; J2405

== ENCOUNTER → 2018-08-26 | Outpatient (REF) | payer OTHER ==
[~2018-08-26] MED LIST changes: +KETO10TAB PO
[2018-08-26 18:03] LABS: APPEARANCE, URINE TURBID (CLEAR); BACTERIA, URINE AUTO NEGATIVE (NEGATIVE); BILIRUBIN, URINE AUTO NEGATIVE (NEGATIVE); BLOOD, URINE BLOOD 3+ (NEGATIVE); CALCIUM OXALATE CRYSTALS MODERATE; COLOR, URINE AMBER (YELLOW); GLUCOSE, URINE (UA) AUTO NEGATIVE (NEGATIVE); KETONE, URINE AUTO NEGATIVE (NEGATIVE); LEUKOCYTE ESTERASE, URINE AUTO 2+ (NEGATIVE); MUCUS, URINE SMALL (NEGATIVE); NITRITE, URINE AUTO NEGATIVE (NEGATIVE); PROTEIN, URINE AUTO 2+ mg/dL (NEGATIVE); RBC, URINE AUTO TNTC /HPF (0-3); SPECIFIC GRAVITY URINE AUTO 1.031 (1.002-1.035); SQUAMOUS EPITHELIAL CELL UR AU 4 /HPF (0-6); UROBILINOGEN, URINE AUTO 0.2 mg/dL (0.0-2.0); WBC, URINE AUTO 34 /HPF (0-3)
== END ==
LOC: M SMT 17:05
PROVIDERS: ATTEND Nurse Practitioner Family
DX: R31.9 Hematuria, unspecified (principal)

== ENCOUNTER → 2018-09-04 | Outpatient (REF) | payer MEDICARE, MEDICAID ==
[~2018-09-04] MED LIST changes: -/ATOR40TA; -/PANT40TA; -/QUET10TA; -ASPI81CH32 PO; +ASPI81CH33 PO; +FENT12DI12 TOP; -FENT12PA TOP; +FENT25DI33 TOP; -FENT25PA TOP; +FENT75DI18 TD; -FENT75PA TD; +LIPI1TAB2; +PROT1TAB2; +SENN-50 PO; -SENN1TAB2 PO; +SENN1TAB40 PO; -SENN8.6T54 PO; +SERO1TAB
[2018-09-04 14:36] LABS: BASO % 0.2 % (0.0-1.0); EOS # 0.1 10^3/uL (0.0-0.50); EOS % 0.9 % (0.0-3.0); HEMATOCRIT 44.8 % (36.0-47.0); HEMOGLOBIN 13.3 g/dl (12.0-15.5); LYMPH # 2.4 10^3/uL (1.5-4.5); LYMPH % 18.6 % (24.0-44.0); MEAN CORPUSCULAR HEMOGLOBIN 25.2 pg (27.0-33.0); MEAN CORPUSCULAR HGB CONC 29.7 g/dl (32.0-36.5); MEAN CORPUSCULAR VOLUME 84.8 fl (80.0-96.0); MONO # 0.6 10^3/uL (0.0-0.8); MONO % 4.4 % (0.0-5.0); NEUTROPHILS # 9.9 10^3/uL (1.8-7.7); NEUTROPHILS % 75.2 % (36.0-66.0); PLATELET COUNT, AUTOMATED 416 10^3/uL (150-450); RED BLOOD COUNT 5.28 10^6/uL (4.00-5.40); WHITE BLOOD COUNT 13.1 10^3/uL (4.0-10.0)
[2018-09-04 14:41] LABS: HEMATOCRIT 44.8 % (36.0-47.0)
[2018-09-04 14:55] LABS: CALCIUM LEVEL 9.6 MG/DL (8.8-10.2); CREATININE FOR GFR 1.17 MG/DL (0.55-1.30); GLOMERULAR FILTRATION RATE 49.6 (>45); PHOSPHORUS LEVEL 2.9 MG/DL (2.5-4.9); POTASSIUM SERUM 4.3 MEQ/L (3.5-5.1)
[2018-09-04 14:58] LABS: APPEARANCE, URINE MANUAL CLOUDY (CLEAR); BILIRUBIN, URINE MANUAL NEGATIVE (NEGATIVE); BLOOD URINE MANUAL POSITIVE (NEGATIVE); COLOR, URINE MANUAL YELLOW (YELLOW); GLUCOSE, URINE (UA) MANUAL NEGATIVE (NEGATIVE); KETONE, URINE MANUAL NEGATIVE (NEGATIVE); LEUKOCYTE ESTERASE, URINE MAN POSITIVE (NEGATIVE); NITRITE, URINE MANUAL NEGATIVE (NEGATIVE); PROTEIN, URINE MANUAL 1+ mg/dL (NEGATIVE); SPECIFIC GRAVITY,URINE MANUAL 1.025 (1.002-1.035); UROBILINOGEN, URINE MANUAL NORMAL (NORMAL)
[2018-09-04 15:02] LABS: HEMOGLOBIN A1c 5.9 %
[2018-09-04 15:06] LABS: RBC, URINE TNTC /hpf (0-3); SQUAMOUS EPITHELIAL CELL URINE MOD AMOUNT /hpf (SMALL AMT)
[2018-09-04 15:07] LABS: BACTERIA, URINE SMALL AMOUNT; HYALINE CAST, URINE NONE SEEN /lpf (0-1); MUCUS, URINE MOD AMOUNT (NEGATIVE); PTH INTACT 71.9 PG/ML (18.5-88.0); TOTAL 25(OH) VITAMIN D 74.1 NG/ML (30.0-100.0)
[2018-09-04 15:08] LABS: AMORPHOUS SEDIMENT, URINE SMALL AMOUNT (NEGATIVE)
[2018-09-04 15:20] LABS: MAU/CREAT RATIO 351.8 MCG/MG (0.0-30.0)
== END ==
LOC: M SFHCPLAZ 11:38
PROVIDERS: ATTEND Family Medicine
DX: D50.9 Iron deficiency anemia, unspecified (principal); E11.9 Type 2 diabetes mellitus without complications; E66.9 Obesity, unspecified; Z68.33 Body mass index [BMI] 33.0-33.9, adult
CPT/HCPCS: 36415; 80069; 81000; 82043; 82306; 82607; 82747; 83036; 83970; 85025; 85046; G0463

== ENCOUNTER → 2018-09-07 | Outpatient (REF) | payer MEDICARE, MEDICAID ==
[~2018-09-07] MED LIST changes: +/ATOR40TA; +/PANT40TA; +/QUET10TA; +ASPI81CH32 PO; -ASPI81CH33 PO; -FENT12DI12 TOP; +FENT12PA TOP; -FENT25DI33 TOP; +FENT25PA TOP; -FENT75DI18 TD; +FENT75PA TD; -LIPI1TAB2; -PROT1TAB2; -SENN-50 PO; +SENN1TAB2 PO; -SENN1TAB40 PO; +SENN8.6T54 PO; -SERO1TAB
[2018-09-10 00:09] LABS: CREATININE, URINE 115.6 mg/dL (20.0-300.0); OXYCODONE URINE Positive (.); OXYCODONE, URINE CONFIRM 132 ng/mL (Cutoff=100); OXYCODONE/OXYMORPH, URINE Positive (Cutoff=100); OXYMORPHONE, URINE Positive (.); OXYMORPHONE, URINE CONFIRM 269 ng/mL (Cutoff=100)
== END ==
LOC: M SFHCPLAZ 09:51
PROVIDERS: ATTEND Family Medicine
DX: E11.9 Type 2 diabetes mellitus without complications (principal)

== ENCOUNTER → 2018-09-09 | Outpatient (CLI) | payer MEDICAID, OTHER ==
[~2018-09-09] MED LIST changes: +FUROSEMIDE 20 MG/2 ML VIAL (J1940) As Ordered ONE
--- NOTE | 2018-09-09 14:56 | REP ---
NUCLEAR RENAL SCINTIGRAPHY WITH DIFFERENTIAL FLOW AND FUNCTION ANALYSIS: Pre- and post-Lasix renography. HISTORY: Ureteral stricture. Comparison CT imaging is from August 25, 2018. TECHNIQUE: 8.8 mCi technetium 99m Mag 3 is injected and posterior flow and excretory phase imaging is acquired. Renal cortical regions of interest are drawn and time activity curves are plotted for renal function analysis. 20 mg of intravenous Lasix is given and post Lasix washout renography was performed. SCINTIGRAPHIC FINDINGS: Posterior flow study shows decreased perfusion of the right kidney markedly delayed. Excretory phase images show markedly impaired and delayed excretory function in the right kidney. Right renal function is barely visible. Differential renal function analysis shows 92% of overall renal cortical counts coming from the left kidney and 8.4% from the right. Sczg-yq-owkg activity is normal on the left at 2.0 minutes and ndjq-sx-bewb max activity is normal on the left at 12.9 minutes. These values could not be calculated on the right. Excretory phase images show no evidence of obstructive uropathy on the left. Post Lasix washout images show iozo-ti-[id number] Lasix activity of 8.5 minutes on the left. Lasix renography could not be meaningfully calculated on the right because of a very poor right-sided function. Pre- and post-void images show no evidence of obstructive uropathy on either side. IMPRESSION: Markedly delayed perfusion and markedly impaired function right kidney. The right kidney appears atrophic and small. There is no evidence of obstructive uropathy. Electronically Signed by Rene Stern MD 09/09/2018 04:03 P
== END ==
LOC: M RAD 08:51
PROVIDERS: ATTEND Urology
DX: N13.5 Crossing vessel and stricture of ureter without hydronephrosis (principal); N26.1 Atrophy of kidney (terminal)
CPT/HCPCS: 78708; A9562; J1940

== ENCOUNTER → 2018-09-18 | Outpatient (CLI) | payer MEDICARE, MEDICAID ==
[~2018-09-18] MED LIST changes: -/ATOR40TA; -/PANT40TA; -/QUET10TA; -ASPI81CH32 PO; +ASPI81CH33 PO; +FENT12DI12 TOP; -FENT12PA TOP; +FENT25DI33 TOP; -FENT25PA TOP; +FENT75DI18 TD; -FENT75PA TD; -FUROSEMIDE 20 MG/2 ML VIAL (J1940) As Ordered ONE; +LIPI1TAB2; +PROT1TAB2; +SENN-50 PO; -SENN1TAB2 PO; +SENN1TAB40 PO; -SENN8.6T54 PO; +SERO1TAB
--- NOTE | 2018-10-08 01:05 | ECWPNPC ---
PATIENT NAME: ISAIAH RDZ : 1955 GENDER: FEMALE VISIT DATE: 09/18/2018 DISCHARGE DATE: 09/18/18 1203 VISIT LOCKED DATE TIME: PHYSICIAN: JORGE GILLESPIE PHYSICIAN PAGER NO: [phone] RESOURCE: JORGE GILLESPIE REASON FOR APPOINTMENT 1. POST PROC HISTORY OF PRESENT ILLNESS HISTORY OF PRESENT ILLNESS: HERE FOR POST PROCEDURE F/U.HAD THERAPEUTIC L2/3-L3/4 FACET BLOCK ON 08/18/18.DOING WELL POST PROCEDURE.REPORTING LESS INTENSE BACK PAIN.RATING PAIN VAS 6/10. PAIN THE PATIENT DESCRIBES THE PAIN... FALL RISK SCREENING: SCREENING :NO FALLS REPORTED IN THE LAST YEAR CURRENT MEDICATIONS TAKING ASPIRIN 81 MG TABLET CHEWABLE 1 TABLET ORALLY ONCE A DAY TAKING PROVENTIL HFA 108 (90 BASE) MCG/ACT AEROSOL SOLUTION 2 PUFFS NEEDED INHALATION EVERY 4 HRS TAKING E-Z SPACER - DEVICE DIRECTED _ DAILY TAKING DUONEB 0.5-2.5 (3) MG/3ML SOLUTION 3 ML INHALATION EVERY 4 HOURS NEEDED TAKING PROTONIX 40 MG TABLET DELAYED RELEASE 1 TABLET ORALLY EVERY MORNING TAKING ZOLPIDEM TARTRATE 10 MG TABLET 1 TABLET AT BEDTIME NEEDED ORALLY AT BEDTIME PRN INSOMNIA TAKING BACTROBAN 2 % OINTMENT 1 APPLICATION TO AFFECTED AREA EXTERNALLY BID TAKING METFORMIN HCL 500 MG TABLET 1 TABLET ORALLY TWICE A DAY TAKING OZEMPIC 0.25 OR 0.5 MG/DOSE SOLUTION PEN-INJECTOR 0.5 MG SUBCUTANEOUS EVERY 7 DAYS TAKING SENNA 8.6 MG TABLET 2 ORALLY ONCE A DAY TAKING ERGOCALCIFEROL 95772 UNIT CAPSULE 1 CAPSULE ORALLY EVERY 7 DAYS TAKING FERROUS SULFATE 325 (65 FE) MG TABLET 1 TABLET ORALLY ONCE A DAY TAKING AMITRIPTYLINE HCL 50 MG TABLET 1 TABLET ORALLY AT BEDTIME TAKING SERTRALINE HCL 50 MG TABLET 1 TABLET ORALLY ONCE A DAY, NOTES: 08/18/18 TAKING BLOOD GLUCOSE TEST STRIP ONE TOUCH VERIO GOLD TEST STRIP 1 STRIP DX: 790.21 TWICE A DAY TAKING LANCETS ONE TOUCH ULTRA SOFT LACETS 1 LANCET DX: 790.21 ONCE A DAY TAKING TENS UNIT ELECTRO PADS 1 PAD SET 1 PAD INTRADERMALLY USE NEEDED TAKING MULTIVITAMIN TABLETS 1 TAB(S) ORALLY ONCE A DAY, NOTES: 08/18/18 TAKING POTASSIUM CHLORIDE TABLET 2 TABS TWICE DAILY, NOTES: 08/18/18 TAKING PEN NEEDLES 31G X 6 MM MISCELLANEOUS 1 SUBCUTANEOUSLY ONCE A DAY DX:E11.9 TAKING BELBUCA 150 MCG FILM 1 FILM TO THE GUM BUCALLY EVERY 12 HRS MDD2 TAKING PERCOCET 5-325 MG TABLET 1 TABLET ORALLY EVERY 6 HRS NEEDED FOR POSTSURGICAL PAIN (MDD 4) TAKING LYRICA 100 MG CAPSULE 1 CAPSULE ORALLY BID MDD2, NOTES: 08/18/18 TAKING ATORVASTATIN CALCIUM 80 MG TABLET 1 TABLET ORALLY DAILY MEDICATION LIST REVIEWED AND RECONCILED WITH THE PATIENT PAST MEDICAL HISTORY CERVICAL DJD, 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 2010 CERVICAL MRI WITH MULTILEVEL DJD, C4-C5 BULGE WITH MILD RIGHT NEURAL FORAMINAL NARROWING-11/2010 PERMANENT TOTAL DISABILITY MIGRAINE HEADACHES, COMMON TYPE WITH HISTORY OF R HEMIPLEGIA-09/2012, 01/2018 ASTHMA, MILD INTERMITTENT-06/2011 FEV1 1.7L (69%)/RATIO 108% INSOMNIA IMPAIRED FASTING GLUCOSE HYPERTENSION-AUGUST 2008 NORMAL MONICA EXCEPT FOR MODERATE AORTIC VALVE SCLEROSIS, TRACE AR, NORMAL LVEF-ANTECOL/07/2011 [id number] HYPERLIPIDEMIA 2B DEPRESSION CONSTIPATION, CHRONIC OBESITY VITAMIN D DEFICIENCY LUMBAR DJD, 05/2012 MRI C L2-4 BULGES, MINIMAL L4/5 CENTRAL CANAL STENOSIS, NO CHANGE C/W 05/2010 L ADRENAL ADENOMA, 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 NEPHROLITHIASIS 3 MM TUBULAR ADENOMA, TRANSVERSE COLON LIPOMA, MILD ANTRITIS (-H PYLORI), HECTOR III NON-BLEEDING GASTRIC ULCER AND - SB BIOPSY BY 03/2017 EGD/[facility]ON[facility] RIGHT KIDNEY 8 % FUNCTION ALLERGIES FLAGYL: RASH - ALLERGY SURGICAL HISTORY [facility]OR BSO 09/2002 30 TEETH EXTRACTION-DINES 09/2013 BACK SURGERY 11/29/2014 KIDNEY STONE REMOVAL-[facility] 01/30 CYSTOSCOPY 06/24/17 R PARTIAL URETERAL REIMPLANTATION-MILI 08/29/2017 CYSTOSCOPY W/ RIGHT STENT REMOVAL 10/07/2017 STENT PLACED RIGHT URETER 03/12/18 FAMILY HISTORY FATHER: , DIAGNOSED WITH DIABETES, HYPERTENSION, CANCER MOTHER: , DIABETES, CANCER SIBLINGS: CANCER PATERNAL GRAND MOTHER: DIABETES MATERNAL GRAND MOTHER: DIABETES PATERNAL AUNT: DIABETES, HYPERTENSION 1DAUGHTER(S) . NEPHEW HAS HAD KIDNEY STONES\\\\\\\\\\\\\\\\NBROTHER FROM COLON CANCER AT AGE 5\\\\\\\\\\\\\\\\NFATHER FROM PROSTATE CANCER\\\\\\\\\\\\\\\\NMOTHER FROM CANCER. SOCIAL HISTORY GENERAL: TOBACCO USE ARE YOU A:NONSMOKER NEVER SMOKER LATEX QUESTIONNAIRE LATEX ALLERGY : HAVE YOU EVER DEVELOPED ANY TYPE OF REACTION AFTER HANDLING LATEX PRODUCTS SUCH RUBBER GLOVES, CONDOMS, DIAPHRAGMS, BALLOONS, SOCKS, OR UNDERWEAR?NO LATEX ALLERGY : HAVE YOU EVER DEVELOPED ANY TYPE OF REACTION DURING OR AFTER DENTAL APPOINTMENT, VAGINAL/RECTAL EXAMINATION, SURGICAL PROCEDURE, OR ANY OTHER EXPOSURE?NO LATEX RISK : HAVE YOU EVER HAD ANY DIFFICULTY BREATHING OR HIVES AFTER EATING OR HANDLING ANY FRUITS, OR VEGETABLES; SUCH KIWI, BANANAS, STONE FRUITS, OR CHESTNUTSNO LATEX RISK : DO YOU HAVE A PREVIOUS PERSONAL HISTORY OF MORE THAN NINE SURGERIES, SPINA BIFIDA, OR REPEATED CATHERTIZATIONS? NO LATEX RISK : ARE YOU FREQUENTLY EXPOSED TO LATEX PRODUCTS IN YOUR OCCUPATION?NO DATE ASKED : 09/16/2018 ALCOHOL SCREENING DID YOU HAVE A DRINK CONTAINING ALCOHOL IN THE PAST YEAR?NO POINTS0 INTERPRETATIONNEGATIVE RECREATIONAL DRUG USE DRUG USE?NO CAFFEINE CAFFEINE USE?NO SEXUAL HX HAD SEX IN THE LAST 12 MONTHS (VAGINAL, ORAL, OR ANAL)?NO SIKHISM [id number] YAZIDISM LANGUAGE LANGUAGES SPOKEN:[place]IAN EDUCATION LEVEL OF EDUCATION:FINISHED HIGH SCHOOL LEARNING BARRIERS / SPECIAL NEEDS CHANGE FROM LAST VISIT?NO BARRIERS TO LEARNING?NO HEARING IMPAIRED?NO VISION IMPAIRED?YES :CORRECTIVE LENSES COGNITIVELY IMPAIRED?NO READINESS TO LEARN?YES LEARNING PREFERENCES?NO LEARNING CAPABILITIES PRESENT?YES EMOTIONAL BARRIERS?NO SPECIAL DEVICES?NO DOMESTIC VIOLENCE DO YOU FEEL SAFE IN YOUR ENVIRONMENT?YES OCCUPATION: RETIRED. DIET: REGULAR. EXERCISE: NO REGULAR EXERCISE. MARITAL STATUS: . NEW PATIENT PAIN DIARY FROM 0-10, WHAT LEVEL IS YOUR PAIN TODAY?6 PAIN CLINIC PFS, CLERGY, PUBLIC HEALTH REFERRALS HAS THE PATIENT BEEN EDUCATED REGARDING HIS/HER PLAN OF CARE?YES HAS THE PATIENT BEEN EDUCATED REGARDING PAIN, THE RISK FOR PAIN, THE IMPORTANCE OF EFFECTIVE PAIN MANAGEMENT, AND THE PAIN ASSESSMENT PROCESS?YES ADVANCE DIRECTIVE ADVANCE DIRECTIVE DISCUSSED WITH PATIENT:YES CORBIN MILLAN (SISTER) IS HER HCP MOVED BACK FROM [facility] 03/2015 REVIEWED WITH PT 12/05/17 1114 BVREVIEWED WITH PT 04/14/18 0958 LASREVIEWED WITH PT 07/27/18 1111 BVREVIEWED WITH PT 09/18/18 1135 LAS. HOSPITALIZATION/MAJOR DIAGNOSTIC PROCEDURE PNEUMONIA 2010 R UE/LE WEAKNESS, FACIAL DROOP C MARMOLEJO-NORMAL MRI BRAIN, CTA NECK/BRAIN-NEUROLOGY FELT "NO ACUTE NEUROLOGICAL PROCESS" 02/04/18-02/06/18 OVERNIGHT STAY FOR STENT PLACEMENT 03/03 REVIEW OF SYSTEMS REVIEWED BY: PROVIDER: JORGE VALDES . CONSTITUTIONAL: ANY CHANGE IN YOUR MEDICAL CONDITION? 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 SHE IS TO HAVE THIS REMOVED IN A COUPLE OF WEEKS. . CHILLS NO . FEVER NO . INFECTION: DO YOU HAVE NEW INFECTIONS? NO . DO YOU HAVE HISTORY OF MRSA? NO . MUSCULOSKELETAL: ANY NEW PATTERNS OF PAIN OR NUMBNESS? PT REPORTS SHE IS HAVING SOME RIGHT FLANK PAIN, R/T KIDNEY, ALSO SOME PRESSURE /PAIN IN LOW ABDOMEN/PELVIC AREA . GASTROENTEROLOGY: ANY NEW CHANGE IN BOWEL CONTROL? NO . GENITOURINARY: ANY NEW CHANGE IN BLADDER CONTROL? YES PT REPORTS INCREASED INCONTINENCE . IS THERE A CHANCE YOU COULD BE ? NO . HEMATOLOGY/LYMPH: DO YOU TAKE ANY BLOOD THINNERS? (FOR EXAMPLE- COUMADIN, PLAVIX, AGGRENOX, PLATEL, PRADAXA, OR XARELTO) NO . WHEN WAS YOUR LAST DOSE? DATE: TIME: . NEUROLOGY: HAVE YOU FALLEN IN THE PAST 12 MONTHS? NO . ANY NEW EXTREMITY NUMBNESS OR WEAKNESS? NO . CARDIOLOGY: DO YOU HAVE A PACEMAKER OR DEFIBRILLATOR? NO . RESPIRATORY: HAVE YOU BEEN SICK IN THE PAST WEEK? NO . FEVER NO . FLU LIKE SYMPTOMS? NO . COUGH NO . INTEGUMENTARY: DO YOU HAVE ANY RASHES OR OPEN SORES? NO . ALLERGIC/IMMUNO: ARE YOU ALLERGIC TO IV DYE? NO . ANY NEW ALLERGIES? NO . PSYCHIATRIC: DO YOU HAVE THOUGHTS OF HURTING YOURSELF OR SOMEONE ELSE? NO . ARE YOU ABUSED, NEGLECTED, OR IN AN UNSAFE ENVIRONMENT? NO . ENDOCRINOLOGY: ARE YOU DIABETIC? NO . OTHER: DO YOU NEED ANY PRESCRIPTIONS? YES . IF YES, PLEASE LIST: ____PERCOCET, GABAPENTIN . ANY NEW PROBLEMS WITH YOUR MEDICATIONS? NO . WHEN DID YOU LAST EAT? ____ . WHEN DID YOU LAST DRINK? ____ . WHAT DID YOU LAST DRINK? ____ . NAME OF PERSON DRIVING YOU HOME? ____ . DO YOU HAVE ANY OTHER QUESTIONS OR CONCERNS NO . VITAL SIGNS WT 188.8 LBS, HT 63 IN, BMI 33.44 INDEX, BP 147/73 MM HG, HR 78 /MIN, RR 18 /MIN, TEMP 97 F, OXYGEN SAT % 94%, SAFE IN ENV? (Y/N) YES, NA INITIALS AW 1125, REVIEWED BY: LEONORA. EXAMINATION GENERAL EXAMINATION: GENERAL APPEARANCE:AWAKE,ALERT ,PLEAASANT . PSYCHAFFECT NORMAL . LUNGS:LUNG BARAJAS ARE CLEAR TO AUSCULTATION BILATERALLY. GOOD MOVEMENT OF AIR . HEART:S1, S2 IN A REGULAR RATE AND RHYTHM. NO SIGNIFICANT MURMURS, RUBS OR GALLOPS NOTED . ASSESSMENTS SPONDYLOSIS WITHOUT MYELOPATHY OR RADICULOPATHY, CERVICOTHORACIC REGION - M47.813 (PRIMARY) TREATMENT SPONDYLOSIS WITHOUT MYELOPATHY OR RADICULOPATHY, CERVICOTHORACIC REGION REFILL BELBUCA FILM, 150 MCG, 1 FILM TO THE GUM, BUCALLY, EVERY 12 HRS MDD2, 30 DAY(S), 60, REFILLS 2 REFILL PERCOCET TABLET, 5-325 MG, 1 TABLET, ORALLY, EVERY 6 HRS NEEDED FOR POSTSURGICAL PAIN (MDD 4), 30 DAY(S), 120, REFILLS 0 REFILL LYRICA CAPSULE, 100 MG, 1 CAPSULE, ORALLY, BID MDD2, 30 DAY(S), 60, REFILLS 3, NOTES: 08/18/18 NOTES: ISTOP REGISTRY REVIEWED AND DEMONSTRATES COMPLLIANCE. (REF # ) BRINGS IN MEDICATIONS WHICH IS APPROPRIATE FOR WHAT WAS DISPENSED. RECENT URINE TOXICOLOGY REVIEWED. NO UNAUTHORIZED MEDICATIONS. NO ILLICIT SUBSTANCES AND PRESCRIBED MEDICATIONS WERE PRESENT. , RISKS AND BENEFITS OF NARCOTIC/OPIOD MEDICATIONS WERE REVIEWED WITH PATIENT - THIS INCLUDES BUT IS NOT LIMITED TO RISK OF DEPENDANCE/DEVELOPMENT OF ADDICTION, MOOD DISTURBANCE AND DEPRESSION, OSTEOPOROSIS, HORMONAL AND LABIDAL CHANGES, RESPIRATORY DEPRESSION AND . PATIENT IS ADVISED NOT TO DRIVE OR DRINK ALCOHOL WHILE ON THESE MEDICATIONS. PROCEDURE CODES FA211 ESTABILISHED PATIENT [facility] CHARGE DISPOSITION & COMMUNICATION FOLLOW UP 2 MONTHS ELECTRONICALLY SIGNED BY LUCIO NAJERA ON 10/05/2018 AT 05:27 PM EDT DISCLAIMER : THIS IS A VISIT SUMMARY EXTRACTED FROM THE [facility] CHART. IT IS NOT A COPY OF THE [facility] PROGRESS NOTE. [facility] MEDICAL CENTERKyler
== END ==
LOC: M PAIN 10:45
PROVIDERS: ATTEND Nurse Practitioner Family
DX: M47.813 Spondylosis without myelopathy or radiculopathy, cervicothoracic region (principal); G43.909 Migraine, unspecified, not intractable, without status migrainosus; J45.20 Mild intermittent asthma, uncomplicated; G47.00 Insomnia, unspecified; R73.01 Impaired fasting glucose; I10 Essential (primary) hypertension; E78.5 Hyperlipidemia, unspecified; Z86.59 Personal history of other mental and behavioral disorders; Z88.1 Allergy status to other antibiotic agents; Z79.82 Long term (current) use of aspirin; Z79.84 Long term (current) use of oral hypoglycemic drugs; Z79.891 Long term (current) use of opiate analgesic; Z79.899 Other long term (current) drug therapy

== ENCOUNTER → 2018-09-24 | Outpatient (REF) | payer MEDICARE, MEDICAID ==
[~2018-09-24] MED LIST changes: +COLA100C5 PO
[2018-09-24 17:36] LABS: BASO % 0.3 % (0.0-1.0); EOS # 0.2 10^3/uL (0.0-0.50); EOS % 1.4 % (0.0-3.0); HEMATOCRIT 43.8 % (36.0-47.0); HEMOGLOBIN 13.1 g/dl (12.0-15.5); LYMPH # 2.7 10^3/uL (1.5-4.5); LYMPH % 21.6 % (24.0-44.0); MEAN CORPUSCULAR HEMOGLOBIN 25.6 pg (27.0-33.0); MEAN CORPUSCULAR HGB CONC 29.9 g/dl (32.0-36.5); MEAN CORPUSCULAR VOLUME 85.5 fl (80.0-96.0); MONO # 0.5 10^3/uL (0.0-0.8); MONO % 4.3 % (0.0-5.0); NEUTROPHILS % 71.8 % (36.0-66.0); PLATELET COUNT, AUTOMATED 397 10^3/uL (150-450); RED BLOOD COUNT 5.12 10^6/uL (4.00-5.40); WHITE BLOOD COUNT 12.6 10^3/uL (4.0-10.0)
[2018-09-24 17:44] LABS: ALBUMIN 3.7 GM/DL (3.2-5.2); BILIRUBIN,TOTAL 0.3 MG/DL (0.2-1.0); CALCIUM LEVEL 9.5 MG/DL (8.8-10.2); CREATININE FOR GFR 1.13 MG/DL (0.55-1.30); GLOMERULAR FILTRATION RATE 51.6 (>45); MAGNESIUM LEVEL 2.3 MG/DL (1.8-2.4); TOTAL PROTEIN 6.7 GM/DL (6.4-8.2)
[2018-09-24 17:48] LABS: INR 0.95; PROTHROMBIN TIME 12.8 SECONDS (12.1-14.4)
[2018-09-24 17:49] LABS: PARTIAL THROMBOPLASTIN TIME 33.3 SECONDS (25.4-37.6)
== END ==
LOC: M SFHCPLAZ 13:20
PROVIDERS: ATTEND Family Medicine
DX: N18.2 Chronic kidney disease, stage 2 (mild) (principal); D50.9 Iron deficiency anemia, unspecified; K27.9 Peptic ulcer, site unspecified, unspecified as acute or chronic, without hemorrhage or perforation
CPT/HCPCS: 36415; 80053; 83735; 85025; 85610; 85730; G0404; G0463

== ENCOUNTER 2018-10-07 05:54 | Inpatient (IN) | payer MEDICARE, MEDICAID ==
[2018-10-07] VITALS (8 sets, daily range): BP systolic 128–148; BP diastolic 66–80; O2SAT 96
[~2018-10-07] VITALS: Ht 160 cm; Wt 81.6 kg
[~2018-10-07 05:54] MED LIST changes: -COLA100C5 PO
[2018-10-07] MEDS ORDERED: fentaNYL 250 MCG/5 ML INJECTION (J3010) As Ordered ONE (07:12)
[2018-10-07] MEDS ORDERED: MIDAZOLAM INJ 2 MG/2 ML VIAL (J2250) As Ordered ONE (07:12)
[2018-10-07] MEDS ORDERED: LIDOCAINE 2% INJ 100 MG/5 ML SDV (FOR ANES.) As Ordered ONE (07:12)
[2018-10-07] MEDS ORDERED: PROPOFOL 200 MG/20 ML VIAL As Ordered ONE ×2 (07:12→14:39)
[2018-10-07] MEDS ORDERED: ROCURONIUM BROMIDE 50 MG/5 ML VIAL As Ordered ONE ×3 (07:12→12:17)
[2018-10-07] MEDS ORDERED: GLUCAGON FOR INJ 1 MG VIAL (J1610) SC PRN (07:30)
[2018-10-07] MEDS ORDERED: ACETAMINOPHEN TAB 650MG DOSE (2X325MG) PO PRN (07:30)
[2018-10-07] MEDS ORDERED: GLUCOSE 4 GM CHEW TABLET PO PRN (07:30)
[2018-10-07] MEDS ORDERED: PERCOCET 5MG/325MG TAB PO PRN (07:30)
[2018-10-07] MEDS ORDERED: DEXTROSE 50% 50 ML SYRINGE IV PRN (07:30)
[2018-10-07] MEDS ORDERED: ALBUTEROL 90 MCG/ACT 8GM HFA INHALER INH PRN (07:30)
[2018-10-07] MEDS ORDERED: ONDANSETRON 4MG/2ML VIAL (J2405) IV PRN ×2 (07:30→14:15)
[2018-10-07] MEDS ORDERED: dexameTHASONE 4 MG/ML 1ML VIAL (J1100) As Ordered ONE (08:02)
[2018-10-07] MEDS ORDERED: LIDOCAINE 1% SDV INJ 30 ML VIAL As Ordered ONE ×2 (08:05→08:06)
[2018-10-07] MEDS ORDERED: BUPIVACAINE HCL 0.25% 30 ML VIAL As Ordered ONE (08:05)
[2018-10-07] MEDS ORDERED: HYDROmorphone HCL 2 MG/ML 1ML VIAL (J1170) As Ordered ONE ×2 (08:17→15:16)
[2018-10-07] MEDS ORDERED: ONDANSETRON 4MG/2ML VIAL (J2405) As Ordered ONE (10:01)
[2018-10-07] MEDS ORDERED: NEOSTIGMINE 10 MG/10 ML VIAL (J2710) As Ordered ONE ×2 (10:01→10:02)
[2018-10-07] MEDS ORDERED: GLYCOPYRROLATE INJ 0.2 MG/ML 2 ML VIAL As Ordered ONE (10:01)
[2018-10-07] MEDS ORDERED: hydrALAZINE INJ 20 MG/ML VIAL As Ordered ONE (12:38)
[2018-10-07] MEDS ORDERED: METOCLOPRAMIDE INJ 10MG/2ML VIAL (J2765) As Ordered ONE (12:52)
[2018-10-07] MEDS ORDERED: fentaNYL 100 MCG/2 ML INJECTION (J3010) As Ordered ONE (14:08)
[2018-10-07] MEDS: fentaNYL 100 MCG/2 ML INJECTION (J3010) IV PRN ×4 (14:12→14:27)
[2018-10-07] MEDS: PERCOCET 5MG/325MG TAB PO PRN ×3 (14:15→21:20)
[2018-10-07] MEDS ORDERED: METOCLOPRAMIDE INJ 10MG/2ML VIAL (J2765) IV PRN (14:15)
[2018-10-07] MEDS ORDERED: LR 1,000 ML IV SCH (14:15)
[2018-10-07 14:29] LABS: HEMATOCRIT 38.9 % (36.0-47.0); HEMOGLOBIN 11.9 g/dl (12.0-15.5); MEAN CORPUSCULAR HGB CONC 30.6 g/dl (32.0-36.5); MEAN CORPUSCULAR VOLUME 85.1 fl (80.0-96.0); PLATELET COUNT, AUTOMATED 387 10^3/uL (150-450); RED BLOOD COUNT 4.57 10^6/uL (4.00-5.40); WHITE BLOOD COUNT 19.4 10^3/uL (4.0-10.0)
--- NOTE | 2018-10-07 14:38 | ROOPDOC ---
[facility] Report Of Operation Report of Operation DATE OF PROCEDURE: 10/07/18 PREPROCEDURE DIAGNOSES: Atrophic Kidney. POSTPROCEDURE DIAGNOSES: Atrophic Kidney. PROCEDURE: Right Robotic-assisted Laparoscopic Simple Nephrectomy. SURGEON: Aryan Garces MD TANKAGE SUPERVISOR: Nohemi Hernandez NP ANESTHESIA: General OPERATIVE INDICATIONS: This is a 62 year old female with a history of a right ureteral stricture which has recurred despite several procedures to fix it. She has had chronic right flank pain as well. Recent imaging has demonstrated that she has poor function to her right kidney at this point. It was therefore recommended that she undergo the above procedure. DESCRIPTION OF PROCEDURE: The patient was brought to the operating room and general anesthesia was induced. Prophylactic antibiotics were infused. A Galan catheter was placed under sterile conditions. The patient was then placed in the left lateral decubitus position. All pressure points were appropriately padded and an axillary roll was placed. She was secured to the table with tape. The patient was then prepped and draped in the usual sterile fashion. The initial incision was for an 8mm port in line with the 11th rib along the lateral rectus margin. A Veress needle was then utilized to achieve the pneumoperitoneum. An 8mm port was then placed in through this incision and through which the camera was inserted. There were no injuries from Veress needle placement or initial trocar placement. The remaining ports were then placed under vision. The right hand robotic port was placed along the costal margin. Another 5 mm port was placed just inferior to the xyphoid for access for a liver retractor. A 12mm robotic port was placed just inferior to the camera port, also on the lateral rectus margin. The left hand robotic port was placed between the anterior- superior iliac spine and the umbilicus. A 12mm medical assistant port was placed inferior and medial to the 12mm robotic port. The robot was then docked. We began by lifting up the liver with a laparoscopic locking Allis clamp. Next the right colon was dissected off of Gerota's fascia. We then Kocherized the duo denum. At this point the inferior vena cava (IVC) was identified. A plane was made onto the lateral aspect of the IVC and this was carried cephalad until the right renal vein was encountered. This was carefully dissected and just inferior and posterior to the renal vein, the right renal artery was identified. Of note, dissection of the renal vessels was very difficult due to a large amount of inflammation which obscured normal tissue planes. The artery was also carefully dissected and then ligated with Weck clips. The artery was then transected, leaving 2 Weck clips on the stay side and 1 on the kidney side. Next, a laparoscopic 45mm stapler was utilized to ligate and transect the right renal vein. Once the hilum was taken, a plane onto the upper pole of the kidney was created and the right adrenal gland was mobilized off of the kidney. The kidney was then carefully dissected on all sides until it was only connected by the right ureter. The right ureter was then ligated and transected. At this point the kidney was completely free. The kidney was then placed in a large Endocatch bag for future retrieval. We then checked for hemostasis and it appeared excellent. Angelika hemostatic agent was then placed in the nephrectomy bed and along the inferior portion of the adrenal gland. Once satisfied with hemostasis, the robot was undocked. We then used a Bacilio fascial closure device to place a #0 Vicryl free tie through the fascia of the 12 mm robotic port site. We then connected the 15 mm medical assistant port and the left hand robotic port site incisions. We then dissected down to the fascia. The fascia was then extended using electrocautery. The muscle was bluntly spread. The specimen was then extracted through this incision. It was handed off the table to send for pathology. We then closed the extraction incision, starting first by reapproximating the muscle with figure of eight #0 Vicryl suture. The fascia was then closed using a running #0 Vicryl suture. At this point, the abdomen was reinsufflated and we looked back in with the camera and there was no bleeding underneath the extraction site. No abdominal contents were caught within the cl osure either. We then removed all the ports under direct vision and there was no bleeding from any of the port sites. At this point, the previously placed #0 Vicryl free tie was tied down and all the incisions were thoroughly irrigated. The subcutaneous tissue of the extraction incision was then reapproximated using interrupted #3-0 Vicryl suture. We then closed the skin of each site using a running #4-0 subcuticular Monocryl stitch. Local anesthetic was then applied to each incision and Dermabond was then applied and this marked the conclusion of the procedure. The patient was then taken out of the left lateral decubitus position, awakened from anesthesia and transported to the recovery room in stable condition. ESTIMATED BLOOD LOSS: 75 mL INTRAOPERATIVE COMPLICATIONS: None SPECIMENS: Right kidney PLAN: The patient will be admitted to the hospital postoperatively and she will be discharged home once her renal function is stable and she is tolerating regular diet. ARYAN GARCES MD Oct 07, 2018 14:38
[2018-10-07 15:00] LABS: BLOOD UREA NITROGEN 24 MG/DL (7-18); CALCIUM LEVEL 8.8 MG/DL (8.8-10.2); CARBON DIOXIDE LEVEL 27 MEQ/L (21-32); CHLORIDE LEVEL 107 MEQ/L (98-107); CREATININE FOR GFR 0.92 MG/DL (0.55-1.30); GLOMERULAR FILTRATION RATE > 60.0 (>45); GLUCOSE, FASTING 191 MG/DL (70-100); POTASSIUM SERUM 4.1 MEQ/L (3.5-5.1); SODIUM LEVEL 139 MEQ/L (136-145)
[2018-10-07] MEDS: HEPARIN SOD (PORCINE) 5000 UNITS/ML VIAL SC SCH ×2 (16:09→21:18)
[2018-10-07] MEDS: HumaLOG INSULIN (NovoLOG) PER UNIT SC SCH ×3 (16:09→21:00)
[2018-10-07] MEDS: MORPHINE 4 MG/ML 1ML VIAL/SYRINGE (J2270) IV PRN ×2 (16:34→18:40)
[2018-10-07] MEDS: NS 1,000 ML IV SCH (16:34)
[2018-10-07] MEDS: ceFAZolin SOD 1 GM in D5W MINI-BAG PLUS 50 ML IV SCH (16:35)
[2018-10-07] MEDS: DOCUSATE SODIUM 100 MG CAP PO SCH (21:19)
[2018-10-07] MEDS: GABAPENTIN 100 MG CAP PO SCH (21:19)
[2018-10-07] MEDS: AMITRIPTYLINE 50 MG TAB PO SCH (21:19)
[2018-10-08] MEDS: ceFAZolin SOD 1 GM in D5W MINI-BAG PLUS 50 ML IV SCH (00:08)
[2018-10-08] MEDS: MORPHINE 4 MG/ML 1ML VIAL/SYRINGE (J2270) IV PRN (00:08)
[2018-10-08 02:00] VITALS: BP 92/63
[2018-10-08] MEDS: HEPARIN SOD (PORCINE) 5000 UNITS/ML VIAL SC SCH ×3 (05:45→21:47)
[2018-10-08] MEDS: NS 1,000 ML IV SCH (05:47)
[2018-10-08 06:00] VITALS: BP 94/64
[2018-10-08 06:48] LABS: HEMATOCRIT 37.5 % (36.0-47.0); HEMOGLOBIN 10.9 g/dl (12.0-15.5); MEAN CORPUSCULAR HEMOGLOBIN 25.4 pg (27.0-33.0); MEAN CORPUSCULAR HGB CONC 29.1 g/dl (32.0-36.5); MEAN CORPUSCULAR VOLUME 87.4 fl (80.0-96.0); PLATELET COUNT, AUTOMATED 357 10^3/uL (150-450); RED BLOOD COUNT 4.29 10^6/uL (4.00-5.40); WHITE BLOOD COUNT 11.4 10^3/uL (4.0-10.0)
[2018-10-08 07:05] LABS: CALCIUM LEVEL 8.1 MG/DL (8.8-10.2); CREATININE FOR GFR 1.01 MG/DL (0.55-1.30); GLOMERULAR FILTRATION RATE 58.7 (>45); POTASSIUM SERUM 4.3 MEQ/L (3.5-5.1)
[2018-10-08] MEDS: HumaLOG INSULIN (NovoLOG) PER UNIT SC SCH ×4 (07:30→21:00)
--- NOTE | 2018-10-08 07:40 | IPNPDOC ---
Subjective Review oF Systems Chief Complaint The patient is a 62-year-old female admitted with a reason for visit of Atrophic Kidney, Ureteral Stricture. Events since Last Encounter No acute events o/n. Patient notes that she had more pain yesterday but it is better this morning. Denies n/v. No flatus yet. Has not ambulated yet. No chest pain or SOB. No f/c/ns. Objective Physical Examination General Exam: Alert, Cooperative, No Acute Distress ABDOMEN EXAM: Soft, Tenderness (mild), Other (incisions clean/dry/intact) Skin Exam: Nl turgor and temperature Psych Exam: Mental status NL, Mood NL Other physical findings catheter draining clear urine Vital Signs/I&O Vital Signs Date Time Temp Pulse Resp B/P (MAP) Pulse Ox O2 Delivery O2 Flow Rate FiO2 10/08/18 06:30 16 10/08/18 06:00 98.2 82 94/64 (74) 98 2.0 10/07/18 21:00 Nasal Cannula I&O- Last 24 Hours up to 6 AM 10/08/18 06:00 Intake Total 2325 ml Output Total 2400 ml Balance -75 ml Laboratory Data Labs 24H Laboratory Tests 2 10/07/18 13:43: Nucleated Red Blood Cells % (auto) 0.0, Anion Gap 5L, Glomerular Filtration Rate > 60.0, Blood Urea Nitrogen 24H, Creatinine 0.92, Sodium Level 139, Potassium Level 4.1, Chloride Level 107, Carbon Dioxide Level 27, Calcium Level 8.8 10/07/18 16:50: Bedside Glucose (Misc Panel) 142H 10/07/18 21:07: Bedside Glucose (Misc Panel) 103 10/08/18 06:14: Nucleated Red Blood Cells % (auto) 0.0, Anion Gap 2L, Glomerular Filtration Rate 58.7, Blood Urea Nitrogen 16, Creatinine 1.01, Sodium Level 144, Potassium Level 4.3, Chloride Level 112H, Carbon Dioxide Level 30, Calcium Level 8.1L CBC/BMP Laboratory Tests 10/07/18 13:43 Red Blood Count 4.57, Mean Corpuscular Volume 85.1, Mean Corpuscular Hemoglobin 26.0 L, Mean Corpuscular Hemoglobin Concent 30.6 L, Red Cell Distribution Width 15.6 H, Calcium Level 8.8 10/08/18 06:14 Red Blood Count 4.29, Mean Corpuscular Volume 87.4, Mean Corpuscular Hemoglobin 25.4 L, Mean Corpuscular Hemoglobin Concent 29.1 L, Red Cell Distribution Width 16.0 H, Calcium Level 8.1 L FSBS Laboratory Tests Test 10/07/18 16:50 10/07/18 21:07 Range/Units Bedside Glucose (Misc Panel) 142 103 80-115 MG/DL A-FIB/CHADSVASC A-FIB History Current/History of A-Fib/PAF?: No Current Oral Anticoagulant The: No Assessment/Plan Date Seen The patient was seen on 10/08/18. Patient Summary This is a 62 y/o F POD1 s/p R robotic simple nephrectomy. She is doing well this am. Her BP is a little low. Hb is stable. Good UOP. Plan/VTE VTE Prophylaxis Ordered?: Yes VTE Exclusion Mechanical Proph: N/A:VTE Prophy Ordered VTE Exclusion Pharmacological: N/A:VTE Prophy Ordered Plan/Urinary Catheter Urinary Catheter: D/C Galan Plan - d/c catheter - continue IVF for now - continue home meds - strict I/Os - percocet prn pain - SCDs when in bed - SQH - incentive spirometry - likely discharge home tomorrow - will probably require home health for a few days ARAYN GARCES MD Oct 08, 2018 07:40
[2018-10-08 10:00] VITALS: BP 120/77
[2018-10-08] MEDS: ATORVASTATIN 20 MG TAB PO SCH (10:11)
[2018-10-08] MEDS: GABAPENTIN 100 MG CAP PO SCH ×2 (10:12→21:48)
[2018-10-08] MEDS: DOCUSATE SODIUM 100 MG CAP PO SCH ×2 (10:12→21:48)
[2018-10-08] MEDS: SERTRALINE HCL 50 MG TAB PO SCH (10:13)
[2018-10-08] MEDS: PANTOPRAZOLE 40MG TAB (PROTONIX) PO SCH (10:13)
[2018-10-08] MEDS: PERCOCET 5MG/325MG TAB PO PRN ×3 (10:22→21:48)
[2018-10-08 14:00] VITALS: BP 141/90
[2018-10-08] MEDS: AMITRIPTYLINE 50 MG TAB PO SCH (21:48)
[2018-10-08 22:00] VITALS: BP 141/62
[2018-10-09] MEDS: HEPARIN SOD (PORCINE) 5000 UNITS/ML VIAL SC SCH (05:52)
[2018-10-09 06:00] VITALS: BP 142/77
[2018-10-09 06:46] LABS: HEMATOCRIT 37.9 % (36.0-47.0); HEMOGLOBIN 10.9 g/dl (12.0-15.5); MEAN CORPUSCULAR HEMOGLOBIN 25.4 pg (27.0-33.0); MEAN CORPUSCULAR HGB CONC 28.8 g/dl (32.0-36.5); MEAN CORPUSCULAR VOLUME 88.3 fl (80.0-96.0); PLATELET COUNT, AUTOMATED 395 10^3/uL (150-450); RED BLOOD COUNT 4.29 10^6/uL (4.00-5.40); WHITE BLOOD COUNT 11.5 10^3/uL (4.0-10.0)
[2018-10-09 07:25] LABS: CALCIUM LEVEL 8.4 MG/DL (8.8-10.2); GLOMERULAR FILTRATION RATE 59.4 (>45); POTASSIUM SERUM 3.4 MEQ/L (3.5-5.1)
--- NOTE | 2018-10-09 07:34 | IPNPDOC ---
Subjective Review oF Systems Chief Complaint The patient is a 62-year-old female admitted with a reason for visit of Atrophic Kidney, Ureteral Stricture. Events since Last Encounter No acute events o/n. Good pain control. No chest pain or SOB. No n/v. Ambulating well w/ walker. No f/c/ns. Objective Physical Examination General Exam: Alert, Cooperative, No Acute Distress ABDOMEN EXAM: Soft, Tenderness (mild), Other (incisions clean/dry/intact) Skin Exam: Nl turgor and temperature Psych Exam: Mental status NL, Mood NL Vital Signs/I&O Vital Signs Date Time Temp Pulse Resp B/P (MAP) Pulse Ox O2 Delivery O2 Flow Rate FiO2 10/09/18 06:00 96.5 65 18 142/77 (98) 95 10/08/18 06:00 2.0 10/07/18 21:00 Nasal Cannula I&O- Last 24 Hours up to 6 AM 10/09/18 06:00 Intake Total 1980 ml Output Total 550 ml Balance 1430 ml Laboratory Data Labs 24H Laboratory Tests 2 10/08/18 11:12: Bedside Glucose (Misc Panel) 100 10/08/18 16:13: Bedside Glucose (Misc Panel) 132H 10/08/18 21:41: Bedside Glucose (Misc Panel) 112 10/09/18 06:17: Nucleated Red Blood Cells % (auto) 0.0, Anion Gap 4L, Glomerular Filtration Rate 59.4, Blood Urea Nitrogen 14, Creatinine 1.00, Sodium Level 143, Potassium Level 3.4#L, Chloride Level 109H, Carbon Dioxide Level 30, Calcium Level 8.4L CBC/BMP Laboratory Tests 10/09/18 06:17 Red Blood Count 4.29, Mean Corpuscular Volume 88.3, Mean Corpuscular Hemoglobin 25.4 L, Mean Corpuscular Hemoglobin Concent 28.8 L, Red Cell Distribution Width 16.1 H, Calcium Level 8.4 L FSBS Laboratory Tests Test 10/08/18 11:12 10/08/18 16:13 10/08/18 21:41 Range/Units Bedside Glucose (Misc Panel) 100 132 112 80-115 MG/DL A-FIB/CHADSVASC A-FIB History Current/History of A-Fib/PAF?: No Current Oral Anticoagulant The: No Assessment/Plan Date Seen The patient was seen on 10/09/18. Patient Summary This is a 62 y/o F POD1 s/p R robotic simple nephrectomy. Doing well this am. Hb stable at 10.9. Cr stable at 1. O2 dropping w/ ambulation. Will determine if we can wean her off O2 this morning. Plan/VTE VTE Prophylaxis Ordered?: Yes VTE Exclusion Mechanical Proph: N/A:VTE Prophy Ordered VTE Exclusion Pharmacological: N/A:VTE Prophy Ordered Plan - wean O2 as tolerated - percocet prn pain - cont home meds - strict I/Os - SCDs when in bed - SQH - incentive spirometry - ambulate - possible discharge home tomorrow w/ home health ARYAN GARCES MD Oct 09, 2018 07:34
[2018-10-09] MEDS: ATORVASTATIN 20 MG TAB PO SCH (08:27)
[2018-10-09] MEDS: HumaLOG INSULIN (NovoLOG) PER UNIT SC SCH ×2 (08:27→12:00)
[2018-10-09] MEDS: SERTRALINE HCL 50 MG TAB PO SCH (08:27)
[2018-10-09] MEDS: GABAPENTIN 100 MG CAP PO SCH (08:28)
[2018-10-09] MEDS: PANTOPRAZOLE 40MG TAB (PROTONIX) PO SCH (08:28)
[2018-10-09] MEDS: DOCUSATE SODIUM 100 MG CAP PO SCH (08:28)
[2018-10-09] MEDS: PERCOCET 5MG/325MG TAB PO PRN (10:37)
[2018-10-09 14:00] VITALS: BP 106/64
[2018-10-09] MEDS ORDERED: COLA100C5 PO (14:52)
[2018-10-09] MEDS ORDERED: OXYC1TAB23 PO (14:52)
--- NOTE | 2018-10-10 17:55 | DSES ---
DATE OF ADMISSION: 10/07/2018 DATE OF DISCHARGE: 10/09/2018 ADMISSION DIAGNOSIS: Atrophic right kidney. DISCHARGE DIAGNOSIS: Atrophic right kidney. ADMITTING PHYSICIAN: Dr. Kale Washington DISCHARGING PHYSICIAN: Dr. Kale Washington PROCEDURE PERFORMED: Right robotic-assisted laparoscopic simple nephrectomy on 10/07/2018. HISTORY OF PRESENT ILLNESS: This is a 62-year-old female with an atrophic right kidney, chronic right flank pain. She has also had a right ureteral stricture, which has been managed with a chronic stent. Due to finding of her having poorly functioning right kidney, it was recommended she have the kidney removed. She is admitted to the hospital after undergoing that procedure. HOSPITALIZATION COURSE: Patient's postoperative course was unremarkable. Her labs were stable throughout her stay. Specifically, her hemoglobin remained stable at about 10.9, and her creatinine remained stable at her baseline, which is approximately 1. She had excellent urine output throughout her stay. By postoperative day #2, her pain was very well controlled, and she ambulated well. She was tolerating a regular diet. She was therefore deemed ready for discharge on postoperative day #2 with the plan to have home health come out and see her as well. She is therefore discharged on postoperative day #2 in good condition. Will have her followup in clinic in approximately 1-2 weeks for a postoperative visit.
== END 2018-10-09 16:15 | disposition home health service (06) | DRG 661 ==
LOC: M OR 05:54 → M MS5PR 15:00
PROVIDERS: ADMIT Urology; ATTEND Urology
PROC: 8E0W4CZ Robotic Assisted Procedure of Trunk Region, Percutaneous Endoscopic Approach (ICD-10-PCS; 2018-10-07)
PROC: 0TT00ZZ Resection of Right Kidney, Open Approach (ICD-10-PCS; principal; 2018-10-07 07:30)
DX: N26.1 Atrophy of kidney (terminal) (principal); N13.5 Crossing vessel and stricture of ureter without hydronephrosis; G43.009 Migraine without aura, not intractable, without status migrainosus; M50.222 Other cervical disc displacement at C5-C6 level; J45.20 Mild intermittent asthma, uncomplicated; G47.00 Insomnia, unspecified; R73.01 Impaired fasting glucose; I10 Essential (primary) hypertension; E78.5 Hyperlipidemia, unspecified; K59.09 Other constipation; E66.9 Obesity, unspecified; E55.9 Vitamin D deficiency, unspecified; M51.36 Other intervertebral disc degeneration, lumbar region; Z88.1 Allergy status to other antibiotic agents; Z79.82 Long term (current) use of aspirin; Z79.899 Other long term (current) drug therapy; Z68.33 Body mass index [BMI] 33.0-33.9, adult

== ENCOUNTER → 2018-11-02 | Outpatient (REF) | payer MEDICARE, MEDICAID ==
[~2018-11-02] MED LIST changes: +COLA100C5 PO
[2018-11-02 18:27] LABS: HEMATOCRIT 38.6 % (36.0-47.0); HEMOGLOBIN 11.4 g/dl (12.0-15.5); MEAN CORPUSCULAR HEMOGLOBIN 25.8 pg (27.0-33.0); MEAN CORPUSCULAR HGB CONC 29.5 g/dl (32.0-36.5); MEAN CORPUSCULAR VOLUME 87.3 fl (80.0-96.0); PLATELET COUNT, AUTOMATED 449 10^3/uL (150-450); RED BLOOD COUNT 4.42 10^6/uL (4.00-5.40); WHITE BLOOD COUNT 12.2 10^3/uL (4.0-10.0)
[2018-11-02 19:47] LABS: CALCIUM LEVEL 9.2 MG/DL (8.8-10.2); CREATININE FOR GFR 1.35 MG/DL (0.55-1.30); POTASSIUM SERUM 4.6 MEQ/L (3.5-5.1)
== END ==
LOC: M SHH 15:55 → M LAB REF 15:55
PROVIDERS: ATTEND Nurse Practitioner Women's Health
DX: N26.1 Atrophy of kidney (terminal) (principal)

== ENCOUNTER → 2018-11-23 | Outpatient (REF) | payer MEDICARE, MEDICAID ==
[2018-11-23 14:29] LABS: CALCIUM LEVEL 8.6 MG/DL (8.8-10.2); CREATININE FOR GFR 1.01 MG/DL (0.55-1.30); GLOMERULAR FILTRATION RATE 58.7 (>45); POTASSIUM SERUM 3.8 MEQ/L (3.5-5.1)
== END ==
LOC: M SHH 13:56
PROVIDERS: ATTEND Urology
DX: N26.1 Atrophy of kidney (terminal) (principal)

== ENCOUNTER → 2019-03-12 | Outpatient (CLI) | payer MEDICARE, MEDICAID ==
[~2019-03-12] MED LIST changes: -DULO1CAP PO; +DULO1CAP4 PO
--- NOTE | 2019-03-12 09:52 | REPMRS ---
Patient History The patient states she has not had a clinical breast exam in over a year. Patient is postmenopausal. Family history of prostate cancer at age 44 in father, colorectal cancer under age 50 in brother. Digital Woman Screen Mammo: March 12, 2019 - Exam #: [id number] Bilateral CC and MLO view(s) were taken. Technologist: Rachael Rust Technologist Prior study comparison: June 05, 2015, digital woman screen mammo performed at [facility]. July 01, 2013, digital mammo diagnostic bilateral, performed at [facility]. November 01, 2011, digital woman screen mammo performed at [facility]. FINDINGS: The breast tissue is almost entirely fat. There has been no change in the appearance of the mammogram from the prior studies. There is no interval development of dominant mass, architectural distortion, or grouped microcalcification typical of malignancy. 3-D tomosynthesis shows no additional findings. Assessment: BI-RADS/ACR category 1 mammogram. Negative Mammogram. Recommendation Routine screening mammogram of both breasts in 1 year (for women over age 40). This patient's Lifetime Breast Cancer RIsk is estimated at 5.6 %. This mammogram was interpreted with the aid of an FDA-approved computer-aided dectection system. Electronically Signed By: Camilo Stern MD 03/12/19 0951
--- NOTE | 2019-03-16 14:18 | DEXA ---
AP SPINE L1 - L4 1.163 -0.3 1.3 LT FEMUR TOTAL 0.844 -1.3 -0.1 LT NECK 0.701 -2.4 -1.0 RT FEMUR TOTAL 0.815 -1.5 -0.3 RT NECK 0.696 -2.5 -1.0 TOTAL BODY TOTAL OTHER COMMENTS: Normal bone densitometry of the spine. There is low bone density of the hips. The density of the spine has increased 1.7% since the initial exam on 11/01/2011. The spine density has decreased 6.7% since the most recent exam on 12/22/2015. The density of the left hip has decreased 16.3% since the initial exam on 11/01/2011. The density of the left hip has decreased 5.9% since the most recent exam on 12/22/2015. The density of the right hip has decreased 16.3% since the initial exam on 11/01/2011. The density of the right hip has decreased 6.0% since the most recent exam on 12/22/2015. FOLLOW-UP: Recommendation for the next bone density exam: 2 years. MICHELLE
== END ==
LOC: M WHC 08:15
PROVIDERS: ATTEND Family Medicine
DX: Z12.31 Encounter for screening mammogram for malignant neoplasm of breast (principal); Z78.0 Asymptomatic menopausal state; Z80.42 Family history of malignant neoplasm of prostate; Z80.0 Family history of malignant neoplasm of digestive organs; M85.89 Other specified disorders of bone density and structure, multiple sites; E78.2 Mixed hyperlipidemia; N13.5 Crossing vessel and stricture of ureter without hydronephrosis

== ENCOUNTER → 2019-03-12 | Outpatient (REF) | payer MEDICARE, MEDICAID ==
[2019-03-12 10:53] LABS: ALBUMIN 3.4 GM/DL (3.2-5.2); BILIRUBIN,TOTAL 0.2 MG/DL (0.2-1.0); CALCIUM LEVEL 9.1 MG/DL (8.8-10.2); CHOLESTEROL RISK RATIO 4.295 (<5); CREATININE FOR GFR 1.15 MG/DL (0.55-1.30); GLOMERULAR FILTRATION RATE 50.4 (>45); POTASSIUM SERUM 4.1 MEQ/L (3.5-5.1); TOTAL PROTEIN 6.5 GM/DL (6.4-8.2)
== END ==
LOC: M SFHCPLAZ 07:51
PROVIDERS: ATTEND Physician Assistant Medical
DX: E78.2 Mixed hyperlipidemia (principal); N13.5 Crossing vessel and stricture of ureter without hydronephrosis

== ENCOUNTER → 2019-07-29 | Outpatient (REF) | payer MEDICARE, MEDICAID ==
[~2019-07-29] MED LIST changes: -OXYB15TA PO; +OXYB15TA14 PO; +SENN-53 PO; -SENN1TAB40 PO; -SERT-155; +SERT50TA29
[2019-07-29 15:11] LABS: BASO # 0.1 10^3/uL (0.0-0.2); BASO % 0.4 % (0.0-1.0); EOS # 0.2 10^3/uL (0.0-0.5); EOS % 1.1 % (0.0-3.0); HEMATOCRIT 46.8 % (36.0-47.0); LYMPH # 2.5 10^3/uL (1.5-5.0); LYMPH % 19.2 % (24.0-44.0); MEAN CORPUSCULAR HEMOGLOBIN 26.4 pg (27.0-33.0); MEAN CORPUSCULAR HGB CONC 29.9 g/dl (32.0-36.5); MEAN CORPUSCULAR VOLUME 88.1 fl (80.0-96.0); MONO # 0.5 10^3/uL (0.0-0.8); MONO % 4.1 % (0.0-5.0); NEUTROPHILS # 9.7 10^3/uL (1.5-8.5); NEUTROPHILS % 74.6 % (36.0-66.0); PLATELET COUNT, AUTOMATED 441 10^3/uL (150-450); RED BLOOD COUNT 5.31 10^6/uL (4.00-5.40); WHITE BLOOD COUNT 13.1 10^3/uL (4.0-10.0)
[2019-07-29 15:36] LABS: HEMOGLOBIN A1c 6.2 %
[2019-07-29 15:38] LABS: ALBUMIN 4.1 GM/DL (3.2-5.2); BILIRUBIN,TOTAL 0.3 MG/DL (0.2-1.0); CALCIUM LEVEL 9.7 MG/DL (8.8-10.2); CREATININE FOR GFR 1.12 MG/DL (0.55-1.30); POTASSIUM SERUM 4.3 MEQ/L (3.5-5.1); TOTAL PROTEIN 7.4 GM/DL (6.4-8.2)
[2019-07-29 15:43] LABS: TOTAL PROTEIN,RANDOM URINE 28.7 MG/DL (0.0-12.0)
[2019-07-29 15:47] LABS: PTH INTACT 135.2 PG/ML (18.5-88.0)
== END ==
LOC: M SFHCPLAZ 11:41
PROVIDERS: ATTEND Family Medicine
DX: E21.3 Hyperparathyroidism, unspecified (principal); E11.9 Type 2 diabetes mellitus without complications; D50.9 Iron deficiency anemia, unspecified; E53.8 Deficiency of other specified B group vitamins; G43.001 Migraine without aura, not intractable, with status migrainosus; N39.0 Urinary tract infection, site not specified; Z79.899 Other long term (current) drug therapy
CPT/HCPCS: 36415; 80053; 80307; 82306; 82570; 82607; 83036; 83970; 84156; 85025; 85046; G0463

== ENCOUNTER 2019-08-11 13:22 | Emergency (ER) | payer MEDICARE, MEDICAID ==
[~2019-08-11] VITALS: Ht 165.1 cm; Wt 90.0 kg
[2019-08-11] MEDS ORDERED: VITA250T50 (14:11)
[2019-08-11] MEDS ORDERED: KETOROLAC 60 MG/2 ML VIAL (J1885) IM ONE (14:30)
[2019-08-11] MEDS ORDERED: CYCLOBENZAPRINE 5MG TABLET PO ONE (14:30)
[2019-08-11] MEDS ORDERED: CYCL5TAB PO (15:00)
[2019-08-11 15:07] VITALS: BP 112/92
== END 2019-08-11 15:09 | disposition home or self-care (01) ==
LOC: M ED 13:22
DX: M54.5 Low back pain (principal); G89.29 Other chronic pain; M62.830 Muscle spasm of back; E11.9 Type 2 diabetes mellitus without complications; I10 Essential (primary) hypertension; E78.5 Hyperlipidemia, unspecified; G43.909 Migraine, unspecified, not intractable, without status migrainosus; G40.909 Epilepsy, unspecified, not intractable, without status epilepticus; K21.9 Gastro-esophageal reflux disease without esophagitis; F41.9 Anxiety disorder, unspecified; F32.9 Major depressive disorder, single episode, unspecified; Z86.73 Personal history of transient ischemic attack (TIA), and cerebral infarction without residual deficits; Z87.442 Personal history of urinary calculi; Z88.1 Allergy status to other antibiotic agents; Z79.899 Other long term (current) drug therapy; Z79.82 Long term (current) use of aspirin; Z79.84 Long term (current) use of oral hypoglycemic drugs
CPT/HCPCS: 96372; 99283; J1885

== ENCOUNTER → 2019-08-23 | Outpatient (CLI) | payer MEDICARE ==
[~2019-08-23] MED LIST changes: +CYCL5TAB PO; +VITA250T50
--- NOTE | 2019-08-23 12:18 | REP ---
Lumbar spine six views: There are no comparisons. Vertebral body heights and alignment are normal. There is mild to moderate disc space narrowing at every lumbar level compatible with mild to moderate degenerative disc disease throughout the lumbar spine. The pedicles and facets are unremarkable except for mild osteoarthritis at the lower lumbar levels. The sacroiliac articulations are unremarkable. Impression: Mild/moderate multilevel degenerative disc disease. Mild facet osteoarthritis at the lower lumbar levels. Electronically Signed by Edwar Escalante MD 08/23/2019 12:09 P
--- NOTE | 2019-08-23 12:19 | REP ---
RIGHT HIP: Two views. HISTORY: Osteoarthritis right hip. No comparison study. FINDINGS: AP and frog-leg views of the right hip show smooth rounded femoral head and intact hip joint space. There is mild inferior acetabular spurring. No abnormality is noted in the right blake pelvis. There are soft tissue calcifications in the right gluteal soft tissues. IMPRESSION: Mild osteoarthritis right hip. Electronically Signed by Rene Stern MD 08/23/2019 05:41 P
== END ==
LOC: M RAD 11:25
PROVIDERS: ATTEND Family Medicine
DX: M16.11 Unilateral primary osteoarthritis, right hip (principal); M51.36 Other intervertebral disc degeneration, lumbar region
CPT/HCPCS: 72110; 73502; G0463

== ENCOUNTER → 2019-12-16 | Outpatient (CLI) | payer MEDICARE, MEDICAID ==
[~2019-12-16] MED LIST changes: +PANT40TA29 PO; -PANT40TA3 PO
== END ==
LOC: M PLALAB 12:38
PROVIDERS: ATTEND Family Medicine
DX: E11.9 Type 2 diabetes mellitus without complications (principal); E21.3 Hyperparathyroidism, unspecified

== ENCOUNTER → 2019-12-21 | Outpatient (REF) | payer MEDICARE, MEDICAID ==
[2019-12-21 11:54] LABS: BASO % 0.4 % (0.0-1.0); EOS # 0.2 10^3/uL (0.0-0.5); EOS % 1.6 % (0.0-3.0); HEMATOCRIT 41.6 % (36.0-47.0); HEMOGLOBIN 12.3 g/dl (12.0-15.5); LYMPH # 2.1 10^3/uL (1.5-5.0); LYMPH % 19.8 % (24.0-44.0); MEAN CORPUSCULAR HEMOGLOBIN 26.2 pg (27.0-33.0); MEAN CORPUSCULAR HGB CONC 29.6 g/dl (32.0-36.5); MEAN CORPUSCULAR VOLUME 88.5 fl (80.0-96.0); MONO # 0.6 10^3/uL (0.0-0.8); MONO % 5.6 % (0.0-5.0); NEUTROPHILS # 7.7 10^3/uL (1.5-8.5); NEUTROPHILS % 72.2 % (36.0-66.0); PLATELET COUNT, AUTOMATED 385 10^3/uL (150-450); WHITE BLOOD COUNT 10.7 10^3/uL (4.0-10.0)
[2019-12-21 12:30] LABS: PTH INTACT 124.7 PG/ML (18.5-88.0)
[2019-12-21 12:56] LABS: ALBUMIN 3.6 GM/DL (3.2-5.2); BILIRUBIN,TOTAL 0.2 MG/DL (0.2-1.0); CALCIUM LEVEL 9.5 MG/DL (8.8-10.2); CHOLESTEROL RISK RATIO 2.923 (<5); CREATININE FOR GFR 1.07 MG/DL (0.55-1.30); GLOMERULAR FILTRATION RATE 54.6 (>45); POTASSIUM SERUM 4.7 MEQ/L (3.5-5.1); TOTAL PROTEIN 6.7 GM/DL (6.4-8.2)
== END ==
LOC: M SFHCPLAZ 09:37
PROVIDERS: ATTEND Family Medicine
DX: E11.9 Type 2 diabetes mellitus without complications (principal); E21.3 Hyperparathyroidism, unspecified

== ENCOUNTER → 2020-03-20 | Outpatient (CLI) | payer MEDICARE, MEDICAID ==
--- NOTE | 2020-03-20 09:13 | REPMRS ---
Patient History The patient states she has not had a clinical breast exam in over a year. Patient is postmenopausal. Family history of prostate cancer at age 44 in father, colorectal cancer under age 50 in brother. 3D TOMOSYNTHESIS WAS PERFORMED. [facility] lifetime risk for breast cancer is 5.3%. VOLPARA DENSITY A. Digital Woman Screen Mammo: March 20, 2020 - Exam #: [id number] Bilateral CC and MLO view(s) were taken. Technologist: Marian Matamoros, Technologist Prior study comparison: March 12, 2019, bilateral digital woman screen mammo performed at [facility]. June 05, 2015, digital woman screen mammo performed at [facility]. FINDINGS: There are scattered fibroglandular densities. There has been no change in the appearance of the mammogram from the prior studies. There is a mild amount of residual fibroglandular tissue which is fairly symmetric. There is no interval development of dominant mass, architectural distortion, or clustered microcalcification suggestive of malignancy. Assessment: BI-RADS/ACR category 1 mammogram. Negative Mammogram. Recommendation Routine screening mammogram in 1 year (for women over age 40). This mammogram was interpreted with the aid of an FDA-approved computer-aided dectection system. Electronically Signed By: Edwar Sparks MD 03/20/20 0912
== END ==
LOC: M WHC 07:43
PROVIDERS: ATTEND Family Medicine
DX: Z12.31 Encounter for screening mammogram for malignant neoplasm of breast (principal); Z78.0 Asymptomatic menopausal state; Z80.0 Family history of malignant neoplasm of digestive organs

== ENCOUNTER → 2020-05-05 | Outpatient (REF) | payer MEDICARE, MEDICAID ==
[~2020-05-05] MED LIST changes: +PRED20TA PO; +TESS100C PO
== END ==
LOC: M SFHCPLAZ 13:23
PROVIDERS: ATTEND Family Medicine
DX: J45.20 Mild intermittent asthma, uncomplicated (principal)
CPT/HCPCS: 87486; 87581; 87633; 87798; G0463

== ENCOUNTER 2020-05-07 16:08 | Emergency (ER) | payer MEDICARE, MEDICAID ==
[~2020-05-07] VITALS: Ht 165.1 cm; Wt 90.8 kg
[~2020-05-07 16:08] MED LIST changes: -PRED20TA PO; -TESS100C PO
[2020-05-07] MEDS ORDERED: methylPREDNISolone 125MG 2ML VIAL IV ONE (16:45)
[2020-05-07] MEDS ORDERED: NS 1,000 ML IV ONE (16:45)
[2020-05-07] MEDS: COMBIVENT RESPIMAT 100-20MCG INHALER 4GM INH SCH ×3 (17:13→17:55)
[2020-05-07 18:31] LABS: BASO % 0.2 % (0.0-1.0); HEMATOCRIT 42.9 % (36.0-47.0); HEMOGLOBIN 12.7 g/dl (12.0-15.5); LYMPH # 1.8 10^3/uL (1.5-5.0); LYMPH % 11.2 % (24.0-44.0); MEAN CORPUSCULAR HEMOGLOBIN 25.9 pg (27.0-33.0); MEAN CORPUSCULAR HGB CONC 29.6 g/dl (32.0-36.5); MEAN CORPUSCULAR VOLUME 87.6 fl (80.0-96.0); MONO # 0.6 10^3/uL (0.0-0.8); MONO % 3.8 % (0.0-5.0); NEUTROPHILS # 13.6 10^3/uL (1.5-8.5); NEUTROPHILS % 83.9 % (36.0-66.0); PLATELET COUNT, AUTOMATED 389 10^3/uL (150-450); WHITE BLOOD COUNT 16.2 10^3/uL (4.0-10.0)
[2020-05-07 18:58] LABS: ALBUMIN 3.8 GM/DL (3.2-5.2); ALT/SGPT 15 U/L (12-78); BILIRUBIN,DIRECT 0.1 MG/DL (0.0-0.2); BILIRUBIN,TOTAL 0.3 MG/DL (0.2-1.0); BLOOD UREA NITROGEN 20 MG/DL (7-18); CALCIUM LEVEL 9.8 MG/DL (8.8-10.2); CARBON DIOXIDE LEVEL 26 MEQ/L (21-32); CHLORIDE LEVEL 109 MEQ/L (98-107); CK-MB VALUE MASS < 1.0 NG/ML (<3.6); CPK CREATINE PHOSPHOKINASE 79 U/L (26-192); CREATININE FOR GFR 1.29 MG/DL (0.55-1.30); GLUCOSE, FASTING 116 MG/DL (70-100); MB/CK RELATIVE INDEX 1.27 (< OR =4); NT-PRO BNP 233 PG/ML (<125); POTASSIUM SERUM 4.4 MEQ/L (3.5-5.1); SODIUM LEVEL 143 MEQ/L (136-145); THYROID STIMULATING HORMONE 0.313 uIU/ML (0.358-3.740); THYROXINE (T4) 10.2 UG/DL (4.5-12.0); TOTAL PROTEIN 7.4 GM/DL (6.4-8.2); TROPONIN I < 0.02 NG/ML (< 0.10)
[2020-05-07] MEDS ORDERED: ISOVUE-370 76% 100ML VIAL As Ordered ONE (19:20)
--- NOTE | 2020-05-07 20:03 | REPVR ---
PROCEDURE INFORMATION: Exam: CT Angiography Chest With Contrast Exam date and time: 05/07/2020 7:29 PM Age: 64 years old Clinical indication: Chest pain TECHNIQUE: Imaging protocol: Computed tomographic angiography of the chest with intravenous contrast. 3D rendering (Not supervised by radiologist): MIP and/or 3D reconstructed images were created by the technologist. Radiation optimization: All CT scans at this facility use at least one of these dose optimization techniques: automated exposure control; mA and/or kV adjustment per patient size (includes targeted exams where dose is matched to clinical indication); or iterative reconstruction. Contrast material: ISOVUE 370; Contrast volume: 75 ml; Contrast route: INTRAVENOUS (IV); COMPARISON: CT Chest with contrast 08/21/2016 2:01 PM FINDINGS: Pulmonary arteries: No pulmonary emboli. Aorta: No thoracic aortic aneurysm or dissection. Lungs: No lung consolidation or mass. Pleural space: No pleural effusion or pneumothorax. Heart: No cardiomegaly or pericardial effusion. Lymph nodes: No mediastinal or hilar lymphadenopathy. Bones/joints: No significant skeletal findings. Soft tissues: Unremarkable. Other findings: No significant findings in the upper abdomen. IMPRESSION: No evidence of pulmonary emboli or pneumonia. Electronically signed by: Denise Ba On 05/07/2020 20:03:25 PM
--- NOTE | 2020-05-07 20:05 | ECGEPIP ---
[facility] - ED Test Date: 2020-05-07 Pat Name: ISAIAH RDZ Department: Room: - Gender: Female Drier Tender: gardenia : 1955 Requested By: Kim Bingham Order Number: [id number] Reading MD: Kim Bingham Measurements Intervals [place] Rate: 101 P: 8 OH: 149 QRS: -5 QRSD: 79 T: 10 QT: 330 QTc: 428 Interpretive Statements SINUS TACHYCARDIA WITH OCCASIONAL VENTRICULAR PREMATURE COMPLEXES LOW QRS VOLTAGE IN PRECORDIAL LEADS POSSIBLE ANTERIOR MYOCARDIAL INFARCTION, PROBABLY OLD ABNORMAL RHYTHM ECG BASELINE WANDERING MAY AFFECT READING CW 07/01/[address] T WAVE CHANGES AMPLITUDE IN PRECORDIAL LEADS SHORTER CLINICAL CORRELATION ADVISED Electronically Signed on 05-07-2020 20:04:43 EST by Kim Bingham
[2020-05-07] MEDS ORDERED: TESS100C PO (20:34)
[2020-05-07] MEDS ORDERED: PRED20TA PO (20:34)
[2020-05-07 21:15] VITALS: BP 149/74
== END 2020-05-07 21:31 | disposition home or self-care (01) ==
LOC: M ED 16:08
DX: R05 Cough (principal); R07.1 Chest pain on breathing; R51.9 Headache, unspecified; J45.909 Unspecified asthma, uncomplicated; E78.9 Disorder of lipoprotein metabolism, unspecified; I10 Essential (primary) hypertension; F41.9 Anxiety disorder, unspecified; M54.9 Dorsalgia, unspecified; Z88.1 Allergy status to other antibiotic agents; Z79.899 Other long term (current) drug therapy; Z79.84 Long term (current) use of oral hypoglycemic drugs; Z79.82 Long term (current) use of aspirin
CPT/HCPCS: 36415; 71275; 80048; 80076; 82550; 82553; 83605; 83880; 84436; 84443; 84484; 85025; 87040; 87486; 87581; 87633; 87798; 93005; 93041; 94664; 94760; 96374; 99285; J2930; Q9967

== ENCOUNTER → 2020-07-20 | Outpatient (REF) | payer MEDICARE ==
[~2020-07-20] MED LIST changes: -AMIT25TA PO; +AMIT25TA17 PO; +PRED20TA PO; +TESS100C PO
[2020-07-20 15:41] LABS: BASO # 0.1 10^3/uL (0.0-0.2); BASO % 0.6 % (0.0-1.0); EOS # 0.2 10^3/uL (0.0-0.5); EOS % 1.7 % (0.0-3.0); HEMATOCRIT 43.9 % (36.0-47.0); HEMOGLOBIN 12.9 g/dl (12.0-15.5); LYMPH # 2.5 10^3/uL (1.5-5.0); LYMPH % 25.8 % (24.0-44.0); MEAN CORPUSCULAR HEMOGLOBIN 26.1 pg (27.0-33.0); MEAN CORPUSCULAR HGB CONC 29.4 g/dl (32.0-36.5); MEAN CORPUSCULAR VOLUME 88.7 fl (80.0-96.0); MONO # 0.5 10^3/uL (0.0-0.8); MONO % 5.3 % (0.0-5.0); NEUTROPHILS # 6.4 10^3/uL (1.5-8.5); NEUTROPHILS % 66.2 % (36.0-66.0); PLATELET COUNT, AUTOMATED 408 10^3/uL (150-450); RED BLOOD COUNT 4.95 10^6/uL (4.00-5.40); WHITE BLOOD COUNT 9.7 10^3/uL (4.0-10.0)
[2020-07-20 16:01] LABS: HEMOGLOBIN A1c 5.5 %
[2020-07-20 16:16] LABS: ALBUMIN 4.1 GM/DL (3.2-5.2); BILIRUBIN,TOTAL 0.2 MG/DL (0.2-1.0); CALCIUM LEVEL 9.7 MG/DL (8.8-10.2); CREATININE FOR GFR 1.13 MG/DL (0.55-1.30); FREE T4 1.02 NG/DL (0.76-1.46); GLOMERULAR FILTRATION RATE 51.3 (>45); POTASSIUM SERUM 4.4 MEQ/L (3.5-5.1); THYROID STIMULATING HORMONE 0.761 uIU/ML (0.358-3.740); TOTAL PROTEIN 7.1 GM/DL (6.4-8.2)
== END ==
LOC: M SFHCPLAZ 13:03
PROVIDERS: ATTEND Family Medicine
DX: D50.9 Iron deficiency anemia, unspecified (principal); E11.9 Type 2 diabetes mellitus without complications

== ENCOUNTER → 2020-08-03 | Outpatient (CLI) | payer MEDICARE ==
[~2020-08-03] MED LIST changes: +GASTROGRAFIN SOLUTION 30ML (Q9963) As Ordered ONE; +ISOVUE-370 76% 100ML VIAL As Ordered ONE
--- NOTE | 2020-08-03 19:02 | REP ---
INDICATION: VENTRAL HERNIA W/O OBSTRUCTION OR GANGRENE. Patient gives a history of prior right nephrectomy, hysterectomy, and appendectomy. COMPARISON: Comparison CT study 25 August 2018.. TECHNIQUE: 100 mL of intravenous Isovue 370 is administered. Oral contrast was administered. Pre and postcontrast scanning is included. 3 mm axial images re-formatted. Coronal and sagittal MPR images are provided. . FINDINGS: Digital preliminary production expediter radiograph demonstrates a normal bowel gas pattern. The lung bases are essentially clear. Mild linear fibrosis is noted on the left. No pleural effusion or upper abdominal ascites is seen. There is mild to moderate diffuse fatty infiltration of the liver. The liver is not felt to be enlarged. No focal hepatic lesion is seen. Spleen is normal in size homogeneous in texture. Normal adrenal glands are observed bilaterally. The right kidney is surgically absent. There is a suture line adjacent to the inferior vena cava just below the right adrenal gland. No evidence of mass or adenopathy in the nephrectomy bed. The left kidney is morphologically intact and enhances normally. There is a 1 cm cyst in its lower pole. No pancreatic abnormality is noted. No abnormality is noted in the There is a right lower quadrant spike ileum hernia trans Thompson a loop of nonobstructed ileum through a defect which measures 2.2 cm in right to left dimension by 2.8 cm in craniocaudal span. There is a tiny defect at the level of the umbilicus trans Thompson a small amount of fat. No other abdominal wall defect is observed. No evidence of bowel obstruction. Urinary bladder is unremarkable. No ovarian lesion is seen. No pelvic mass or adenopathy is observed. No bony destructive lesions seen. IMPRESSION: New finding of a right lower quadrant spike aily an hernia trans Thompson an unobstructed loop of distal ileum. Defect as above. Diffuse fatty infiltration of the liver. The appendix and uterus are surgically absent. The patient is also status post right nephrectomy. <Electronically signed by Camilo Stern > 08/03/20 [id number]
== END ==
LOC: M RAD 13:50
PROVIDERS: ATTEND Family Medicine
DX: K43.9 Ventral hernia without obstruction or gangrene (principal); K76.0 Fatty (change of) liver, not elsewhere classified
CPT/HCPCS: 74178; Q9963; Q9967

== ENCOUNTER → 2020-09-05 | Outpatient (REF) | payer MEDICARE, MEDICAID ==
[~2020-09-05] MED LIST changes: +ACET-838 PO; -GASTROGRAFIN SOLUTION 30ML (Q9963) As Ordered ONE; -ISOVUE-370 76% 100ML VIAL As Ordered ONE; -VITA250T50; +VITA250T7 PO
[2020-09-05 14:16] LABS: BASO # 0.1 10^3/uL (0.0-0.2); BASO % 0.6 % (0.0-1.0); EOS # 0.3 10^3/uL (0.0-0.5); EOS % 1.9 % (0.0-3.0); HEMATOCRIT 44.2 % (36.0-47.0); HEMOGLOBIN 13.3 g/dl (12.0-15.5); LYMPH # 3.2 10^3/uL (1.5-5.0); LYMPH % 23.7 % (24.0-44.0); MEAN CORPUSCULAR HEMOGLOBIN 26.5 pg (27.0-33.0); MEAN CORPUSCULAR HGB CONC 30.1 g/dl (32.0-36.5); MONO # 0.7 10^3/uL (0.0-0.8); MONO % 5.1 % (2.0-8.0); NEUTROPHILS # 9.1 10^3/uL (1.5-8.5); NEUTROPHILS % 67.8 % (36.0-66.0); PLATELET COUNT, AUTOMATED 421 10^3/uL (150-450); RED BLOOD COUNT 5.02 10^6/uL (4.00-5.40); WHITE BLOOD COUNT 13.4 10^3/uL (4.0-10.0)
[2020-09-05 14:29] LABS: INR 0.9; PROTHROMBIN TIME 12.3 SECONDS (12.5-14.3)
[2020-09-05 14:30] LABS: PARTIAL THROMBOPLASTIN TIME 29.5 SECONDS (24.2-38.5)
[2020-09-05 14:51] LABS: ALBUMIN 3.8 GM/DL (3.2-5.2); BILIRUBIN,TOTAL 0.2 MG/DL (0.2-1.0); CALCIUM LEVEL 9.8 MG/DL (8.8-10.2); CREATININE FOR GFR 1.08 MG/DL (0.55-1.30); POTASSIUM SERUM 5.1 MEQ/L (3.5-5.1); TOTAL PROTEIN 7.2 GM/DL (6.4-8.2)
== END ==
LOC: M SFHCPLAZ 11:53
PROVIDERS: ATTEND Family Medicine
DX: E11.9 Type 2 diabetes mellitus without complications (principal); D50.9 Iron deficiency anemia, unspecified; K27.9 Peptic ulcer, site unspecified, unspecified as acute or chronic, without hemorrhage or perforation

== ENCOUNTER → 2020-09-10 | Outpatient (CLI) | payer MEDICARE, MEDICAID | LOC: M LABSMTC 08:26 | PROVIDERS: ATTEND Anesthesiology | DX: Z01.812 Encounter for preprocedural laboratory examination (principal) ==

== ENCOUNTER 2020-09-15 06:03 | Day surgery (SDC) | payer MEDICARE, MEDICAID ==
[~2020-09-15] VITALS: Ht 162.6 cm; Wt 92.5 kg
[2020-09-15] MEDS ORDERED: TIZA2TA PO (06:47)
[2020-09-15] MEDS ORDERED: ceFAZolin SOD 2 GM in IV 1 EA IV ONE (07:00)
[2020-09-15] MEDS ORDERED: LR 1,000 ML IV ONE (07:00)
[2020-09-15] MEDS ORDERED: BUPIVACAINE/EPIN 0.25% 30 ML VIAL As Ordered ONE (07:12)
[2020-09-15] MEDS ORDERED: LACRILUBE (AKWA TEARS) OPHTH OINT 3.5 GM As Ordered ONE (07:13)
[2020-09-15] MEDS ORDERED: KETOROLAC 60MG 2ML VIAL As Ordered ONE (07:14)
[2020-09-15] MEDS ORDERED: ROCURONIUM BROMIDE 50 MG/5 ML VIAL As Ordered ONE (07:14)
[2020-09-15] MEDS ORDERED: SUGAMMADEX SODIUM 500 MG/5 ML VIAL (BRIDION) As Ordered ONE (07:14)
[2020-09-15] MEDS ORDERED: LIDOCAINE 2% 100MG/5ML SDV (FOR ANES.) As Ordered ONE (07:14)
[2020-09-15] MEDS ORDERED: propofoL 200 MG/20 ML VIAL As Ordered ONE (07:14)
[2020-09-15] MEDS ORDERED: fentaNYL 100 MCG/2 ML INJECTION (J3010) As Ordered ONE (07:14)
[2020-09-15] MEDS ORDERED: MIDAZOLAM INJ 2MG/2ML VIAL (J2250 PER 1MG) As Ordered ONE (07:14)
[2020-09-15] MEDS ORDERED: ONDANSETRON 4MG/2ML VIAL As Ordered ONE (07:14)
[2020-09-15] MEDS ORDERED: dexameTHASONE 4 MG/ML 1ML VIAL (J1100 PER 1MG) As Ordered ONE (07:14)
[2020-09-15] MEDS ORDERED: ALBUTEROL 6.7GM INHALER **FOR ANES. CART/OMNICELL ONLY As Ordered ONE (07:29)
[2020-09-15] MEDS ORDERED: ACETAMINOPHEN 1000MG 100ML IV BTL (OFIRMEV) (J0131 PER 10MG) As Ordered ONE (07:51)
[2020-09-15] MEDS ORDERED: ONDANSETRON 4MG/2ML VIAL IV PRN (09:20)
[2020-09-15] MEDS ORDERED: fentaNYL 100 MCG/2 ML INJECTION (J3010) IV PRN (09:20)
[2020-09-15] MEDS ORDERED: LR 1,000 ML IV SCH (09:20)
[2020-09-15] MEDS ORDERED: PERCOCET 5MG/325MG TAB PO PRN (09:20)
[2020-09-15] MEDS ORDERED: METOCLOPRAMIDE INJ 10MG/2ML VIAL (J2765 PER 1) IV PRN (09:20)
[2020-09-15] MEDS ORDERED: NORCO, ANEXSIA 5/325MG TABLET (HYDROcodone/ACETAMINOPHEN) PO PRN (09:20)
[2020-09-15 11:45] VITALS: BP 161/77
--- NOTE | 2020-09-15 11:49 | RO ---
OPERATIVE NOTE DATE OF OPERATION: 09/15/2020 PREOPERATIVE DIAGNOSIS: Incarcerated incisional hernia. POSTOPERATIVE DIAGNOSIS: Incarcerated incisional hernia x2. PROCEDURES: Robotic repair of incarcerated incisional hernia x2. SURGEON: Edwar Olivarez DO MOPHEAD SEWER: LUCIO Morin ANESTHESIA: General. ESTIMATED BLOOD LOSS: 5 mL. COMPLICATIONS: None. INDICATIONS FOR PROCEDURE: The patient is a 64-year-old female who presents status post nephrectomy with an incisional hernia in the right lower side. The recommendation was to proceed with robotic repair. Risks and benefits of the procedure, not limited to, but including bleeding, infection, hernia recurrence, hernia formation, damage to surrounding structures, and need for further surgery were discussed in detail with the patient. Informed consent was obtained and the procedure was planned. DESCRIPTION OF PROCEDURE: The patient was brought back to operating room #7. After sufficient sedation, the abdomen was sterilely prepped and draped. Next, a time-out was done to confirm the proper patient and proper procedure. Following that, an 8-mm incision was made in the left upper quadrant. Veress needle was inserted into the abdomen which was insufflated to 15 mmHg. The Veress needle was then removed and an 8-mm Optiview port was used to gain access to the abdomen. Once the abdomen was entered, two more 8-mm ports were placed, one in the left mid abdomen and one subxiphoid. Next, from the console, multiple adhesions along the anterior abdominal wall were taken down. There was one incarcerated hernia containing a large volume of omentum, just superior to the umbilicus in the midline that was reduced. The rest of the adhesions were taken down heading towards the right lower quadrant. Once that was completed, I was able to identify the right lower quadrant and incisional hernia as well that had a loop of small bowel adhered up inside of it. I was able to carefully dissect that free using a combination of blunt and sharp dissection as well. Once that was completely reduced, I was able to dissect circumferentially around the hernia sac enough to create enough space for repair. Next, a 0-Stratafix suture was used to completely approximate the right lower quadrant hernia defect. Once that was completed, a 6-cm round Parietex composite mesh was placed inside the abdomen. It was sutured in place using a 2-0 V-Loc suture circumferentially over top of the closed defect. Once that was completed, another 2-0 V-Loc was used to oversew and close the smaller 1-cm defect superior to the umbilicus. Once that was completed, the abdomen was examined confirming hemostasis. The needles were all removed. The abdomen was desufflated. The skin incisions were closed with 4-0 Vicryl subcuticular sutures. The abdomen was cleaned and dry Steri-Strips, 4x4, and tape were applied.
[2020-09-15] MEDS ORDERED: HYDROmorphone HCL 2 MG/ML 1ML VIAL (J1170) As Ordered ONE (12:41)
== END 2020-09-15 11:56 | disposition home or self-care (01) ==
LOC: M SDC 06:03
PROVIDERS: ATTEND Surgery
DX: K43.0 Incisional hernia with obstruction, without gangrene (principal); K66.0 Peritoneal adhesions (postprocedural) (postinfection); Z90.5 Acquired absence of kidney; R10.31 Right lower quadrant pain; J45.20 Mild intermittent asthma, uncomplicated; F32.9 Major depressive disorder, single episode, unspecified; E11.9 Type 2 diabetes mellitus without complications; M16.11 Unilateral primary osteoarthritis, right hip; N18.30 Chronic kidney disease, stage 3 unspecified; I12.9 Hypertensive chronic kidney disease with stage 1 through stage 4 chronic kidney disease, or unspecified chronic kidney disease; E21.3 Hyperparathyroidism, unspecified; G43.001 Migraine without aura, not intractable, with status migrainosus; D50.9 Iron deficiency anemia, unspecified; E78.2 Mixed hyperlipidemia; M54.9 Dorsalgia, unspecified; Z86.718 Personal history of other venous thrombosis and embolism; Z86.73 Personal history of transient ischemic attack (TIA), and cerebral infarction without residual deficits; Z88.8 Allergy status to other drugs, medicaments and biological substances; Z79.899 Other long term (current) drug therapy; Z79.82 Long term (current) use of aspirin; Z79.84 Long term (current) use of oral hypoglycemic drugs
CPT/HCPCS: 49655; C1781; J0131; J0690; J1100; J1170; J1885; J2250; J2405; J3010

== ENCOUNTER → 2020-12-14 | Outpatient (CLI) | payer MEDICARE, MEDICAID ==
[~2020-12-14] MED LIST changes: -ACET-838 PO; +ACET32TAB PO; +GABA-283 PO; -GABA-845 PO; +LIDO5DIS41 TOP; +OZEM2INJ SQ; +TIZA2TA PO
--- NOTE | 2020-12-21 00:32 | ECWPNPC ---
PATIENT NAME: ISAIAH RDZ : 1955 GENDER: FEMALE VISIT DATE: 12/14/2020 DISCHARGE DATE: 12/14/20 1404 VISIT LOCKED DATE TIME: PHYSICIAN: JORGE GILLESPIE PHYSICIAN PAGER NO: ACTIVE RESOURCE: JORGE GILLESPIE REASON FOR APPOINTMENT 1. BACK PAIN RADIATING TO LOWER EXREMITY HISTORY OF PRESENT ILLNESS DEPRESSION SCREENING: PHQ-2 (2015 EDITION) LITTLE INTEREST OR PLEASURE IN DOING THINGS?NOT AT ALL FEELING DOWN, DEPRESSED, OR HOPELESS?NOT AT ALL TOTAL SCORE0 GENERAL: ISAIAH IS A PLEASANT 65-YEAR-OLD FEMALE BEING REFERRED BY [facility] TO EVALUATE PERSISTENT LOW BACK PAIN WITH RIGHT LEG RADICULAR SYMPTOMS. ISAIAH HAS BEEN A PATIENT OF OURS IN THE PAST WITH LAST VISIT BEING IN 2019. WAS DOING GOOD WITH BACK PAIN UNTIL A FEW WEEKS AGO. PAIN IS WORSE IN THE RIGHT LOW BACK AND RIGHT LEG. REVIEWED MRI OF THE LS SPINE THAT WAS DONE RECENTLY. DENIES INJURY. DENIES RECENT FEVER ILLNESS OR SUDDEN WEIGHT LOSS. DENIES BOWEL OR BLADDER INCONTINENCE. - - -. FALL RISK SCREENING: SCREENING : NO FALLS REPORTED IN THE LAST YEAR . PAIN SCREENING: PATIENT HAS A COMPLAINT OF ACUTE OR CHRONIC PAIN :YES LOCATION OF PAIN:LOW BACK, LEG(S) INTENSITY OF PAIN (SCALE OF 1 TO 10):6 WHAT DOES YOUR PAIN FEEL LIKE:ACHING, THROBBING, SHOOTING DURATION:CONTINOUS, CONSTANT, ALL DAY PAIN IS INCREASED BY:ACTIVITIES PAIN IS DECREASED BY:SITTING PUTTING HER LEG NURSING NOTE: - - -. PAIN CENTER INTAKE QUESTIONS: DO YOU HAVE A HISTORY OF MRSA? :NO DO YOU TAKE A BLOOD THINNERS? :NO DO YOU HAVE ANY BLEEDING DISORDERS? :NO ANY NEW NUMBNESS OR WEAKNESS IN YOUR LEGS OR ARMS? :YES BOTH LEGS BUT MOSTLY ON THE RIGHT LEG ANY PACEMAKER,DEFIBRILLATOR, OR DORSAL COLUMN STIMULATOR? :NO DO YOU HAVE ANY RASHES OR OPEN SORES? :NO ARE YOU ALLERGIC TO IV DYE? :NO ARE YOU DIABETIC? :YES TYPE 2 ANY NEW PROBLEMS WITH YOUR MEDICATIONS? :NO HAVE YOU RECEIVED A VACCINE IN THE PAST 30 DAYS? :NO DO YOU PLAN TO RECEIVE A VACCINE IN THE NEXT 21 DAYS? :NO DO YOU NEED ANY PRESCRIPTION? :NO DO YOU TAKE ANY IMMUNOSUPPRESSIVE MEDICATIONS? :NO IS THERE A CHANCE YOU COULD BE ? :NO ARE YOU BREAST FEEDING? :NO CURRENT MEDICATIONS TAKING ASPIRIN 81 MG TABLET CHEWABLE 1 TABLET ORALLY ONCE A DAY TAKING CYANOCOBALAMIN 250 MCG TABLET 1 TABLET ORALLY ONCE A DAY, NOTES: VITAMIN B12 TAKING ERGOCALCIFEROL 87057 UNIT CAPSULE 1 CAPSULE ORALLY EVERY 7 DAYS, NOTES: VITAMIN D TAKING PROLIA 60MG/ML DIRECTED EVERY 6 MONTHS X 4 TAKING PEN NEEDLES 31G X 6 MM MISCELLANEOUS 1 SUBCUTANEOUSLY ONCE A DAY DX:E11.9 TAKING GLUCOMETER DIRECTED DXE11.9 DAILY TAKING LANCETS - MISCELLANEOUS DIRECTED SUBCUTANEOUSLY BID DX :E11.9 TAKING ONETOUCH DELICA LANCETS 33G - MISCELLANEOUS DIRECTED SC AC TID TAKING ONETOUCH VERIO - STRIP AC BID SUBCUTANEOUSLY BID, E11.8 TAKING FERROUS SULFATE 325 (65 FE) MG TABLET 1 TABLET ORALLY ONCE A DAY TAKING OZEMPIC 0.25 OR 0.5 MG/DOSE SOLUTION PEN-INJECTOR 0.5 MG SUBCUTANEOUS EVERY 7 DAYS TAKING BLOOD GLUCOSE TEST STRIP - STRIP DIRECTED- ACCU CHECK SUBCUTANEOUSLY BID DX: E11.9 TAKING PANTOPRAZOLE SODIUM 40 MG TABLET DELAYED RELEASE 1 TABLET ORALLY EVERY MORNING TAKING ATORVASTATIN CALCIUM 80 MG TABLET 1 TABLET ORALLY DAILY TAKING TIZANIDINE HCL 2 MG TABLET 1 TABLET NEEDED ORALLY THREE TIMES A DAY TAKING SERTRALINE HCL 50 MG TABLET TAKE ONE TABLET BY MOUTH EVERY DAY ORALLY DAILY TAKING METFORMIN HCL 500 MG TABLET 1 TABLET ORALLY TWICE A DAY TAKING AMITRIPTYLINE HCL 50 MG TABLET 1 TABLET ORALLY AT BEDTIME TAKING PREDNISONE 10 MG TABLET 1 TABLET ORALLY ONCE A DAY TAKING BACTROBAN 2 % OINTMENT 1 APPLICATION TO AFFECTED AREA EXTERNALLY BID TAKING SENNA 8.6 MG TABLET 2 ORALLY ONCE A DAY TAKING PROVENTIL HFA 108 (90 BASE) MCG/ACT AEROSOL SOLUTION 2 PUFFS NEEDED INHALATION EVERY 4 HRS TAKING E-Z SPACER - DEVICE DIRECTED _ DAILY TAKING DUONEB 0.5-2.5 (3) MG/3ML SOLUTION 3 ML INHALATION EVERY 4 HOURS NEEDED TAKING NEBULIZER - DEVICE DIRECTED _ DAILY TAKING TENS UNIT ELECTRO PADS 1 PAD SET 1 PAD INTRADERMALLY USE NEEDED TAKING MULTIVITAMIN TABLETS 1 TAB(S) ORALLY ONCE A DAY TAKING MIRALAX - POWDER DIRECTED ORALLY ONCE A DAY NEEDED TAKING LYRICA 100 MG CAPSULE 1 CAPSULE ORALLY BID MDD2, NOTES: HAVE NOT GOT IT YET TAKING GABAPENTIN 100 MG CAPSULE 1 CAPSULE ORALLY TWICE DAILY, NOTES: HAVE NOT GET IT NOT-TAKING BELBUCA 150 MCG FILM 1 FILM TO THE GUM BUCALLY EVERY 12 HRS MDD2 MEDICATION LIST REVIEWED AND RECONCILED WITH THE PATIENT PAST MEDICAL HISTORY CERVICAL DJD, 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 2010 CERVICAL MRI WITH MULTILEVEL DJD, C4-C5 BULGE WITH MILD RIGHT NEURAL FORAMINAL NARROWING-11/2010 PERMANENT TOTAL DISABILITY MIGRAINE HEADACHES, COMMON TYPE WITH HISTORY OF R HEMIPLEGIA-09/2012, 01/2018 ASTHMA, MILD INTERMITTENT-06/2011 FEV1 1.7L (69%)/RATIO 108% INSOMNIA IMPAIRED FASTING GLUCOSE HYPERTENSION-AUGUST 2008 NORMAL MONICA EXCEPT FOR MODERATE AORTIC VALVE SCLEROSIS, TRACE AR, NORMAL LVEF-ANTECOL/07/2011 [id number] HYPERLIPIDEMIA 2B CHRONIC MDD CONSTIPATION, CHRONIC OBESITY VITAMIN D DEFICIENCY LUMBAR DJD, 05/2012 MRI C L2-4 BULGES, MINIMAL L4/5 CENTRAL CANAL STENOSIS, NO CHANGE C/W 05/2010 L ADRENAL ADENOMA--FUNCTIONAL W/U NEPHROLITHIASIS, CA OXALATE BY 02/2017 STONE ANALYSIS 3 MM TUBULAR ADENOMA, TRANSVERSE COLON LIPOMA, MILD ANTRITIS (-H PYLORI), HECTOR III NON-BLEEDING GASTRIC ULCER AND - SB BIOPSY BY 03/2017 EGD/COLON-CIRO CKD STAGE III SP 09/2018 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 GARCES[facility] 01/30 APPENDECTOMY 1976 R PARTIAL URETERAL REIMPLANTATION-MILI 08/29/2017 CYSTOSCOPY W/ RIGHT STENT REMOVAL 10/07/2017 STENT PLACED RIGHT URETER 03/12/18 RIGHT ROBOTIC-ASSISTED LAPARSCOPIC SIMPLE NEPHRECTOMY = DR. GARCES 10/07/2018 HYSTERECTOMY HERNIA REMOVED 09/15/2020 FAMILY HISTORY FATHER: 44 YRS, DIAGNOSED WITH HYPERTENSION, DIABETES, OTHER MALIGNANT NEOPLASM OF UNSPECIFIED SITE MOTHER: , DIABETES, OTHER MALIGNANT NEOPLASM OF UNSPECIFIED SITE DAUGHTER(S): ALIVE 45 YRS SIBLINGS: OTHER MALIGNANT NEOPLASM OF UNSPECIFIED SITE PATERNAL GRAND MOTHER: DIABETES MATERNAL GRAND MOTHER: DIABETES PATERNAL AUNT: HYPERTENSION, DIABETES 2 BROTHER(S) , 2 SISTER(S) - HEALTHY. 1DAUGHTER(S) - HEALTHY. MOTHER CANCER, FATHER HAD CANCER. SOCIAL HISTORY GENERAL: TOBACCO USE ARE YOU A:NONSMOKER NEVER SMOKER LATEX QUESTIONNAIRE LATEX ALLERGY : HAVE YOU EVER DEVELOPED ANY TYPE OF REACTION AFTER HANDLING LATEX PRODUCTS SUCH RUBBER GLOVES, CONDOMS, DIAPHRAGMS, BALLOONS, SOCKS, OR UNDERWEAR?NO LATEX ALLERGY : HAVE YOU EVER DEVELOPED ANY TYPE OF REACTION DURING OR AFTER DENTAL APPOINTMENT, VAGINAL/RECTAL EXAMINATION, SURGICAL PROCEDURE, OR ANY OTHER EXPOSURE?NO LATEX RISK : HAVE YOU EVER HAD ANY DIFFICULTY BREATHING OR HIVES AFTER EATING OR HANDLING ANY FRUITS, OR VEGETABLES; SUCH KIWI, BANANAS, STONE FRUITS, OR CHESTNUTSNO LATEX RISK : DO YOU HAVE A PREVIOUS PERSONAL HISTORY OF MORE THAN NINE SURGERIES, SPINA BIFIDA, OR REPEATED CATHERIZATIONS? YES - PLEASE INDICATE : > 9 SURGERIES LATEX RISK : ARE YOU FREQUENTLY EXPOSED TO LATEX PRODUCTS IN YOUR OCCUPATION?NO DATE ASKED : 12/14/2020 ALCOHOL USE: NO. LUNG CANCER SCREENING SMOKING STATUS:NON SMOKER ALCOHOL SCREENING DID YOU HAVE A DRINK CONTAINING ALCOHOL IN THE PAST YEAR?NO POINTS0 INTERPRETATIONNEGATIVE RECREATIONAL DRUG USE DRUG USE?NO CAFFEINE CAFFEINE USE?NO SEXUAL HX HAD SEX IN THE LAST 12 MONTHS (VAGINAL, ORAL, OR ANAL)?NO HAVE YOU EVER HAD AN STD?NO HIV / HEP-C SCREENING HIV TEST OFFERED TO PATIENT:YES DATE OFFERED:12/16/2019 TEST ACCEPTED:NO HEP-C TEST OFFERED TO PATIENT:YES DATE OFFERED:12/16/2019 REASON:PATIENT DECLINED TEST ACCEPTED:NO REASON:PATIENT DECLINED BROCHURE PROVIDED TO PATIENTYES BAPTIST PESFSTEV48 JEW LANGUAGE LANGUAGES SPOKEN:TANZANIAN EDUCATION LEVEL OF EDUCATION:FINISHED HIGH SCHOOL LEARNING BARRIERS / SPECIAL NEEDS CHANGE FROM LAST VISIT?NO BARRIERS TO LEARNING?NO HEARING IMPAIRED?NO VISION IMPAIRED?YES :CORRECTIVE LENSES COGNITIVELY IMPAIRED?NO READINESS TO LEARN?YES LEARNING PREFERENCES?NO LEARNING CAPABILITIES PRESENT?YES EMOTIONAL BARRIERS?YES COMMENTS ANXIETY, DEPRESSION SPECIAL DEVICES?YES :CANE, WALKER NEEDED 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 DIET: REGULAR. EXERCISE: NO REGULAR EXERCISE. MARITAL STATUS: . FROM 0-10, WHAT LEVEL IS YOUR PAIN TODAY?6 - HAS THE PATIENT BEEN EDUCATED REGARDING HIS/HER PLAN OF CARE?YES HAS THE PATIENT BEEN EDUCATED REGARDING PAIN, THE RISK FOR PAIN, THE IMPORTANCE OF EFFECTIVE PAIN MANAGEMENT, AND THE PAIN ASSESSMENT PROCESS?YES ADVANCE DIRECTIVE ADVANCE DIRECTIVE DISCUSSED WITH PATIENT:YES CORBIN MILLAN (SISTER) IS HER HCP MOVED BACK [facility]2015 REVIEWED WITH PT 12/05/17 1114 BVREVIEWED WITH PT 04/14/18 0958 LASREVIEWED WITH PT 07/27/18 1111 BVREVIEWED WITH PT 09/18/18 1135 LAS. HOSPITALIZATION/MAJOR DIAGNOSTIC PROCEDURE PNEUMONIA 2010 R UE/LE WEAKNESS, FACIAL DROOP C MARMOLEJO-NORMAL MRI BRAIN, CTA NECK/BRAIN-NEUROLOGY FELT "NO ACUTE NEUROLOGICAL PROCESS" 02/04/18-02/06/18 OVERNIGHT STAY FOR STENT PLACEMENT 03/03 RIGHT LEG PAIN 11/2020 REVIEW OF SYSTEMS REVIEWED BY: PROVIDER: JORGE VALDES . CONSTITUTIONAL: ANY CHANGE IN YOUR MEDICAL CONDITION? 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 SHE IS TO HAVE THIS REMOVED IN A COUPLE OF WEEKS. . CHILLS NO . FEVER NO . INFECTION: DO YOU HAVE NEW INFECTIONS? NO . DO YOU HAVE HISTORY OF MRSA? NO . MUSCULOSKELETAL: ANY UNUSUAL JOINT PAIN OR SWELLING NOT MENTIONED PT REPORTS SHE IS HAVING SOME RIGHT FLANK PAIN, R/T KIDNEY, ALSO SOME PRESSURE /PAIN IN LOW ABDOMEN/PELVIC AREA . GASTROENTEROLOGY: ANY NEW CHANGE IN BOWEL CONTROL? NO . GENITOURINARY: ANY NEW CHANGE IN BLADDER CONTROL? YES PT REPORTS INCREASED INCONTINENCE . IS THERE A CHANCE YOU COULD BE ? NO . HEMATOLOGY/LYMPH: DO YOU TAKE ANY BLOOD THINNERS? (FOR EXAMPLE- COUMADIN, PLAVIX, AGGRENOX, PLATEL, PRADAXA, OR XARELTO) NO . WHEN WAS YOUR LAST DOSE? DATE: TIME: . NEUROLOGY: HAVE YOU FALLEN IN THE PAST 12 MONTHS? NO . OTHER NEW NUMBNESS OR PAIN PATTERNS NOT MENTIONED NO . CARDIOLOGY: DO YOU HAVE A PACEMAKER OR DEFIBRILLATOR? NO . RESPIRATORY: HAVE YOU BEEN SICK IN THE PAST WEEK? NO . FEVER NO . FLU LIKE SYMPTOMS? NO . COUGH NO . INTEGUMENTARY: DO YOU HAVE ANY RASHES OR OPEN SORES? NO . ALLERGIC/IMMUNO: ARE YOU ALLERGIC TO IV DYE? NO . ANY NEW ALLERGIES? NO . PSYCHIATRIC: DO YOU HAVE THOUGHTS OF HURTING YOURSELF OR SOMEONE ELSE? NO . ARE YOU ABUSED, NEGLECTED, OR IN AN UNSAFE ENVIRONMENT? NO . ENDOCRINOLOGY: ARE YOU DIABETIC? NO . OTHER: DO YOU NEED ANY PRESCRIPTIONS? YES . IF YES, PLEASE LIST: ____PERCOCET, GABAPENTIN . ANY NEW PROBLEMS WITH YOUR MEDICATIONS? NO . WHEN DID YOU LAST EAT? ____ . WHEN DID YOU LAST DRINK? ____ . WHAT DID YOU LAST DRINK? ____ . NAME OF PERSON DRIVING YOU HOME? ____ . DO YOU HAVE ANY OTHER QUESTIONS OR CONCERNS NO . VITAL SIGNS WT 204 LBS, HT 63 IN, BMI 36.13 INDEX, BP 155/80 MM HG, HR 84 /MIN, RR 19 /MIN, TEMP 97.5 F, OXYGEN SAT % 94%, SAFE IN ENV? (Y/N) YEST.MEREDITH MARTINEZ. EXAMINATION GENERAL EXAMINATION: GENERALCOMFORTABLE . PSYCHAFFECT NORMAL, GOOD EYE CONTACT . LUNGS:LUNG BARAJAS ARE CLEAR TO AUSCULTATION BILATERALLY. GOOD MOVEMENT OF AIR . HEART:S1, S2 IN A REGULAR RATE AND RHYTHM. NO SIGNIFICANT MURMURS, RUBS OR GALLOPS NOTED . LUMBAR:MUSCLE STRENGTH TESTING 5/5 BILATERAL LOWER EXTREMITIES SPECIFIC POINT TENDERNESS OVER BILAT. SIJ R>L. ASSESSMENTS SACROILIITIS, NOT ELSEWHERE CLASSIFIED - M46.1 (PRIMARY) TREATMENT SACROILIITIS, NOT ELSEWHERE CLASSIFIED MEDICATION: PAIN VALIUM TAB 5MG ORALLY (DIAZEPAM) MEDICATION: PAIN OXYCODONE HCL TAB 5MG ORALLY SALINE LOCK NOTES: BILATERAL SACROILIAC JOINT BLOCK PRINTED AND REVIEWED PRE PROCEDURE INFORMATION,PATIENT VERBALIZED UNDERSTANDING RUTHY ESPARZA PROCEDURE CODES FA211 ESTABILISHED PATIENT [facility] CHARGE DISPOSITION & COMMUNICATION FOLLOW UP POST (REASON: BILATERAL SACROILIAC JOINT BLOCK) ELECTRONICALLY SIGNED BY LUCIO NAJERA ON 12/20/2020 AT 03:52 PM EDT DISCLAIMER : THIS IS A VISIT SUMMARY EXTRACTED FROM THE [employer] CHART. IT IS NOT A COPY OF THE [employer] PROGRESS NOTE. CARIDADD
== END ==
LOC: M PAIN 13:00
PROVIDERS: ATTEND Nurse Practitioner Family
DX: M46.1 Sacroiliitis, not elsewhere classified (principal); G43.009 Migraine without aura, not intractable, without status migrainosus; J45.20 Mild intermittent asthma, uncomplicated; G47.00 Insomnia, unspecified; E78.5 Hyperlipidemia, unspecified; I10 Essential (primary) hypertension; R73.01 Impaired fasting glucose; F33.9 Major depressive disorder, recurrent, unspecified; K59.09 Other constipation; E66.9 Obesity, unspecified; E55.9 Vitamin D deficiency, unspecified; M51.36 Other intervertebral disc degeneration, lumbar region; E11.9 Type 2 diabetes mellitus without complications; Z68.36 Body mass index [BMI] 36.0-36.9, adult; Z79.82 Long term (current) use of aspirin; Z79.52 Long term (current) use of systemic steroids; Z79.84 Long term (current) use of oral hypoglycemic drugs; Z79.899 Other long term (current) drug therapy; Z88.1 Allergy status to other antibiotic agents

== ENCOUNTER → 2021-01-04 | Outpatient (CLI) | payer OTHER, MEDICAID | LOC: M LABSMTC 13:18 | PROVIDERS: ATTEND Anesthesiology | DX: Z20.822 Contact with and (suspected) exposure to COVID-19 (principal) ==

== ENCOUNTER → 2021-01-09 | Outpatient (CLI) | payer MEDICARE, MEDICAID ==
[~2021-01-09] MED LIST changes: +BUPIVACAINE HCL 0.25% 30ML VIAL As Ordered ONE; +ISOVUE-M 300 61% 15ML VIAL As Ordered ONE; +LIDOCAINE 1% SDV 30ML VIAL As Ordered ONE; +TRIAMCINOLONE ACETONIDE SUSP 40 MG/ML VIAL (J3301) As Ordered ONE; +diazePAM 5MG TABLET As Ordered ONE; +oxyCODONE 5MG TAB As Ordered ONE
--- NOTE | 2021-01-09 17:41 | REP ---
INDICATION: SACROILLIAC JOINT BLOCK, PAIN. COMPARISON: None. TECHNIQUE: THREE IMAGES FROM C-ARM FLUOROSCOPY GUIDANCE TO THE PAIN CLINIC ARE REVIEWED. FINDINGS: TWO IMAGES OF NEEDLE AND THEN CONTRAST INJECTION OVER THE INFERIOR ASPECT OF THE LEFT SI JOINT AND 1 IMAGE OVER THE INFERIOR ASPECT OF THE RIGHT SI JOINT ARE SEEN. IMPRESSION: STATUS POST BILATERAL SI JOINT INJECTIONS. FLUOROSCOPY TIME: 28.1 SECONDS. <Electronically signed by Kana Mccullough > 01/09/21 9590
--- NOTE | 2021-01-12 01:39 | ECWPNPC ---
PATIENT NAME: ISAIAH RDZ : 1955 GENDER: FEMALE VISIT DATE: 01/09/2021 DISCHARGE DATE: 01/09/211817 VISIT LOCKED DATE TIME: PHYSICIAN: TEETEE HAWKINS MD PHYSICIAN PAGER NO: ACTIVE RESOURCE: TEETEE HAWKINS MD REASON FOR APPOINTMENT 1. BILATERAL SACROILIAC JOINT BLOCK HISTORY OF PRESENT ILLNESS GENERAL: -. FALL RISK SCREENING: SCREENING : NO FALLS REPORTED IN THE LAST YEAR. PAIN SCREENING: PATIENT HAS A COMPLAINT OF ACUTE OR CHRONIC PAIN :YES LOCATION OF PAIN:LOW BACK INTENSITY OF PAIN (SCALE OF 1 TO 10):8 WHAT DOES YOUR PAIN FEEL LIKE:THROBBING DURATION:CONTINOUS PAIN IS INCREASED BY:ACTIVITIES PAIN IS DECREASED BY: NOTHING NURSING NOTE: -. PAIN CENTER INTAKE QUESTIONS: DO YOU HAVE A HISTORY OF MRSA? :NO DO YOU TAKE A BLOOD THINNERS? :NO DO YOU HAVE ANY BLEEDING DISORDERS? :NO ANY NEW NUMBNESS OR WEAKNESS IN YOUR LEGS OR ARMS? :YES RIGHT LEG NUMB X 2 WEEKS ANY PACEMAKER,DEFIBRILLATOR, OR DORSAL COLUMN STIMULATOR? :NO DO YOU HAVE ANY RASHES OR OPEN SORES? :NO ARE YOU ALLERGIC TO IV DYE? :NO ARE YOU DIABETIC? :YES FSBS THIS A.M. WAS @ 0830 ANY NEW PROBLEMS WITH YOUR MEDICATIONS? :NO HAVE YOU RECEIVED A VACCINE IN THE PAST 30 DAYS? :NO DO YOU PLAN TO RECEIVE A VACCINE IN THE NEXT 21 DAYS? :NO DO YOU TAKE ANY IMMUNOSUPPRESSIVE MEDICATIONS? :NO ANY HISTORY OF SEIZURES? :NO ANY HISTORY OF CARDIAC ISSUES OR EVENTS? :NO DO YOU HAVE ANY KIDNEY OR LIVER DISEASE? :YES RIGHT NEPHRECTOMY, ONLY WORKING 8% DO YOU HAVE SLEEP APNEA? :NO ANY RECENT HEAD INJURY? :NO DO YOU HAVE ANY NEW INFECTIONS? :NO IS THERE A CHANCE YOU COULD BE ? :NO ARE YOU BREAST FEEDING? :NO WHEN DID YOU LAST EAT? : 01/10 720 WHEN DID YOU LAST DRINK? : 01/09 830 WHAT DID YOU LAST DRINK? : WATER NAME OF PERSON DRIVING YOU HOME? : SISTER CORBIN MILLAN DO YOU HAVE ANY OTHER QUESTIONS OR CONCERNS? : - CURRENT MEDICATIONS TAKING ASPIRIN 81 MG TABLET CHEWABLE 1 TABLET ORALLY ONCE A DAY TAKING CYANOCOBALAMIN 250 MCG TABLET 1 TABLET ORALLY ONCE A DAY, NOTES: VITAMIN B12 TAKING ERGOCALCIFEROL 74201 UNIT CAPSULE 1 CAPSULE ORALLY EVERY 7 DAYS, NOTES: VITAMIN D TAKING PROLIA 60MG/ML DIRECTED EVERY 6 MONTHS X 4, NOTES: JUL 2020 TAKING PEN NEEDLES 31G X 6 MM MISCELLANEOUS 1 SUBCUTANEOUSLY ONCE A DAY DX:E11.9 TAKING GLUCOMETER DIRECTED DXE11.9 DAILY TAKING LANCETS - MISCELLANEOUS DIRECTED SUBCUTANEOUSLY BID DX :E11.9 TAKING ONETOUCH DELICA LANCETS 33G - MISCELLANEOUS DIRECTED SC AC TID TAKING ONETOUCH VERIO - STRIP AC BID SUBCUTANEOUSLY BID, E11.8 TAKING FERROUS SULFATE 325 (65 FE) MG TABLET 1 TABLET ORALLY ONCE A DAY TAKING OZEMPIC 0.25 OR 0.5 MG/DOSE SOLUTION PEN-INJECTOR 0.5 MG SUBCUTANEOUS EVERY 7 DAYS TAKING BLOOD GLUCOSE TEST STRIP - STRIP DIRECTED- ACCU CHECK SUBCUTANEOUSLY BID DX: E11.9 TAKING PANTOPRAZOLE SODIUM 40 MG TABLET DELAYED RELEASE 1 TABLET ORALLY EVERY MORNING TAKING ATORVASTATIN CALCIUM 80 MG TABLET 1 TABLET ORALLY DAILY TAKING TIZANIDINE HCL 2 MG TABLET 1 TABLET NEEDED ORALLY THREE TIMES A DAY, NOTES: 01/08 2100 TAKING SERTRALINE HCL 50 MG TABLET TAKE ONE TABLET BY MOUTH EVERY DAY ORALLY DAILY TAKING METFORMIN HCL 500 MG TABLET 1 TABLET ORALLY TWICE A DAY, NOTES: 01/07 TAKING AMITRIPTYLINE HCL 50 MG TABLET 1 TABLET ORALLY AT BEDTIME TAKING BACTROBAN 2 % OINTMENT 1 APPLICATION TO AFFECTED AREA EXTERNALLY BID-USES NEEDED TAKING SENNA 8.6 MG TABLET 2 ORALLY ONCE A DAY TAKING PROVENTIL HFA 108 (90 BASE) MCG/ACT AEROSOL SOLUTION 2 PUFFS NEEDED INHALATION EVERY 4 HRS, NOTES: NONE RECENT TAKING E-Z SPACER - DEVICE DIRECTED _ DAILY TAKING NEBULIZER - DEVICE DIRECTED _ DAILY TAKING TENS UNIT ELECTRO PADS 1 PAD SET 1 PAD INTRADERMALLY USE NEEDED TAKING MULTIVITAMIN TABLETS 1 TAB(S) ORALLY ONCE A DAY TAKING MIRALAX - POWDER DIRECTED ORALLY ONCE A DAY NEEDED NOT-TAKING DUONEB 0.5-2.5 (3) MG/3ML SOLUTION 3 ML INHALATION EVERY 4 HOURS NEEDED NOT-TAKING PREDNISONE 10 MG TABLET 1 TABLET ORALLY ONCE A DAY NOT-TAKING LYRICA 100 MG CAPSULE 1 CAPSULE ORALLY BID MDD2, NOTES: HAVE NOT GOT IT YET NOT-TAKING GABAPENTIN 100 MG CAPSULE 1 CAPSULE ORALLY TWICE DAILY, NOTES: HAVE NOT GET IT NOT-TAKING BELBUCA 150 MCG FILM 1 FILM TO THE GUM BUCALLY EVERY 12 HRS MDD2 MEDICATION LIST REVIEWED AND RECONCILED WITH THE PATIENT PAST MEDICAL HISTORY CERVICAL DJD, 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 2010 CERVICAL MRI WITH MULTILEVEL DJD, C4-C5 BULGE WITH MILD RIGHT NEURAL FORAMINAL NARROWING-11/2010 PERMANENT TOTAL DISABILITY MIGRAINE HEADACHES, COMMON TYPE WITH HISTORY OF R HEMIPLEGIA-09/2012, 01/2018 ASTHMA, MILD INTERMITTENT-06/2011 FEV1 1.7L (69%)/RATIO 108% INSOMNIA IMPAIRED FASTING GLUCOSE HYPERTENSION-AUGUST 2008 NORMAL M[place] EXCEPT FOR MODERATE AORTIC VALVE SCLEROSIS, TRACE AR, NORMAL LVEF-ANTECOL/07/2011 [id number] HYPERLIPIDEMIA 2B CHRONIC MDD CONSTIPATION, CHRONIC OBESITY VITAMIN D DEFICIENCY LUMBAR DJD, 05/2012 MRI C L2-4 BULGES, MINIMAL L4/5 CENTRAL CANAL STENOSIS, NO CHANGE C/W 05/2010 L ADRENAL ADENOMA--FUNCTIONAL W/U NEPHROLITHIASIS, CA OXALATE BY 02/2017 STONE ANALYSIS 3 MM TUBULAR ADENOMA, TRANSVERSE COLON LIPOMA, MILD ANTRITIS (-H PYLORI), HECTOR III NON-BLEEDING GASTRIC ULCER AND - SB BIOPSY BY 03/2017 EGD/COLON-CIRO CKD STAGE III SP 09/2018 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-08/2018 SPLIT FUNCTION L/R 92/8 08/2018 MAG3) PNEUMOCOCCAL VACCINE 04/12/2017 TYPE 2 DIABETES ARTTHRISTIS OF HIP AND KNEE ABDOMINAL PAIN RIGHT FLANK PAIN 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 REMOVED MODERNA 1ST: 09/03/2020 2ND: 10/04/2020 ALLERGIES FLAGYL: RASH - ALLERGY SOCIAL HISTORY GENERAL: TOBACCO USE ARE YOU A:NONSMOKER NEVER SMOKER LATEX QUESTIONNAIRE LATEX ALLERGY : HAVE YOU EVER DEVELOPED ANY TYPE OF REACTION AFTER HANDLING LATEX PRODUCTS SUCH RUBBER GLOVES, CONDOMS, DIAPHRAGMS, BALLOONS, SOCKS, OR UNDERWEAR?NO LATEX ALLERGY : HAVE YOU EVER DEVELOPED ANY TYPE OF REACTION DURING OR AFTER DENTAL APPOINTMENT, VAGINAL/RECTAL EXAMINATION, SURGICAL PROCEDURE, OR ANY OTHER EXPOSURE?NO DATE ASKED : 12/14/2020 LATEX RISK : HAVE YOU EVER HAD ANY DIFFICULTY BREATHING OR HIVES AFTER EATING OR HANDLING ANY FRUITS, OR VEGETABLES; SUCH KIWI, BANANAS, STONE FRUITS, OR CHESTNUTSNO LATEX RISK : DO YOU HAVE A PREVIOUS PERSONAL HISTORY OF MORE THAN NINE SURGERIES, SPINA BIFIDA, OR REPEATED CATHERIZATIONS? YES - PLEASE INDICATE : > 9 SURGERIES LATEX RISK : ARE YOU FREQUENTLY EXPOSED TO LATEX PRODUCTS IN YOUR OCCUPATION?NO ALCOHOL USE: NO. LUNG CANCER SCREENING SMOKING STATUS:NON SMOKER ALCOHOL SCREENING DID YOU HAVE A DRINK CONTAINING ALCOHOL IN THE PAST YEAR?NO POINTS0 INTERPRETATIONNEGATIVE RECREATIONAL DRUG USE DRUG USE?NO CAFFEINE CAFFEINE USE?NO SEXUAL HX HAD SEX IN THE LAST 12 MONTHS (VAGINAL, ORAL, OR ANAL)?NO HAVE YOU EVER HAD AN STD?NO HIV / HEP-C SCREENING HIV TEST OFFERED TO PATIENT:YES DATE OFFERED:12/16/2019 TEST ACCEPTED:NO HEP-C TEST OFFERED TO PATIENT:YES DATE OFFERED:12/16/2019 REASON:PATIENT DECLINED TEST ACCEPTED:NO REASON:PATIENT DECLINED BROCHURE PROVIDED TO PATIENTYES TAOIST [id number] TAOIST LANGUAGE LANGUAGES SPOKEN:KINYARWANDA EDUCATION LEVEL OF EDUCATION:FINISHED HIGH SCHOOL LEARNING BARRIERS / SPECIAL NEEDS CHANGE FROM LAST VISIT?NO BARRIERS TO LEARNING?NO HEARING IMPAIRED?NO VISION IMPAIRED?YES COGNITIVELY IMPAIRED?NO :CORRECTIVE LENSES READINESS TO LEARN?YES LEARNING PREFERENCES?NO LEARNING CAPABILITIES PRESENT?YES EMOTIONAL BARRIERS?YES COMMENTS ANXIETY, DEPRESSION SPECIAL DEVICES?YES :CANE, WALKER NEEDED GEAR CUTTER NEEDED?NO DOMESTIC VIOLENCE DO YOU FEEL SAFE IN YOUR ENVIRONMENT?YES OCCUPATION: RETIRED. DIET: REGULAR. EXERCISE: NO REGULAR EXERCISE. MARITAL STATUS: . - HAS THE PATIENT BEEN EDUCATED REGARDING HIS/HER PLAN OF CARE?YES HAS THE PATIENT BEEN EDUCATED REGARDING PAIN, THE RISK FOR PAIN, THE IMPORTANCE OF EFFECTIVE PAIN MANAGEMENT, AND THE PAIN ASSESSMENT PROCESS?YES ADVANCE DIRECTIVE ADVANCE DIRECTIVE DISCUSSED WITH PATIENT:YES CORBIN MILLAN (SISTER) IS HER HCP MOVED BACK FROM [facility] 03/2015. VITAL SIGNS WT 206.0 LBS, HT 63 IN, BMI 36.49 INDEX, BP 162/77 MM HG, HR 81 /MIN, RR 18 /MIN, TEMP 97.8 F, OXYGEN SAT % 94%, SAFE IN ENV? (Y/N) Y, NA INITIALS AW 1302, REVIEWED BY: Jovany PEDRO RN. EXAMINATION GENERAL: THE PATIENT IS ALERT, ORIENTED TIMES THREE AND COOPERATIVE. LUNGS ARE CLEAR TO AUSCULTATION. HEART SHOWS REGULAR RHYTHM, NO MURMURS AND NO GALLOPS. ASSESSMENTS SACROILIAC JOINT PAIN - M53.3 (PRIMARY) SACROILIITIS, NOT ELSEWHERE CLASSIFIED - M46.1 TREATMENT SACROILIAC JOINT PAIN MEDICATION: PAIN VALIUM TAB 5MG ORALLY (DIAZEPAM)OSEI MCKENZIEBETH 01/09/2021 4:05:13 PM > VERIFIED WILLISKAYLYNN 01/09/2021 4:06:20 PM > ADMINISTERED MEDICATION: PAIN OXYCODONE HCL TAB 5MG ORALLY JONAH,WALTER 01/09/2021 4:02:33 PM > VERIFIED WILLISKAYLYNN 01/09/2021 4:06:40 PM > ADMINISTERED SALINE LOCKDEKAYLYNN LINCOLN 01/09/2021 4:28:37 PM > 2 UNSUCCESSFUL ATTEMPTS TO START SL. NO BLD RETURN ON EITHER ATTEMPT. JUSTINO WYATT 01/09/2021 4:55:04 PM > 22G SL ATTEMPTED BY THIS FROZEN FOOD SELECTOR IN LEFT FOREARM, POSITIVE FLASH, UNABLE TO FLUSH,IV CATHETER TIP INTACT, DSD APPLIED. JUSTINO WYATT 01/09/2021 4:56:15 PM > 22G SL OTAINED ON SECOND ATTEMPT BY Jovany CHAVARRIA RN BSN, IN LEFT FOREARM, POSITIVE FLASH, POSITIVE FLUSH, NO S/S OF INFILTRATION NOTED, PATIENT TOLERATED PROCEDURE WELL. COMPLETION OF PROCEDURAL VISIT WHEN MEETS CRITERIA SACROILIITIS, NOT ELSEWHERE CLASSIFIED [facility] FLUORO GUIDANCE (PAIN)[id number] PROCEDURES PAIN NURSING RECORD PROCEDURE IN ROOM 1658, PHYSICIAN IN ROOM 1712, START 1715, FINISH 1720, PHYSICIAN OUT OF ROOM 1723, OUT OF ROOM 1729 VIA STRETCHER, ECG NORMAL SINUS, PATIENT SHIELDED YES, SAFETY STRAP YES, PREP CHLOROPREP Jovany PEDRO RN, DRESSING TEGADERM DR. HAWKINS LOC: KAYLYNN PEDRO 01/09/2021 4:20:24 PM > 1. ALERT, ORIENTED RESP: KAYLYNN PEDRO 01/09/2021 4:20:27 PM > 1. REGULAR, NO DYSPNEA COLOR: KAYLYNN PEDRO 01/09/2021 4:20:36 PM > 1. PINK SKIN: KAYLYNN PEDRO 01/09/2021 4:20:42 PM > 1. WARM, DRY POSITION: KAYLYNN PEDRO 01/09/2021 5:00:35 PM > 1. PRONE VITALS: KAYLYNN PEDRO 01/09/2021 4:20:51 PM > 155/81,78,18,97%, JUSTINO WYATT 01/09/2021 4:33:43 PM > 157/82, 74, 18, 98% RAKAYLYNN MONAHAN 01/09/2021 4:35:02 PM > 157/82,78,18, 100% KAYLYNN PEDRO 01/09/2021 5:03:33 PM >202/97,82,18,97% KAYLYNN PEDRO 01/09/2021 5:18:18 PM > 163/93,82,18,96% KAYLYNN PEDRO 01/09/2021 5:27:58 PM > 164/100,78,18,97% KAYLYNN PEDRO 01/09/2021 5:41:38 PM > 147/71,84,18,94% NOTES KAYLYNN PEDRO 01/09/2021 5:23:32 PM > FLUOR TIME 28 SECS COMPLETION OF PROCEDURE APPOINTMENT: POST PAIN 7, DRESSING SITE DRY AND INTACT, IV DISCONTINUED, SITE CLEAR, CATHETER INTACT, GAIT STEADY DISCHARGED VIA W/C DUE TO PROCEDURE, TEACHING COMPLETED, PATIENT ACKNOWLEDGES UNDERSTANDING YES, PROCEDURE APPOINTMENT COMPLETED AT 1755 BY: Jovany PEDRO RN PN SI PRE PROCEDURE DIAGNOSIS SACROILIITIS, SACROILIAC JOINT DYSFUNCTION POST PROCEDURE DIAGNOSIS SACROILIITIS, SACROILIAC JOINT DYSFUNCTION PROCEDURE BILATERAL SACROILIAC JOINT BLOCK SURGEON DR. TEETEE HAWKINS MACHINERY ENGINEER NONE ANESTHESIA LOCAL PRE PROCEDURE NOTE THE PATIENT WITH HISTORY OF CHRONIC LOW BACK PAIN. I EVALUATED THE PATIENT AND REVIEWED THE CHART. I WENT OVER THE RISKS, ALTERNATIVES, AND BENEFITS ASSOCIATED WITH THIS PROCEDURE. THE PATIENT WOULD LIKE TO PROCEED AND GAVE CONSENT TO PERFORM THE PROCEDURE. THE PATIENT DENIES UNEXPLAINABLE WEIGHT LOSS, FEVER, CHILLS, OR NEW CHANGES IN URINARY OR BOWEL CONTROL. THE PATIENT IS COVID-19 NEGATIVE DESCRIPTION OF PROCEDURE THE PATIENT WAS BROUGHT TO THE PROCEDURE ROOM AND PLACED IN THE PRONE POSITION. THE LUMBOSACRAL AREA WAS CLEANED WITH CHLORAPREP SOLUTION AND DRAPED ASEPTICALLY. THE PROCEDURE WAS DONE UNDER STERILE CONDITIONS. A TIMEOUT WAS PERFORMED WHERE THE CONSENTED SITE WAS VERIFIED WITH EVERYONE IN THE ROOM. UNDER FLUOROSCOPIC GUIDANCE, THE TARGET POINT WAS SELECTED AT THE LOWER BORDER OF THE RIGHT AND LEFT SACROILIAC JOINT. TARGET POINT WAS SELECTED AFTER MEDIAL ROTATION AND TILT OF THE MAGNIFIER OR THE C-ARM. I CONFIRMED AGAIN THE SITE OF TARGET. LIDOCAINE 0.5% WAS USED TO NUMB THE SKIN AND THE SUBCUTANEOUS TISSUE BELOW IT. SPINAL NEEDLES, 22-GAUGE, WERE ADVANCED UNDER FLUOROSCOPIC GUIDANCE AND FOLLOWING PATIENT FEEDBACK UNTIL THE TARGETS WERE TOUCHED. THE POSITION OF THE NEEDLES WAS VERIFIED WITH AP AND OBLIQUE VIEWS. AFTER PROPER POSITION OF THE NEEDLES WAS ACHIEVED, ISOVUE-M DYE 30%, 0.1 ML, WAS INJECTED SHOWING ADEQUATE SPREAD OF THE DYE. KENALOG 20 MG WAS INJECTED AT EACH SITE. THEN, A SOLUTION OF 3.0 ML OF BUPIVACAINE 0.125% WAS USED TO FLUSH EACH NEEDLE. THE MEDICATIONS WERE VERIFIED WITH THE NURSE. THERE WAS NO EVIDENCE OF BLOOD, PARESTHESIA OR CEREBROSPINAL FLUID DURING THE PROCEDURE. THE PATIENT WAS SENT TO THE RECOVERY ROOM. THE PATIENT WAS MOVING THE EXTREMITIES AND DOING WELL. THERE WERE NO COMPLICATIONS DURING THE PROCEDURE. ESTIMATED BLOOD LOSS WAS LESS THAN 5 ML. FLUOROSCOPIC TIME WAS 28 SECONDS. POST PROCEDURE NOTE THE PROCEDURE DONE WAS DISCUSSED WITH THE PATIENT. THE PATIENT WILL BE SEEN IN A FOLLOW UP IN THE NEXT FEW WEEKS. I AM LOOKING FOR LONG LASTING PAIN RELIEF FOR THE PATIENT WITH THIS INTERVENTION. INSTRUCTIONS WERE GIVEN, QUESTIONS WERE ANSWERED, AND THE PATIENT EXPRESSED UNDERSTANDING AND AGREES WITH THE PLAN. I, KAMAR KUO, DOCUMENTED THE ABOVE INFORMATION ACTING A SCRIBE FOR DR. HAWKINS. I HAVE REVIEWED THE ABOVE DOCUMENT, WRITTEN BY KAMAR KUO, SPEECH AND HEARING DIRECTOR, AND I VERIFY THAT IT IS ACCURATE PROCEDURE CODES 61237 INJECT SACROILIAC JOINT, MODIFIERS: 50 DISPOSITION & COMMUNICATION FOLLOW UP FOLLOW UP WITH TEXTILE MACHINE OPERATOR (REASON: POST BILATERAL SACROILIAC JOINT BLOCK) ELECTRONICALLY SIGNED BY TEETEE HAWKINS MD, MD ON 01/11/2021 AT 11:31 AM EDT DISCLAIMER : THIS IS A VISIT SUMMARY EXTRACTED FROM THE [facility] CHART. IT IS NOT A COPY OF THE [facility] PROGRESS NOTE. MICHELLE
== END ==
LOC: M PAIN 13:20
PROVIDERS: ATTEND Anesthesiology
DX: M53.3 Sacrococcygeal disorders, not elsewhere classified (principal); M46.1 Sacroiliitis, not elsewhere classified; E78.5 Hyperlipidemia, unspecified; J45.30 Mild persistent asthma, uncomplicated; G47.00 Insomnia, unspecified; I12.9 Hypertensive chronic kidney disease with stage 1 through stage 4 chronic kidney disease, or unspecified chronic kidney disease; F32.9 Major depressive disorder, single episode, unspecified; E66.9 Obesity, unspecified; K59.09 Other constipation; E55.9 Vitamin D deficiency, unspecified; M51.36 Other intervertebral disc degeneration, lumbar region; M50.30 Other cervical disc degeneration, unspecified cervical region; N18.30 Chronic kidney disease, stage 3 unspecified; E11.22 Type 2 diabetes mellitus with diabetic chronic kidney disease; Z88.1 Allergy status to other antibiotic agents; Z68.36 Body mass index [BMI] 36.0-36.9, adult; Z79.82 Long term (current) use of aspirin; Z79.84 Long term (current) use of oral hypoglycemic drugs; Z79.899 Other long term (current) drug therapy
CPT/HCPCS: G0260; J3301; Q9967

== ENCOUNTER → 2021-04-03 | Outpatient (CLI) | payer OTHER, MEDICAID, MEDICARE ==
[~2021-04-03] MED LIST changes: -BUPIVACAINE HCL 0.25% 30ML VIAL As Ordered ONE; -ISOVUE-M 300 61% 15ML VIAL As Ordered ONE; -KLOR10TA76 PO; -LIDOCAINE 1% SDV 30ML VIAL As Ordered ONE; +POTA-136 PO; -TRIAMCINOLONE ACETONIDE SUSP 40 MG/ML VIAL (J3301) As Ordered ONE; -diazePAM 5MG TABLET As Ordered ONE; -oxyCODONE 5MG TAB As Ordered ONE
--- NOTE | 2021-04-03 15:34 | REP ---
INDICATION: PAIN COMPARISON: None. TECHNIQUE: AP, lateral, bilateral oblique views left foot. FINDINGS: Generalized age-related degenerative changes include cortical irregularity and subchondral sclerosis essentially throughout the joint spaces. Lateral view demonstrates small calcaneal heel spur and underlying calcifications to the adjacent plantar fascia. No evidence for acute fracture or dislocation. IMPRESSION: Moderate generalized age-related degenerative changes. No acute fracture or dislocation. <Electronically signed by Mick Medina > 04/03/21 [id number]
== END ==
LOC: M WUC 11:10
PROVIDERS: ATTEND Physician Assistant Medical
DX: M19.072 Primary osteoarthritis, left ankle and foot (principal)

== ENCOUNTER → 2021-05-31 | Outpatient (REF) | payer OTHER, MEDICAID, MEDICARE | LOC: M SFHCPLAZ 13:15 | PROVIDERS: ATTEND Physician Assistant | DX: R09.89 Other specified symptoms and signs involving the circulatory and respiratory systems (principal) | CPT/HCPCS: 87426; G0463; U0003 ==

== ENCOUNTER 2021-07-30 16:18 | Emergency (ER) | payer MEDICARE, MEDICAID ==
[~2021-07-30] VITALS: Ht 165.1 cm; Wt 88.2 kg
[2021-07-30 20:17] LABS: BASO % 0.5 % (0.0-1.0); EOS # 0.2 10^3/uL (0.0-0.5); EOS % 2.3 % (0.0-3.0); HEMATOCRIT 42.8 % (36.0-47.0); HEMOGLOBIN 12.9 g/dl (12.0-15.5); LYMPH # 2.4 10^3/uL (1.5-5.0); LYMPH % 28.5 % (24.0-44.0); MEAN CORPUSCULAR HEMOGLOBIN 25.9 pg (27.0-33.0); MEAN CORPUSCULAR HGB CONC 30.1 g/dl (32.0-36.5); MEAN CORPUSCULAR VOLUME 85.8 fl (80.0-96.0); MONO # 0.5 10^3/uL (0.0-0.8); NEUTROPHILS # 5.3 10^3/uL (1.5-8.5); NEUTROPHILS % 62.1 % (36.0-66.0); PLATELET COUNT, AUTOMATED 339 10^3/uL (150-450); RED BLOOD COUNT 4.99 10^6/uL (4.00-5.40); WHITE BLOOD COUNT 8.6 10^3/uL (4.0-10.0)
[2021-07-30 20:37] LABS: BLOOD UREA NITROGEN 17 MG/DL (7-18); CALCIUM LEVEL 6.8 MG/DL (8.8-10.2); CARBON DIOXIDE LEVEL 23 MEQ/L (21-32); CHLORIDE LEVEL 120 MEQ/L (98-107); CREATININE FOR GFR 0.69 MG/DL (0.55-1.30); GLOMERULAR FILTRATION RATE > 60.0 (>45); GLUCOSE, FASTING 72 MG/DL (70-100); POTASSIUM SERUM 3.3 MEQ/L (3.5-5.1); SODIUM LEVEL 150 MEQ/L (136-145)
[2021-07-30] MEDS ORDERED: ISOVUE-370 76% 100ML VIAL As Ordered ONE (22:15)
[2021-07-30 22:51] LABS: ALBUMIN 3.2 GM/DL (3.2-5.2); ALT/SGPT 14 U/L (12-78); BILIRUBIN,DIRECT < 0.1 MG/DL (0.0-0.2); BILIRUBIN,TOTAL 0.2 MG/DL (0.2-1.0); BLOOD UREA NITROGEN 20 MG/DL (7-18); CALCIUM LEVEL 8.2 MG/DL (8.8-10.2); CARBON DIOXIDE LEVEL 26 MEQ/L (21-32); CHLORIDE LEVEL 111 MEQ/L (98-107); CREATININE FOR GFR 0.98 MG/DL (0.55-1.30); FREE T4 1.06 NG/DL (0.76-1.46); GLOMERULAR FILTRATION RATE > 60.0 (>45); GLUCOSE, FASTING 88 MG/DL (70-100); LIPASE 103 U/L (73-393); SODIUM LEVEL 144 MEQ/L (136-145); TOTAL PROTEIN 6.1 GM/DL (6.4-8.2)
[2021-07-31 00:28] VITALS: BP 175/68
== END 2021-07-31 00:31 | disposition home or self-care (01) ==
LOC: M ED 16:18 → EDBD 16:18 → M ED 07-31 00:31
DX: R07.9 Chest pain, unspecified (principal); R06.02 Shortness of breath; R10.9 Unspecified abdominal pain; N18.9 Chronic kidney disease, unspecified; Z86.73 Personal history of transient ischemic attack (TIA), and cerebral infarction without residual deficits; E11.9 Type 2 diabetes mellitus without complications; Z90.5 Acquired absence of kidney; Z79.899 Other long term (current) drug therapy; Z79.82 Long term (current) use of aspirin
CPT/HCPCS: 36415; 71046; 71275; 74177; 80048; 80076; 82330; 83690; 84439; 84443; 84484; 85025; 85379; 93005; 99284; Q9967

== ENCOUNTER → 2021-08-15 | Outpatient (CLI) | payer MEDICARE, MEDICAID ==
[~2021-08-15] MED LIST changes: +ISOVUE-370 76% 100ML VIAL As Ordered ONE
== END ==
LOC: M RAD 15:27
PROVIDERS: ATTEND Family Medicine
DX: R91.1 Solitary pulmonary nodule (principal)
CPT/HCPCS: 71260; Q9967

== ENCOUNTER → 2021-10-17 | Outpatient (CLI) | payer MEDICARE, MEDICAID ==
[~2021-10-17] MED LIST changes: -ISOVUE-370 76% 100ML VIAL As Ordered ONE
== END ==
LOC: M PAIN 14:15
PROVIDERS: ATTEND Nurse Practitioner Family
DX: M46.1 Sacroiliitis, not elsewhere classified (principal); G89.29 Other chronic pain; E11.9 Type 2 diabetes mellitus without complications; G43.909 Migraine, unspecified, not intractable, without status migrainosus; J45.20 Mild intermittent asthma, uncomplicated; Z86.59 Personal history of other mental and behavioral disorders; Z88.1 Allergy status to other antibiotic agents; Z79.82 Long term (current) use of aspirin; Z79.84 Long term (current) use of oral hypoglycemic drugs; Z79.899 Other long term (current) drug therapy

== ENCOUNTER → 2022-01-29 | Outpatient (CLI) | payer MEDICARE, MEDICAID ==
[2022-01-29 15:21] LABS: BASO % 0.5 % (0.0-1.0); EOS # 0.2 10^3/uL (0.0-0.5); EOS % 2.3 % (0.0-3.0); HEMATOCRIT 45.2 % (36.0-47.0); HEMOGLOBIN 13.4 g/dl (12.0-15.5); LYMPH # 2.2 10^3/uL (1.5-5.0); LYMPH % 29.1 % (24.0-44.0); MEAN CORPUSCULAR HEMOGLOBIN 26.2 pg (27.0-33.0); MEAN CORPUSCULAR HGB CONC 29.6 g/dl (32.0-36.5); MEAN CORPUSCULAR VOLUME 88.5 fl (80.0-96.0); MONO # 0.4 10^3/uL (0.0-0.8); MONO % 5.3 % (2.0-8.0); NEUTROPHILS # 4.8 10^3/uL (1.5-8.5); NEUTROPHILS % 62.4 % (36.0-66.0); PLATELET COUNT, AUTOMATED 349 10^3/uL (150-450); RED BLOOD COUNT 5.11 10^6/uL (4.00-5.40); WHITE BLOOD COUNT 7.7 10^3/uL (4.0-10.0)
[2022-01-29 15:23] LABS: ALBUMIN 3.8 GM/DL (3.2-5.2); BILIRUBIN,TOTAL 0.3 MG/DL (0.2-1.0); CALCIUM LEVEL 9.7 MG/DL (8.8-10.2); CHOLESTEROL RISK RATIO 6.5 (<5); CREATININE FOR GFR 1.04 MG/DL (0.55-1.30); GLOMERULAR FILTRATION RATE 56.1 (>45); POTASSIUM SERUM 4.5 MEQ/L (3.5-5.1)
[2022-01-29 15:25] LABS: HEMOGLOBIN A1c 5.6 %
[2022-01-29 15:41] LABS: CREATININE, URINE 45.6 MG/DL; MALB URINE SIEMENS 5.2 MG/L; MAU/CREAT RATIO 11.4 MCG/MG (0.0-30.0)
[2022-01-29 15:54] LABS: TOTAL 25(OH) VITAMIN D 26.2 NG/ML (30.0-100.0)
== END ==
LOC: M PLALAB 09:41
PROVIDERS: ATTEND Nurse Practitioner Family
DX: G43.909 Migraine, unspecified, not intractable, without status migrainosus (principal); D50.9 Iron deficiency anemia, unspecified; E78.00 Pure hypercholesterolemia, unspecified

== ENCOUNTER 2022-07-24 09:57 | Emergency (ER) | payer MEDICARE, MEDICAID ==
[2022-07-24 10:48] LABS: HEMATOCRIT 45.5 % (36.0-47.0); HEMOGLOBIN 13.9 g/dl (12.0-15.5); MEAN CORPUSCULAR HEMOGLOBIN 26.6 pg (27.0-33.0); MEAN CORPUSCULAR HGB CONC 30.5 g/dl (32.0-36.5); MEAN CORPUSCULAR VOLUME 87.2 fl (80.0-96.0); PLATELET COUNT, AUTOMATED 318 10^3/uL (150-450); RED BLOOD COUNT 5.22 10^6/uL (4.00-5.40); WHITE BLOOD COUNT 6.8 10^3/uL (4.0-10.0)
[2022-07-24 11:14] LABS: AMPHETAMINES LEVEL URINE NEGATIVE (NEGATIVE); BARBITURATES URINE NEGATIVE (NEGATIVE); BENZODIAZEPINES URINE NEGATIVE (NEGATIVE); CANNABINOIDS URINE NEGATIVE (NEGATIVE); COCAINE METABOLITE URINE NEGATIVE (NEGATIVE); METHADONE URINE NEGATIVE (NEGATIVE); OPIATES URINE NEGATIVE (NEGATIVE); PHENCYCLIDINE URINE NEGATIVE (NEGATIVE)
[2022-07-24 11:21] LABS: ETHYL ALCOHOL (ETHANOL) 0.004 % (0.000-0.010)
[2022-07-24 11:22] LABS: ACETAMINOPHEN LEVEL < 2.0 UG/ML (10.0-20.0); SALICYLATE LEVEL < 3.0 MG/DL (<30)
[2022-07-24 12:03] LABS: ALBUMIN 3.8 G/DL (3.2-5.2); ALKALINE PHOSPHATASE 120 U/L (46-116); ALT/SGPT 11 U/L (7.0-40); AST/SGOT 24 U/L (<34); BILIRUBIN,DIRECT 0.2 MG/DL (<0.4); BILIRUBIN,TOTAL 0.5 MG/DL (0.3-1.2); BLOOD UREA NITROGEN 20 MG/DL (9-23); CALCIUM LEVEL 9.7 MG/DL (8.3-10.6); CARBON DIOXIDE LEVEL 29 MMOL/L (20-31); CHLORIDE LEVEL 107 MMOL/L (98-107); CREATININE FOR GFR 1.07 MG/DL (0.55-1.30); GLOMERULAR FILTRATION RATE 54.3 (>45); GLUCOSE, FASTING 88 MG/DL (74-106); POTASSIUM SERUM 4.2 MMOL/L (3.5-5.1); SODIUM LEVEL 141 MMOL/L (136-145); THYROID STIMULATING HORMONE 0.709 uIU/ML (0.55-4.78)
[2022-07-24] MEDS ORDERED: risperiDONE 0.5 MG TAB PO ONE (14:30)
[2022-07-24 18:28] VITALS: BP 152/70
== END 2022-07-24 18:33 | disposition home or self-care (01) ==
LOC: M ED 09:57
DX: F32.A Depression, unspecified (principal); M25.551 Pain in right hip; I12.9 Hypertensive chronic kidney disease with stage 1 through stage 4 chronic kidney disease, or unspecified chronic kidney disease; N18.30 Chronic kidney disease, stage 3 unspecified; E78.5 Hyperlipidemia, unspecified; J45.909 Unspecified asthma, uncomplicated; Z88.8 Allergy status to other drugs, medicaments and biological substances; Z79.899 Other long term (current) drug therapy; Z79.51 Long term (current) use of inhaled steroids; Z79.84 Long term (current) use of oral hypoglycemic drugs

== ENCOUNTER 2022-08-16 10:07 | Inpatient (IN) | payer MEDICARE, MEDICAID ==
[~2022-08-16] VITALS: Ht 160 cm; Wt 83.2 kg
[2022-08-16 11:20] LABS: VENOUS BASE EXCESS 0.6 (-2.0-2.0); VENOUS HCO3 27.2 MEQ/L (23.0-27.0); VENOUS O2 SATURATION 52.1 % (60.0-80.0); VENOUS PARTIAL PRESSURE CO2 51.2 mmHg (38.0-50.0); VENOUS PARTIAL PRESSURE O2 27.6 mmHg (30.0-50.0); VENOUS PH 7.343 UNITS (7.330-7.430); VENOUS STANDARD HCO3 23.8 MEQ/L; VENOUS TOTAL CO2 28.8 MEQ/L (24.0-28.0)
[2022-08-16 11:26] LABS: BASO % 0.4 % (0.0-1.0); EOS % 0.5 % (0.0-3.0); HEMATOCRIT 47.7 % (36.0-47.0); HEMOGLOBIN 14.6 g/dl (12.0-15.5); LYMPH # 1.5 10^3/uL (1.5-5.0); LYMPH % 17.5 % (24.0-44.0); MEAN CORPUSCULAR HEMOGLOBIN 26.4 pg (27.0-33.0); MEAN CORPUSCULAR HGB CONC 30.6 g/dl (32.0-36.5); MEAN CORPUSCULAR VOLUME 86.3 fl (80.0-96.0); MONO # 0.3 10^3/uL (0.0-0.8); MONO % 4.1 % (2.0-8.0); NEUTROPHILS # 6.4 10^3/uL (1.5-8.5); NEUTROPHILS % 77.3 % (36.0-66.0); PLATELET COUNT, AUTOMATED 367 10^3/uL (150-450); RED BLOOD COUNT 5.53 10^6/uL (4.00-5.40); WHITE BLOOD COUNT 8.3 10^3/uL (4.0-10.0)
[2022-08-16 11:52] LABS: ALBUMIN 3.8 G/DL (3.2-5.2); ALKALINE PHOSPHATASE 115 U/L (46-116); ALT/SGPT 10 U/L (7.0-40); AST/SGOT 18 U/L (<34); BILIRUBIN,DIRECT < 0.1 MG/DL (<0.4); BILIRUBIN,TOTAL 0.3 MG/DL (0.3-1.2); BLOOD UREA NITROGEN 18 MG/DL (9-23); CALCIUM LEVEL 9.2 MG/DL (8.3-10.6); CARBON DIOXIDE LEVEL 31 MMOL/L (20-31); CHLORIDE LEVEL 105 MMOL/L (98-107); CREATININE FOR GFR 0.98 MG/DL (0.55-1.30); GLOMERULAR FILTRATION RATE > 60.0 (>45); GLUCOSE, FASTING 99 MG/DL (74-106); OSMOLALITY SERUM 296 MOSM/KG (280-301); SODIUM LEVEL 143 MMOL/L (136-145); TOTAL PROTEIN 6.8 G/DL (5.7-8.2)
[2022-08-16 11:54] LABS: THYROID STIMULATING HORMONE 0.581 uIU/ML (0.55-4.78)
[2022-08-16 12:06] LABS: RSV AMPLIFICATION NEGATIVE (NEGATIVE)
[2022-08-16] MEDS ORDERED: ISOVUE-370 76% 100ML VIAL As Ordered ONE (13:33)
[2022-08-16 13:51] LABS: TOTAL 25(OH) VITAMIN D 30.3 NG/ML (20.0-100.0)
[2022-08-16] MEDS ORDERED: GLUCAGON INJ 1MG VIAL SC PRN (13:55)
[2022-08-16] MEDS ORDERED: DEXTROSE 50% 50ML SYRINGE IV PRN (13:55)
[2022-08-16] MEDS ORDERED: GLUCOSE 4GM CHEW TABLET PO PRN (13:55)
[2022-08-16] MEDS ORDERED: ERGO500029 PO (15:01)
[2022-08-16] MEDS ORDERED: FLON1SPR NARES (15:01)
[2022-08-16] MEDS ORDERED: MIRA3350 PO (15:01)
[2022-08-16] MEDS ORDERED: MED REC COMMENT (15:01)
[2022-08-16 15:30] VITALS: BP 93/72
[2022-08-16 16:03] LABS: HEMOGLOBIN A1c 5.8 % (4.0-6.0)
[2022-08-16 16:11] VITALS: BP 135/84
[2022-08-16] MEDS: INSULIN LISPRO (NovoLOG) PER UNIT SC SCH ×2 (16:55→20:50)
[2022-08-16 20:50] VITALS: BP 123/70
[2022-08-16] MEDS: ENOXAPARIN 60MG/0.6ML SYRINGE (J1650 PER 10MG) SC SCH (20:57)
[2022-08-16] MEDS: QUEtiapine FUMARATE 25 MG TAB PO SCH (20:57)
[2022-08-17] MEDS: ACETAMINOPHEN TAB 650MG DOSE (2X325MG) PO PRN ×2 (03:37→20:32)
[2022-08-17 05:53] LABS: HEMATOCRIT 42.3 % (36.0-47.0); HEMOGLOBIN 12.8 g/dl (12.0-15.5); MEAN CORPUSCULAR HEMOGLOBIN 26.1 pg (27.0-33.0); MEAN CORPUSCULAR HGB CONC 30.3 g/dl (32.0-36.5); MEAN CORPUSCULAR VOLUME 86.3 fl (80.0-96.0); PLATELET COUNT, AUTOMATED 288 10^3/uL (150-450); WHITE BLOOD COUNT 5.8 10^3/uL (4.0-10.0)
[2022-08-17 06:00] VITALS: BP 110/64
[2022-08-17 06:27] LABS: BLOOD UREA NITROGEN 17 MG/DL (9-23); CALCIUM LEVEL 8.8 MG/DL (8.3-10.6); CARBON DIOXIDE LEVEL 28 MMOL/L (20-31); CHLORIDE LEVEL 107 MMOL/L (98-107); CREATININE FOR GFR 0.89 MG/DL (0.55-1.30); GLOMERULAR FILTRATION RATE > 60.0 (>45); GLUCOSE, FASTING 92 MG/DL (74-106); MAGNESIUM LEVEL 2.2 MG/DL (1.8-2.4); POTASSIUM SERUM 3.6 MMOL/L (3.5-5.1); SODIUM LEVEL 144 MMOL/L (136-145)
[2022-08-17] MEDS: INSULIN LISPRO (NovoLOG) PER UNIT SC SCH ×4 (07:30→20:24)
[2022-08-17] MEDS: FERROUS SULFATE 325MG TAB PO SCH (08:46)
[2022-08-17] MEDS: DONEPEZIL 5 MG TAB PO SCH (08:46)
[2022-08-17] MEDS: ASPIRIN 81MG ENTERIC TABLET PO SCH (08:46)
[2022-08-17] MEDS: ATORVASTATIN 20 MG TAB PO SCH (08:46)
[2022-08-17] MEDS: ENOXAPARIN 60MG/0.6ML SYRINGE (J1650 PER 10MG) SC SCH (08:47)
[2022-08-17] MEDS ORDERED: ENOXAPARIN 40MG/0.4ML SYRINGE (J1650 PER 10MG) SC SCH (09:00)
[2022-08-17] MEDS: PANTOPRAZOLE 40MG TAB (PROTONIX) PO SCH (10:18)
[2022-08-17] MEDS: SERTRALINE HCL 50 MG TAB PO SCH (10:18)
[2022-08-17 14:00] VITALS: BP 128/96
[2022-08-17] MEDS: QUEtiapine FUMARATE 25 MG TAB PO SCH (20:29)
[2022-08-17] MEDS: AMITRIPTYLINE 50 MG TAB PO SCH (20:29)
[2022-08-17 21:00] VITALS: BP 121/76
[2022-08-17] MEDS ORDERED: SERTRALINE HCL 50 MG TAB PO SCH (21:00)
[2022-08-18 06:00] VITALS: BP 105/52
[2022-08-18 06:16] LABS: HEMATOCRIT 43.6 % (36.0-47.0); HEMOGLOBIN 13.1 g/dl (12.0-15.5); MEAN CORPUSCULAR HEMOGLOBIN 26.1 pg (27.0-33.0); PLATELET COUNT, AUTOMATED 283 10^3/uL (150-450); RED BLOOD COUNT 5.01 10^6/uL (4.00-5.40); WHITE BLOOD COUNT 5.8 10^3/uL (4.0-10.0)
[2022-08-18 06:42] LABS: CALCIUM LEVEL 8.8 MG/DL (8.3-10.6); CREATININE FOR GFR 0.99 MG/DL (0.55-1.30); GLOMERULAR FILTRATION RATE 59.4 (>45); MAGNESIUM LEVEL 2.1 MG/DL (1.8-2.4); POTASSIUM SERUM 3.7 MMOL/L (3.5-5.1)
[2022-08-18] MEDS: INSULIN LISPRO (NovoLOG) PER UNIT SC SCH (07:30)
[2022-08-18] MEDS: PANTOPRAZOLE 40MG TAB (PROTONIX) PO SCH (09:23)
[2022-08-18] MEDS: DONEPEZIL 5 MG TAB PO SCH (09:23)
[2022-08-18] MEDS: ATORVASTATIN 20 MG TAB PO SCH (09:23)
[2022-08-18] MEDS: ASPIRIN 81MG ENTERIC TABLET PO SCH (09:23)
[2022-08-18] MEDS: FERROUS SULFATE 325MG TAB PO SCH (09:23)
[2022-08-18] MEDS: SERTRALINE HCL 50 MG TAB PO SCH (09:24)
[2022-08-18] MEDS: ENOXAPARIN 40MG/0.4ML SYRINGE (J1650 PER 10MG) SC SCH (09:24)
[2022-08-18 14:00] VITALS: BP 127/88
[2022-08-18] MEDS ORDERED: ALBUTEROL SULFATE 2.5MG/0.5ML INH NEB SOLN NEB PRN (14:40)
[2022-08-18] MEDS ORDERED: MIRALAX *UNIT DOSE* 17GM PACKET PO PRN (14:45)
[2022-08-18] MEDS: metFORMIN (GLUCOPHAGE) 500MG TAB PO SCH (17:36)
[2022-08-18] MEDS: AMITRIPTYLINE 50 MG TAB PO SCH (20:34)
[2022-08-18] MEDS: QUEtiapine FUMARATE 50MG TAB PO SCH (20:34)
[2022-08-18] MEDS: ACETAMINOPHEN TAB 650MG DOSE (2X325MG) PO PRN (20:35)
[2022-08-19 06:00] VITALS: BP 127/68
[2022-08-19] MEDS: SERTRALINE HCL 50 MG TAB PO SCH (08:43)
[2022-08-19] MEDS: DONEPEZIL 5 MG TAB PO SCH (08:43)
[2022-08-19] MEDS: ATORVASTATIN 20 MG TAB PO SCH (08:43)
[2022-08-19] MEDS: ASPIRIN 81MG ENTERIC TABLET PO SCH (08:43)
[2022-08-19] MEDS: FERROUS SULFATE 325MG TAB PO SCH (08:43)
[2022-08-19] MEDS: metFORMIN (GLUCOPHAGE) 500MG TAB PO SCH ×2 (08:43→18:40)
[2022-08-19] MEDS: PANTOPRAZOLE 40MG TAB (PROTONIX) PO SCH (08:43)
[2022-08-19] MEDS: ENOXAPARIN 40MG/0.4ML SYRINGE (J1650 PER 10MG) SC SCH (08:44)
[2022-08-19] MEDS: QUEtiapine FUMARATE 50MG TAB PO SCH (20:51)
[2022-08-19] MEDS: AMITRIPTYLINE 50 MG TAB PO SCH (20:51)
[2022-08-20 06:00] VITALS: BP 100/56
[2022-08-20] MEDS: SERTRALINE HCL 50 MG TAB PO SCH (09:07)
[2022-08-20] MEDS: ENOXAPARIN 40MG/0.4ML SYRINGE (J1650 PER 10MG) SC SCH (09:08)
[2022-08-20] MEDS: ASPIRIN 81MG ENTERIC TABLET PO SCH (09:08)
[2022-08-20] MEDS: ATORVASTATIN 20 MG TAB PO SCH (09:08)
[2022-08-20] MEDS: metFORMIN (GLUCOPHAGE) 500MG TAB PO SCH ×2 (09:08→18:19)
[2022-08-20] MEDS: DONEPEZIL 5 MG TAB PO SCH (09:08)
[2022-08-20] MEDS: FERROUS SULFATE 325MG TAB PO SCH (09:09)
[2022-08-20] MEDS: PANTOPRAZOLE 40MG TAB (PROTONIX) PO SCH (09:09)
[2022-08-20 09:10] VITALS: BP 103/60
[2022-08-20] MEDS: ACETAMINOPHEN TAB 650MG DOSE (2X325MG) PO PRN (10:11)
[2022-08-20] MEDS: QUEtiapine FUMARATE 50MG TAB PO SCH (20:13)
[2022-08-20] MEDS: AMITRIPTYLINE 50 MG TAB PO SCH (20:13)
[2022-08-20 23:07] LABS: VITAMIN B1 LEVEL WHOLE BLOOD 99.1 nmol/L (66.5-200.0)
[2022-08-21 06:00] VITALS: BP 104/61
[2022-08-21] MEDS: ENOXAPARIN 40MG/0.4ML SYRINGE (J1650 PER 10MG) SC SCH (08:16)
[2022-08-21] MEDS: FERROUS SULFATE 325MG TAB PO SCH (08:16)
[2022-08-21] MEDS: DONEPEZIL 5 MG TAB PO SCH (08:17)
[2022-08-21] MEDS: SERTRALINE HCL 50 MG TAB PO SCH (08:17)
[2022-08-21] MEDS: PANTOPRAZOLE 40MG TAB (PROTONIX) PO SCH (08:17)
[2022-08-21] MEDS: ASPIRIN 81MG ENTERIC TABLET PO SCH (08:17)
[2022-08-21] MEDS: ATORVASTATIN 20 MG TAB PO SCH (08:17)
[2022-08-21] MEDS: metFORMIN (GLUCOPHAGE) 500MG TAB PO SCH ×2 (08:18→18:38)
[2022-08-21 10:44] LABS: BASO % 0.2 % (0.0-1.0); EOS # 0.2 10^3/uL (0.0-0.5); EOS % 1.7 % (0.0-3.0); HEMATOCRIT 46.1 % (36.0-47.0); HEMOGLOBIN 13.8 g/dl (12.0-15.5); LYMPH # 1.6 10^3/uL (1.5-5.0); MEAN CORPUSCULAR HEMOGLOBIN 26.3 pg (27.0-33.0); MEAN CORPUSCULAR HGB CONC 29.9 g/dl (32.0-36.5); MEAN CORPUSCULAR VOLUME 87.8 fl (80.0-96.0); MONO # 0.4 10^3/uL (0.0-0.8); MONO % 3.5 % (2.0-8.0); NEUTROPHILS # 7.8 10^3/uL (1.5-8.5); NEUTROPHILS % 78.3 % (36.0-66.0); PLATELET COUNT, AUTOMATED 312 10^3/uL (150-450); RED BLOOD COUNT 5.25 10^6/uL (4.00-5.40); WHITE BLOOD COUNT 9.9 10^3/uL (4.0-10.0)
[2022-08-21 11:05] LABS: INR 0.87
[2022-08-21 11:23] LABS: ALBUMIN 3.2 G/DL (3.2-5.2); BILIRUBIN,TOTAL 0.2 MG/DL (0.3-1.2); CALCIUM LEVEL 9.1 MG/DL (8.3-10.6); CREATININE FOR GFR 1.07 MG/DL (0.55-1.30); GLOMERULAR FILTRATION RATE 54.3 (>45); POTASSIUM SERUM 4.1 MMOL/L (3.5-5.1); TOTAL PROTEIN 6.1 G/DL (5.7-8.2)
[2022-08-21] MEDS: QUEtiapine FUMARATE 50MG TAB PO SCH (21:10)
[2022-08-21] MEDS: AMITRIPTYLINE 50 MG TAB PO SCH (21:10)
[2022-08-22 06:00] VITALS: BP 103/60
[2022-08-22] MEDS: metFORMIN (GLUCOPHAGE) 500MG TAB PO SCH (08:15)
[2022-08-22] MEDS: ASPIRIN 81MG ENTERIC TABLET PO SCH (08:15)
[2022-08-22] MEDS: ENOXAPARIN 40MG/0.4ML SYRINGE (J1650 PER 10MG) SC SCH (08:16)
[2022-08-22] MEDS: ATORVASTATIN 20 MG TAB PO SCH (08:16)
[2022-08-22] MEDS: PANTOPRAZOLE 40MG TAB (PROTONIX) PO SCH (08:16)
[2022-08-22] MEDS: FERROUS SULFATE 325MG TAB PO SCH (08:16)
[2022-08-22] MEDS: SERTRALINE HCL 50 MG TAB PO SCH (08:16)
[2022-08-22] MEDS: DONEPEZIL 5 MG TAB PO SCH (08:16)
[2022-08-22] MEDS ORDERED: QUET50TA4 PO (11:28)
[2022-08-22] MEDS ORDERED: DONE10TA90 PO (11:28)
== END 2022-08-22 12:25 | DRG 57 ==
LOC: M ED 10:07 → M ED INP 14:24 → M MSPAV 15:26
PROVIDERS: ADMIT Internal Medicine; ATTEND Internal Medicine
DX: G31.83 Neurocognitive disorder with Lewy bodies (principal); G93.40 Encephalopathy, unspecified; I12.9 Hypertensive chronic kidney disease with stage 1 through stage 4 chronic kidney disease, or unspecified chronic kidney disease; E78.5 Hyperlipidemia, unspecified; R73.03 Prediabetes; M47.812 Spondylosis without myelopathy or radiculopathy, cervical region; M47.816 Spondylosis without myelopathy or radiculopathy, lumbar region; F02.80 Dementia in other diseases classified elsewhere, unspecified severity, without behavioral disturbance, psychotic disturbance, mood disturbance, and anxiety; G43.009 Migraine without aura, not intractable, without status migrainosus; J45.20 Mild intermittent asthma, uncomplicated; N18.30 Chronic kidney disease, stage 3 unspecified; E55.9 Vitamin D deficiency, unspecified; E66.9 Obesity, unspecified; M19.90 Unspecified osteoarthritis, unspecified site; Z87.442 Personal history of urinary calculi; Z90.49 Acquired absence of other specified parts of digestive tract; F32.9 Major depressive disorder, single episode, unspecified; Z68.32 Body mass index [BMI] 32.0-32.9, adult; Z79.82 Long term (current) use of aspirin; Z79.899 Other long term (current) drug therapy; Z79.84 Long term (current) use of oral hypoglycemic drugs; Z88.8 Allergy status to other drugs, medicaments and biological substances

== ENCOUNTER → 2022-09-01 | Outpatient (REF) | payer MEDICARE, MEDICAID ==
[~2022-09-01] MED LIST changes: +DONE10TA90 PO; +ERGO500029 PO; +FLON1SPR NARES; +MED REC COMMENT; +MIRA3350 PO; +QUET50TA4 PO
[2022-09-01 15:37] LABS: APPEARANCE, URINE HAZY (CLEAR); BACTERIA, URINE AUTO 1+ (NEGATIVE); BILIRUBIN, URINE AUTO NEGATIVE (NEGATIVE); BLOOD, URINE BLOOD 3+ (NEGATIVE); COLOR, URINE YELLOW (YELLOW); GLUCOSE, URINE (UA) AUTO NEGATIVE (NEGATIVE); KETONE, URINE AUTO NEGATIVE (NEGATIVE); LEUKOCYTE ESTERASE, URINE AUTO 1+ (NEGATIVE); NITRITE, URINE AUTO NEGATIVE (NEGATIVE); PROTEIN, URINE AUTO 2+ mg/dL (NEGATIVE); RBC, URINE AUTO TNTC /HPF (0-3); SPECIFIC GRAVITY URINE AUTO 1.018 (1.002-1.035); SQUAMOUS EPITHELIAL CELL UR AU 0 /HPF (0-6); UROBILINOGEN, URINE AUTO 0.2 mg/dL (0.0-2.0); WBC, URINE AUTO 59 /HPF (0-3)
== END ==
LOC: SKLAB8 10:55
PROVIDERS: ATTEND Internal Medicine
DX: R30.0 Dysuria (principal)

== ENCOUNTER → 2022-09-30 | Outpatient (CLI) | payer MEDICARE, OTHER, MEDICAID | LOC: M PAIN 15:00 | PROVIDERS: ATTEND Nurse Practitioner Family | DX: M46.1 Sacroiliitis, not elsewhere classified (principal); G89.29 Other chronic pain; M47.812 Spondylosis without myelopathy or radiculopathy, cervical region; J45.20 Mild intermittent asthma, uncomplicated; G47.00 Insomnia, unspecified; I12.9 Hypertensive chronic kidney disease with stage 1 through stage 4 chronic kidney disease, or unspecified chronic kidney disease; E78.5 Hyperlipidemia, unspecified; F33.9 Major depressive disorder, recurrent, unspecified; K59.09 Other constipation; E66.9 Obesity, unspecified; E55.9 Vitamin D deficiency, unspecified; M47.816 Spondylosis without myelopathy or radiculopathy, lumbar region; N18.30 Chronic kidney disease, stage 3 unspecified; E11.22 Type 2 diabetes mellitus with diabetic chronic kidney disease; F03.90 Unspecified dementia, unspecified severity, without behavioral disturbance, psychotic disturbance, mood disturbance, and anxiety; Z68.34 Body mass index [BMI] 34.0-34.9, adult; Z79.84 Long term (current) use of oral hypoglycemic drugs; Z79.82 Long term (current) use of aspirin; Z79.899 Other long term (current) drug therapy; Z88.1 Allergy status to other antibiotic agents ==

== ENCOUNTER → 2022-10-29 | Outpatient (REF) | payer MEDICARE, MEDICAID ==
[2022-10-29 09:59] LABS: HEMATOCRIT 40.8 % (36.0-47.0); HEMOGLOBIN 12.4 g/dl (12.0-15.5); MEAN CORPUSCULAR HEMOGLOBIN 26.9 pg (27.0-33.0); MEAN CORPUSCULAR HGB CONC 30.4 g/dl (32.0-36.5); MEAN CORPUSCULAR VOLUME 88.5 fl (80.0-96.0); PLATELET COUNT, AUTOMATED 353 10^3/uL (150-450); RED BLOOD COUNT 4.61 10^6/uL (4.00-5.40); WHITE BLOOD COUNT 13.3 10^3/uL (4.0-10.0)
[2022-10-29 10:28] LABS: ALBUMIN 3.7 G/DL (3.2-5.2); BILIRUBIN,TOTAL 0.4 MG/DL (0.3-1.2); CALCIUM LEVEL 9.4 MG/DL (8.3-10.6); CREATININE FOR GFR 1.08 MG/DL (0.55-1.30); GLOMERULAR FILTRATION RATE 53.7 (>45); POTASSIUM SERUM 4.5 MMOL/L (3.5-5.1); TOTAL PROTEIN 6.7 G/DL (5.7-8.2)
== END ==
LOC: SKLAB8 07:51
PROVIDERS: ATTEND Internal Medicine
DX: U07.1 COVID-19 (principal); Z79.899 Other long term (current) drug therapy

== ENCOUNTER → 2022-11-07 | Outpatient (REF) | payer MEDICARE, MEDICAID ==
[2022-11-07 09:26] LABS: HEMATOCRIT 43.9 % (36.0-47.0); HEMOGLOBIN 13.4 g/dl (12.0-15.5); MEAN CORPUSCULAR HEMOGLOBIN 26.5 pg (27.0-33.0); MEAN CORPUSCULAR HGB CONC 30.5 g/dl (32.0-36.5); MEAN CORPUSCULAR VOLUME 86.9 fl (80.0-96.0); PLATELET COUNT, AUTOMATED 350 10^3/uL (150-450); RED BLOOD COUNT 5.05 10^6/uL (4.00-5.40); WHITE BLOOD COUNT 8.6 10^3/uL (4.0-10.0)
[2022-11-07 09:58] LABS: BILIRUBIN,TOTAL 0.3 MG/DL (0.3-1.2); CREATININE FOR GFR 0.99 MG/DL (0.55-1.30); GLOMERULAR FILTRATION RATE 59.4 (>45); POTASSIUM SERUM 4.5 MMOL/L (3.5-5.1); TOTAL PROTEIN 7.1 G/DL (5.7-8.2)
== END ==
LOC: SKLAB8 07:00
PROVIDERS: ATTEND Internal Medicine
DX: U07.1 COVID-19 (principal); Z79.899 Other long term (current) drug therapy

== ENCOUNTER → 2022-12-24 | Outpatient (REF) | payer MEDICARE, MEDICAID ==
[2022-12-24 11:33] LABS: BASO # 0.1 10^3/uL (0.0-0.2); BASO % 0.5 % (0.0-1.0); EOS # 0.3 10^3/uL (0.0-0.5); HEMATOCRIT 39.3 % (36.0-47.0); HEMOGLOBIN 11.7 g/dl (12.0-15.5); LYMPH # 2.5 10^3/uL (1.5-5.0); LYMPH % 20.3 % (24.0-44.0); MEAN CORPUSCULAR HGB CONC 29.8 g/dl (32.0-36.5); MEAN CORPUSCULAR VOLUME 90.8 fl (80.0-96.0); MONO # 0.7 10^3/uL (0.0-0.8); MONO % 5.6 % (2.0-8.0); NEUTROPHILS # 8.7 10^3/uL (1.5-8.5); NEUTROPHILS % 70.8 % (36.0-66.0); PLATELET COUNT, AUTOMATED 379 10^3/uL (150-450); RED BLOOD COUNT 4.33 10^6/uL (4.00-5.40); WHITE BLOOD COUNT 12.3 10^3/uL (4.0-10.0)
[2022-12-24 11:56] LABS: ALBUMIN 3.5 G/DL (3.2-5.2); BILIRUBIN,TOTAL 0.2 MG/DL (0.3-1.2); CALCIUM LEVEL 9.7 MG/DL (8.3-10.6); GLOMERULAR FILTRATION RATE 58.5 (>45); POTASSIUM SERUM 4.9 MMOL/L (3.5-5.1); TOTAL PROTEIN 6.5 G/DL (5.7-8.2)
== END ==
LOC: SKLAB8 10:42
PROVIDERS: ATTEND Nurse Practitioner Family
DX: E11.9 Type 2 diabetes mellitus without complications (principal)

== ENCOUNTER → 2022-12-31 | Outpatient (CLI) | payer MEDICARE, MEDICAID | LOC: M RAD 14:03 | PROVIDERS: ATTEND Internal Medicine | DX: R10.32 Left lower quadrant pain (principal) ==

== ENCOUNTER → 2023-08-07 | Outpatient (REF) | payer MEDICARE, MEDICAID ==
[~2023-08-07] MED LIST changes: -AMIT25TA17 PO; +AMIT25TA19 PO; -GABA-283 PO; +GABA-284 PO
[2023-08-07 10:00] LABS: HEMOGLOBIN 11.1 g/dl (12.0-15.5); MEAN CORPUSCULAR HGB CONC 29.2 g/dl (32.0-36.5); MEAN CORPUSCULAR VOLUME 82.3 fl (80.0-96.0); PLATELET COUNT, AUTOMATED 369 10^3/uL (150-450); RED BLOOD COUNT 4.62 10^6/uL (4.00-5.40); WHITE BLOOD COUNT 10.7 10^3/uL (4.0-10.0)
[2023-08-07 10:38] LABS: IRON (FE) 30 UG/DL (50-170)
[2023-08-07 10:39] LABS: PERCENT SATURATION 8.8 % (13.2-45.0); TOTAL IRON BINDING CAPACITY 342 UG/DL (250-425)
[2023-08-07 10:40] LABS: ALBUMIN 3.2 G/DL (3.2-5.2); ALKALINE PHOSPHATASE 139 U/L (46-116); ALT/SGPT 17 U/L (7.0-40); AST/SGOT 14 U/L (<34); BILIRUBIN,TOTAL 0.3 MG/DL (0.3-1.2); BLOOD UREA NITROGEN 20 MG/DL (9-23); CALCIUM LEVEL 9.6 MG/DL (8.3-10.6); CARBON DIOXIDE LEVEL 28 MMOL/L (20-31); CHLORIDE LEVEL 104 MMOL/L (98-107); CHOLESTEROL LEVEL 124 MG/DL (<200); CHOLESTEROL RISK RATIO 2.94 (<5); CREATININE FOR GFR 0.93 MG/DL (0.55-1.30); FERRITIN 8.9 NG/ML (7.3-270.7); GLOMERULAR FILTRATION RATE > 60.0 (>45); GLUCOSE, FASTING 158 MG/DL (74-106); HDL CHOLESTEROL 42.1 MG/DL (>40); LDL CHOLESTEROL 52.9 MG/DL (<100); NON-HDL-C 81.9 MG/DL; POTASSIUM SERUM 4.5 MMOL/L (3.5-5.1); SODIUM LEVEL 139 MMOL/L (136-145); TOTAL PROTEIN 6.3 G/DL (5.7-8.2); TRIGLYCERIDES LEVEL 145 MG/DL (<150)
[2023-08-07 10:50] LABS: HEMOGLOBIN A1c 6.4 % (4.0-6.0)
[2023-08-07 12:31] LABS: TOTAL 25(OH) VITAMIN D 58.3 NG/ML (20.0-100.0)
== END ==
LOC: SKLAB8 06:51
PROVIDERS: ATTEND Internal Medicine
DX: I10 Essential (primary) hypertension (principal); E11.9 Type 2 diabetes mellitus without complications; D64.9 Anemia, unspecified; Z79.899 Other long term (current) drug therapy

== ENCOUNTER → 2023-08-13 | Outpatient (REF) | payer MEDICARE, MEDICAID | LOC: SKLAB8 10:18 | PROVIDERS: ATTEND Internal Medicine | DX: M25.531 Pain in right wrist (principal) ==

== ENCOUNTER → 2023-09-12 | Outpatient (CLI) | payer MEDICARE, MEDICAID | LOC: M SOG 08:03 | PROVIDERS: ATTEND Physician Assistant | DX: S52.591A Other fractures of lower end of right radius, initial encounter for closed fracture (principal); W18.30XA Fall on same level, unspecified, initial encounter; Y92.009 Unspecified place in unspecified non-institutional (private) residence as the place of occurrence of the external cause ==

== ENCOUNTER → 2024-01-12 | Outpatient (REF) | payer MEDICARE, MEDICAID ==
[2024-01-12 09:28] LABS: BASO % 0.5 % (0.0-1.0); EOS # 0.2 10^3/uL (0.0-0.5); EOS % 1.8 % (0.0-3.0); HEMATOCRIT 44.6 % (36.0-47.0); MEAN CORPUSCULAR HGB CONC 29.1 g/dl (32.0-36.5); MEAN CORPUSCULAR VOLUME 89.2 fl (80.0-96.0); MONO # 0.4 10^3/uL (0.0-0.8); MONO % 4.6 % (2.0-8.0); NEUTROPHILS # 5.9 10^3/uL (1.5-8.5); NEUTROPHILS % 69.4 % (36.0-66.0); PLATELET COUNT, AUTOMATED 348 10^3/uL (150-450); WHITE BLOOD COUNT 8.5 10^3/uL (4.0-10.0)
[2024-01-12 09:54] LABS: CALCIUM LEVEL 9.9 MG/DL (8.3-10.6); CREATININE FOR GFR 1.06 MG/DL (0.55-1.30); GLOMERULAR FILTRATION RATE 54.6 (>39); POTASSIUM SERUM 4.5 MMOL/L (3.5-5.1)
== END ==
LOC: SKLAB8 07:04
PROVIDERS: ATTEND Internal Medicine
DX: I10 Essential (primary) hypertension (principal); E11.9 Type 2 diabetes mellitus without complications

== ENCOUNTER → 2024-01-12 | Outpatient (CLI) | payer MEDICARE, MEDICAID | LOC: M RAD 10:10 | PROVIDERS: ATTEND Internal Medicine | DX: M25.552 Pain in left hip (principal) ==

== ENCOUNTER → 2024-02-05 | Outpatient (REF) | payer MEDICARE, MEDICAID ==
[2024-02-05 07:05] LABS: HEMATOCRIT 40.5 % (36.0-47.0); HEMOGLOBIN 11.9 g/dl (12.0-15.5); MEAN CORPUSCULAR HEMOGLOBIN 26.2 pg (27.0-33.0); MEAN CORPUSCULAR HGB CONC 29.4 g/dl (32.0-36.5); MEAN CORPUSCULAR VOLUME 89.2 fl (80.0-96.0); PLATELET COUNT, AUTOMATED 315 10^3/uL (150-450); RED BLOOD COUNT 4.54 10^6/uL (4.00-5.40); WHITE BLOOD COUNT 7.1 10^3/uL (4.0-10.0)
[2024-02-05 07:25] LABS: ALBUMIN 3.3 G/DL (3.2-5.2); BILIRUBIN,TOTAL 0.2 MG/DL (0.3-1.2); CALCIUM LEVEL 9.3 MG/DL (8.3-10.6); CREATININE FOR GFR 1.07 MG/DL (0.55-1.30); POTASSIUM SERUM 4.6 MMOL/L (3.5-5.1); TOTAL PROTEIN 6.2 G/DL (5.7-8.2)
[2024-02-05 07:40] LABS: HEMOGLOBIN A1c 6.2 % (4.0-6.0)
== END ==
LOC: SKLAB8 06:20
PROVIDERS: ATTEND Internal Medicine
DX: E11.9 Type 2 diabetes mellitus without complications (principal); I10 Essential (primary) hypertension

== ENCOUNTER → 2024-03-17 | Outpatient (REF) | payer MEDICARE, MEDICAID ==
[2024-03-17 15:38] LABS: BASO # 0.1 10^3/uL (0.0-0.2); BASO % 0.5 % (0.0-1.0); EOS # 0.2 10^3/uL (0.0-0.5); EOS % 1.6 % (0.0-3.0); HEMATOCRIT 38.7 % (36.0-47.0); HEMOGLOBIN 11.7 g/dl (12.0-15.5); LYMPH # 2.1 10^3/uL (1.5-5.0); LYMPH % 19.6 % (24.0-44.0); MEAN CORPUSCULAR HEMOGLOBIN 27.1 pg (27.0-33.0); MEAN CORPUSCULAR HGB CONC 30.2 g/dl (32.0-36.5); MEAN CORPUSCULAR VOLUME 89.8 fl (80.0-96.0); MONO # 0.5 10^3/uL (0.0-0.8); MONO % 4.7 % (2.0-8.0); NEUTROPHILS # 7.9 10^3/uL (1.5-8.5); PLATELET COUNT, AUTOMATED 347 10^3/uL (150-450); RED BLOOD COUNT 4.31 10^6/uL (4.00-5.40); WHITE BLOOD COUNT 10.7 10^3/uL (4.0-10.0)
[2024-03-17 16:03] LABS: ALBUMIN 3.4 G/DL (3.2-5.2); BILIRUBIN,TOTAL 0.2 MG/DL (0.3-1.2); CALCIUM LEVEL 9.7 MG/DL (8.3-10.6); CREATININE FOR GFR 1.01 MG/DL (0.55-1.30); GLOMERULAR FILTRATION RATE 57.7 (>39); POTASSIUM SERUM 4.3 MMOL/L (3.5-5.1); TOTAL PROTEIN 6.5 G/DL (5.7-8.2)
[2024-03-17 16:06] LABS: THYROID STIMULATING HORMONE 0.721 uIU/ML (0.55-4.78)
== END ==
LOC: SKLAB8 14:41
PROVIDERS: ATTEND Internal Medicine
DX: G31.89 Other specified degenerative diseases of nervous system (principal); Z79.899 Other long term (current) drug therapy

== ENCOUNTER → 2024-05-20 | Outpatient (REF) | payer MEDICARE, MEDICAID ==
[~2024-05-20] MED LIST changes: +ADVA1AER9 INH; +APAP325T4 PO; +ARIC1TAB2 PO; +ATOR-398 PO; -CYCL5TAB PO; +CYCL5TAB4 PO; -LIPI80TA PO; +OMEP1CAP73 PO
[2024-05-20 08:20] LABS: BASO % 0.4 % (0.0-1.0); EOS # 0.2 10^3/uL (0.0-0.5); EOS % 2.4 % (0.0-3.0); HEMATOCRIT 40.7 % (36.0-47.0); LYMPH % 23.8 % (24.0-44.0); MEAN CORPUSCULAR HEMOGLOBIN 26.4 pg (27.0-33.0); MEAN CORPUSCULAR HGB CONC 29.5 g/dl (32.0-36.5); MEAN CORPUSCULAR VOLUME 89.6 fl (80.0-96.0); MONO # 0.4 10^3/uL (0.0-0.8); MONO % 5.3 % (2.0-8.0); NEUTROPHILS # 5.7 10^3/uL (1.5-8.5); NEUTROPHILS % 67.6 % (36.0-66.0); PLATELET COUNT, AUTOMATED 358 10^3/uL (150-450); RED BLOOD COUNT 4.54 10^6/uL (4.00-5.40); WHITE BLOOD COUNT 8.4 10^3/uL (4.0-10.0)
[2024-05-20 08:49] LABS: ALBUMIN 2.9 G/DL (3.2-5.2); ALKALINE PHOSPHATASE 124 U/L (35-104); ALT/SGPT 11 U/L (7.0-40); AST/SGOT 10 U/L (<34); BILIRUBIN,TOTAL 0.2 MG/DL (0.3-1.2); BLOOD UREA NITROGEN 20 MG/DL (9-23); CALCIUM LEVEL 9.8 MG/DL (8.3-10.6); CARBON DIOXIDE LEVEL 28 MMOL/L (20-31); CHLORIDE LEVEL 110 MMOL/L (98-107); CREATININE FOR GFR 0.97 MG/DL (0.55-1.30); GLOMERULAR FILTRATION RATE > 60.0 (>39); GLUCOSE, FASTING 109 MG/DL (74-106); POTASSIUM SERUM 4.3 MMOL/L (3.5-5.1); SODIUM LEVEL 142 MMOL/L (136-145); TOTAL PROTEIN 6.1 G/DL (5.7-8.2)
[2024-05-20 08:52] LABS: THYROID STIMULATING HORMONE 1.109 uIU/ML (0.55-4.78)
== END ==
LOC: SKLAB8 07:00
PROVIDERS: ATTEND Internal Medicine
DX: R60.0 Localized edema (principal); R53.83 Other fatigue; N18.30 Chronic kidney disease, stage 3 unspecified

== ENCOUNTER 2024-08-11 19:22 | Emergency (ER) | payer MEDICARE, MEDICAID ==
[~2024-08-11] VITALS: Ht 152.4 cm; Wt 88.5 kg
[~2024-08-11 19:22] MED LIST changes: -CEFD1CAP9 PO
[2024-08-11 20:25] LABS: BASO % 0.4 % (0.0-1.0); EOS % 0.4 % (0.0-3.0); HEMATOCRIT 40.5 % (36.0-47.0); HEMOGLOBIN 12.2 g/dl (12.0-15.5); LYMPH # 0.6 10^3/uL (1.5-5.0); LYMPH % 7.3 % (24.0-44.0); MEAN CORPUSCULAR HGB CONC 30.1 g/dl (32.0-36.5); MEAN CORPUSCULAR VOLUME 89.6 fl (80.0-96.0); MONO # 0.8 10^3/uL (0.0-0.8); MONO % 9.5 % (2.0-8.0); NEUTROPHILS # 6.6 10^3/uL (1.5-8.5); NEUTROPHILS % 81.4 % (36.0-66.0); PLATELET COUNT, AUTOMATED 301 10^3/uL (150-450); RED BLOOD COUNT 4.52 10^6/uL (4.00-5.40); WHITE BLOOD COUNT 8.1 10^3/uL (4.0-10.0)
[2024-08-11 20:41] LABS: KETONE, URINE AUTO RFX NEGATIVE (NEGATIVE); MUCUS, URINE RFX SMALL (NEGATIVE); RBC, URINE AUTO RFX 4 /HPF (0-3); SQUAM EPITHELIAL CELL UR AURFX 1 /HPF (0-6)
[2024-08-11] MEDS: ACETAMINOPHEN 325 MG TAB PO ONE (20:41)
[2024-08-11 20:43] LABS: LEUKOCYTE ESTERASE UR AUTO RFX 3+ (NEGATIVE); NITRITE, URINE AUTO RFX POSITIVE (NEGATIVE); WBC, URINE AUTO RFX 105 /HPF (0-3)
[2024-08-11 20:47] LABS: CK-MB VALUE MASS < 1.0 NG/ML (<3.6)
[2024-08-11 20:50] LABS: CPK CREATINE PHOSPHOKINASE 89 U/L (34-145); MB/CK RELATIVE INDEX 1.12 (< OR =4)
[2024-08-11 20:57] LABS: ALBUMIN 3.6 G/DL (3.2-5.2); ALKALINE PHOSPHATASE 147 U/L (35-104); ALT/SGPT 25 U/L (7.0-40); AST/SGOT 32 U/L (<34); BILIRUBIN,DIRECT 0.1 MG/DL (<0.4); BILIRUBIN,TOTAL 0.4 MG/DL (0.3-1.2); BLOOD UREA NITROGEN 16 MG/DL (9-23); CALCIUM LEVEL 9.2 MG/DL (8.3-10.6); CARBON DIOXIDE LEVEL 27 MMOL/L (20-31); CHLORIDE LEVEL 103 MMOL/L (98-107); CREATININE FOR GFR 1.08 MG/DL (0.55-1.30); GLOMERULAR FILTRATION RATE 53.4 (>39); GLUCOSE, FASTING 103 MG/DL (74-106); POTASSIUM SERUM 4.2 MMOL/L (3.5-5.1); SODIUM LEVEL 140 MMOL/L (136-145); TOTAL PROTEIN 6.9 G/DL (5.7-8.2)
[2024-08-11] MEDS ORDERED: CEFD1CAP9 PO (22:04)
[2024-08-11] MEDS: cefTRIAXone SOD 1 GM in DEXTROSE 5% (D5W) ADV/MINI-BAG 50 ML IV ONE (22:32)
[2024-08-11 23:00] VITALS: BP 113/52
[2024-08-11 23:07] VITALS: TEMP 97.8; O2SAT 91
== END 2024-08-11 23:29 | disposition home or self-care (01) ==
LOC: M ED 19:22 → EDBD 19:22 → M ED 23:29
DX: N39.0 Urinary tract infection, site not specified (principal); R29.6 Repeated falls; E11.9 Type 2 diabetes mellitus without complications; J45.909 Unspecified asthma, uncomplicated; K21.9 Gastro-esophageal reflux disease without esophagitis; Z86.73 Personal history of transient ischemic attack (TIA), and cerebral infarction without residual deficits; F03.94 Unspecified dementia, unspecified severity, with anxiety; Z88.8 Allergy status to other drugs, medicaments and biological substances; Z79.1 Long term (current) use of non-steroidal anti-inflammatories (NSAID); Z79.2 Long term (current) use of antibiotics; Z79.899 Other long term (current) drug therapy
CPT/HCPCS: 51701; 70450; 71045; 72125; 80048; 80076; 81001; 82550; 82553; 83605; 84484; 85025; 87040; 87088; 87186; 87486; 87581; 87633; 87798; 93005; 93041; 94760; 96365; 99285; J0696

== ENCOUNTER → 2024-08-11 | Outpatient (REF) | payer MEDICARE, MEDICAID ==
[~2024-08-11] MED LIST changes: +CEFD1CAP9 PO
[2024-08-11 14:15] LABS: HEMATOCRIT 42.6 % (36.0-47.0); MEAN CORPUSCULAR HEMOGLOBIN 27.2 pg (27.0-33.0); MEAN CORPUSCULAR HGB CONC 30.5 g/dl (32.0-36.5); MEAN CORPUSCULAR VOLUME 89.1 fl (80.0-96.0); PLATELET COUNT, AUTOMATED 316 10^3/uL (150-450); RED BLOOD COUNT 4.78 10^6/uL (4.00-5.40); WHITE BLOOD COUNT 8.1 10^3/uL (4.0-10.0)
[2024-08-11 14:48] LABS: ALBUMIN 3.5 G/DL (3.2-5.2); BILIRUBIN,TOTAL 0.2 MG/DL (0.3-1.2); CALCIUM LEVEL 8.9 MG/DL (8.3-10.6); CREATININE FOR GFR 0.99 MG/DL (0.55-1.30); POTASSIUM SERUM 4.2 MMOL/L (3.5-5.1); TOTAL PROTEIN 6.8 G/DL (5.7-8.2)
== END ==
LOC: SKLAB8 07:00
PROVIDERS: ATTEND Internal Medicine
DX: R50.9 Fever, unspecified (principal)

== ENCOUNTER → 2024-08-12 | Outpatient (REF) | payer MEDICARE, MEDICAID ==
[~2024-08-12] MED LIST changes: +CEFD1CAP9 PO
[2024-08-12 08:04] LABS: TOTAL 25(OH) VITAMIN D 51.5 NG/ML (20.0-100.0)
[2024-08-12 08:12] LABS: ALBUMIN 3.5 G/DL (3.2-5.2); BILIRUBIN,TOTAL 0.2 MG/DL (0.3-1.2); CALCIUM LEVEL 9.2 MG/DL (8.3-10.6); CHOLESTEROL RISK RATIO 2.98 (<5); CREATININE FOR GFR 1.01 MG/DL (0.55-1.30); GLOMERULAR FILTRATION RATE 57.7 (>39); HDL CHOLESTEROL 46.3 MG/DL (>40); LDL CHOLESTEROL 68.1 MG/DL (<100); NON-HDL-C 91.7 MG/DL
[2024-08-12 11:54] LABS: HEMOGLOBIN 12.3 g/dl (12.0-15.5); MEAN CORPUSCULAR HEMOGLOBIN 26.9 pg (27.0-33.0); MEAN CORPUSCULAR VOLUME 89.5 fl (80.0-96.0); PLATELET COUNT, AUTOMATED 267 10^3/uL (150-450); RED BLOOD COUNT 4.58 10^6/uL (4.00-5.40); WHITE BLOOD COUNT 7.6 10^3/uL (4.0-10.0)
[2024-08-12 12:33] LABS: HEMOGLOBIN A1c 5.7 % (4.0-6.0)
== END ==
LOC: SKLAB8 07:00
PROVIDERS: ATTEND Internal Medicine
DX: I10 Essential (primary) hypertension (principal); E11.9 Type 2 diabetes mellitus without complications; Z79.899 Other long term (current) drug therapy

== ENCOUNTER → 2024-08-31 | Outpatient (REF) | payer MEDICARE, MEDICAID | LOC: SKLAB8 07:00 | PROVIDERS: ATTEND Internal Medicine | DX: R05.9 Cough, unspecified (principal) ==

== ENCOUNTER → 2024-09-03 | Outpatient (REF) | payer MEDICARE, MEDICAID | LOC: SKLAB8 06:54 | PROVIDERS: ATTEND Internal Medicine | DX: Z53.8 Procedure and treatment not carried out for other reasons (principal) ==

== ENCOUNTER → 2024-09-03 | Outpatient (REF) | payer MEDICARE, MEDICAID ==
[2024-09-03 08:41] LABS: CHOLESTEROL RISK RATIO 4.11 (<5); HDL CHOLESTEROL 31.8 MG/DL (>40); LDL CHOLESTEROL 70.4 MG/DL (<100); NON-HDL-C 99.2 MG/DL
== END ==
LOC: SKLAB8 06:49
PROVIDERS: ATTEND Internal Medicine
DX: E78.5 Hyperlipidemia, unspecified (principal)

== ENCOUNTER → 2024-09-17 | Outpatient (REF) | payer MEDICARE, MEDICAID ==
[2024-09-17 15:29] LABS: APPEARANCE, URINE CLEAR (CLEAR); BACTERIA, URINE AUTO NEGATIVE (NEGATIVE); BILIRUBIN, URINE AUTO NEGATIVE (NEGATIVE); BLOOD, URINE BLOOD NEGATIVE (NEGATIVE); COLOR, URINE YELLOW (YELLOW); GLUCOSE, URINE (UA) AUTO NEGATIVE (NEGATIVE); KETONE, URINE AUTO NEGATIVE (NEGATIVE); LEUKOCYTE ESTERASE, URINE AUTO TRACE (NEGATIVE); MUCUS, URINE SMALL (NEGATIVE); NITRITE, URINE AUTO NEGATIVE (NEGATIVE); PROTEIN, URINE AUTO 1+ mg/dL (NEGATIVE); RBC, URINE AUTO 0 /HPF (0-3); SPECIFIC GRAVITY URINE AUTO 1.025 (1.002-1.035); SQUAMOUS EPITHELIAL CELL UR AU 0 /HPF (0-6); UROBILINOGEN, URINE AUTO 0.2 mg/dL (0.0-2.0); WBC, URINE AUTO 3 /HPF (0-3)
== END ==
LOC: SKLAB8 14:54
PROVIDERS: ATTEND Internal Medicine
DX: D72.829 Elevated white blood cell count, unspecified (principal); Z79.899 Other long term (current) drug therapy

== ENCOUNTER → 2024-09-17 | Outpatient (REF) | payer MEDICARE, MEDICAID ==
[2024-09-17 12:28] LABS: BASO % 0.2 % (0.0-1.0); EOS # 0.2 10^3/uL (0.0-0.5); EOS % 1.3 % (0.0-3.0); HEMATOCRIT 45.4 % (36.0-47.0); HEMOGLOBIN 13.7 g/dl (12.0-15.5); LYMPH # 0.7 10^3/uL (1.5-5.0); LYMPH % 4.2 % (24.0-44.0); MEAN CORPUSCULAR HEMOGLOBIN 27.5 pg (27.0-33.0); MEAN CORPUSCULAR HGB CONC 30.2 g/dl (32.0-36.5); MONO # 0.9 10^3/uL (0.0-0.8); MONO % 5.2 % (2.0-8.0); NEUTROPHILS # 15.3 10^3/uL (1.5-8.5); NEUTROPHILS % 88.3 % (36.0-66.0); PLATELET COUNT, AUTOMATED 308 10^3/uL (150-450); RED BLOOD COUNT 4.99 10^6/uL (4.00-5.40); WHITE BLOOD COUNT 17.3 10^3/uL (4.0-10.0)
[2024-09-17 12:56] LABS: BLOOD UREA NITROGEN 28 MG/DL (9-23); CALCIUM LEVEL 9.5 MG/DL (8.3-10.6); CARBON DIOXIDE LEVEL 30 MMOL/L (20-31); CHLORIDE LEVEL 105 MMOL/L (98-107); CREATININE FOR GFR 0.87 MG/DL (0.55-1.30); GLOMERULAR FILTRATION RATE > 60.0 (>39); GLUCOSE, FASTING 121 MG/DL (74-106); POTASSIUM SERUM 4.8 MMOL/L (3.5-5.1); SODIUM LEVEL 143 MMOL/L (136-145)
== END ==
LOC: SKLAB8 10:58
PROVIDERS: ATTEND Internal Medicine
DX: R11.2 Nausea with vomiting, unspecified (principal); R19.7 Diarrhea, unspecified

== ENCOUNTER → 2024-10-08 | Outpatient (REF) | payer MEDICARE, MEDICAID ==
[~2024-10-08] MED LIST changes: -AMBI10TA PO; -FLOM0.4C39 PO; +PREG-35; +PREG-35 PO; -PREG100CA; -PREG100CA PO; -PREG25CA PO; +PREG25CA63 PO; +TAMS-18 PO; +ZOLP-533 PO
[2024-10-08 08:48] LABS: HEMOGLOBIN 12.5 g/dl (12.0-15.5); MEAN CORPUSCULAR HEMOGLOBIN 27.5 pg (27.0-33.0); MEAN CORPUSCULAR HGB CONC 29.8 g/dl (32.0-36.5); MEAN CORPUSCULAR VOLUME 92.3 fl (80.0-96.0); PLATELET COUNT, AUTOMATED 346 10^3/uL (150-450); RED BLOOD COUNT 4.55 10^6/uL (4.00-5.40); WHITE BLOOD COUNT 7.8 10^3/uL (4.0-10.0)
== END ==
LOC: SKLAB8 07:00
PROVIDERS: ATTEND Internal Medicine
DX: D64.9 Anemia, unspecified (principal)

== ENCOUNTER → 2025-01-18 | Outpatient (REF) | payer MEDICARE, MEDICAID ==
[~2025-01-18] MED LIST changes: +LIDO1ADH93 TD; +LIDO1ADH93 TOP; -LIDO5DIS41 TD; -LIDO5DIS41 TOP
[2025-01-18 08:28] LABS: PLATELET COUNT, AUTOMATED 328 10^3/uL (150-450)
[2025-01-18 08:59] LABS: CALCIUM LEVEL 8.7 MG/DL (8.3-10.6); CARBON DIOXIDE LEVEL 27.0 MMOL/L (20-31); CHLORIDE LEVEL 108.0 MMOL/L (98-107); CREATININE FOR GFR 0.89 MG/DL (0.55-1.30); GLOMERULAR FILTRATION RATE 69.3 (>39); POTASSIUM SERUM 4.2 MMOL/L (3.5-5.1); SODIUM LEVEL 146.0 MMOL/L (136-145)
== END ==
LOC: SKLAB8 07:52
PROVIDERS: ATTEND Internal Medicine
DX: R11.2 Nausea with vomiting, unspecified (principal); R19.7 Diarrhea, unspecified

== ENCOUNTER → 2025-02-03 | Outpatient (REF) | payer MEDICARE, MEDICAID ==
[~2025-02-03] MED LIST changes: +CYAN250T5 PO; -VITA250T7 PO
[2025-02-03 08:47] LABS: PLATELET COUNT, AUTOMATED 327 10^3/uL (150-450)
[2025-02-03 09:06] LABS: ALT/SGPT 10.0 U/L (7.0-40); AST/SGOT 18.0 U/L (<34); CALCIUM LEVEL 9.2 MG/DL (8.3-10.6); CARBON DIOXIDE LEVEL 28.0 MMOL/L (20-31); CHLORIDE LEVEL 108.0 MMOL/L (98-107); CREATININE FOR GFR 0.95 MG/DL (0.55-1.30); GLOMERULAR FILTRATION RATE 64.1 (>39); POTASSIUM SERUM 4.6 MMOL/L (3.5-5.1); SODIUM LEVEL 147.0 MMOL/L (136-145)
[2025-02-03 09:51] LABS: ESTIMATED AVERAGE GLUCOSE 123.0 MG/DL (60-110)
== END ==
LOC: SKLAB8 07:00
PROVIDERS: ATTEND Internal Medicine
DX: I10 Essential (primary) hypertension (principal); E11.9 Type 2 diabetes mellitus without complications

== ENCOUNTER → 2025-03-12 | Outpatient (REF) | payer MEDICARE, MEDICAID ==
[~2025-03-12] MED LIST changes: +ZOLP10TA11; -ZOLP10TA2
== END ==
LOC: SKLAB8 07:00
PROVIDERS: ATTEND Nurse Practitioner Adult Health
DX: R09.89 Other specified symptoms and signs involving the circulatory and respiratory systems (principal)

== ENCOUNTER → 2025-03-29 | Outpatient (REF) | payer MEDICARE, MEDICAID ==
[2025-03-29 10:44] LABS: PLATELET COUNT, AUTOMATED 460 10^3/uL (150-450)
[2025-03-29 11:24] LABS: ALT/SGPT 15.0 U/L (7.0-40); AST/SGOT 20.0 U/L (<34); CALCIUM LEVEL 9.8 MG/DL (8.3-10.6); CARBON DIOXIDE LEVEL 29.0 MMOL/L (20-31); CHLORIDE LEVEL 104.0 MMOL/L (98-107); CHOLESTEROL LEVEL 243.0 MG/DL (<200); CHOLESTEROL RISK RATIO 5.19 (<5); CREATININE FOR GFR 0.92 MG/DL (0.55-1.30); GLOMERULAR FILTRATION RATE 66.6 (>39); LDL CHOLESTEROL 152.2 MG/DL (<100); NON-HDL-C 196.2 MG/DL; POTASSIUM SERUM 4.5 MMOL/L (3.5-5.1); SODIUM LEVEL 145.0 MMOL/L (136-145); TRIGLYCERIDES LEVEL 220.0 MG/DL (<150)
[2025-03-29 12:19] LABS: ESTIMATED AVERAGE GLUCOSE 128.0 MG/DL (60-110)
== END ==
LOC: SKLAB8 07:00
PROVIDERS: ATTEND Family Medicine
DX: N18.9 Chronic kidney disease, unspecified (principal); D64.9 Anemia, unspecified; Z79.899 Other long term (current) drug therapy